=== PATIENT | female | born 1955 | race Caucasian/White ===

== ENCOUNTER 2020-01-20 09:00 | Outpatient (REF) | payer OTHER, SELFPAY | END 2020-01-20 09:01 | disposition home or self-care (01) | LOC: HO.HMGCLDS 09:00 | PROVIDERS: PCP Internal Medicine; Visit Provider Internal Medicine | DX: Z20.828 Contact with and (suspected) exposure to other viral communicable diseases (principal) | CPT/HCPCS: 87635 ==

== ENCOUNTER 2020-03-20 13:51 | Outpatient (REF) | payer OTHER, SELFPAY ==
--- NOTE | 2020-03-20 | MM_ITS ---
EXAMINATION: MM DIAGNOSTIC DIGITAL BREAST TOMOSYNTHESIS, LEFT CLINICAL INFORMATION: Short interval follow-up probable benign calcifications upper outer left breast. No known family history breast cancer. TC score 4%. COMPARISON: Mammography: 09/14/2019, 03/02/2019, 08/28/2018, 08/20/2018 (BI-RADS 0), 07/15/2017, 06/20/2016 TECHNIQUE: Digital breast tomosynthesis is performed in both the craniocaudal and mediolateral oblique views along with computer-aided detection (CAD). Synthesized 2D images are generated from the tomosynthesis. Additional magnification CC and magnification ML views are obtained. FINDINGS: There are scattered areas of fibroglandular density (ACR BI-RADS breast composition Category b). Parenchymal pattern is similar to prior exams. There is fine fibronodular parenchymal pattern. No developing density or interval mass or architectural abnormality. The calcifications for follow-up mid upper outer quadrant are stable from prior diagnostic studies and likely chronic, similar to 2017 and 2016. They will be reassessed again at time of annual bilateral mammography to conclude long-term surveillance, due in 6 months. Results are provided to the patient at time of visit by the technologist. MM/MM tomosynthesis diagnostic LT IMPRESSION: 1. Fine fibronodular parenchymal pattern similar to prior studies. 2. Calcifications for follow-up stable from prior diagnostic studies. ASSESSMENT: BI-RADS 3: Probably Benign RECOMMENDATION: Diagnostic mammography at time of annual bilateral mammography, due in 6 months. This patient's information was entered into a reminder system with a target due date for their next mammogram.
== END 2020-03-20 13:52 | disposition home or self-care (01) ==
LOC: HO.MAMMO 13:51
PROVIDERS: PCP Internal Medicine; Visit Provider Internal Medicine
DX: R92.2 Inconclusive mammogram (principal)
CPT/HCPCS: 77061; 77065

== ENCOUNTER 2020-05-03 07:22 | Outpatient (REF) | payer OTHER, SELFPAY ==
[2020-05-03 11:11] LABS: MANUAL DIFF FLAG NO
[2020-05-03 11:25] LABS: Glucose Urine UA NEG (NEG); Leukocyte Esterase Urine NEG (NEG); Nitrite Urine NEG (NEG); Urine Blood NEG (NEG); Urine Ketones NEG (NEG); Urine Protein NEG (NEG-TRACE)
[2020-05-03 11:29] LABS: Appearance Urine CLEAR; Color Urine YELLOW
[2020-05-03 11:32] LABS: Estimated Average Glucose 105 mg/dL; Hemoglobin A1c % 5.3 %
[2020-05-03 11:34] LABS: Basophils Absolute Auto 0.1 X10*3/uL (0.0-0.2); Basophils Percent Auto 0.9 % (0-2); Eosinophils Absolute Auto 0.1 X10*3/uL (0.0-0.4); Eosinophils Percent Auto 1.7 % (0-4); Hematocrit 37.7 % (37-47); Hemoglobin 11.5 g/dl (12.0-16.0); Imm Gran Abs Auto 0.02 X10*3/uL (0.00-0.03); Imm Gran Pct Auto 0.2 % (0.0-0.4); Lymphocytes Absolute Auto 2.2 X10*3/uL (1.2-4.9); Lymphocytes Percent Auto 25.5 % (20-40); Mean Corpuscular HGB Conc 30.5 g/dl (31.0-35.0); Mean Corpuscular Hemoglobin 25.1 pg (27.0-33.0); Mean Corpuscular Volume 82.1 fL (80-98); Mean Platelet Volume 11.3 fL (9.4-12.3); Monocytes Absolute Auto 0.7 X10*3/uL (0.1-1.2); Monocytes Percent Auto 8.7 % (2-11); Neutrophils Absolute Auto 5.3 X10*3/uL (2.0-8.3); Platelet Count 320 X10*3/uL (160-400); Red Blood Count 4.59 X10*6/uL (4.20-5.50); Red Cell Distribution Width 14.9 % (11.0-16.0); White Blood Count 8.5 X10*3/uL (4.8-10.8)
[2020-05-03 11:59] LABS: TSH reflex Free T4 4.13 uIU/mL (0.32-4.0)
[2020-05-03 12:01] LABS: Alanine Aminotransferase 19 U/L (0-31); Albumin Level 4.1 g/dL (3.5-5.0); Alkaline Phosphatase 80 U/L (39-117); Anion Gap 15 (12-20); Aspartate Amino Transferase 20 U/L (5-31); Bilirubin Total 0.4 mg/dL (0.0-1.0); Blood Urea Nitrogen 24 mg/dL (9-16); Carbon Dioxide 28 mmol/L (22-29); Chloride 104 mmol/L (96-108); Cholesterol 168 mg/dL; Estimated Glomerular Filt Rate > 60; Glucose Fasting 101 mg/dL (60-99); HDL Cholesterol 56 mg/dL; LDL Cholesterol Calculated 86 mg/dl; Potassium 4.1 mmol/L (3.3-5.1); Sodium 143 mmol/L (135-145); Total Protein 6.7 g/dL (6.5-8.0); Triglycerides 131 mg/dL
[2020-05-03 12:20] LABS: Calcium Oxalate Crystals Urine 1+ /LPF; Mucus Urine TRACE /LPF; RBC Urine 0 /HPF (0); Squamous Epithelial Cell Urine TRACE /LPF; WBC Urine 0 /HPF (0-4)
[2020-05-03 12:35] LABS: Free T4 (Free Thyroxine) 0.97 ng/dL (0.71-1.85)
== END 2020-05-03 07:23 | disposition home or self-care (01) ==
LOC: HO.HMGCLDS 07:22
PROVIDERS: PCP Internal Medicine; Visit Provider Internal Medicine
DX: I10 Essential (primary) hypertension (principal); R00.2 Palpitations; R73.01 Impaired fasting glucose; J44.9 Chronic obstructive pulmonary disease, unspecified; K21.9 Gastro-esophageal reflux disease without esophagitis; E66.9 Obesity, unspecified
CPT/HCPCS: 36415; 80053; 80061; 81001; 83036; 84439; 84443; 85025

== ENCOUNTER 2020-08-18 08:37 | Outpatient (REF) | payer OTHER, SELFPAY ==
[2020-08-18 11:48] LABS: Imm Gran Abs Auto 0.04 X10*3/uL (0.00-0.03); Imm Gran Pct Auto 0.5 % (0.0-0.4); Red Blood Count 4.49 X10*6/uL (4.20-5.50); Red Cell Distribution Width 15.9 % (11.0-16.0)
[2020-08-18 11:50] LABS: Basophils Absolute Auto 0.1 X10*3/uL (0.0-0.2); Basophils Percent Auto 0.6 % (0-2); Eosinophils Absolute Auto 0.2 X10*3/uL (0.0-0.4); Eosinophils Percent Auto 2.1 % (0-4); Hematocrit 36.3 % (37-47); Hemoglobin 11.5 g/dl (12.0-16.0); Lymphocytes Absolute Auto 1.6 X10*3/uL (1.2-4.9); Lymphocytes Percent Auto 18.8 % (20-40); Mean Corpuscular HGB Conc 31.7 g/dl (31.0-35.0); Mean Corpuscular Hemoglobin 25.6 pg (27.0-33.0); Mean Corpuscular Volume 80.8 fL (80-98); Monocytes Absolute Auto 0.7 X10*3/uL (0.1-1.2); Monocytes Percent Auto 7.8 % (2-11); Neutrophils Absolute Auto 5.9 X10*3/uL (2.0-8.3); Neutrophils Percent Auto 70.2 % (45-73); Platelet Count 278 X10*3/uL (160-400); White Blood Count 8.4 X10*3/uL (4.8-10.8)
[2020-08-18 12:03] LABS: Alanine Aminotransferase 20 U/L (0-31); Alkaline Phosphatase 76 U/L (39-117); Anion Gap 15 (12-20); Aspartate Amino Transferase 21 U/L (5-31); Bilirubin Total 0.4 mg/dL (0.0-1.0); Blood Urea Nitrogen 24 mg/dL (9-16); Carbon Dioxide 25 mmol/L (22-29); Chloride 106 mmol/L (96-108); Cholesterol 185 mg/dL; Estimated Glomerular Filt Rate > 60; Glucose Fasting 107 mg/dL (60-99); HDL Cholesterol 60 mg/dL; LDL Cholesterol Calculated 103 mg/dl; Sodium 142 mmol/L (135-145); Total Protein 6.6 g/dL (6.5-8.0); Triglycerides 110 mg/dL
[2020-08-18 12:16] LABS: MANUAL DIFF FLAG NO; PLT ABN DIST NO; SCAN SMEAR FLAG NO
== END 2020-08-18 08:38 | disposition home or self-care (01) ==
LOC: HO.HMGCLDS 08:37
PROVIDERS: PCP Internal Medicine; Visit Provider Internal Medicine
DX: M16.12 Unilateral primary osteoarthritis, left hip (principal); K59.00 Constipation, unspecified; K21.9 Gastro-esophageal reflux disease without esophagitis; J44.9 Chronic obstructive pulmonary disease, unspecified; R73.01 Impaired fasting glucose; I10 Essential (primary) hypertension
CPT/HCPCS: 36415; 80053; 80061; 85025

== ENCOUNTER 2020-08-18 10:37 | Outpatient (REF) | payer OTHER, SELFPAY ==
--- NOTE | ~2020-08-18 | XR_ITS ---
EXAMINATION: XR HIP, LEFT CLINICAL INFORMATION: Pain left hip COMPARISON: None TECHNIQUE: AP one view. Two views of the left hip. FINDINGS: AP PELVIS: There is normal symmetry of bilateral hip joints and SI joints. No visible fracture, dislocation or subluxation seen. No bony abnormality seen. AP and frog-leg views of left hip reveal moderate lateral acetabular inferior femoral head spurring. No bony erosive changes. No acute fracture or lytic process seen. The soft tissues are normal. XR/XR hip LT w PEL1V IMPRESSION: Mild degenerative changes left hip joint. No visible acute fracture or dislocation seen. The SI joints are symmetrical and normal. The right hip joint is normal.
== END 2020-08-18 10:38 | disposition home or self-care (01) ==
LOC: HO.HOSX 10:37
PROVIDERS: Visit Provider Orthopaedic Surgery
DX: M25.552 Pain in left hip (principal)
CPT/HCPCS: 73502

== ENCOUNTER → 2020-08-22 08:44 | Outpatient (BNVA) | payer OTHER, SELFPAY | PROVIDERS: PCP Internal Medicine; Visit Provider Nurse Practitioner Family ==

== ENCOUNTER 2020-09-18 12:18 | Outpatient (REF) | payer OTHER, SELFPAY ==
--- NOTE | ~2020-09-18 | MM_ITS ---
EXAMINATION: MM DIAGNOSTIC DIGITAL BREAST TOMOSYNTHESIS, BILATERAL CLINICAL INFORMATION: Right breast nodular densities. Left breast calcifications. The lifetime risk of breast cancer based on the Tyrer-Cuzick Model is 4.8%. COMPARISON: Mammography: March 20, 2020 and May 12, 2015 TECHNIQUE: Digital breast tomosynthesis is performed in both the craniocaudal and mediolateral oblique views along with computer-aided detection (CAD). Synthesized 2D images are generated from the tomosynthesis. Spot magnification views left breast in craniocaudal and 90 degree mediolateral views. FINDINGS: There are scattered areas of fibroglandular density (ACR BI-RADS breast composition Category b). There is a stable parenchymal pattern to the right breast without new abnormal dominant mass or suspicious grouping of microcalcifications. Within the upper outer aspect of the left breast the calcifications appear essentially stable. There is a change in appearance between craniocaudal and 90 degree mediolateral views with the appearance of calcium within microcysts. Results are provided to the patient at time of visit by the technologist. MM/MM tomosynthesis diagnostic BI IMPRESSION: There are no significant changes from prior study. ASSESSMENT: BI-RADS 2: Benign RECOMMENDATION: Routine annual mammography screening due in 12 months. This patient's information was entered into a reminder system with a target due date for their next mammogram.
== END 2020-09-18 12:19 | disposition home or self-care (01) ==
LOC: HO.MAMMO 12:18
PROVIDERS: Visit Provider Internal Medicine
DX: R92.1 Mammographic calcification found on diagnostic imaging of breast (principal)
CPT/HCPCS: 77062; 77066

== ENCOUNTER 2020-09-21 13:00 | Outpatient (REF) | payer OTHER, SELFPAY ==
--- NOTE | ~2020-09-21 | FL_ITS ---
PROCEDURE: XR ARTHROGRAM HIP, LEFT CLINICAL INFORMATION: Primary osteoarthritis left hip. COMPARISON: XR left hip 08/18/2020. TECHNIQUE: Following explaining left hip steroid injection procedure, benefits and risk, a written consent was obtained. Patient was placed supine on fluoroscopy table and anterior aspect of the left hip joint was cleaned and draped in usual sterile manner. 1% lidocaine was injected overlying the left hip. A 22-gauge spinal needle was then advanced from the skin to the lateral aspect of femoral head and neck junction and 2 mL of nonionic contrast was injected and a single image obtained. Initially the contrast appeared to be in the subcutaneous soft tissues. Subsequently the needle was manipulated into the joint space. After confirming position of needle into the joint space, 3 mL of 1% lidocaine, 3 mL of 0.25% Sensorcaine and 1 mL of 80 mg of methylprednisolone was injected and needle withdrawn. Complete hemostasis was achieved at puncture site. Sterile Band-Aid applied postprocedure. Patient tolerated procedure extremely well. FINDINGS: There is significant loss of left hip joint space with minimal periarticular spurring. No fracture or loose body seen. Successful fluoroscopy-guided left hip steroid injection performed. FLUOROSCOPY TIME: 2.3 minutes. DOSE AREA PRODUCT: 16.892 uGy-m2 (microgray-meter squared). FL/FL arthrogram hip LT IMPRESSION: Successful fluoroscopy-guided left hip steroid injection performed without immediate complications.
== END 2020-09-21 13:01 | disposition home or self-care (01) ==
LOC: HO.XRAY 13:00
PROVIDERS: PCP Internal Medicine; Visit Provider Orthopaedic Surgery
DX: M16.12 Unilateral primary osteoarthritis, left hip (principal)
CPT/HCPCS: 27093; 73525

== ENCOUNTER 2021-02-02 08:02 | Outpatient (REF) | payer OTHER, SELFPAY ==
--- NOTE | ~2021-02-02 | XR_ITS ---
EXAMINATION: XR CHEST CLINICAL INFORMATION: Cough COMPARISON: Previous chest x-ray August 2018 TECHNIQUE: 2 views of the chest were obtained. FINDINGS: The cardiac and mediastinal contours are stable. The lungs are clear. There is no pleural effusion or pneumothorax. There are degenerative changes of the spine. XR/XR chest 2V IMPRESSION: Unremarkable examination.
[2021-02-02 11:23] LABS: MANUAL DIFF FLAG NO
[2021-02-02 11:34] LABS: Basophils Absolute Auto 0.1 X10*3/uL (0.0-0.2); Eosinophils Absolute Auto 0.1 X10*3/uL (0.0-0.4); Eosinophils Percent Auto 1.1 % (0-4); Hematocrit 40.4 % (37.0-47.0); Hemoglobin 14.1 g/dl (12.0-16.0); Imm Gran Abs Auto 0.04 X10*3/uL (0.00-0.03); Imm Gran Pct Auto 0.5 % (0.0-0.4); Lymphocytes Absolute Auto 1.8 X10*3/uL (1.2-4.9); Lymphocytes Percent Auto 21.5 % (20-40); Mean Corpuscular HGB Conc 34.9 g/dl (31.0-35.0); Mean Corpuscular Hemoglobin 30.9 pg (27.0-33.0); Mean Corpuscular Volume 88.6 fL (80.0-98.0); Mean Platelet Volume 12.5 fL (9.4-12.3); Monocytes Absolute Auto 0.7 X10*3/uL (0.1-1.2); Monocytes Percent Auto 7.9 % (2-11); Neutrophils Absolute Auto 5.7 x10*3/uL (2.0-8.3); Platelet Count 278 X10*3/uL (160-400); Red Blood Count 4.56 X10*6/uL (4.20-5.50); Red Cell Distribution Width 12.8 % (11.0-16.0); White Blood Count 8.4 X10*3/uL (4.8-10.8)
[2021-02-02 11:48] LABS: Appearance Urine CLEAR; Color Urine YELLOW; Glucose Urine UA NEG (NEG); Leukocyte Esterase Urine NEG (NEG); Nitrite Urine NEG (NEG); PH 6.5 (5.0-8.0); Specific Gravity - Urine 1.015 (1.005-1.025); Urine Blood NEG (NEG); Urine Ketones NEG (NEG); Urine Protein TRACE MG/DL (NEG-TRACE)
[2021-02-02 12:05] LABS: Alanine Aminotransferase 18 U/L (0-31); Albumin Level 3.9 g/dL (3.5-5.0); Alkaline Phosphatase 76 U/L (39-117); Anion Gap 15 (12-20); Aspartate Amino Transferase 19 U/L (5-31); Bilirubin Total 0.7 mg/dL (0.0-1.0); Blood Urea Nitrogen 16 mg/dL (9-16); Carbon Dioxide 24 mmol/L (22-29); Chloride 106 mmol/L (96-108); Cholesterol 165 mg/dL; Estimated Glomerular Filt Rate > 60; Glucose Fasting 112 mg/dL (60-99); HDL Cholesterol 54 mg/dL; LDL Cholesterol Calculated 87 mg/dl; Potassium 3.9 mmol/L (3.3-5.1); Sodium 141 mmol/L (135-145); Total Protein 6.6 g/dL (6.5-8.0); Triglycerides 120 mg/dL
[2021-02-02 12:07] LABS: TSH reflex Free T4 2.35 uIU/mL (0.32-4.0); Vitamin D 25-OH Total 60.4 ng/mL (>30)
[2021-02-02 13:04] LABS: Erythrocyte Sedimentation Rate 21 MM/HR (0-20)
== END 2021-02-02 08:03 | disposition home or self-care (01) ==
LOC: HO.HMGCX 08:02
PROVIDERS: PCP Internal Medicine; Visit Provider Internal Medicine
DX: R05.8 Other specified cough (principal); E78.00 Pure hypercholesterolemia, unspecified; I10 Essential (primary) hypertension; E55.9 Vitamin D deficiency, unspecified; M16.12 Unilateral primary osteoarthritis, left hip
CPT/HCPCS: 36415; 71046; 80053; 80061; 81003; 82306; 84443; 85025; 85652

== ENCOUNTER 2021-03-08 16:17 | Emergency (ER) | payer OTHER, SELFPAY ==
--- NOTE | ~2021-03-08 | CT_ITS ---
EXAMINATION: CT HEAD WITHOUT CONTRAST CLINICAL INFORMATION: Hypertensive. COMPARISON: Multiple priors. Most recent MR of the brain dated from 04/26/2019. TECHNIQUE: Contiguous axial imaging was performed from the skull base to vertex without intravenous administration of contrast. This CT examination was performed using dose optimization techniques as appropriate, variously including the following: *Automated exposure control *Adjustment of mA and/or kV according to patient size (this includes techniques or standardized protocols for targeted exams where dose is matched to indication/reason for exam; i.e. extremities or head) *Use of iterative reconstruction technique DLP: 637 mGy-cm FINDINGS: There is no evidence of acute intracranial hemorrhage or edematous territorial infarction. A few foci of hypoattenuation in the periventricular and deep white matter are consistent with mild microangiopathy. Dee-white matter differentiation is preserved. The ventricles are normal in size and configuration. No evidence for obstructive hydrocephalus. No abnormal mass effect or midline shift. No extra-axial fluid collections. No acute soft tissue or osseous abnormalities. The mastoid air cells and paranasal sinuses are clear. CT/CT head/brain wo con IMPRESSION: No evidence of acute intracranial hemorrhage or edematous territorial infarction.
[2021-03-08 16:25] VITALS: BP 205/90; PULSE 74; RESP 20; TEMP 36.3; O2SAT 97; BMI 39.1
--- NOTE | 2021-03-08 16:30 | ECG_ITS ---
Test Reason : HIGH BLOOD PRESSURE Blood Pressure : / mmHG Vent. Rate : 067 BPM Atrial Rate : 067 BPM P-R Int : 160 ms QRS Dur : 094 ms QT Int : 456 ms P-R-T Axes : 071 018 047 degrees QTc Int : 481 ms Normal sinus rhythm Normal ECG When compared with ECG of 29-AUG-2018 10:31, No significant change was found Referred By: Generic ED Physician Electronically Signed By:MINA ROMERO MD
[2021-03-08 17:38] VITALS: BP 200/84; PULSE 68; RESP 20; TEMP 36.6; O2SAT 99
[2021-03-08 17:45] LABS: MANUAL DIFF FLAG NO
[2021-03-08 17:47] LABS: Basophils Absolute Auto 0.1 X10*3/uL (0.0-0.2); Basophils Percent Auto 0.6 % (0-2); Eosinophils Absolute Auto 0.1 X10*3/uL (0.0-0.4); Hemoglobin 13.8 g/dl (12.0-16.0); Imm Gran Abs Auto 0.06 X10*3/uL (0.00-0.03); Imm Gran Pct Auto 0.5 % (0.0-0.4); Lymphocytes Absolute Auto 2.6 X10*3/uL (1.2-4.9); Lymphocytes Percent Auto 23.8 % (20-40); Mean Corpuscular HGB Conc 34.5 g/dl (31.0-35.0); Mean Corpuscular Hemoglobin 30.9 pg (27.0-33.0); Mean Corpuscular Volume 89.5 fL (80.0-98.0); Mean Platelet Volume 9.9 fL (9.4-12.3); Monocytes Absolute Auto 0.9 X10*3/uL (0.1-1.2); Monocytes Percent Auto 8.1 % (2-11); Neutrophils Absolute Auto 7.3 x10*3/uL (2.0-8.3); Platelet Count 249 X10*3/uL (160-400); Red Blood Count 4.47 X10*6/uL (4.20-5.50); Red Cell Distribution Width 12.3 % (11.0-16.0); White Blood Count 11.1 X10*3/uL (4.8-10.8)
[2021-03-08 18:05] LABS: Alanine Aminotransferase 20 U/L (0-31); Alkaline Phosphatase 79 U/L (39-117); Anion Gap 11 (12-20); Aspartate Amino Transferase 20 U/L (5-31); Bilirubin Total 0.4 mg/dL (0.0-1.0); Blood Urea Nitrogen 16 mg/dL (9-16); Calcium 9.5 mg/dL (8.4-10.2); Carbon Dioxide 31 mmol/L (22-29); Chloride 103 mmol/L (96-108); Creatinine Clr Calc Pharmacy 88.3; Estimated Glomerular Filt Rate > 60; Glucose Random 82 mg/dL (60-115); Potassium 4.1 mmol/L (3.3-5.1); Sodium 141 mmol/L (135-145); Total Protein 6.7 g/dL (6.5-8.0)
[2021-03-08 18:14] LABS: Troponin-I High Sensitivity 4.6 ng/L (<3.5-17.0)
--- NOTE | 2021-03-08 18:14 | ED.GENADULT ---
HPI - General Adult General Chief complaint: General Medical Stated complaint: blood pressure elevated in drs office Time Seen by Provider: 03/08/21 19:27 Source: patient Mode of arrival: ambulatory Limitations: no limitations History of Present Illness HPI narrative: 65-year-old female presents to ED for elevated blood pressure and headache. Patient states since this morning she has had a slight headache and checked her blood pressure multiple times and was elevated with systolic 190. Patient denied missing any of her blood pressure medication. Patient denies facial droop, slurred speech, chest pain, shortness of breath, paralysis of extremities, loss of vision, dizziness, nausea, or vomiting. Patient was sent from primary care provider for elevated blood pressure. Patient denies any abdominal pain. Related Data Home Medications Medication Instructions Recorded Confirmed budesonide 180 mcg/actuation 1 inh PO BID 04/17/20 03/08/21 breath activated powder inhaler Previous Rx's Medication Instructions Recorded budesonide 180 mcg/actuation 1 inh PO BID #1 ea 09/22/20 breath activated powder inhaler (Pulmicort Flexhaler) pantoprazole 40 mg tablet,delayed 40 mg PO DAILY PRN 90 Days #90 tab 09/27/20 release metoprolol succinate 25 mg 25 mg PO DAILY #90 tab 11/03/20 tablet,extended release 24 hr duloxetine 60 mg capsule,delayed 60 mg PO DAILY #90 cap 11/15/20 release montelukast 10 mg tablet 10 mg PO BEDTIME #90 tab 11/16/20 hydrochlorothiazide 25 mg tablet 25 mg PO QAM #90 tab 11/17/20 losartan 100 mg tablet 100 mg PO DAILY #90 tab 11/17/20 tramadol 50 mg tablet 50 mg PO TID PRN 30 Days #90 tab 02/20/21 Allergies Allergy/AdvReac Type Severity Reaction Status Date / Time No Known Allergies Allergy Verified 03/08/21 15:51 [No Known Allergies*] Review of Systems Constitutional: Constitutional: Reports as per HPI, Reports no additional constitutional complaints and Reports headache(s) Eyes: Eyes: Reports as per HPI and Reports no additional eye complaints ENT: Reports system reviewed and no additional complaints, except as documented, Reports as per HPI and Reports headache(s) Cardiovascular: Cardiovascular: Reports as per HPI and Reports no additional cardiovascular complaints Respiratory: Respiratory: Reports as per HPI and Reports no additional respiratory complaints Gastrointestinal: Gastrointestinal: Reports as per HPI and Reports no additional gastrointestinal complaints Genitourinary: Genitourinary: Reports no additional female genitourinary complaints and Reports as per HPI Musculoskeletal: Musculoskeletal: Reports no additional musculoskeletal complaints and Reports as per HPI Neurologic: Reports system reviewed and no additional complaints, except as documented, Reports as per HPI and Reports headache(s) Psychiatric: Psychiatric: Reports no additional psychiatric complaints and Reports as per HPI COUNTS INCLUDE 234 BEDS AT THE [facility] Past Medical History Medical History Allergic rhinitis Benign essential hypertension Constipation COPD (chronic obstructive pulmonary disease) Deep left inguinal pain Degenerative joint disease of left hip Depression GERD without esophagitis Impaired fasting glucose Lumbar degenerative disc disease Obesity (BMI 30-39.9) Palpitations Tenosynovitis of thumb Surgical History History of appendectomy History of laparoscopic cholecystectomy History of left knee surgery History of removal of cyst History of surgery History of total abdominal hysterectomy and bilateral salpingo-oophorectomy Family History Family History (Updated 03/08/21 @ 15:43 by Sussy Mayfield) Father CHF (congestive heart failure) Colon cancer Hypertension CVD (cardiovascular disease) Mother CVD (cardiovascular disease) Social History Social History Housing: House Alcohol intake: never Patient Tobacco Use Status: Former Tobacco user Second Hand Smoke Exposure: Yes Use of substances other than those prescribed or required for medical reasons: No Advance Directives: No Advance Directives Information Provided: No Current occupational status: disabled Physical Exam Vital Signs: Vital Signs: Last Vital Signs Temp 98 F 03/08/21 17:38 Pulse 65 03/08/21 19:42 Resp 20 03/08/21 17:38 BP 168/79 H 03/08/21 19:42 Pulse Ox 99 03/08/21 17:38 BMI result Body Mass Index 39.1 Const: General: cooperative, healthy appearing, comfortable, no acute distress, well developed, alert, awake and Physically active Orientation/consciousness: patient oriented x3 HENMT: Head: Yes normal to inspection, Yes No palpable skull fracture present, Yes normocephalic and Yes atraumatic Eyes: General: appearance normal, both eyes and all related structures Neck: Neck: Yes normal visual inspection, Yes full ROM, Yes no lymphadenopathy, Yes no meningeal signs, Yes trachea midline, Yes supple, No anterior neck swelling and No tender Chest: Chest palpation & inspection: normal inspection of the chest and normal palpation of entire chest wall Resp: Effort & Inspection: normal respiratory effort and able to speak in complete sentences Auscultation: clear to auscultation bilaterally Cardio: Jugular venous distension: no JVD Heart sounds: S1 normal heart sound present and S2 normal heart sound present GI: Inspection: Yes normal to inspection and No abdominal wall ecchymosis Palpation (GI): Soft to palpation, not firm, nontender, no guarding and not rigid : General: No CVA tenderness and Yes no CVA tenderness Back/Spine/Pelvis: Back: no CVA tenderness, No CVA tenderness and No back tenderness Skin: General skin exam: no rashes or lesions noted and elasticity normal Neuro: Other: Negative nystagmus. Negative facial droop. Negative slurred speech. All extremities equal strength 5+. [id number] and rapid have movement intact. Negative Romberg. Negative pronator drift General: patient oriented x3, gait normal, no meningeal signs and CN's II-XI intact bilaterally Cranial nerves: Yes CN's II-XII intact bilaterally NIH Stroke Scale Level of Consciousness: Alert Level of Consciousness Questions: Answers both questions correctly Level of Consciousness Commands: Performs both tasks correctly Best Gaze: Normal Visual: No visual loss Facial Palsy: Normal Motor Arm (Right): No drift Motor Arm (Left): No drift Motor Leg (Right): No drift Motor Leg (Left): No drift Limb Ataxia: Absent Sensory: Normal Best Language: No aphasia Dysarthia: Normal Extinction and Inattention: No abnormality Score: 0 Course Course Course Narrative: Negative for any neuro deficits. Will do a head CT due to elevated blood pressure EKG will and 1 troponin since patient having symptoms since this morning. Patient states actually headache has significantly improved and just came to the ED due to a primary care provider recommendation. Reevaluation(s) Reevaluation #1: EKG negative STEMI. Kidney function normal. Troponin normal. Head CT negative for stroke or bleed. Patient informed to follow-up with primary care provider for possible adjustment of her blood pressure medication. Presently no stroke or CT. patient informed and educated on stroke-like and cardiac symptoms and told to return to the ED immediately she has been. Patient's headache resolved without any pain medication Time: 20:17 Medical Decision Making MDM Narrative Medical decision making narrative: Hypertension. Lab Data Result diagrams: 03/08/21 17:32 03/08/21 17:32 Labs: Lab Results 03/08/21 03/08/21 03/08/21 Range/Units 17:32 17:32 17:32 WBC 11.1 H (4.8-10.8) X10*3/uL RBC 4.47 (4.20-5.50) X10*6/uL Hgb 13.8 (12.0-16.0) g/dl Hct 40.0 (37.0-47.0) % MCV 89.5 (80.0-98.0) fL MCH 30.9 (27.0-33.0) pg MCHC 34.5 (31.0-35.0) g/dl RDW 12.3 (11.0-16.0) % Plt Count 249 (160-400) X10*3/uL MPV 9.9 (9.4-12.3) fL Immature Gran % (Auto) 0.5 H (0.0-0.4) % Neut % (Auto) 66.0 (45-73) % Lymph % (Auto) 23.8 (20-40) % [place] % (Auto) 8.1 (2-11) % Eos % (Auto) 1.0 (0-4) % Baso % (Auto) 0.6 (0-2) % Lymph # (Auto) 2.6 (1.2-4.9) X10*3/uL [place] # (Auto) 0.9 (0.1-1.2) X10*3/uL Eos # (Auto) 0.1 (0.0-0.4) X10*3/uL Baso # (Auto) 0.1 (0.0-0.2) X10*3/uL Abs Immat Gran (auto) 0.06 H (0.00-0.03) X10*3/uL Absolute Neuts (auto) 7.3 (2.0-8.3) x10*3/uL Absolute Nucleated RBC 0.000 (0.0-0.012) X10*3/uL Nucleated RBC % (auto) 0.0 (0.0-0.2) /100WBC Sodium 141 (135-145) mmol/L Potassium 4.1 (3.3-5.1) mmol/L Chloride 103 (96-108) mmol/L Carbon Dioxide 31 H (22-29) mmol/L Anion Gap 11 L (12-20) BUN 16 (9-16) mg/dL Creatinine 0.76 (0.5-1.4) mg/dL Estim Creat Clear Calc 88.3 Estimated GFR > 60 Random Glucose 82 (60-115) mg/dL Calcium 9.5 (8.4-10.2) mg/dL Total Bilirubin 0.4 (0.0-1.0) mg/dL AST 20 (5-31) U/L ALT 20 (0-31) U/L Alkaline Phosphatase 79 (39-117) U/L Troponin I High Sens 4.6 (<3.5-17.0) ng/L Total Protein 6.7 (6.5-8.0) g/dL Albumin 4.0 (3.5-5.0) g/dL ECG Data Interpretation: Normal sinus rhythm. Ventricular rate 65. Pr interval 166. QRS 94 pr QTC 472. Negative STEMI Discharge Plan Discharge Clinical Impression: Hypertension Patient Disposition: Home, Self-Care Instructions: Hypertension (ED) Additional Instructions: Your blood pressure improved during ED visit. EKG and blood work came back negative for heart attack. Her head CT scan came back normal negative for bleeding or stroke. Please follow-up with primary care provider for adjustment of her high blood pressure medication. Return to the ED immediately for any weakness, dizziness, slurred speech, facial droop, paralysis of extremities, nausea, vomiting, loss of vision, chest pain, shortness of breath, or any other concerning symptoms. Prescriptions: No Action budesonide [Pulmicort Flexhaler] 180 mcg/actuation aerosol powdr breath activated 1 inh PO BID Qty: 1 RF: 3 pantoprazole 40 mg tablet,delayed release (DR/EC) 40 mg PO DAILY PRN (Reason: GERD) 90 Days Qty: 90 RF: 3 metoprolol succinate 25 mg tablet extended release 24 hr 25 mg PO DAILY Qty: 90 RF: 1 duloxetine 60 mg capsule,delayed release(DR/EC) 60 mg PO DAILY Qty: 90 RF: 1 montelukast 10 mg tablet 10 mg PO BEDTIME Qty: 90 RF: 1 losartan 100 mg tablet 100 mg PO DAILY Qty: 90 RF: 3 hydrochlorothiazide 25 mg tablet 25 mg PO QAM Qty: 90 RF: 3 tramadol 50 mg tablet 50 mg PO TID PRN (Reason: pain) 30 Days Qty: 90 RF: 0 Pulmicort Flexhaler 180 mcg/actuation aerosol powdr breath activated 1 inh PO BID RF: 0 Stand Alone Forms: Work/School Release Interventions: ED Discharge Assessment Last Done: 03/08/21 20:26 Discharge Date/Time: 03/08/21 20:27 Print Language: [place]
[2021-03-08] MEDS: cloNIDine HCL 0.2 MG TABLET PO (18:51)
[2021-03-08 19:42] VITALS: BP 168/79; PULSE 65
--- NOTE | 2021-03-08 19:45 | PC.NURSE ---
pt a&o, no sob or chest pain. pt reports headache has gotten much better. Blood pressure trending down. Provider is aware.
== END 2021-03-08 20:27 | disposition home or self-care (01) ==
PROVIDERS: Emergency Provider Emergency Medicine; PCP Internal Medicine
DX: I10 Essential (primary) hypertension (principal); R51.9 Headache, unspecified
CPT/HCPCS: 36415; 70450; 80053; 84484; 85025; 93005; 99284

== ENCOUNTER 2021-04-17 14:47 | Outpatient (REF) | payer OTHER, SELFPAY ==
[2021-04-22 13:32] LABS: Metanephrine, Free 43 pg/mL (<=57); Normetanephrines, Free 184 pg/mL (<=148); Total Metanephrine, Free 227 pg/mL (<=205)
== END 2021-04-17 14:48 | disposition home or self-care (01) ==
LOC: HO.HMGCLDS 14:47
PROVIDERS: PCP Internal Medicine; Visit Provider Internal Medicine
DX: I10 Essential (primary) hypertension (principal)
CPT/HCPCS: 36415; 83835

== ENCOUNTER 2021-05-03 09:31 | Outpatient (REF) | payer OTHER, SELFPAY ==
--- NOTE | ~2021-05-03 | US_ITS ---
EXAMINATION: US RETROPERITONEAL LIMITED (RENAL ONLY) US RENAL DOPPLER CLINICAL INFORMATION: Essential primary hypertension. COMPARISON: Ultrasound and CT abdomen and pelvis 08/29/2018. TECHNIQUE: Routine grayscale imaging of the kidneys was obtained. In addition, renal color, Doppler and grayscale imaging of the kidneys was performed. FINDINGS: RIGHT KIDNEY: 12.0 x 5.6 x 6.9 cm (SAG x AP x TRV). The kidney is normal in size, contour, and echogenicity. Renal cortical thickness is normal. No calculi or focal parenchymal lesions. No hydronephrosis. LEFT KIDNEY: 12.4 x 6.0 x 4.5 cm (SAG x AP x TRV). The kidney is normal in size, contour, and echogenicity. Renal cortical thickness is normal. No calculi or focal parenchymal lesions. No hydronephrosis. On renal Doppler exam: Right Kidney: Peak systolic velocity of the proximal renal artery measures 158 cm/s, mid segment measures 163 cm/s, and distal segment measures 105 cm/s. RAR measures 1.63. Average segmental resistive index (RI) measures less than 0.80. Left Kidney: Peak systolic velocity of the proximal renal artery measures 83 cm/s, mid segment measures 116 cm/s, and distal segment measures 112 cm/s. RAR measures 1.16. Average segmental resistive index (RI) measures less than 0.80. US/US renal doppler IMPRESSION: Unremarkable renal ultrasound. No renal aortic stenosis seen on Doppler exam.
--- NOTE | ~2021-05-03 | US_ITS ---
EXAMINATION: US RETROPERITONEAL LIMITED (RENAL ONLY) US RENAL DOPPLER CLINICAL INFORMATION: Essential primary hypertension. COMPARISON: Ultrasound and CT abdomen and pelvis 08/29/2018. TECHNIQUE: Routine grayscale imaging of the kidneys was obtained. In addition, renal color, Doppler and grayscale imaging of the kidneys was performed. FINDINGS: RIGHT KIDNEY: 12.0 x 5.6 x 6.9 cm (SAG x AP x TRV). The kidney is normal in size, contour, and echogenicity. Renal cortical thickness is normal. No calculi or focal parenchymal lesions. No hydronephrosis. LEFT KIDNEY: 12.4 x 6.0 x 4.5 cm (SAG x AP x TRV). The kidney is normal in size, contour, and echogenicity. Renal cortical thickness is normal. No calculi or focal parenchymal lesions. No hydronephrosis. On renal Doppler exam: Right Kidney: Peak systolic velocity of the proximal renal artery measures 158 cm/s, mid segment measures 163 cm/s, and distal segment measures 105 cm/s. RAR measures 1.63. Average segmental resistive index (RI) measures less than 0.80. Left Kidney: Peak systolic velocity of the proximal renal artery measures 83 cm/s, mid segment measures 116 cm/s, and distal segment measures 112 cm/s. RAR measures 1.16. Average segmental resistive index (RI) measures less than 0.80. US/US renal BI IMPRESSION: Unremarkable renal ultrasound. No renal aortic stenosis seen on Doppler exam.
== END 2021-05-03 09:32 | disposition home or self-care (01) ==
LOC: HO.HMGCX 09:31
PROVIDERS: PCP Internal Medicine; Visit Provider Internal Medicine
DX: I10 Essential (primary) hypertension (principal)
CPT/HCPCS: 76775; 93975

== ENCOUNTER 2021-07-19 13:42 | Outpatient (REF) | payer OTHER, SELFPAY ==
[2021-07-19 17:14] LABS: Influenza A PCR POSITIVE (Negative); Influenza B PCR NEGATIVE (Negative); Resp Syncy Virus RNA Qual PCR NEGATIVE (Negative); SARS COV2 PCR INHOUSE NEGATIVE (Negative)
== END 2021-07-19 13:43 | disposition home or self-care (01) ==
LOC: HO.LAB 13:42
PROVIDERS: Visit Provider Nurse Practitioner Acute Care
DX: Z20.822 Contact with and (suspected) exposure to COVID-19 (principal); R68.89 Other general symptoms and signs
CPT/HCPCS: 0241U

== ENCOUNTER 2021-07-19 13:43 | Outpatient (REF) | payer OTHER, SELFPAY ==
--- NOTE | ~2021-07-19 | XR_ITS ---
EXAMINATION: XR CHEST CLINICAL INFORMATION: Cough. COMPARISON: None TECHNIQUE: 2 views of the chest were obtained. FINDINGS: No significant abnormality is noted involving the heart, lungs, mediastinum, bony thorax or soft tissues. XR/XR chest 2V IMPRESSION: Unremarkable chest examination.
== END 2021-07-19 13:44 | disposition home or self-care (01) ==
LOC: HO.HMGCX 13:43
PROVIDERS: Visit Provider Nurse Practitioner Acute Care
DX: R05.9 Cough, unspecified (principal)
CPT/HCPCS: 71046

== ENCOUNTER 2021-09-06 07:28 | Outpatient (REF) | payer OTHER, SELFPAY ==
--- NOTE | ~2021-09-06 | MM_ITS ---
EXAMINATION: MM SCREENING DIGITAL BREAST TOMOSYNTHESIS, BILATERAL CLINICAL INFORMATION: Screening. Asymptomatic. The lifetime risk of breast cancer based on the Tyrer-Cuzick Model is 3%. COMPARISON: Mammography: 09/18/2020, 03/20/2020, 09/14/2019, 03/02/2019, 08/28/2018, 08/20/2018 TECHNIQUE: Digital breast tomosynthesis is performed in both the craniocaudal and mediolateral oblique views along with computer-aided detection (CAD). Synthesized 2D images are generated from the tomosynthesis. FINDINGS: There are scattered areas of fibroglandular density (ACR BI-RADS breast composition Category b). Fine fibronodular parenchymal pattern is similar to prior studies. There is no developing density or interval dominant nodule. There is no significant mass or architectural abnormality. Again, there are punctate calcifications similar in number and distribution to prior studies. The axilla and skin contours are unremarkable. MM/MM tomosynthesis screening BI IMPRESSION: No significant changes from prior exams. ASSESSMENT: BI-RADS 2: Benign RECOMMENDATION: Routine annual mammography screening. This patient's information was entered into a reminder system with a target due date for their next mammogram.
== END 2021-09-06 07:29 | disposition home or self-care (01) ==
LOC: HO.MAMMO 07:28
PROVIDERS: PCP Internal Medicine; Visit Provider Internal Medicine
DX: Z12.31 Encounter for screening mammogram for malignant neoplasm of breast (principal)
CPT/HCPCS: 77063; 77067

== ENCOUNTER 2021-12-11 14:26 | Outpatient (REF) | payer OTHER, SELFPAY ==
[2021-12-11 16:54] LABS: Appearance Urine Clear; Color Urine Yellow; Glucose Urine UA Negative (Negative); Leukocyte Esterase Urine Trace (Negative); Nitrite Urine Negative (Negative); PH 6.5 (5.0-9.0); Specific Gravity - Urine 1.015 (1.005-1.025); UMIC TRIGGER UA YES; Urine Blood Negative (Negative); Urine Ketones Negative (Negative); Urine Protein Negative (Neg-Trace)
[2021-12-11 16:56] LABS: Bacteria Urine None Seen (None Seen); Hyaline Casts Urine 0-2 /LPF (0-2); RBC Urine 0-2 /HPF (0-2); Squamous Epithelial Cell Urine 0-2 /HPF (0-2); WBC Urine 0-5 /HPF (0-5)
[2021-12-11 17:02] LABS: Anion Gap 14 (12-20); Blood Urea Nitrogen 16 mg/dL (9-16); Calcium 9.4 mg/dL (8.4-10.2); Carbon Dioxide 29 mmol/L (22-29); Chloride 100 mmol/L (96-108); Estimated Glomerular Filt Rate > 60; Sodium 139 mmol/L (135-145)
[2021-12-11 21:00] LABS: Creatinine Urine 68.08 mg/dL; Microalbumin Urine < 5.0 mg/L; Total Protein Urine Random < 7 mg/dL (<12)
== END 2021-12-11 14:27 | disposition home or self-care (01) ==
LOC: HO.HMGCLDS 14:26
PROVIDERS: PCP Internal Medicine; Visit Provider Internal Medicine Nephrology
DX: I10 Essential (primary) hypertension (principal)
CPT/HCPCS: 36415; 80051; 81001; 82043; 82310; 82565; 84156; 84520

== ENCOUNTER 2022-02-02 07:40 | Outpatient (REF) | payer OTHER, SELFPAY ==
[2022-02-02 07:53] LABS: MANUAL DIFF FLAG NO
[2022-02-02 08:14] LABS: Basophils Absolute Auto 0.1 X10*3/uL (0.0-0.2); Basophils Percent Auto 0.7 % (0-2); Eosinophils Absolute Auto 0.1 X10*3/uL (0.0-0.4); Hematocrit 33.7 % (37.0-47.0); Hemoglobin 11.1 g/dl (12.0-16.0); Imm Gran Abs Auto 0.03 X10*3/uL (0.00-0.03); Imm Gran Pct Auto 0.4 % (0.0-0.4); Lymphocytes Absolute Auto 0.8 X10*3/uL (1.2-4.9); Lymphocytes Percent Auto 12.2 % (20-40); Mean Corpuscular HGB Conc 32.9 g/dl (31.0-35.0); Mean Corpuscular Hemoglobin 28.2 pg (27.0-33.0); Mean Corpuscular Volume 85.8 fL (80.0-98.0); Mean Platelet Volume 10.4 fL (9.4-12.3); Monocytes Absolute Auto 0.8 X10*3/uL (0.1-1.2); Neutrophils Percent Auto 73.7 % (45-73); Platelet Count 277 X10*3/uL (160-400); Red Blood Count 3.93 X10*6/uL (4.20-5.50); Red Cell Distribution Width 13.6 % (11.0-16.0); White Blood Count 6.8 X10*3/uL (4.8-10.8)
[2022-02-02 08:29] LABS: Estimated Average Glucose 105 mg/dL; Hemoglobin A1c % 5.3 %
[2022-02-02 08:59] LABS: Alanine Aminotransferase 21 U/L (0-31); Alkaline Phosphatase 72 U/L (39-117); Anion Gap 13 (12-20); Aspartate Amino Transferase 20 U/L (5-31); Bilirubin Total 0.4 mg/dL (0.0-1.0); Blood Urea Nitrogen 19 mg/dL (9-16); Calcium 9.4 mg/dL (8.4-10.2); Carbon Dioxide 27 mmol/L (22-29); Chloride 106 mmol/L (96-108); Cholesterol 152 mg/dL; Estimated Glomerular Filt Rate > 60; Glucose Fasting 114 mg/dL (60-99); HDL Cholesterol 44 mg/dL; LDL Cholesterol Calculated 79 mg/dl; Potassium 4.8 mmol/L (3.3-5.1); Sodium 141 mmol/L (135-145); TSH reflex Free T4 2.25 uIU/mL (0.32-4.0); Total Protein 6.6 g/dL (6.5-8.0); Triglycerides 148 mg/dL; Vitamin D 25-OH Total 68.7 ng/mL (>30)
[2022-02-02 09:11] LABS: Appearance Urine Clear; Color Urine Yellow; Glucose Urine UA Negative (Negative); Leukocyte Esterase Urine Small (1+) (Negative); Nitrite Urine Negative (Negative); UMIC TRIGGER UACC YES; Urine Blood Negative (Negative); Urine Ketones Trace mg/dL (Negative); Urine Protein Negative (Neg-Trace)
[2022-02-02 10:04] LABS: Bacteria Urine None Seen (None Seen); Hyaline Casts Urine 0-2 /LPF (0-2); RBC Urine 0-2 /HPF (0-2); UACC Culture Trigger YES; WBC Urine 0-5 /HPF (0-5)
== END 2022-02-02 07:41 | disposition home or self-care (01) ==
LOC: HO.LAB 07:40
PROVIDERS: PCP Internal Medicine; Visit Provider Internal Medicine
DX: E78.00 Pure hypercholesterolemia, unspecified (principal); I10 Essential (primary) hypertension; E55.9 Vitamin D deficiency, unspecified; R73.01 Impaired fasting glucose
CPT/HCPCS: 36415; 80053; 80061; 81001; 82306; 83036; 84443; 85025; 87086

== ENCOUNTER 2022-05-18 07:17 | Outpatient (REF) | payer OTHER, SELFPAY ==
[2022-05-18 07:43] LABS: MANUAL DIFF FLAG NO
[2022-05-18 07:59] LABS: Basophils Absolute Auto 0.1 X10*3/uL (0.0-0.2); Basophils Percent Auto 0.7 % (0-2); Eosinophils Absolute Auto 0.1 X10*3/uL (0.0-0.4); Eosinophils Percent Auto 1.6 % (0-4); Hematocrit 35.5 % (37.0-47.0); Hemoglobin 11.6 g/dl (12.0-16.0); Imm Gran Abs Auto 0.02 X10*3/uL (0.00-0.03); Imm Gran Pct Auto 0.2 % (0.0-0.4); Lymphocytes Percent Auto 24.1 % (20-40); Mean Corpuscular HGB Conc 32.7 g/dl (31.0-35.0); Mean Corpuscular Hemoglobin 26.6 pg (27.0-33.0); Mean Corpuscular Volume 81.4 fL (80.0-98.0); Mean Platelet Volume 10.9 fL (9.4-12.3); Monocytes Absolute Auto 0.7 X10*3/uL (0.1-1.2); Monocytes Percent Auto 7.9 % (2-11); Neutrophils Absolute Auto 5.4 x10*3/uL (2.0-8.3); Neutrophils Percent Auto 65.5 % (45-73); Platelet Count 254 X10*3/uL (160-400); Red Blood Count 4.36 X10*6/uL (4.20-5.50); Red Cell Distribution Width 15.2 % (11.0-16.0); White Blood Count 8.2 X10*3/uL (4.8-10.8)
[2022-05-18 08:07] LABS: Appearance Urine Clear; Color Urine Yellow; Glucose Urine UA Negative (Negative); Leukocyte Esterase Urine Negative (Negative); Nitrite Urine Negative (Negative); PH 5.5 (5.0-9.0); Specific Gravity - Urine 1.025 (1.005-1.025); Urine Blood Negative (Negative); Urine Ketones Negative (Negative); Urine Protein Negative (Neg-Trace)
[2022-05-18 08:19] LABS: Estimated Average Glucose 111 mg/dL; Hemoglobin A1c % 5.5 %
[2022-05-18 08:39] LABS: Alanine Aminotransferase 22 U/L (0-31); Albumin Level 3.9 g/dL (3.5-5.0); Alkaline Phosphatase 70 U/L (39-117); Anion Gap 12 (12-20); Aspartate Amino Transferase 20 U/L (5-31); Bilirubin Total 0.4 mg/dL (0.0-1.0); Blood Urea Nitrogen 23 mg/dL (9-16); Calcium 9.2 mg/dL (8.4-10.2); Carbon Dioxide 27 mmol/L (22-29); Chloride 108 mmol/L (96-108); Cholesterol 160 mg/dL; Estimated Glomerular Filt Rate > 60; Glucose Fasting 108 mg/dL (60-99); HDL Cholesterol 46 mg/dL; LDL Cholesterol Calculated 87 mg/dl; Potassium 4.3 mmol/L (3.3-5.1); Sodium 143 mmol/L (135-145); Total Protein 6.4 g/dL (6.5-8.0); Triglycerides 139 mg/dL
[2022-05-18 08:54] LABS: TSH reflex Free T4 2.75 uIU/mL (0.32-4.0); Vitamin D 25-OH Total 58.1 ng/mL (>30)
== END 2022-05-18 07:18 | disposition home or self-care (01) ==
LOC: HO.LAB 07:17
PROVIDERS: PCP Internal Medicine; Visit Provider Internal Medicine
DX: E78.00 Pure hypercholesterolemia, unspecified (principal); E11.9 Type 2 diabetes mellitus without complications; E55.9 Vitamin D deficiency, unspecified; R30.0 Dysuria; I10 Essential (primary) hypertension
CPT/HCPCS: 36415; 80053; 80061; 81003; 82306; 83036; 84443; 85025

== ENCOUNTER 2022-05-27 14:21 | Outpatient (REF) | payer OTHER, SELFPAY ==
--- NOTE | ~2022-05-27 | XR_ITS ---
EXAMINATION: XR HAND, RIGHT CLINICAL INFORMATION: Primary osteoarthritis. COMPARISON: Radiographs dated 03/05/2017. TECHNIQUE: PA, lateral, and oblique views of the right hand. FINDINGS: Bony alignment is normal. There is a neutral ulnar variance. There is mild bony demineralization. There is arthritic change of the second through fifth proximal and distal interphalangeal joints. This is most severe of the second, third and fifth distal interphalangeal joints and of the third proximal interphalangeal joint, which show joint space narrowing, peripheral osteophyte formation and marginal erosions. 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 There is moderate arthritic change of the first carpometacarpal joint. No fracture or dislocation is seen. The proximal and distal carpal rows are intact. No focal soft tissue swelling, gas or foreign body is seen. XR/XR hand LT min 3V IMPRESSION: Multi-focal arthritic changes are seen of the right hand and wrist. Marginal erosions suggest the possibility of rheumatoid arthritis, erosive osteoarthritis or psoriasis. Clinical correlation is recommended. EXAMINATION: XR HAND, LEFT CLINICAL INFORMATION: Primary osteoarthritis. COMPARISON: None TECHNIQUE: PA, lateral, and oblique views of the left hand. FINDINGS: Bony alignment is normal. There is a neutral ulnar variance. There is mild bony demineralization. There is marked arthritic change of the second second through fifth distal interphalangeal joints. There are marginal erosions, and mild gooseneck deformities are seen. There is mild arthritic change of the second through fifth proximal interphalangeal joints. There is mild arthritic change of the first carpometacarpal joint. No fracture or dislocation is seen. The proximal and distal carpal rows are intact. No focal soft tissue swelling, gas or foreign body is seen. IMPRESSION: There are multi-focal arthritic changes of the left hand and wrist. Marginal erosions raise the possibility of rheumatoid arthritis, erosive osteoarthritis or psoriasis. Please correlate clinically.
--- NOTE | ~2022-05-27 | XR_ITS ---
EXAMINATION: XR HAND, RIGHT CLINICAL INFORMATION: Primary osteoarthritis. COMPARISON: Radiographs dated 03/05/2017. TECHNIQUE: PA, lateral, and oblique views of the right hand. FINDINGS: Bony alignment is normal. There is a neutral ulnar variance. There is mild bony demineralization. There is arthritic change of the second through fifth proximal and distal interphalangeal joints. This is most severe of the second, third and fifth distal interphalangeal joints and of the third proximal interphalangeal joint, which show joint space narrowing, peripheral osteophyte formation and marginal erosions. 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 There is moderate arthritic change of the first carpometacarpal joint. No fracture or dislocation is seen. The proximal and distal carpal rows are intact. No focal soft tissue swelling, gas or foreign body is seen. XR/XR hand RT min 3V IMPRESSION: Multi-focal arthritic changes are seen of the right hand and wrist. Marginal erosions suggest the possibility of rheumatoid arthritis, erosive osteoarthritis or psoriasis. Clinical correlation is recommended. EXAMINATION: XR HAND, LEFT CLINICAL INFORMATION: Primary osteoarthritis. COMPARISON: None TECHNIQUE: PA, lateral, and oblique views of the left hand. FINDINGS: Bony alignment is normal. There is a neutral ulnar variance. There is mild bony demineralization. There is marked arthritic change of the second second through fifth distal interphalangeal joints. There are marginal erosions, and mild gooseneck deformities are seen. There is mild arthritic change of the second through fifth proximal interphalangeal joints. There is mild arthritic change of the first carpometacarpal joint. No fracture or dislocation is seen. The proximal and distal carpal rows are intact. No focal soft tissue swelling, gas or foreign body is seen. IMPRESSION: There are multi-focal arthritic changes of the left hand and wrist. Marginal erosions raise the possibility of rheumatoid arthritis, erosive osteoarthritis or psoriasis. Please correlate clinically.
== END 2022-05-27 14:22 | disposition home or self-care (01) ==
LOC: HO.HMGCX 14:21
PROVIDERS: PCP Internal Medicine; Visit Provider Internal Medicine
DX: M19.042 Primary osteoarthritis, left hand (principal); M19.041 Primary osteoarthritis, right hand
CPT/HCPCS: 73130

== ENCOUNTER → 2022-06-26 14:31 | Outpatient (BNVA) | payer OTHER, SELFPAY | PROVIDERS: PCP Internal Medicine; Visit Provider Orthopaedic Surgery | DX: Z13.89 Encounter for screening for other disorder (principal) ==

== ENCOUNTER 2022-09-12 07:18 | Outpatient (REF) | payer OTHER, SELFPAY ==
--- NOTE | ~2022-09-12 | MM_ITS ---
EXAMINATION: MM SCREENING DIGITAL BREAST TOMOSYNTHESIS, BILATERAL CLINICAL INFORMATION: Screening. Asymptomatic. The lifetime risk of breast cancer based on the Tyrer-Cuzick Model is 3%. COMPARISON: Mammography: 09/06/2021, 09/18/2020, 03/20/2020, 08/25/2019, 08/20/2018 TECHNIQUE: Digital breast tomosynthesis is performed in both the craniocaudal and mediolateral oblique views along with computer-aided detection (CAD). Synthesized 2D images are generated from the tomosynthesis. FINDINGS: There are scattered areas of fibroglandular density (ACR BI-RADS breast composition Category b). There is fine fibronodular parenchymal pattern with stable nodularity in the mid upper outer quadrants. There are scattered punctate round calcifications again seen in both breasts. No abnormal calcifications. The axilla and skin contours are unremarkable. Left breast shows no developing density or interval architectural abnormality. Right breast has fibronodular focal asymmetric density retroareolar 11:00, slightly more prominent when compared with prior studies possibly grouped microcysts. Patient will be recalled to further characterize. MM/MM tomosynthesis screening BI IMPRESSION: Right: -Focal fibronodular asymmetric density 11:00 retroareolar slightly more prominent from prior studies, possibly fine grouped microcysts. Left: No significant changes from prior exams. ASSESSMENT: BI-RADS 0: Incomplete - Need Additional Imaging Evaluation RECOMMENDATION: 1. Additional views right breast: spot CC, spot ML. 2. Targeted ultrasound if warranted after review of the additional views. 3. Radiology department staff will contact the patient for additional imaging. This patient's information was entered into a reminder system with a target due date for their next mammogram.
== END 2022-09-12 07:19 | disposition home or self-care (01) ==
LOC: HO.MAMMO 07:18
PROVIDERS: PCP Internal Medicine; Visit Provider Internal Medicine
DX: Z12.31 Encounter for screening mammogram for malignant neoplasm of breast (principal)
CPT/HCPCS: 77063; 77067

== ENCOUNTER 2022-10-11 07:53 | Outpatient (REF) | payer OTHER, SELFPAY ==
[2022-10-11 13:36] LABS: Alanine Aminotransferase 18 U/L (0-31); Albumin Level 3.9 g/dL (3.5-5.0); Alkaline Phosphatase 71 U/L (39-117); Anion Gap 10 (12-20); Aspartate Amino Transferase 18 U/L (5-31); Bilirubin Total 0.4 mg/dL (0.0-1.0); Blood Urea Nitrogen 19 mg/dL (9-16); Calcium 9.4 mg/dL (8.4-10.2); Carbon Dioxide 29 mmol/L (22-29); Chloride 105 mmol/L (96-108); Cholesterol 150 mg/dL; Estimated Glomerular Filt Rate 57; Glucose Fasting 107 mg/dL (60-99); HDL Cholesterol 46 mg/dL; LDL Cholesterol Calculated 70 mg/dl; Potassium 3.8 mmol/L (3.3-5.1); Sodium 140 mmol/L (135-145); Total Protein 6.8 g/dL (6.5-8.0); Triglycerides 174 mg/dL
== END 2022-10-11 07:54 | disposition home or self-care (01) ==
LOC: HO.HMGCLDS 07:53
PROVIDERS: PCP Internal Medicine; Visit Provider Internal Medicine
DX: E78.00 Pure hypercholesterolemia, unspecified (principal)
CPT/HCPCS: 36415; 80053; 80061

== ENCOUNTER 2022-10-17 09:17 | Outpatient (AMB) | payer OTHER, SELFPAY ==
--- NOTE | 2022-10-17 09:20 | MHC.PC.OV ---
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 Accompanied by: Self / Same As Patient Allergies No Known Allergies [No Known Allergies*] Allergy (Verified 10/17/22 09:40) Medication List - Last Reconciled 10/17/22 by Samy Duff MD albuterol sulfate 90 mcg/actuation 2 puffs inhalation Q4-6H PRN budesonide 180 mcg/actuation (Pulmicort Flexhaler) 1 inh PO BID hydralazine 25 mg PO TID 90 days hydrochlorothiazide 25 mg PO QAM losartan 100 mg PO DAILY metoprolol succinate ER 100 mg PO DAILY 90 days montelukast 10 mg PO BEDTIME pantoprazole 40 mg PO DAILY PRN 90 days spironolactone 25 mg PO DAILY tramadol 50 mg PO TID PRN 30 days Tobacco use date assessed: 10/17/22 Fall risk assessment: No Falls in past year Last assessed Fall Risk: 10/17/22 Dental Screening Dental Screen Date: 10/17/22 Did you have a dental visit in the last 12 months?: No Did you have a dental problem in the last 6 months where you did not have access to dental care?: No Was dental information given to patient?: Patient has dentist HPI 4m F/U hyperlipidemia, HTN, OA HPI Details Patient comes in today for her follow up visit States that she feels okay Still has recurrent pain in her finger joints / hands Was seen by orthopedics a few months ago and offered cortisone injection, which she declined at the time Was provided some neoprene thumb splints to use, which she states have helped somewhat and she would like to continue with these for now Also still has on and off choking sensation, mostly when she takes in cold foods or drinks Was sent for a modified barium swallow for further evaluation a few months ago but states that she was never contacted to schedule the test She was also referred to thoracic surgery for lung cancer screening and states that she was also NEVER contacted regarding this after her last visit She denies any headaches or dizziness Denies any chest pains, no SOB No nausea/vomiting, no abdominal pain No change in bowel habits noted Had her follow up labs done last week - to discuss her results Adds that she is scheduled for her repeat colonoscopy with Dr. Abreu in February 2023 and needs a new referral from us for this [facility] Medical History Allergic rhinitis Benign essential hypertension Constipation COPD (chronic obstructive pulmonary disease) Deep left inguinal pain Degenerative joint disease of left hip Depression GERD without esophagitis Impaired fasting glucose Lumbar degenerative disc disease Obesity (BMI 30-39.9) Osteoarthritis of hands, bilateral Palpitations Tenosynovitis of thumb Surgical History History of appendectomy History of laparoscopic cholecystectomy History of left knee surgery History of removal of cyst History of surgery History of total abdominal hysterectomy and bilateral salpingo-oophorectomy Family History Father CHF (congestive heart failure) Colon cancer Hypertension CVD (cardiovascular disease) Mother CVD (cardiovascular disease) Social History Housing: House Alcohol intake: never Patient Tobacco Use Status: Former Tobacco user e-Cigarette/Vaping Use: Never Used Second Hand Smoke Exposure: Yes service: No Current occupational status: disabled Cognitive needs: No Hearing needs: No Vision needs: Yes Questionnaire PHQ-9 Over the last 2 weeks, how often have you been bothered by any of the following problems? 1. Little interest or pleasure in doing things: not at all 2. Feeling down, depressed, or hopeless: not at all 3. Trouble falling or staying asleep, or sleeping too much: not at all 4. Feeling tired or having little energy: not at all 5. Poor appetite or overeating: not at all 6. Feeling bad about yourself - or that you are a failure or have let yourself or your family down: not at all 7. Trouble concentrating on things, such as reading the newspaper or watching television: not at all 8. Moving or speaking so slowly that other people could have noticed. Or the opposite - being so fidgety or restless that you have been moving around a lot more than usual: not at all 9. Thoughts that you would be better off or of hurting yourself in some way: not at all Total score: 0 Depression Screening Interpretation: Negative [id number] - PHQ-9 Billing: Yes Source: Developed by Drs. Vlad Carmichael, Corie Rahman, Regulo Mata and colleagues, with an educational leno from [employer]. Thrive Questionnaire Date Thrive assessed: 10/17/22 I am a: Patient What is your living situation today?: I have a steady place to live Within the past 12 months, did the food you bought not last and you didn't have the money to get more?: Never true Within the past 12 months, did you worry whether your food would run out before you got money to buy more?: Never true Do you have trouble paying for medicines?: No Do you have trouble getting transportation to medical appointments?: No Do you have trouble paying your heating and electricity bill?: No Do you have trouble taking care of your child, family member or friend?: No Do you have trouble with day-to-day activities such as bathing, preparing meals, shopping, managing finances, etc.?: No Are you currently unemployed and looking for a job?: No Are you interested in more education?: No Please select the resources that you would like help with: None Currently or been in a relationship where the following occur: no concerns reported AUDIT C Alcohol Use Questionnaire (AUDIT-C) 1. How often do you have a drink containing alcohol?: Never 3. How often do you have six or more drinks on one occasion?: Never Total Score: 0 Score Reviewed/Action Taken: Yes ALEIDA-7 AMB Questionnaire ALEIDA-7 Date ALEIDA - 7 assessed: 10/17/22 Feeling nervous, anxious, or on edge: 0 = Not at all Not being able to stop or control worryin = Not at all Worrying too much about different things: 0 = Not at all Trouble relaxin = Not at all Being so restless that it is hard to sit still: 0 = Not at all Becoming easily annoyed or irritable: 0 = Not at all Feeling afraid as if something awful might happen: 0 = Not at all Total ALEIDA-7 score (0-4 normal; 5-9 mild; 10-14 moderate; 15-21 severe): 0 Source: Developed by Drs. Vlad Carmichael, Corie Rahman, Regulo Mata and colleagues, with an educational leno from [employer]. Review of Systems Const Reports fatigue, Denies fever(s) and Denies headache(s) ENT Details: * reports experiencing recurrent coughing/choking sensation, especially when she is eating or drinking Denies dysphagia, Denies dizziness, Denies otalgia, Denies headache(s) and Denies sore throat Card Denies chest pain, Denies irregular heart rhythm, Denies palpitations and Denies dyspnea Resp Reports cough (recurrent, non-productive, ueually when eating or drinking), Denies dyspnea and Denies wheezing GI Denies abdominal pain, Denies constipation, Denies dysphagia, Denies heartburn, Denies diarrhea, Denies nausea and Denies vomiting Denies nocturia and Denies dysuria Musc Reports back pain (over the lumbar spine - chronic) and Reports arthralgias (on the fingers of both hands, phani at base of thumbs; left hip occasionally) Neuro Denies dizziness and Denies headache(s) Endo Reports fatigue and Denies palpitations Aller/Immun Denies wheezing Physical exam (Primary Care) Vital Signs: Last Vital Signs Pulse 84 10/17/22 09:21 BP 126/80 10/17/22 09:21 Pulse Ox 96 10/17/22 09:21 Oxygen Delivery Method Room Air 10/17/22 09:21 BMI result Body Mass Index 41.4 Tobacco/Smoking Status: Tobacco use Status Tobacco use date assessed 10/17/22 10/17/22 09:26 Patient Tobacco Use Status Former Tobacco user 10/17/22 09:26 e-Cigarette/Vaping Use Never Used 10/17/22 09:26 PHQ-9: PHQ-9 Score PHQ-9: Total score 0 10/17/22 09:26 Depression Screening Interpretation: Negative Thrive Assessment: Date of Thrive Assessment Date Thrive assessed 10/17/22 10/17/22 09:26 Currently or been in a relationship where the following occur: no concerns reported Const General: no acute distress and alert HENMT Ears: TM's normal bilaterally and EAC's normal Throat: Yes posterior oropharynx normal and Yes tonsils normal (no TP congestion noted) Neck Neck: Yes no lymphadenopathy and Yes supple Resp Auscultation: clear to auscultation bilaterally, no crackles, no rales and no wheezes Cardio Rate: regular rate Rhythm: regular rhythm Heart sounds: no murmurs GI Palpation (GI): Soft to palpation, nontender and No hepatosplenomegaly present Back/Spine/Pelvis Thoracic/Lumbar Spine: lumbar spinal tenderness Extrem General: Yes no clubbing, cyanosis or edema Right upper extremity: Extremity exam: right hand Details: tenderness (of all fingers and of the hand, especially over base of thumb) Location: of the thumb Location: at the thenar eminence and at the MCP joint and normal ROM of fingers (but (+) stiffness of the fingers noted) Left upper extremity: hand Details: tenderness (of all fingers and of the hand, especially over base of thumb) Location: of the thumb Location: at the thenar eminence and at the MCP joint and normal ROM of fingers (but (+) stiffness) Left lower extremity: hip/thigh Details: tenderness Location: of the hip Results Reviewed Results Reviewed: Laboratory Tests 10/11/22 08:01 Sodium 140 Potassium 3.8 Creatinine 0.98 Estimated GFR 57 Fasting Glucose 107 H Calcium 9.4 AST 18 ALT 18 Triglycerides 174 Cholesterol 150 LDL Cholesterol, Calc 70 HDL Cholesterol 46 Assessment and Plan Assessment & Plan (1) Benign essential hypertension: Code(s): I10 - Essential (primary) hypertension Plan: Reinforced low sodium diet - goal is systolic BP of at least 130 to 140 mm or less BP remains well-controlled on her current Rx regimen - continue Losartan 100 mg QD, Metoprolol ER 100 mg QD, Hydralazine 25 mg TID and HCTZ 25 mg Q AM; is also on Spironolactone 25 mg QD Amlodipine was discontinued previously due to increasing edema and SOB and her symptoms resolved with discontinuation of Rx Renal doppler and urine metanephrines done a few months ago both came back within normal range - no evidence of KAITY or pheochromocytoma She has noticed recently that she often feels like she has to take a nap (feels tired) when she takes her middle dose of Hydralazine in the early afternoon on the days (Friday, Wednesdays and Fridays) that she goes to work (part-time) and is wondering if this is related to her Rx She is advised to try checking her BP whenever she feels this way to see if her BP (especially her systolic BP) is low or not and if it is comparatively lower than usual, we may consider having her skip her middle dose of Hydralazine then Results of her labs done last week reviewed and discussed with patient Patient instructed to continue monitoring her blood pressure regularly Will recheck labs in 4 months for follow up (2) Choking sensation: Code(s): R09.89 - Other specified symptoms and signs involving the circulatory and respiratory systems Plan: Have discussed possible etiologies, including aspiration, GERD, allergies, etc. with patient previously She is currently not taking any medications that can cause coughing as a potential side effect and states that she uses her Pulmicort inhaler and takes her Pantoprazole as well as her allergy medications regularly Patient was sent for a modified barium swallow for further evaluation and to r/o aspiration but she was never contacted to schedule this test Will instead now refer her to ENT for further evaluation and management of her recurrent choking symptoms (3) COPD (chronic obstructive pulmonary disease): Comment: PFT done in 2013 showed (+) mild restrictive lung disease Code(s): J44.9 - Chronic obstructive pulmonary disease, unspecified Qualifiers: COPD type: unspecified COPD Qualified Code(s): J44.9 - Chronic obstructive pulmonary disease, unspecified Plan: Appears controlled Continue Pulmicort Flexhaler 180 mcg 1 inhalation BID and Albuterol HFA 1 to 2 puffs up to 4 times a day as needed (4) Screening for lung cancer: Code(s): Z12.2 - Encounter for screening for malignant neoplasm of respiratory organs Plan: Ex-smoker - quit smoking in 1998; smoked for 25 to 30 yrs before quitting Referral for lung cancer screening initially done in September 2021 and then again in May 2022 but patient states that she was never contacted for appt - will redo referral again for the THIRD TIME (5) Lumbar degenerative disc disease: Code(s): M51.36 - Other intervertebral disc degeneration, lumbar region Plan: Reinforced activity and weight-lifting restrictions Has a TENS unit that she uses as needed with (+) temporary relief Continue Tramadol 50 mg TID PRN Follow up with pain management as scheduled (6) Degenerative joint disease of left hip: Code(s): M16.12 - Unilateral primary osteoarthritis, left hip Qualifiers: Osteoarthritis type: unspecified Qualified Code(s): M16.12 - Unilateral primary osteoarthritis, left hip Plan: Follow up with orthopedics as scheduled (7) GERD without esophagitis: Code(s): K21.9 - Gastro-esophageal reflux disease without esophagitis Plan: Dietary restrictions reinforced Continue Pantoprazole 40 mg QD (8) Impaired fasting glucose: Code(s): R73.01 - Impaired fasting glucose Plan: Reinforced low calorie diet/exercise as tolerated HgbA1c was normal at 5.5% when checked a few months ago (9) Osteoarthritis of hands, bilateral: Code(s): M19.041 - Primary osteoarthritis, right hand; M19.042 - Primary osteoarthritis, left hand Qualifiers: Osteoarthritis type: primary Qualified Code(s): M19.041 - Primary osteoarthritis, right hand; M19.042 - Primary osteoarthritis, left hand Plan: Advised to continue with regular hand exercises to help manage her finger stiffness and pain and that unfortunately, there are really no effective Rx or Tx that help help prevent or reverse OA changes of the hands and fingers Repeat x-rays of both hands done a few months ago comfirmed (+) OA changes in both hands She was seen by orthopedics a few months ago and offered cortisone injection if use of thumb splints do not help States that she did not go for cortisone injections as the splints helped somewhat and would like to continue on these for now (10) Depression: Code(s): F32.9 - Major depressive disorder, single episode, unspecified Qualifiers: Depression Type: major depressive disorder Major depression recurrence: recurrent Active/Remission status: currently active Major depression episode severity: unspecified Qualified Code(s): F33.9 - Major depressive disorder, recurrent, unspecified Plan: Controlled - stopped taking Duloxetine on her own a few months ago and has not felt any worse since stopping the Rx (11) Obesity (BMI 30-39.9): Code(s): E66.9 - Obesity, unspecified Plan: Reinforced diet/exercise as tolerated/lose weight (12) Colon cancer screening: Code(s): Z12.11 - Encounter for screening for malignant neoplasm of colon Plan: Per request, referral to Dr. Abreu for screening colonoscopy done - she is scheduled for her procedure in February 2023 Plan Follow up in 4 months Orders: Orders Comprehensive [place]. Panel Fast 4 Months E78.00 - Pure hypercholesterolemia, unspecified Hemoglobin A1c 4 Months R73.01 - Impaired fasting glucose Lipid Panel 4 Months E78.00 - Pure hypercholesterolemia, unspecified TSH reflex Free T4 4 Months E78.00 - Pure hypercholesterolemia, unspecified Vitamin D 25-OH Total 4 Months E55.9 - Vitamin D deficiency, unspecified Complete Blood Count Auto Diff 4 Months I10 - Essential (primary) hypertension UA CC w/rflx Micro + Cult 4 Months R30.0 - Dysuria Referrals Ear/Nose/Throat Referral R09.89 - Other specified symptoms and signs involving the circulatory and respiratory systems Gastroenterology Referral Z12.11 - Encounter for screening for malignant neoplasm of colon Thoracic Surgery Referral Z12.2 - Encounter for screening for malignant neoplasm of respiratory organs Coding Level of Care Code Est Pt Level 4 (82297) Diagnoses Benign essential hypertension I10 Choking sensation R09.89 COPD (chronic obstructive pulmonary disease) J44.9 COPD type: unspecified COPD Screening for lung cancer Z12.2 Lumbar degenerative disc disease M51.36 Degenerative joint disease of left hip M16.12 Osteoarthritis type: unspecified GERD without esophagitis K21.9 Impaired fasting glucose R73.01 Osteoarthritis of hands, bilateral M19.041; M19.042 Osteoarthritis type: primary Depression F33.9 Depression Type: major depressive disorder Major depression recurrence: recurrent Active/Remission status: currently active Major depression episode severity: unspecified Obesity (BMI 30-39.9) E66.9 Colon cancer screening Z12.11
[2022-10-17 09:21] VITALS: BP 126/80; PULSE 84; O2SAT 96; BMI 41.4
== END 2022-10-17 10:06 | disposition home or self-care (01) ==
PROVIDERS: Visit Provider Internal Medicine
DX: I10 Essential (primary) hypertension (principal); J44.9 Chronic obstructive pulmonary disease, unspecified; K21.9 Gastro-esophageal reflux disease without esophagitis; F33.9 Major depressive disorder, recurrent, unspecified; Z12.2 Encounter for screening for malignant neoplasm of respiratory organs; R09.89 Other specified symptoms and signs involving the circulatory and respiratory systems; M51.36 Other intervertebral disc degeneration, lumbar region; M16.12 Unilateral primary osteoarthritis, left hip; R73.01 Impaired fasting glucose; M19.041 Primary osteoarthritis, right hand; M19.042 Primary osteoarthritis, left hand; E66.9 Obesity, unspecified
CPT/HCPCS: 99214

== ENCOUNTER 2022-10-28 14:20 | Outpatient (REF) | payer OTHER, SELFPAY ==
--- NOTE | ~2022-10-28 | XR_ITS ---
EXAMINATION: XR CHEST CLINICAL INFORMATION: Symptoms and signs involving circulatory system. COMPARISON: Chest radiograph dated 07/19/2021. TECHNIQUE: 2 views of the chest were obtained. FINDINGS: The lungs are clear. The cardiomediastinal silhouette is normal in size. There is no pleural effusion or pneumothorax. No acute osseous abnormality. XR/XR chest 2V IMPRESSION: No acute cardiopulmonary findings.
== END 2022-10-28 14:21 | disposition home or self-care (01) ==
LOC: HO.HMGCX 14:20
PROVIDERS: PCP Internal Medicine; Visit Provider Internal Medicine
DX: J44.9 Chronic obstructive pulmonary disease, unspecified (principal); R09.89 Other specified symptoms and signs involving the circulatory and respiratory systems
CPT/HCPCS: 71046

== ENCOUNTER 2022-11-06 14:24 | Outpatient (REF) | payer OTHER, SELFPAY ==
--- NOTE | ~2022-11-06 | US_ITS ---
EXAMINATION: MM DIAGNOSTIC DIGITAL BREAST TOMOSYNTHESIS, RIGHT US BREAST LIMITED, RIGHT MAMMOGRAPHY: CLINICAL INFORMATION: Follow-up focal asymmetry anterior right breast upper outer quadrant seen on screening exam. The lifetime risk of breast cancer based on the Tyrer-Cuzick Model is 3%. COMPARISON: Mammography: 09/12/2022, 09/06/2021, 09/18/2020, and dating back to 2019. TECHNIQUE: Digital right breast tomosynthesis is performed and right spot CC and spot MLO projections along with computer-aided detection (CAD). Synthesized 2D images are generated from the tomosynthesis. FINDINGS: There are scattered areas of fibroglandular density (ACR BI-RADS breast composition Category b). In the 11:00 axis of the anterior right breast, there is a lobular mass measuring 8 mm in length, approximately 2 cm from the nipple. This will be evaluated by ultrasound. Results were provided to the patient at time of visit by the technologist. ULTRASOUND: CLINICAL INFORMATION: Evaluate lobular mass 11:00 axis anterior right breast measuring 8 mm seen on diagnostic mammogram. COMPARISON: No prior ultrasound. Mammography 09/12/2022. TECHNIQUE: Targeted sonographic evaluation of the anterior right breast 11:00 axis was performed using a high frequency linear transducer. Selected archived documentation. FINDINGS: RIGHT BREAST: There is a near anechoic cyst which is slightly lobular in contour, has low level faint internal echoes, good through transmission, and no color Doppler signal. This is most likely a mildly complicated cyst. This measures 5 x 4 x 5 cm, in the 11:00 axis of the right breast, 2 cm from the nipple. Recommend six-month interval follow-up targeted right breast ultrasound to ensure stability. US/US breast RT limited mamm only IMPRESSION: Probably benign complicated cyst right breast 11:00 axis, 2 cm from the nipple. Six-month interval follow-up right breast ultrasound recommended. Further diagnostic mammography is not recommended. OVERALL ASSESSMENT: Mammography: BI-RADS 3 - Probably benign finding(s) - 6 month follow-up suggested Ultrasound: BI-RADS 3 - Probably benign finding(s) - 6 month follow-up suggested RECOMMENDATION: 1 year F/U This patient's information was entered into a reminder system with a target due date for their next mammogram.
== END 2022-11-06 14:25 | disposition home or self-care (01) ==
LOC: HO.MAMMO 14:24
PROVIDERS: PCP Internal Medicine; Visit Provider Internal Medicine
DX: R92.2 Inconclusive mammogram (principal)
CPT/HCPCS: 76642; 77061; 77065

== ENCOUNTER → 2022-11-06 15:00 | Outpatient (BNV) | payer OTHER, SELFPAY | PROVIDERS: PCP Internal Medicine; Visit Provider Radiology Diagnostic Radiology | DX: R92.2 Inconclusive mammogram (principal) | CPT/HCPCS: 76642; 77061; 77065 ==

== ENCOUNTER 2022-12-05 11:02 | Outpatient (REF) | payer OTHER, SELFPAY ==
--- NOTE | ~2022-12-05 | XR_ITS ---
EXAMINATION: lumbar spine and left hip. CLINICAL INDICATIONS: Radiculopathy lumbar region. COMPARISON: Lumbar spine 07/23/2017 TECHNIQUE: Lumbar spine 5 views. Left hip 3 views. FINDINGS: LUMBAR SPINE: There is normal lumbar lordosis. The vertebral heights and alignment are normal. There is loss of L5-S1 disc height. Rest of the disc heights, vertebral heights and alignment is normal. There is mild ventral spondylosis throughout lumbar spine. No visible acute fracture, dislocation seen. There is no subluxation on flexion or extension views. There is mild bilateral L4-L5 and L5-S1 facet arthropathy. AP PELVIS AND LEFT HIP: There is mild loss of joint space and bilateral hip joints. SI joints are symmetrical. No visible fracture, lytic or sclerotic process seen. There is mild periarticular degenerative spurring inferior left hip joint. XR/XR hip LT w PEL1V IMPRESSION: No acute fracture, dislocation or subluxation in lumbar spine. There is mild L5-S1 degenerative disc changes. Unremarkable AP pelvis and left hip. .
--- NOTE | ~2022-12-05 | XR_ITS ---
EXAMINATION: lumbar spine and left hip. CLINICAL INDICATIONS: Radiculopathy lumbar region. COMPARISON: Lumbar spine 07/23/2017 TECHNIQUE: Lumbar spine 5 views. Left hip 3 views. FINDINGS: LUMBAR SPINE: There is normal lumbar lordosis. The vertebral heights and alignment are normal. There is loss of L5-S1 disc height. Rest of the disc heights, vertebral heights and alignment is normal. There is mild ventral spondylosis throughout lumbar spine. No visible acute fracture, dislocation seen. There is no subluxation on flexion or extension views. There is mild bilateral L4-L5 and L5-S1 facet arthropathy. AP PELVIS AND LEFT HIP: There is mild loss of joint space and bilateral hip joints. SI joints are symmetrical. No visible fracture, lytic or sclerotic process seen. There is mild periarticular degenerative spurring inferior left hip joint. XR/XR lumbar spine 6V w bending IMPRESSION: No acute fracture, dislocation or subluxation in lumbar spine. There is mild L5-S1 degenerative disc changes. Unremarkable AP pelvis and left hip. .
== END 2022-12-05 11:03 | disposition home or self-care (01) ==
LOC: HO.XRAY 11:02
PROVIDERS: PCP Internal Medicine; Visit Provider Nurse Practitioner Family
DX: M25.552 Pain in left hip (principal); M47.26 Other spondylosis with radiculopathy, lumbar region; M96.1 Postlaminectomy syndrome, not elsewhere classified; M53.3 Sacrococcygeal disorders, not elsewhere classified
CPT/HCPCS: 72114; 73502

== ENCOUNTER 2022-12-05 11:02 | Outpatient (AMB) | payer OTHER, SELFPAY ==
--- NOTE | 2022-12-05 11:09 | A.OFFVIS_ITS ---
Intake Vital Signs 12/05/22 11:13 Height 5 ft 5 in Weight 245 lb BMI 40.8 BP 176/77 H Blood Pressure Location Rt brachial Position Sitting Pulse 64 Pulse Source Pulse Oximeter Pulse Oximetry (%) 98 Oxygen Delivery Method Room Air Intake Visit Reasons: BACK AND HIP PAIN Intake Note: Pain today 10. Labor Specialist Required: No Accompanied by: Self / Same As Patient Allergies No Known Allergies [No Known Allergies*] Allergy (Verified 12/05/22 11:13) HPI HPI Comments History of Present Illness Details Patient is a pleasant 67 years old female who was previously seen in our office by Tyra JOAQUIN in 2020 and prior n [address] Cruz presents today for follow up for left low back pain with left hip and thigh pain. Patient reports midline low back pain that radiates into her left buttock and left groin and anterior left thigh without numbness or tingling. Pain increases with walking over 5 minutes and prolonged sitting. She denies significant pain while standing especially holding on to something. Reports left groin pain with getting out of bed or shower. Patient also reports shooting, sharp pain into her left groin and thigh with prolonged standing while cooking or washing dishes. She reports physical therapy in the past was not well tolerated due to increased pain. Tylenol, NSAIDs, heat and ice therapy and aqua therapy has been partially. She has been using stationary bike but due to pain has been using this less than before. Patient reports previous back injections provided minimal pain relief. Patient denies any bladder or bowel incontinence or saddle anesthesia. PRIOR 08/22/2020 Tyra JOAQUIN: Meche returns to the office with complaints of low back pain as well as pain in left hip and bilateral hands. She was seen here three years ago by Dr. Cruz for similar symptoms with pain across the low back pain and radiation into entire left leg into the middle three toes. She underwent a L5-S1 injection in 2018 with minimal alleviation in her pain. Her pain is exacberated with sitting, standing and prolonged walking. Her pain is alleviated with leaning forward. It was recommended that she undergo physical therapy which she completed 8 sessions with exacerbation of her pain and could not tolaterate any more sessions. She also notes left groin pain as a result of her left hip osteoarthritis. She is under the care of Dr. Abbasi for this and is awaiting a left intrarticular hip injection to be authorized by insurance. She has had this injection in the past with great improvement in her symptoms. She had also had her hands evaluated by Dr. Abbasi who reportedly stated he will send her to Dr. Rashid, if they worsen. She notes an increase in swelling, stiffness and difficulty making a fist with her right hand. She is currently taking Tramadol and Aleve with little to no improvement in her symptoms. She has tried gabapentin in the past with no effect. She presents today to discuss injections. PRIOR: Meche presents for initial evaluation of chronic low back and left leg pain. She describes similar pain first experienced back in 2011. She eventually underwent a discectomy by Dr Haney and her pain resolved. Earlier this year while doing house work her pain returned abruptly. She describes her pain as stabbing, radiating predominately from the back down the posterior leg into her foot. Occasionally she will have pain into her groin. She denies any weakness, b/b dysfunction, fevers, or chills. Initial xrays were negative. She has not had PT as of yet. Her PCP ordered an MRI but it was denied. She has been performing a daily HEP and using NSAID to help with the pain that is interfering with sleep and all activity. Her pain ranges in intensity from 2-7/10. She is not sure what makes it better however all activity makes it worse. 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 Tenosynovitis of thumb Constipation Obesity (BMI 30-39.9) Depression Allergic rhinitis Deep left inguinal pain Lumbar degenerative disc disease GERD without esophagitis Impaired fasting glucose Palpitations COPD (chronic obstructive pulmonary disease) Benign essential hypertension Surgical History History of surgery History of total abdominal hysterectomy and bilateral salpingo-oophorectomy History of laparoscopic cholecystectomy History of appendectomy History of removal of cyst History of left knee surgery Family History Father CHF (congestive heart failure) Colon cancer Hypertension CVD (cardiovascular disease) Mother CVD (cardiovascular disease) Social History (Reviewed 12/05/22 @ 11:22 by GIGI Rios Housing: House Alcohol intake: never Patient Tobacco Use Status: Former Tobacco user e-Cigarette/Vaping Use: Never Used Second Hand Smoke Exposure: Yes service: No Current occupational status: disabled Cognitive needs: No Hearing needs: No Vision needs: Yes Review of Systems Const All systems reviewed & are unremarkable except as noted in HPI and below ENT Reports Normal hearing present Neuro Reports Normal hearing present, Denies Abnormal speech present and Denies confusion Psych Denies confusion Physical Exam Vital Signs: Last Vital Signs Pulse 64 12/05/22 11:13 BP 176/77 H 12/05/22 11:13 Pulse Ox 98 12/05/22 11:13 Oxygen Delivery Method Room Air 12/05/22 11:13 BMI result Body Mass Index 40.8 Const General: cooperative, healthy appearing, no acute distress, alert, awake and well groomed; No confusion Nutritional Appearance: obese Orientation/consciousness: patient oriented x3 and No confusion Limitations: no limitations HEENT Head: Yes normal to inspection and Yes normocephalic Ears: hearing grossly normal bilaterally Face and sinus: Yes normal facial exam and Yes face symmetric Eyes General: appearance normal, both eyes and all related structures Eyelids: Yes eyelids normal Sclerae: sclerae normal EOM: EOMs intact bilaterally Neck Neck: Yes normal visual inspection, Yes full ROM, Yes no JVD and Yes prominent dorsocervical fat pad Chest Chest palpation & inspection: normal inspection of the chest Resp Effort & Inspection: normal respiratory effort, able to speak in complete sentences, no cough and symmetric chest movement Cardio Jugular venous distension: no JVD Palpation: other (no appreciable rhythmic abnormalities) Peripheral pulses: radial pulses present, posterior tibial pulses present and dorsalis pedis present GI Inspection: Yes normal to inspection and Yes obesity Palpation (GI): Soft to palpation and nontender Back/Spine/Pelvis Other: Patient able to walk on heels and tip toes with mild difficulty on the left due to pain otherwise demonstrating good motor tone. Can flex forward to 70-75 degrees and extend to 5-10 degrees before experiencing lumbar pain. Demonstrates 5/5 strength of quadriceps (slightly decreased on left due to pain) bilaterally as well as flexion/dorsiflexion of bilateral feet against resistance. 2+ pedal pulses bilaterally. Seated SLR testing with dorsiflexion negative bilaterally. 1+ patellar and achilles reflexes bilaterally. Facet loading + bilaterally. Opal + on the left. Shay test reproduces left groin and back pain on left. Stinchfield positive on left and reproduces left thigh and left back pain. Minimal left groin pain with external left hip rotation. Pelvic compression test positive for hip and back pain on left. Significant tenderness in the projection of left SIJ and mild right SIJ. Cervical Spine: cervical ROM normal and No Cervical spine tenderness Thoracic/Lumbar Spine: thoracic and lumbar spine normal to inspection, No Thoracic/lumbar spine scar(s), Lasegue's sign negative, straight leg raise negative bilaterally, pain with thoraco-lumbar ROM, paraspinal muscle tenderness, No thoracic spinal tenderness and lumbar spinal tenderness at L4 and at L5 Pelvis: buttock tenderness on the left and no sciatic notch tenderness Sacroiliac joints: bilaterally (Left worse than right) tender to palpation Skin General skin exam: no rashes or lesions noted Neuro General: patient oriented x3, gait normal, moves all extremities and No confus ion Cranial nerves: Yes Normal hearing present Speech: No Abnormal speech present Gait exam (Neuro): Normal gait present Motor exam (neuro): 5/5 motor strength present throughout Extrem General: Yes capillary refill normal, Yes no clubbing, cyanosis or edema and Yes no calf tenderness Left lower extremity: hip/thigh Details: tenderness Location: of the hip Location: over the great trochanter Psych Appearance: grossly normal and well kempt Mental Status: mental status grossly normal Speech and movement: Normal speech and movement present and Clear speech present Affect: normal affect Thought process: Normal thought process present Thought content: Normal thought content present Insight: Good insight present (Psych) Judgement: Good judgement present (Psych) Results Reviewed Results Reviewed: XR lumbar spine 6V w bending, XR left hip with pelvis 12/05/22 EXAMINATION: lumbar spine and left hip. CLINICAL INDICATIONS: Radiculopathy lumbar region. COMPARISON: Lumbar spine 07/23/2017 FINDINGS: LUMBAR SPINE: There is normal lumbar lordosis. The vertebral heights and alignment are normal. There is loss of L5-S1 disc height. Rest of the disc heights, vertebral heights and alignment is normal. There is mild ventral spondylosis throughout lumbar spine. No visible acute fracture, dislocation seen. There is no subluxation on flexion or extension views. There is mild bilateral L4-L5 and L5-S1 facet arthropathy. AP PELVIS AND LEFT HIP: There is mild loss of joint space and bilateral hip joints. SI joints are symmetrical. No visible fracture, lytic or sclerotic process seen. There is mild periarticular degenerative spurring inferior left hip joint. IMPRESSION: No acute fracture, dislocation or subluxation in lumbar spine. There is mild L5-S1 degenerative disc changes. Unremarkable AP pelvis and left hip. MR LUMBAR SPINE WITHOUT CONTRAST CLINICAL INFORMATION: Lumbar radiculopathy. Self-reported left lower extremity weakness, numbness and pain on occasion. COMPARISON: Lumbar spine radiograph 07/23/2017, report MRI lumbar spine 11/12/2011. TECHNIQUE: MRI of the lumbar spine was obtained using routine sequences without contrast. FINDINGS: VERTEBRAL BODIES AND PARASPINAL STRUCTURES: 5 lumbar-type vertebral bodies are present and are normal in height, alignment and marrow signal intensity aside from minimal multilevel endplate discogenic marrow signal changes and minimal scattered Schmorl's node deformities. CONUS MEDULLARIS AND CAUDA EQUINA: Normal, terminating at the level of L1-L2. SPINAL LEVELS: T12-L1: Normal. Normal intervertebral discs. No central or foraminal stenoses. L1-L2: No significant central or foraminal stenoses. Moderate bilateral ligamentum flavum hypertrophy. Mild bilateral facet hypertrophy. L2-L3: Mild central stenosis secondary to mild bilateral parasagittal disc protrusions and moderate bilateral ligamentum flavum hypertrophy. Mild bilateral facet hypertrophy. L3-L4: Mild central stenosis secondary to mild bilateral parasagittal disc protrusions and moderate bilateral ligamentum flavum hypertrophy. Furthermore, mild bilateral facet hypertrophic changes are noted. L4-L5: Mild central stenosis. Mild left foraminal stenosis. Findings arise secondary to a mild posterior broad-based disc bulge with left parasagittal and left lateral extension resulting in less than 50% left foraminal stenosis. No associated direct nerve root impingement. Moderate bilateral facet hypertrophic changes are noted along with mild bilateral ligamentum flavum hypertrophy. The protrusion comes to within 1 mm proximity of the left L5 nerve roots within the left subarticular recess without direct nerve root impingement. L5-S1: Mild left subarticular recess narrowing. This finding arises secondary to moderate left facet hypertrophic changes which project towards the left subarticular recess and mildly narrows the left subarticular recess abutting upon but not displacing the left S1 nerve roots. A minimal posterior broad-based disc bulge is present at this level without associated nerve root impingement. IMPRESSION: Chronic multilevel spondylosis of the lumbar spine without evidence of marked central or foraminal stenoses or direct nerve root impingement. At the levels L4-L5 and L5-S1 chronic hypertrophic changes come into close proximity with the left L5 and left S1 nerve roots respectively but do not result in direct nerve root impingement as detailed above. Assessment & Plan Assessment & Plan (1) Left lumbar radiculopathy: Code(s): M54.16 - Radiculopathy, lumbar region (2) Lumbar facet arthropathy: Code(s): M47.816 - Spondylosis without myelopathy or radiculopathy, lumbar region (3) Post laminectomy syndrome: Code(s): M96.1 - Postlaminectomy syndrome, not elsewhere classified (4) Sacroiliac joint pain: Code(s): M53.3 - Sacrococcygeal disorders, not elsewhere classified (5) Left hip pain: Code(s): M25.552 - Pain in left hip Plan Schedule for Diagnostic Left Sacroiliac Joint Injection with local and fluoroscopy. If positive response, will consider therapeutic injection, PNS or RFA procedures or will proceed with diagnostic lumbar medial branch blocks to confirm axial low back pain. Today's left hip xray with pelvic views was unremarkable. Expectations, risks and benefits were reviewed. Patient is aware she will be contacted to schedule this procedure. All questions were answered and the patient is in agreement of plan. Follow-up after injections and sooner as needed. Orders: Orders XR lumbar spine 6V w bending 12/05/22 M47.816 - Spondylosis without myelopathy or radiculopathy, lumbar region, M53.3 - Sacrococcygeal disorders, not elsewhere classified, M54.16 - Radiculopathy, lumbar region, M96.1 - Postlaminectomy syndrome, not elsewhere classified XR hip LT w PEL1V 12/05/22 M25.552 - Pain in left hip Coding Level of Care Code Est Pt Level 4 (94830) Diagnoses Left lumbar radiculopathy M54.16 Lumbar facet arthropathy M47.816 Post laminectomy syndrome M96.1 Sacroiliac joint pain M53.3 Left hip pain M25.552
[2022-12-05 11:13] VITALS: BP 176/77; PULSE 64; O2SAT 98; BMI 40.8
== END 2022-12-05 11:42 | disposition home or self-care (01) ==
PROVIDERS: PCP Internal Medicine; Visit Provider Nurse Practitioner Family
DX: M54.16 Radiculopathy, lumbar region (principal); M47.816 Spondylosis without myelopathy or radiculopathy, lumbar region; M96.1 Postlaminectomy syndrome, not elsewhere classified; M53.3 Sacrococcygeal disorders, not elsewhere classified; M25.552 Pain in left hip
CPT/HCPCS: 99214

== ENCOUNTER 2023-01-21 06:20 | Outpatient (REF) | payer OTHER, SELFPAY ==
--- NOTE | ~2023-01-21 | FL_ITS ---
EXAMINATION: XR FLUOROSCOPY WITH IMAGES CLINICAL INFORMATION: Sacrococcygeal disorders, not elsewhere classified. COMPARISON: None available. TECHNIQUE: Fluoroscopy Supervised By: Dr. Cezar Obregon. Fluoroscopy Time: 0.6 minutes. Cumulative Dose: 21.1 mGy. DAP: 0.275 Gycm2. Images: 1. FINDINGS: Image demonstrates needle placement and contrast injection over left sacroiliac joint FL/FL guidance in treatment room IMPRESSION: Fluoroscopy guidance for pain management procedure
== END 2023-01-21 06:21 | disposition home or self-care (01) ==
LOC: CF 06:20
PROVIDERS: Visit Provider Anesthesiology
DX: M53.3 Sacrococcygeal disorders, not elsewhere classified (principal); M54.16 Radiculopathy, lumbar region; M47.816 Spondylosis without myelopathy or radiculopathy, lumbar region; M96.1 Postlaminectomy syndrome, not elsewhere classified
CPT/HCPCS: 27096

== ENCOUNTER 2023-01-21 13:21 | Outpatient (AMB) | payer OTHER, SELFPAY ==
--- NOTE | 2023-01-21 13:27 | MHC.OFFVIS ---
Intake Vital Signs 01/21/23 13:28 01/21/23 14:45 BP 126/72 136/76 Blood Pressure Location Rt brachial Lt brachial Position Sitting Sitting Respiration 14 12 Pulse 72 72 Pulse Source Pulse Oximeter Pulse Oximeter Pulse Oximetry (%) 97 98 Oxygen Delivery Method Room Air Room Air Intake Visit Reasons: L DX SIJ INJ/LOCAL Allergies No Known Allergies [No Known Allergies*] Allergy (Verified 01/21/23 13:28) PFSH Medical History Osteoarthritis of hands, bilateral Degenerative joint disease of left hip Tenosynovitis of thumb Constipation Obesity (BMI 30-39.9) Depression Allergic rhinitis Deep left inguinal pain Lumbar degenerative disc disease GERD without esophagitis Impaired fasting glucose Palpitations COPD (chronic obstructive pulmonary disease) Benign essential hypertension Surgical History History of surgery History of total abdominal hysterectomy and bilateral salpingo-oophorectomy History of laparoscopic cholecystectomy History of appendectomy History of removal of cyst History of left knee surgery Family History Father CHF (congestive heart failure) Colon cancer Hypertension CVD (cardiovascular disease) Mother CVD (cardiovascular disease) Social History Housing: House Alcohol intake: never Patient Tobacco Use Status: Former Tobacco user e-Cigarette/Vaping Use: Never Used Second Hand Smoke Exposure: Yes service: No Current occupational status: disabled Cognitive needs: No Hearing needs: No Vision needs: Yes Physical Exam Vital Signs: Last Vital Signs Pulse 72 01/21/23 13:28 Resp 14 01/21/23 13:28 BP 126/72 01/21/23 13:28 Pulse Ox 97 01/21/23 13:28 Oxygen Delivery Method Room Air 01/21/23 13:28 Assessment & Plan Assessment & Plan (1) Left lumbar radiculopathy: Code(s): M54.16 - Radiculopathy, lumbar region (2) Lumbar facet arthropathy: Code(s): M47.816 - Spondylosis without myelopathy or radiculopathy, lumbar region (3) Post laminectomy syndrome: Code(s): M96.1 - Postlaminectomy syndrome, not elsewhere classified (4) Sacroiliac joint pain: Code(s): M53.3 - Sacrococcygeal disorders, not elsewhere classified Plan: Left diagnostic sacroiliac joint injection Informed consent was explained thoroughly to the patient. All questions about benefits and risks for the procedure were answered. Patient came to the operating room and was positioned prone on the operating table with the pillow under the pelvis. Time out was performed delineating name and of the patient, allergies and the nature of the procedure. The lower back and buttocks of the patient were prepped with ChloraPrep prepped and draped with sterile utility towels. C-arm was brought over the operating field and sq picture of patient's pelvis was demonstrated on the screen. For the left joint tilting C-arm contralateral to the site of the joint the most posterior portion of the joints was superimposed with anterior silhouette of the joint. Skin was injected in the projection of the joint slightly medial to the location of the joint with 25 gauge 1/2 inch needle using local lidocaine 2% .After that 22 gauge 3 and 1/2 inch needle was driven to the left joint in tunnel vision fashion. Several appproaches were made until needle entered the joint capsule. The joint silhouette makes sharp contortions. injection of the contrast was performed demonstrating intra-articular and minimally periarticular spread of the contrast. After that 5 cc. of ropivacaine 0.5% was injected into the joint. Upon completion of the injections the needle was removed Sterile dressing was applied. Upon completion of the injection patient was taken outside of the operating room to the recovery room where recovered uneventfully. (5) Left hip pain: Code(s): M25.552 - Pain in left hip Plan Schedule for Diagnostic Left Sacroiliac Joint Injection with local and fluoroscopy. If positive response, will consider therapeutic injection, PNS or RFA procedures or will proceed with diagnostic lumbar medial branch blocks to confirm axial low back pain. Today's left hip xray with pelvic views was unremarkable. Expectations, risks and benefits were reviewed. Patient is aware she will be contacted to schedule this procedure. All questions were answered and the patient is in agreement of plan. Follow-up after injections and sooner as needed. Orders: Orders FL guidance in treatment room Today M53.3 - Sacrococcygeal disorders, not elsewhere classified Coding Level of Care Code Procedure Only Diagnoses Left lumbar radiculopathy M54.16 Lumbar facet arthropathy M47.816 Post laminectomy syndrome M96.1 Sacroiliac joint pain M53.3 Left hip pain M25.552
[2023-01-21 13:28] VITALS: BP 126/72; PULSE 72; RESP 14; O2SAT 97
[2023-01-21 14:45] VITALS: BP 136/76; PULSE 72; RESP 12; O2SAT 98
== END 2023-01-21 14:36 | disposition home or self-care (01) ==
LOC: HO.PMCPRC 13:21
PROVIDERS: PCP Internal Medicine; Visit Provider Anesthesiology
DX: M54.16 Radiculopathy, lumbar region (principal); M47.816 Spondylosis without myelopathy or radiculopathy, lumbar region; M96.1 Postlaminectomy syndrome, not elsewhere classified; M53.3 Sacrococcygeal disorders, not elsewhere classified; M25.552 Pain in left hip
CPT/HCPCS: 27096

== ENCOUNTER 2023-01-23 14:11 | Outpatient (AMB) | payer OTHER, SELFPAY ==
--- NOTE | 2023-01-23 14:15 | A.OFFVIS_ITS ---
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 Obregon. Patient reports 70-80% pain relief for 5-6 hours post procedure with improved mobility, functioning and sleep. Patient reports she was able to walk longer with just a little bit of left lateral hip and low back pain. She is interested to proceed with therapeutic injection under sedation. Patient has been doing home exercise program during days of minimal pain post injection and is hoping to increse her stationary bike usage after therapeutic SIJ injection which will help her to loose additional weight. Denies any recent cough, cold, infection, fever, bladder or mundo dysfunction, saddle anesthesia or other significant changes in medical history since last office visit. Past Procedures: 01/21/23: Left Diagnostic SIJ-70-80% ramiro n relief for 5-6 hours PRIOR: Patient is a pleasant 67 years old female who was previously seen in our office by Tyra JOAQUIN in 2020 and prior n [address] Cruz presents today for follow up for left low back pain with left hip and thigh pain. Patient reports midline low back pain that radiates into her left buttock and left groin and an terior left thigh without numbness or tingling. Pain increases with walking over 5 minutes and prolonged sitting. She denies significant pain while standing especially holding on to something. Reports left groin pain with getting out of bed or shower. Patient also reports shooting, sharp pain into her left groin and thigh with prolonged standing while cooking or washing dishes. She reports physical therapy in the past was not well tolerated due to increased pain. Tylenol, NSAIDs, heat and ice therapy and aqua therapy has been partially. She has been using stationary bike but due to pain has been using this less than before. Patient reports previous back injections provided minimal pain relief. Patient denies any bladder or bowel incontinence or saddle anesthesia. PRIOR 08/22/2020 Tyra Mensah ADMINISTRATIVE DIRECTOR: Meche returns to the office with complaints of low back pain as well as pain in left hip and bilateral hands. She was seen here three years ago by Dr. Cruz for similar symptoms with pain across the low back pain and radiation into entire left leg into the middle three toes. She underwent a L5-S1 injection in 2018 with minimal alleviation in her pain. Her pain is exacberated with sitting, standing and prolonged walking. Her pain is alleviated with leaning forward. It was recommended that she undergo physical therapy which she completed 8 sessions with exacerbation of her pain and could not tolaterate any more sessions. She also notes left groin pain as a result of her left hip osteoarthritis. She is under the care of Dr. Abbasi for this and is awaiting a left intrarticular hip injection to be authorized by insurance. She has had this injection in the past with great improvement in her symptoms. She had also had her hands evaluated by Dr. Abbasi who reportedly stated he will send her to Dr. Rashid, if they worsen. She notes an increase in swelling, stiffness and difficulty making a fist with her right hand. She is currently taking Tramadol and Aleve with little to no improvement in her symptoms. She has tried gabapentin in the past with no effect. She presents today to discuss injections. PRIOR: Meche presents for initial evaluation of chronic low back and left leg pain. She describes similar pain first experienced back in 2011. She eventually underwent a discectomy by Dr Haney and her pain resolved. Earlier this year while doing house work her pain returned abruptly. She describes her pain as stabbing, radiating predominately from the back down the posterior leg into her foot. Occasionally she will have pain into her groin. She denies any weakness, b/b dysfunction, fevers, or chills. Initial xrays were negative. She has not had PT as of yet. Her PCP ordered an MRI but it was denied. She has been performing a daily HEP and using NSAID to help with the pain that is interfering with sleep and all activity. Her pain ranges in intensity from 2-7/10. She is not sure what makes it better however all activity makes it worse. [facility] Medical History Osteoarthritis of hands, bilateral Degenerative joint disease of left hip Tenosynovitis of thumb Constipation Obesity (BMI 30-39.9) Depression Allergic rhinitis Deep left inguinal pain Lumbar degenerative disc disease GERD without esophagitis Impaired fasting glucose Palpitations COPD (chronic obstructive pulmonary disease) Benign essential hypertension Surgical History History of surgery History of total abdominal hysterectomy and bilateral salpingo-oophorectomy History of laparoscopic cholecystectomy History of appendectomy History of removal of cyst History of left knee surgery Family History Father CHF (congestive heart failure) Colon cancer Hypertension CVD (cardiovascular disease) Mother CVD (cardiovascular disease) Social History Housing: House Alcohol intake: never Patient Tobacco Use Status: Former Tobacco user e-Cigarette/Vaping Use: Never Used Second Hand Smoke Exposure: Yes service: No Current occupational status: disabled Cognitive needs: No Hearing needs: No Vision needs: Yes Review of Systems Const All systems reviewed & are unremarkable except as noted in HPI and below Physical Exam Vital Signs: Last Vital Signs Pulse 68 01/23/23 14:22 BP 145/65 H 01/23/23 14:22 Pulse Ox 98 01/23/23 14:22 Oxygen Delivery Method Room Air 01/23/23 14:22 BMI result Body Mass Index 41.3 General: Appears afebrile. Alert and oriented. Mood and affect appropriate. Follows and participates in conversation appropriately. Respiratory effort is unlabored. No cough. Able to transition from sit to stand unassisted. Ambulates with bilaterally normal heel strike and toe off, with mild imbalance on the left due to pain. Antalgic gait, with limping favoring right side. No assistive devices. Back/Spine/Pelvis Other: Lumbar flexion and extension reproduce mild pain. Seated SLR testing with dorsiflexion negative bilaterally. Facet loading + bilaterally. Opal + on the left. Shay test reproduces left groin and back pain on left. Stinchfield positive on left and reproduces left anterior thigh and left lower back pain. Minimal left groin pain with external left hip rotation. Pelvic compression test positive for hip and back pain on left. Significant tenderness in the projection of left SIJ and mild right SIJ. Cervical Spine: cervical ROM normal and No Cervical spine tenderness Thoracic/Lumbar Spine: thoracic and lumbar spine normal to inspection, No Thoracic/lumbar spine scar(s), Lasegue's sign negative, straight leg raise negative bilaterally, pain with thoraco-lumbar ROM, paraspinal muscle tenderness, No thoracic spinal tenderness and lumbar spinal tenderness at L4 and at L5 Pelvis: buttock tenderness on the left Sacroiliac joints: bilaterally (Left worse than right) tender to palpation Results Reviewed Results Reviewed: XR lumbar spine 6V w bending, XR left hip with pelvis 12/05/22 EXAMINATION: lumbar spine and left hip. CLINICAL INDICATIONS: Radiculopathy lumbar region. COMPARISON: Lumbar spine 07/23/2017 FINDINGS: LUMBAR SPINE: There is normal lumbar lordosis. The vertebral heights and alignment are normal. There is loss of L5-S1 disc height. Rest of the disc heights, vertebral heights and alignment is normal. There is mild ventral spondylosis throughout lumbar spine. No visible acute fracture, dislocation seen. There is no subluxation on flexion or extension views. There is mild bilateral L4-L5 and L5-S1 facet arthropathy. AP PELVIS AND LEFT HIP: There is mild loss of joint space and bilateral hip joints. SI joints are symmetrical. No visible fracture, lytic or sclerotic process seen. There is mild periarticular degenerative spurring inferior left hip joint. IMPRESSION: No acute fracture, dislocation or subluxation in lumbar spine. There is mild L5-S1 degenerative disc changes. Unremarkable AP pelvis and left hip. MR LUMBAR SPINE WITHOUT CONTRAST CLINICAL INFORMATION: Lumbar radiculopathy. Self-reported left lower extremity weakness, numbness and pain on occasion. COMPARISON: Lumbar spine radiograph 07/23/2017, report MRI lumbar spine 11/12/2011. TECHNIQUE: MRI of the lumbar spine was obtained using routine sequences without contrast. FINDINGS: VERTEBRAL BODIES AND PARASPINAL STRUCTURES: 5 lumbar-type vertebral bodies are present and are normal in height, alignment and marrow signal intensity aside from minimal multilevel endplate discogenic marrow signal changes and minimal scattered Schmorl's node deformities. CONUS MEDULLARIS AND CAUDA EQUINA: Normal, terminating at the level of L1-L2. SPINAL LEVELS: T12-L1: Normal. Normal intervertebral discs. No central or foraminal stenoses. L1-L2: No significant central or foraminal stenoses. Moderate bilateral ligamentum flavum hypertrophy. Mild bilateral facet hypertrophy. L2-L3: Mild central stenosis secondary to mild bilateral parasagittal disc protrusions and moderate bilateral ligamentum flavum hypertrophy. Mild bilateral facet hypertrophy. L3-L4: Mild central stenosis secondary to mild bilateral parasagittal disc protrusions and moderate bilateral ligamentum flavum hypertrophy. Furthermore, mild bilateral facet hypertrophic changes are noted. L4-L5: Mild central stenosis. Mild left foraminal stenosis. Findings arise secondary to a mild posterior broad-based disc bulge with left parasagittal and left lateral extension resulting in less than 50% left foraminal stenosis. No associated direct nerve root impingement. Moderate bilateral facet hypertrophic changes are noted along with mild bilateral ligamentum flavum hypertrophy. The protrusion comes to within 1 mm proximity of the left L5 nerve roots within the left subarticular recess without direct nerve root impingement. L5-S1: Mild left subarticular recess narrowing. This finding arises secondary to moderate left facet hypertrophic changes which project towards the left subarticular recess and mildly narrows the left subarticular recess abutting upon but not displacing the left S1 nerve roots. A minimal posterior broad-based disc bulge is present at this level without associated nerve root impingement. IMPRESSION: Chronic multilevel spondylosis of the lumbar spine without evidence of marked central or foraminal stenoses or direct nerve root impingement. At the levels L4-L5 and L5-S1 chronic hypertrophic changes come into close proximity with the left L5 and left S1 nerve roots respectively but do not result in direct nerve root impingement as detailed above. Assessment & Plan Assessment & Plan (1) Lumbar facet arthropathy: Code(s): M47.816 - Spondylosis without myelopathy or radiculopathy, lumbar region (2) Post laminectomy syndrome: Code(s): M96.1 - Postlaminectomy syndrome, not elsewhere classified (3) Sacroiliac joint pain: Code(s): M53.3 - Sacrococcygeal disorders, not elsewhere classified Plan Patient is status post Left Dx SIJ injection with good results and improved functioning, mobility and increased walking capacity. She is interested to undergo therapeutic left SIJ injection as next steps. We also discussed SIJ fusion, neuromodulation and RFA treatments for a longer term pain relief. Schedule for Therapeutic Left Sacroiliac Joint Injection with local and fluoroscopy. Expectations, risks and benefits were reviewed. Patient not on anticoagulant. Patient is aware she will be contacted to schedule this procedure. All questions were answered and the patient is in agreement of plan. Follow-up after injections and sooner as needed. Coding Level of Care Code Est Pt Level 3 (78481) Diagnoses Lumbar facet arthropathy M47.816 Post laminectomy syndrome M96.1 Sacroiliac joint pain M53.3
[2023-01-23 14:22] VITALS: BP 145/65; PULSE 68; O2SAT 98; BMI 41.3
== END 2023-01-23 14:41 | disposition home or self-care (01) ==
PROVIDERS: PCP Internal Medicine; Visit Provider Nurse Practitioner Family
DX: M47.816 Spondylosis without myelopathy or radiculopathy, lumbar region (principal); M96.1 Postlaminectomy syndrome, not elsewhere classified; M53.3 Sacrococcygeal disorders, not elsewhere classified
CPT/HCPCS: 99213

== ENCOUNTER → 2023-01-23 14:11 | Outpatient (BNVA) | payer OTHER, SELFPAY | PROVIDERS: PCP Internal Medicine; Visit Provider Nurse Practitioner Family ==

== ENCOUNTER 2023-01-31 09:45 | Day surgery (SDC) | payer OTHER, SELFPAY ==
--- NOTE | 2023-01-30 13:11 | HO.ANESPROP2 ---
Documented by User: Anay Pena NP 01/30/23 13:15 HPI - Anesthesia Eval Consult details Narrative: 67yo F for Left Therapeutic Sacroiliac Joint Steroid Injection PMFSH Active Problems Active Problems: All Active Problems (Updated 12/05/22 @ 11:41 by JEMAL Rios) Left hip pain (Acute) Sacroiliac joint pain (Acute) Post laminectomy syndrome (Acute) Colon cancer screening (Acute) Arthritis of carpometacarpal (CMC) joint of left thumb (Acute) Osteoarthritis of carpometacarpal joint of right thumb (Acute) Screening for lung cancer (Acute) De Quervain's tenosynovitis (Acute) Choking sensation (Acute) Upper respiratory tract infection (Acute) Osteoarthritis of hands, bilateral (Acute) Skin exam, screening for cancer (Acute) Hypertension, uncontrolled (Acute) Acute bronchitis (Acute) Bronchitis (Acute) COPD exacerbation (Acute) Cough (Acute) Flu-like symptoms (Acute) Uncontrolled hypertension (Acute) Recurrent nonproductive cough (Acute) Left lumbar radiculopathy (Acute) Lumbar facet arthropathy (Acute) Primary osteoarthritis of left hip (Acute) Degenerative joint disease of left hip (Acute) Tenosynovitis of thumb (Acute) Constipation (Acute) Obesity (BMI 30-39.9) (Acute) Depression (Acute) Allergic rhinitis (Acute) Deep left inguinal pain (Acute) Lumbar degenerative disc disease (Acute) GERD without esophagitis (Acute) Impaired fasting glucose (Acute) Palpitations (Acute) COPD (chronic obstructive pulmonary disease) (Acute) Benign essential hypertension (Acute) Past Medical History Medical History Osteoarthritis of hands, bilateral Degenerative joint disease of left hip Tenosynovitis of thumb Constipation Obesity (BMI 30-39.9) Depression Allergic rhinitis Deep left inguinal pain Lumbar degenerative disc disease GERD without esophagitis Impaired fasting glucose Palpitations COPD (chronic obstructive pulmonary disease) Benign essential hypertension Family History Family History Father CHF (congestive heart failure) Colon cancer Hypertension CVD (cardiovascular disease) Mother CVD (cardiovascular disease) Surgical History Surgical History History of surgery History of total abdominal hysterectomy and bilateral salpingo-oophorectomy History of laparoscopic cholecystectomy History of appendectomy History of removal of cyst History of left knee surgery Social History Social History Housing: House Alcohol intake: never Patient Tobacco Use Status: Former Tobacco user Quit Date: 05/30/1998 e-Cigarette/Vaping Use: Never Used Second Hand Smoke Exposure: Yes Use of substances other than those prescribed or required for medical reasons: No Are you DNR?: No Advance Directives: No Advance Directives Information Provided: Yes service: No Current occupational status: disabled Cognitive needs: No Hearing needs: No Vision needs: Yes Meds Allergies Allergy/AdvReac Type Severity Reaction Status Date / Time No Known Allergies Allergy Verified 01/31/23 10:05 [No Known Allergies*] Home Medications Medication Instructions Recorded Confirmed Last Taken Type spironolactone 25 mg tablet 25 mg PO DAILY 02/08/22 01/31/23 01/30/23 History Exam Exam Date and Time: January 30, 2023 1311 Pertinent Lab Results Pertinent Lab Results: Laboratory Tests 05/18/22 10/11/22 07:42 08:01 WBC 8.2 Hgb 11.6 L Hct 35.5 L Plt Count 254 Sodium 140 Potassium 3.8 Chloride 105 Carbon Dioxide 29 BUN 19 H Creatinine 0.98 Assessment and Plan Assessment Anesthesia Assessment: Chart Reviewed Documented by User: Jesica Webster MD 01/31/23 10:56 PMFSH Past Medical History Medical History Osteoarthritis of hands, bilateral Degenerative joint disease of left hip Tenosynovitis of thumb Constipation Obesity (BMI 30-39.9) Depression Allergic rhinitis Deep left inguinal pain Lumbar degenerative disc disease GERD without esophagitis Impaired fasting glucose Palpitations COPD (chronic obstructive pulmonary disease) Benign essential hypertension Family History Family History Father CHF (congestive heart failure) Colon cancer Hypertension CVD (cardiovascular disease) Mother CVD (cardiovascular disease) Family history of problems with anesthesia: No Surgical History Surgical History History of surgery History of total abdominal hysterectomy and bilateral salpingo-oophorectomy History of laparoscopic cholecystectomy History of appendectomy History of removal of cyst History of left knee surgery History of Problems with Anesthesia: No Social History Social History Housing: House Alcohol intake: never Patient Tobacco Use Status: Former Tobacco user Quit Date: 05/30/1998 e-Cigarette/Vaping Use: Never Used Second Hand Smoke Exposure: Yes Use of substances other than those prescribed or required for medical reasons: No Are you DNR?: No Advance Directives: No Advance Directives Information Provided: Yes service: No Current occupational status: disabled Cognitive needs: No Hearing needs: No Vision needs: Yes Meds Allergies Allergy/AdvReac Type Severity Reaction Status Date / Time No Known Allergies Allergy Verified 01/31/23 10:05 [No Known Allergies*] Home Medications Medication Instructions Recorded Confirmed Last Taken Type spironolactone 25 mg tablet 25 mg PO DAILY 02/08/22 01/31/23 01/30/23 History Exam Airway Mallampati Class: III TM Dist: >3cm Neck ROM: Limited Heart: rrr Lungs: cta Assessment and Plan Assessment Anesthesia Assessment: Anesthesia Plan Discussed Final Anesthetic Review Family History of Problems with Anesthesia: No History of Problems with Anesthesia: No NPO: Yes ASA Class: III Final Preanesthetic Review: No Changes in Pt Med Stat, Meds/Allgs Chart Reviewed, Consent Obtained/Reviewed and Anes Risks/Benef Reviewed Patient Risk: Intermediate Procedure Risk: Low Anesthetic Plan Anesthetic Plan: MAC: Disposition: Standard PACU
--- NOTE | ~2023-01-31 | FL_ITS ---
EXAMINATION: XR FLUOROSCOPY WITH IMAGES CLINICAL INFORMATION: Left therapeutic SIJ. COMPARISON: None available. TECHNIQUE: Fluoroscopy Supervised By: Dr. Cezar Obregon. Fluoroscopy Time: 0.3 minutes. Cumulative Dose: 25.6 mGy. DAP: 4.44 Gycm2. Images: 1. FINDINGS: Image demonstrates needle placement and contrast injection over the left sacroiliac joint FL/FL guidance in OR IMPRESSION: Fluoroscopic guidance for left sacroiliac joint injection.
[2023-01-31 09:55] VITALS: BMI 41.3
[2023-01-31 10:23] VITALS: BP 152/59; PULSE 78; RESP 16; TEMP 36.1; O2SAT 96
[2023-01-31] MEDS: Lactated Ringers 1,000 ML 100 ML IVCONT (10:23)
--- NOTE | 2023-01-31 11:05 | MHC.SHP ---
Pre-Procedural Eval Section A Date of Service: 01/31/23 The patient is an INPATIENT: No Changes since office visit: Yes Patient answered all questions The History & Physical has been completed within 30 days and I have reviewed it.: No Section B Chief Complaint: Sacrococcygeal disorders, not elsewhere classified Details of Present Illness: As above Relevant Family History (Specify if Yes): No Relevant Social History: None Present Medications: see Short Stay Collaborative assessment Medical History: No relevant PMH History of Previous Operations: No relevant previous surgery Allergies: Allergies Allergy/AdvReac Type Severity Reaction Status Date / Time No Known Allergies Allergy Verified 01/31/23 10:05 [No Known Allergies*] Review of Systems Sugical H&P ROS: Negative: Cardiovascular, Respiratory, Neurological, Psychiatric, Hem-Onc, Allergic/Immunologic, Gastrointestinal, Genitourinary, Musculoskeletal, Integumentary, Endocrine and Eyes/Ears/Nose/Throat and Yes, Specify: Constitution ( obesity) Exam Surgical H&P Exam: Normal: HEENT, Normal: Heart, Normal: Lungs, Normal: Extremities, Normal: Skin and Normal: Neurological and Significant Findings: Abdomen ( enlarged) Plan Diagnosis/Plan: Unchanged I have reviewed the history and physical and performed a pertinent physical examination on my patient. No changes have occurred unless specified. Time Spent With Patient Time: Total time managing care of this patient today ____ minutes.
[2023-01-31 12:01] VITALS: BP 132/59; PULSE 86; RESP 16; TEMP 36.7; O2SAT 97
--- NOTE | 2023-01-31 12:03 | P.BOP_ITS ---
Brief Operative Note Date of Service: 01/31/23 Pre-op diagnosis: sacroiliitis, sacroiliac joint pain Post-op diagnosis: same Procedure: therapeutic sacroiliac joint injection left Surgeon: Cezar Obregon MD Anesthesia: MAC Was an Clinic Office Manager used for this Procedure?: No Estimated blood loss (mL): 0 Condition: stable Disposition: PACU
--- NOTE | 2023-01-31 12:06 | W.PM.OPN ---
Operative Note Operative Note Date of Service: 01/31/23 Narrative: left sacroiliac joint injection Informed consent was explained thoroughly to the patient.? All questions about benefits and risks for the procedure were answered. Patient came to the operating room and was positioned prone on the operating table with the pillow under her pelvis. [employer] monitors were applied and patient was sedated. ? Time out was performed delineating name and of the patient, site and side of the procedure, nature of the procedure and potential patient?s risks. The lower back of the patient and upper buttocks was prepped with ChloraPrep prepped and draped with sterile utility drapes.? C-arm was brought over the operating field and square picture of patient's pelvis was demonstrated on the screen.? For the left joint tilting C-arm contralateral to the site of the joint the posterior joint silhouette was delineated on the screen. Skin projection of the joint was chosen as a target of the injection and it was injected ?slightly medial to the location of the joint with 25 gauge needle using local lidocaine 2% without epinephrine. After that 22 gauge 3 and 1/2 inch needle was driven to the joint silhouette in tunnel vision fashion.? When needle entered the joint capsule injection of the contrast was performed demonstrating intra-articular spread of the contrast.? After that 4 cc. of ropivacaine 0.5% mixed with Kenalog 40 mg was injected into the joint. Upon completion of the injections the needle was removed and sterile dressing was applied.? Upon completion of the injection patient was awaken taken outside of the operating room to the recovery room where she recovered uneventfully
[2023-01-31] MEDS: oxyCODONE HCl Immed Release 5 MG TABLET PO (12:14)
[2023-01-31 12:16] VITALS: BP 148/72; PULSE 69; RESP 16; TEMP 37.2; O2SAT 96
== END 2023-01-31 12:50 | disposition home or self-care (01) ==
PROVIDERS: PCP Internal Medicine; Visit Provider Anesthesiology
PROC: 3E0U33Z Introduction of Anti-inflammatory into Joints, Percutaneous Approach (ICD-10-PCS; CPT 27096; principal; 2023-01-31 11:40)
DX: M53.3 Sacrococcygeal disorders, not elsewhere classified (principal); M96.1 Postlaminectomy syndrome, not elsewhere classified; M47.816 Spondylosis without myelopathy or radiculopathy, lumbar region; J44.9 Chronic obstructive pulmonary disease, unspecified; I10 Essential (primary) hypertension; R73.01 Impaired fasting glucose; E66.9 Obesity, unspecified; Z68.41 Body mass index [BMI] 40.0-44.9, adult; Z79.899 Other long term (current) drug therapy; Z87.891 Personal history of nicotine dependence
CPT/HCPCS: 27096; J2704; J2795; J3301; Q9967

== ENCOUNTER → 2023-01-31 09:45 | Outpatient (BNV) | payer OTHER, SELFPAY | PROVIDERS: PCP Internal Medicine; Visit Provider Anesthesiology | DX: M53.3 Sacrococcygeal disorders, not elsewhere classified (principal) | CPT/HCPCS: 27096 ==

== ENCOUNTER 2023-02-19 06:05 | Outpatient (REF) | payer OTHER, SELFPAY ==
[2023-02-19 11:16] LABS: MANUAL DIFF FLAG NO
[2023-02-19 11:41] LABS: Basophils Absolute Auto 0.1 X10*3/uL (0.0-0.2); Basophils Percent Auto 0.7 % (0-2); Eosinophils Absolute Auto 0.1 X10*3/uL (0.0-0.4); Eosinophils Percent Auto 0.9 % (0-4); Hematocrit 39.4 % (37.0-47.0); Hemoglobin 12.7 g/dl (12.0-16.0); Imm Gran Abs Auto 0.03 X10*3/uL (0.00-0.03); Imm Gran Pct Auto 0.3 % (0.0-0.4); Lymphocytes Absolute Auto 2.2 X10*3/uL (1.2-4.9); Lymphocytes Percent Auto 24.1 % (20-40); Mean Corpuscular HGB Conc 32.2 g/dl (31.0-35.0); Mean Corpuscular Hemoglobin 28.9 pg (27.0-33.0); Mean Corpuscular Volume 89.5 fL (80.0-98.0); Mean Platelet Volume 13.6 fL (9.4-12.3); Monocytes Absolute Auto 0.7 X10*3/uL (0.1-1.2); Monocytes Percent Auto 7.7 % (2-11); Neutrophils Absolute Auto 6.1 x10*3/uL (2.0-8.3); Neutrophils Percent Auto 66.3 % (45-73); Platelet Count 272 X10*3/uL (160-400); Red Cell Distribution Width 14.5 % (11.0-16.0); White Blood Count 9.1 X10*3/uL (4.8-10.8)
[2023-02-19 11:48] LABS: Appearance Urine Clear; Color Urine Yellow; Glucose Urine UA Negative (Negative); Leukocyte Esterase Urine Moderate (2+) (Negative); Nitrite Urine Negative (Negative); PH 5.5 (5.0-9.0); UMIC TRIGGER UACC YES; Urine Blood Negative (Negative); Urine Ketones Negative (Negative); Urine Protein Negative (Neg-Trace)
[2023-02-19 11:53] LABS: Bacteria Urine None Seen (None Seen); RBC Urine 0-2 /HPF (0-2); UACC Culture Trigger YES; WBC Urine 21-50 /HPF (0-5)
[2023-02-19 11:54] LABS: Estimated Average Glucose 111 mg/dL; Hemoglobin A1c % 5.5 % (<6.0)
[2023-02-19 12:20] LABS: Alanine Aminotransferase 16 U/L (0-31); Albumin Level 3.8 g/dL (3.5-5.0); Alkaline Phosphatase 66 U/L (39-117); Anion Gap 10 (12-20); Aspartate Amino Transferase 16 U/L (5-31); Bilirubin Total 0.4 mg/dL (0.0-1.0); Blood Urea Nitrogen 29 mg/dL (9-16); Calcium 9.3 mg/dL (8.4-10.2); Carbon Dioxide 27 mmol/L (22-29); Chloride 106 mmol/L (96-108); Cholesterol 154 mg/dL (<200); Estimated Glomerular Filt Rate 52; Glucose Fasting 102 mg/dL (60-99); HDL Cholesterol 52 mg/dL (>40); LDL Cholesterol Calculated 79 mg/dL (<100); Potassium 4.1 mmol/L (3.3-5.1); Sodium 139 mmol/L (135-145); Total Protein 6.9 g/dL (6.5-8.0); Triglycerides 119 mg/dL (<150)
[2023-02-19 12:38] LABS: TSH reflex Free T4 4.76 uIU/mL (0.32-4.0); Vitamin D 25-OH Total 56.3 ng/mL (>30)
[2023-02-19 13:29] LABS: Free T4 (Free Thyroxine) 1.03 ng/dL (0.71-1.85)
== END 2023-02-19 06:06 | disposition home or self-care (01) ==
LOC: HO.HMGCLDS 06:05
PROVIDERS: PCP Internal Medicine; Visit Provider Internal Medicine
DX: E78.00 Pure hypercholesterolemia, unspecified (principal); E55.9 Vitamin D deficiency, unspecified; R73.01 Impaired fasting glucose; I10 Essential (primary) hypertension; R30.0 Dysuria
CPT/HCPCS: 36415; 80053; 80061; 81001; 82306; 83036; 84439; 84443; 85025; 87086

== ENCOUNTER 2023-02-20 10:25 | Outpatient (AMB) | payer OTHER, SELFPAY ==
[2023-02-20 10:34] VITALS: BP 148/60; PULSE 68; O2SAT 98; BMI 41.3
--- NOTE | 2023-02-20 10:34 | MHC.PC.OV ---
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 per policy Accompanied by: Self / Same As Patient Allergies No Known Allergies [No Known Allergies*] Allergy (Verified 02/21/23 04:49) Medication List - Last Reconciled 02/20/23 by Samy Duff MD albuterol sulfate 90 mcg/actuation 2 puffs inhalation Q4-6H PRN budesonide 180 mcg/actuation (Pulmicort Flexhaler) 1 inh PO BID hydralazine 25 mg PO TID 90 days hydrochlorothiazide 25 mg PO QAM losartan 100 mg PO DAILY metoprolol succinate ER 100 mg PO DAILY 90 days montelukast 10 mg PO BEDTIME pantoprazole 40 mg PO DAILY PRN 90 days spironolactone 25 mg PO DAILY tramadol 50 mg PO TID PRN 30 days Tobacco use date assessed: 10/17/22 Fall risk assessment: No Falls in past year Last assessed Fall Risk: 02/20/23 Dental Screening Dental Screen Date: 02/20/23 Did you have a dental visit in the last 12 months?: No Did you have a dental problem in the last 6 months where you did not have access to dental care?: No Was dental information given to patient?: Patient has dentist HPI hyperlipidemia, HTN, IFG, OA HPI Details Patient comes in today for her follow-up visit States that she feels okay but reports experiencing increasing right knee pain and some swelling for the past few days She denies any recent injury or trauma to her right knee but admits that she was on her feet a lot lately during the holidays, including spending more time than usual on her feet while cooking She is leaving for a 9 day vacation cruise tomorrow and would like to get her knee checked out now if possible She continues to follow-up with pain management for her chronic low back pain and hip pain and just had left SI injection a couple of weeks ago with (+) significant symptomatic relief She denies any headaches or dizziness Denies any chest pains, no shortness of breath No nausea /vomiting, no abdominal pain No change in bowel habits noted Needs her Tramadol Rx refilled Had her follow-up labs done yesterday - to discuss her results [facility] Medical History (Updated 02/21/23 @ 05:44 by Samy Duff MD) Osteopenia Osteoarthritis of hands, bilateral Degenerative joint disease of left hip Tenosynovitis of thumb Constipation Obesity (BMI 30-39.9) Depression Allergic rhinitis Deep left inguinal pain Lumbar degenerative disc disease GERD without esophagitis Impaired fasting glucose Palpitations COPD (chronic obstructive pulmonary disease) Benign essential hypertension Surgical History History of surgery History of total abdominal hysterectomy and bilateral salpingo-oophorectomy History of laparoscopic cholecystectomy History of appendectomy History of removal of cyst History of left knee surgery Family History Father CHF (congestive heart failure) Colon cancer Hypertension CVD (cardiovascular disease) Mother CVD (cardiovascular disease) Social History Housing: House Alcohol intake: never Comment: medicated Patient Tobacco Use Status: Former Tobacco user Quit Date: 05/30/1998 e-Cigarette/Vaping Use: Never Used Second Hand Smoke Exposure: Yes service: No Current occupational status: disabled Cognitive needs: No Hearing needs: No Vision needs: Yes Questionnaire Thrive Questionnaire Date Thrive assessed: 10/17/22 ALEIDA-7 AMB Questionnaire ALEIDA-7 Date ALEIDA - 7 assessed: 10/17/22 Source: Developed by Drs. Vlad Carmichael, Corie Rahman, Regulo Mata and colleagues, with an educational leno from [employer]. Review of Systems Const Denies fatigue, Denies fever(s) and Denies headache(s) ENT Denies dysphagia, Denies dizziness, Denies otalgia, Denies headache(s), Denies odynophagia and Denies sore throat Card Denies chest pain, Denies irregular heart rhythm, Denies palpitations and Denies dyspnea Resp Denies cough, Denies dyspnea and Denies wheezing GI Denies abdominal pain, Denies constipation, Denies dysphagia, Denies heartburn, Denies diarrhea, Denies nausea, Denies odynophagia and Denies vomiting Denies nocturia, Denies dysuria and Denies urinary urgency Musc Reports back pain (over the lumbar spine - chronic), Reports arthralgias (on fingers of both hands, phnai at base of thumbs; left hip; pain in R knee) and Reports joint swelling (in the right knee recently) Skin/Breast Denies rash Neuro Denies dizziness and Denies headache(s) Endo Denies fatigue and Denies palpitations Aller/Immun Denies wheezing Physical exam (Primary Care) Vital Signs: Last Vital Signs Pulse 68 02/20/23 10:34 BP 148/60 H 02/20/23 10:34 Pulse Ox 98 02/20/23 10:34 Oxygen Delivery Method Room Air 02/20/23 10:34 BMI result Body Mass Index 41.3 Tobacco/Smoking Status: Tobacco use Status Tobacco use date assessed 10/17/22 02/20/23 10:35 Patient Tobacco Use Status Former Tobacco user 02/20/23 10:35 e-Cigarette/Vaping Use Never Used 02/20/23 10:35 Thrive Assessment: Date of Thrive Assessment Date Thrive assessed 10/17/22 02/20/23 10:35 Const General: no acute distress and alert HENMT Ears: TM's normal bilaterally and EAC's normal Throat: Yes posterior oropharynx normal and Yes tonsils normal (no TP congestion noted) Neck Neck: Yes no lymphadenopathy and Yes supple Resp Auscultation: clear to auscultation bilaterally, no crackles, no rales and no wheezes Cardio Rate: regular rate Rhythm: regular rhythm Heart sounds: no murmurs GI Palpation (GI): Soft to palpation and nontender Auscultation: normal bowel sounds Back/Spine/Pelvis Thoracic/Lumbar Spine: lumbar spinal tenderness Skin Rashes: no rashes Extrem General: Yes no clubbing, cyanosis or edema Right upper extremity: Extremity exam: right hand Details: tenderness (of all fingers and of the hand, especially over base of thumb) Location: of the thumb Location: at the thenar eminence and at the MCP joint and normal ROM of fingers (but (+) stiffness of the fingers noted) Left upper extremity: hand Details: tenderness (of all fingers and of the hand, especially over base of thumb) Location: of the thumb Location: at the thenar eminence and at the MCP joint and normal ROM of fingers (but (+) stiffness) Right lower extremity: knee Details: tenderness Location: of the pre-patellar area and of the infrapatellar area and swelling (mild) Left lower extremity: hip/thigh Details: tenderness Location: of the hip Results Reviewed Results Reviewed: Laboratory Tests 02/19/23 06:13 WBC 9.1 Hgb 12.7 Hct 39.4 Plt Count 272 Sodium 139 Potassium 4.1 Creatinine 1.05 Estimated GFR 52 Fasting Glucose 102 H Hemoglobin A1c % 5.5 Calcium 9.3 AST 16 ALT 16 Triglycerides 119 Cholesterol 154 LDL Cholesterol, Calc 79 HDL Cholesterol 52 25-OH Vitamin D Total 56.3 TSH 4.76 H Free T4 1.03 Ur Specific [place] 1.020 Urine Protein Negative Urine Glucose (UA) Negative Urine Blood Negative Assessment and Plan Assessment & Plan (1) Benign essential hypertension: Code(s): I10 - Essential (primary) hypertension Plan: Results of her labs done yesterday reviewed and discussed with patient Reinforced low sodium diet - goal is systolic BP of at least 130 to 140 mm or less BP remains well-controlled on her current Rx regimen - continue Losartan 100 mg QD, Metoprolol ER 100 mg QD, Hydralazine 25 mg TID and HCTZ 25 mg Q AM; is also on Spironolactone 25 mg QD Amlodipine was discontinued previously due to increasing edema and SOB and her symptoms resolved with discontinuation of Rx Renal doppler and urine metanephrines done a few months ago both came back within normal range - no evidence of KAITY or pheochromocytoma Patient is instructed to continue monitoring her blood pressure regularly Will recheck her labs and fasting lipids in 4 months for follow up (2) COPD (chronic obstructive pulmonary disease): Comment: PFT done in 2013 showed (+) mild restrictive lung disease Code(s): J44.9 - Chronic obstructive pulmonary disease, unspecified Qualifiers: COPD type: unspecified COPD Qualified Code(s): J44.9 - Chronic obstructive pulmonary disease, unspecified Plan: Controlled Continue Pulmicort Flexhaler 180 mcg 1 inhalation BID and Albuterol HFA 1 to 2 puffs up to 4 times a day as needed (3) Lumbar degenerative disc disease: Code(s): M51.36 - Other intervertebral disc degeneration, lumbar region Plan: Reinforced activity and weight-lifting restrictions Has a TENS unit that she uses as needed with (+) temporary relief Continue Tramadol 50 mg TID PRN - Rx refilled Patient also recently a left SI injection by pain management couple of weeks ago, with (+) significant symptomatic relief Follow up with pain management as scheduled (4) Degenerative joint disease of left hip: Code(s): M16.12 - Unilateral primary osteoarthritis, left hip Qualifiers: Osteoarthritis type: unspecified Qualified Code(s): M16.12 - Unilateral primary osteoarthritis, left hip Plan: Follow up with orthopedics as scheduled (5) Osteoarthritis of hands, bilateral: Code(s): M19.041 - Primary osteoarthritis, right hand; M19.042 - Primary osteoarthritis, left hand Qualifiers: Osteoarthritis type: primary Qualified Code(s): M19.041 - Primary osteoarthritis, right hand; M19.042 - Primary osteoarthritis, left hand Plan: Advised to continue with regular hand exercises to help manage her finger stiffness and pain and that unfortunately, there are really no effective Rx or Tx that help help prevent or reverse OA changes of the hands and fingers Repeat x-rays of both hands done a few months ago comfirmed (+) OA changes in both hands She was seen by orthopedics a few months ago and offered cortisone injection if use of thumb splints do not help States that she did not go for cortisone injections as the splints helped somewhat and would like to continue on these for now (6) Osteopenia: Code(s): M85.80 - Other specified disorders of bone density and structure, unspecified site Qualifiers: Osteopenia location: multiple sites Qualified Code(s): M85.89 - Other specified disorders of bone density and structure, multiple sites Plan: Her BMD was last done back in 2017, which revealed (+) osteopenia with a T score of -1.5 in the hips Patient is again encouraged to continue taking Vitamin D and Calcium supplements daily and to try to exercise regularly Will send her for repeat BMD for follow up (7) GERD without esophagitis: Code(s): K21.9 - Gastro-esophageal reflux disease without esophagitis Plan: Dietary restrictions reinforced Continue Pantoprazole 40 mg QD (8) Impaired fasting glucose: Code(s): R73.01 - Impaired fasting glucose Plan: Reinforced low calorie diet/exercise as tolerated HgbA1c remains normal at 5.5% on her labs done yesterday (9) Depression: Code(s): F32.9 - Major depressive disorder, single episode, unspecified Qualifiers: Active/Remission status: currently active Depression Type: major depressive disorder Major depression episode severity: unspecified Major depression recurrence: recurrent Qualified Code(s): F33.9 - Major depressive disorder, recurrent, unspecified Plan: Controlled - stopped taking Duloxetine on her own a few months ago and has not felt any worse since stopping the Rx (10) Morbid obesity with BMI of 40.0-44.9, adult: Code(s): E66.01 - Morbid (severe) obesity due to excess calories; Z68.41 - Body mass index [BMI] 40.0-44.9, adult Plan: Reinforced diet/exercise as tolerated/lose weight Plan Follow up in 4 months Orders: Orders XR DEXA axial skeleton 02/20/23 Z78.0 - Asymptomatic menopausal state Complete Blood Count Auto Diff 4 Months I10 - Essential (primary) hypertension Comprehensive [place]. Panel Fast 4 Months E78.00 - Pure hypercholesterolemia, unspecified Lipid Panel 4 Months E78.00 - Pure hypercholesterolemia, unspecified TSH reflex Free T4 4 Months E78.00 - Pure hypercholesterolemia, unspecified UA CC w/rflx Micro + Cult 4 Months R30.0 - Dysuria Vitamin D 25-OH Total 4 Months E55.9 - Vitamin D deficiency, unspecified XR knee RT 4V 02/20/23 M25.561 - Pain in right knee Medications: Refilled tramadol 50 mg PO TID 30 days PRN 90 tabs 0RF pain Coding Level of Care Code Est Pt Level 4 (90664) Diagnoses Benign essential hypertension I10 Chronic obstructive pulmonary disease, unspecified COPD type J44.9 COPD type: unspecified COPD Lumbar degenerative disc disease M51.36 Osteoarthritis of left hip, unspecified osteoarthritis type M16.12 Osteoarthritis type: unspecified Primary osteoarthritis of both hands M19.041; M19.042 Osteoarthritis type: primary Osteopenia of multiple sites M85.89 Osteopenia location: multiple sites GERD without esophagitis K21.9 Impaired fasting glucose R73.01 Episode of recurrent major depressive disorder, unspecified depression episode severity F33.9 Active/Remission status: currently active Depression Type: major depressive disorder Major depression episode severity: unspecified Major depression recurrence: recurrent Morbid obesity with BMI of 40.0-44.9, adult E66.01; Z68.41
== END 2023-02-20 11:41 | disposition home or self-care (01) ==
PROVIDERS: PCP Internal Medicine; Visit Provider Internal Medicine
DX: J44.9 Chronic obstructive pulmonary disease, unspecified (principal); F33.9 Major depressive disorder, recurrent, unspecified; E66.01 Morbid (severe) obesity due to excess calories; Z68.41 Body mass index [BMI] 40.0-44.9, adult; I10 Essential (primary) hypertension; M51.36 Other intervertebral disc degeneration, lumbar region; M16.12 Unilateral primary osteoarthritis, left hip; M19.041 Primary osteoarthritis, right hand; M19.042 Primary osteoarthritis, left hand; M85.89 Other specified disorders of bone density and structure, multiple sites; K21.9 Gastro-esophageal reflux disease without esophagitis; R73.01 Impaired fasting glucose
CPT/HCPCS: 99214

== ENCOUNTER 2023-02-20 13:05 | Outpatient (REF) | payer OTHER, SELFPAY ==
--- NOTE | ~2023-02-20 | XR_ITS ---
EXAMINATION: XR KNEE, RIGHT CLINICAL INFORMATION: Pain. COMPARISON: None available. TECHNIQUE: Four views of the right knee. FINDINGS: No acute fracture or subluxation. Mild to moderate tricompartmental joint space narrowing. Upper patella spurring. No chondrocalcinosis. No osseous erosions. No joint effusion. XR/XR knee RT 4V IMPRESSION: 1. No acute fracture or subluxation. 2. Mild to moderate tricompartmental osteoarthritis.
== END 2023-02-20 13:06 | disposition home or self-care (01) ==
LOC: HO.XRAY 13:05
PROVIDERS: PCP Internal Medicine; Visit Provider Internal Medicine
DX: M25.561 Pain in right knee (principal); M47.816 Spondylosis without myelopathy or radiculopathy, lumbar region
CPT/HCPCS: 73564

== ENCOUNTER 2023-02-20 13:55 | Outpatient (AMB) | payer OTHER, SELFPAY ==
--- NOTE | 2023-02-20 13:57 | MHC.OFFVIS ---
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 Obregon. Patient reports ongoing 90% pain relief since procedure with improved mobility, functioning, changing positions and sleep. Patient reports she due to prolonged standing and walking during recent holiday gatherings and cooking, she developed right anterior knee pain and swelling. She went to see her PCP and completed xray, results are pending. She reports mild right calf tenderness without any swelling, erythema, tenderness or distal extremity edema. Alex's sign negative. Denies recent trauma, injury, falls, chest pain, shortness of breaths, or claudication. Patient states she is leaving on her vacation tomorrow morning and has 3 hours flight. Denies any recent cough, cold, infection, fever, , weakness, numbness, tingling, bladder or bowel dysfunction, saddle anesthesia or other significant changes in medical history since last office visit. Past Procedures: 01/31/23: Left Therapeutic SIJ injection-90% ongoing pain relief 01/21/23: Left Diagnostic SIJ [id number] pain relief for 5-6 hours PRIOR: Patient is a pleasant 67 years old female who was previously seen in our office by Tyra JOAQUIN in 2020 and prior n [address] Cruz presents today for follow up for left low back pain with left hip and thigh pain. Patient reports midline low back pain that radiates into her left buttock and left groin and anterior left thigh without numbness or tingling. Pain increases with walking over 5 minutes and prolonged sitting. She denies significant pain while standing especially holding on to something. Reports left groin pain with getting out of bed or shower. Patient also reports shooting, sharp pain into her left groin and thigh with prolonged standing while cooking or washing dishes. She reports physical therapy in the past was not well tolerated due to increased pain. Tylenol, NSAIDs, heat and ice therapy and aqua therapy has been partially. She has been using stationary bike but due to pain has been using this less than before. Patient reports previous back injections provided minimal pain relief. Patient denies any bladder or bowel incontinence or saddle anesthesia. PRIOR 08/22/2020 Tyra Mensah [employer] TECHNICIAN: Meche returns to the office with complaints of low back pain as well as pain in left hip and bilateral hands. She was seen here three years ago by Dr. Cruz for similar symptoms with pain across the low back pain and radiation into entire left leg into the middle three toes. She underwent a L5-S1 injection in 2018 with minimal alleviation in her pain. Her pain is exacberated with sitting, standing and prolonged walking. Her pain is alleviated with leaning forward. It was recommended that she undergo physical therapy which she completed 8 sessions with exacerbation of her pain and could not tolaterate any more sessions. She also notes left groin pain as a result of her left hip osteoarthritis. She is under the care of Dr. Abbasi for this and is awaiting a left intrarticular hip injection to be authorized by insurance. She has had this injection in the past with great improvement in her symptoms. She had also had her hands evaluated by Dr. Abbasi who reportedly stated he will send her to Dr. Rashid, if they worsen. She notes an increase in swelling, stiffness and difficulty making a fist with her right hand. She is currently taking Tramadol and Aleve with little to no improvement in her symptoms. She has tried gabapentin in the past with no effect. She presents today to discuss injections. PRIOR: Meche presents for initial evaluation of chronic low back and left leg pain. She describes similar pain first experienced back in 2011. She eventually underwent a discectomy by Dr Haney and her pain resolved. Earlier this year while doing house work her pain returned abruptly. She describes her pain as stabbing, radiating predominately from the back down the posterior leg into her foot. Occasionally she will have pain into her groin. She denies any weakness, b/b dysfunction, fevers, or chills. Initial xrays were negative. She has not had PT as of yet. Her PCP ordered an MRI but it was denied. She has been performing a daily HEP and using NSAID to help with the pain that is interfering with sleep and all activity. Her pain ranges in intensity from 2-7/10. She is not sure what makes it better however all activity makes it worse. [facility] Medical History Osteoarthritis of hands, bilateral Degenerative joint disease of left hip Tenosynovitis of thumb Constipation Obesity (BMI 30-39.9) Depression Allergic rhinitis Deep left inguinal pain Lumbar degenerative disc disease GERD without esophagitis Impaired fasting glucose Palpitations COPD (chronic obstructive pulmonary disease) Benign essential hypertension Surgical History History of surgery History of total abdominal hysterectomy and bilateral salpingo-oophorectomy History of laparoscopic cholecystectomy History of appendectomy History of removal of cyst History of left knee surgery Family History Father CHF (congestive heart failure) Colon cancer Hypertension CVD (cardiovascular disease) Mother CVD (cardiovascular disease) Social History Housing: House Alcohol intake: never Comment: medicated Patient Tobacco Use Status: Former Tobacco user Quit Date: 05/30/1998 e-Cigarette/Vaping Use: Never Used Second Hand Smoke Exposure: Yes service: No Current occupational status: disabled Cognitive needs: No Hearing needs: No Vision needs: Yes Review of Systems Const All systems reviewed & are unremarkable except as noted in HPI and below Physical Exam Vital Signs: Last Vital Signs Pulse 77 02/20/23 14:01 BP 133/61 02/20/23 14:01 Pulse Ox 98 02/20/23 14:01 Oxygen Delivery Method Room Air 02/20/23 14:01 BMI result Body Mass Index 41.3 General: Appears afebrile. Alert and oriented. Mood and affect appropriate. Follows and participates in conversation appropriately. Respiratory effort is unlabored. No cough. No nasal discharge. Able to transition from sit to stand unassisted. Ambulates with bilaterally normal heel strike and toe off. Back/Spine/Pelvis Cervical Spine: cervical ROM normal and No Cervical spine tenderness Thoracic/Lumbar Spine: Lasegue's sign negative, straight leg raise negative bilaterally, pain with thoraco-lumbar ROM, No thoracic spinal tenderness and No lumbar spinal tenderness Pelvis: no buttock tenderness Sacroiliac joints: bilaterally nontender Extrem General: Yes capillary refill normal, Yes no clubbing, cyanosis or edema and Yes calf tenderness (mild, on the right. Negative Alex's sign. No swelling, warmth or redness.) Right lower extremity: knee (limited ROM due to pain) Details: normal to inspection, tenderness Location: of the patella, of the medial joint line, of the lateral joint line and of the distal upper leg, swelling Location: of the proximal tibia and crepitus; no abrasions, no ecchymosis, no deformity and no unusual warmth Results Reviewed Results Reviewed: XR lumbar spine 6V w bending, XR left hip with pelvis 12/05/22 EXAMINATION: lumbar spine and left hip. CLINICAL INDICATIONS: Radiculopathy lumbar region. COMPARISON: Lumbar spine 07/23/2017 FINDINGS: LUMBAR SPINE: There is normal lumbar lordosis. The vertebral heights and alignment are normal. There is loss of L5-S1 disc height. Rest of the disc heights, vertebral heights and alignment is normal. There is mild ventral spondylosis throughout lumbar spine. No visible acute fracture, dislocation seen. There is no subluxation on flexion or extension views. There is mild bilateral L4-L5 and L5-S1 facet arthropathy. AP PELVIS AND LEFT HIP: There is mild loss of joint space and bilateral hip joints. SI joints are symmetrical. No visible fracture, lytic or sclerotic process seen. There is mild periarticular degenerative spurring inferior left hip joint. IMPRESSION: No acute fracture, dislocation or subluxation in lumbar spine. There is mild L5-S1 degenerative disc changes. Unremarkable AP pelvis and left hip. MR LUMBAR SPINE WITHOUT CONTRAST CLINICAL INFORMATION: Lumbar radiculopathy. Self-reported left lower extremity weakness, numbness and pain on occasion. COMPARISON: Lumbar spine radiograph 07/23/2017, report MRI lumbar spine 11/12/2011. TECHNIQUE: MRI of the lumbar spine was obtained using routine sequences without contrast. FINDINGS: VERTEBRAL BODIES AND PARASPINAL STRUCTURES: 5 lumbar-type vertebral bodies are present and are normal in height, alignment and marrow signal intensity aside from minimal multilevel endplate discogenic marrow signal changes and minimal scattered Schmorl's node deformities. CONUS MEDULLARIS AND CAUDA EQUINA: Normal, terminating at the level of L1-L2. SPINAL LEVELS: T12-L1: Normal. Normal intervertebral discs. No central or foraminal stenoses. L1-L2: No significant central or foraminal stenoses. Moderate bilateral ligamentum flavum hypertrophy. Mild bilateral facet hypertrophy. L2-L3: Mild central stenosis secondary to mild bilateral parasagittal disc protrusions and moderate bilateral ligamentum flavum hypertrophy. Mild bilateral facet hypertrophy. L3-L4: Mild central stenosis secondary to mild bilateral parasagittal disc protrusions and moderate bilateral ligamentum flavum hypertrophy. Furthermore, mild bilateral facet hypertrophic changes are noted. L4-L5: Mild central stenosis. Mild left foraminal stenosis. Findings arise secondary to a mild posterior broad-based disc bulge with left parasagittal and left lateral extension resulting in less than 50% left foraminal stenosis. No associated direct nerve root impingement. Moderate bilateral facet hypertrophic changes are noted along with mild bilateral ligamentum flavum hypertrophy. The protrusion comes to within 1 mm proximity of the left L5 nerve roots within the left subarticular recess without direct nerve root impingement. L5-S1: Mild left subarticular recess narrowing. This finding arises secondary to moderate left facet hypertrophic changes which project towards the left subarticular recess and mildly narrows the left subarticular recess abutting upon but not displacing the left S1 nerve roots. A minimal posterior broad-based disc bulge is present at this level without associated nerve root impingement. IMPRESSION: Chronic multilevel spondylosis of the lumbar spine without evidence of marked central or foraminal stenoses or direct nerve root impingement. At the levels L4-L5 and L5-S1 chronic hypertrophic changes come into close proximity with the left L5 and left S1 nerve roots respectively but do not result in direct nerve root impingement as detailed above. Assessment & Plan Assessment & Plan (1) Lumbar facet arthropathy: Code(s): M47.816 - Spondylosis without myelopathy or radiculopathy, lumbar region (2) Post laminectomy syndrome: Code(s): M96.1 - Postlaminectomy syndrome, not elsewhere classified (3) Sacroiliac joint pain: Code(s): M53.3 - Sacrococcygeal disorders, not elsewhere classified (4) Right knee pain: Code(s): M25.561 - Pain in right knee (5) Morbid obesity with BMI of 40.0-44.9, adult: Code(s): E66.01 - Morbid (severe) obesity due to excess calories; Z68.41 - Body mass index [BMI] 40.0-44.9, adult Plan Patient is status post Left therapeutic SIJ injection with good results and improved functioning, mobility and increased walking capacity. She will continue to monitor her pain levels and notify our office when her pain returns to baseline. We also reviewed SIJ fusion, neuromodulation and RFA treatments for a longer term pain relief. Pending knee xray results for right knee pain. Encouraged ice, rest, elevation and NSAIDs. Discussed DVT prevention for flight for 3 hours tomorrow. Walk 5-10 minutes each 1-2 hours of flight. Avoid window seats. Maintain adequate hydration. Avoid alcohol. Lower extremity Isometric Exercises while seated. Avoid crossing legs while seated. Wear Compression Stockings during flight. Patient reports taking Aspirin 81 mg daily. All questions were answered and the patient is in agreement of plan. Follow-up as needed. Coding Level of Care Code Est Pt Level 4 (85448) Diagnoses Lumbar facet arthropathy M47.816 Post laminectomy syndrome M96.1 Sacroiliac joint pain M53.3 Right knee pain M25.561 Morbid obesity with BMI of 40.0-44.9, adult E66.01; Z68.41
[2023-02-20 14:01] VITALS: BP 133/61; PULSE 77; O2SAT 98; BMI 41.3
== END 2023-02-20 14:12 | disposition home or self-care (01) ==
PROVIDERS: PCP Internal Medicine; Visit Provider Nurse Practitioner Family
DX: M47.816 Spondylosis without myelopathy or radiculopathy, lumbar region (principal); M96.1 Postlaminectomy syndrome, not elsewhere classified; M53.3 Sacrococcygeal disorders, not elsewhere classified; M25.561 Pain in right knee; E66.01 Morbid (severe) obesity due to excess calories; Z68.41 Body mass index [BMI] 40.0-44.9, adult
CPT/HCPCS: 99214

== ENCOUNTER 2023-04-04 07:58 | Outpatient (REF) | payer OTHER, SELFPAY ==
--- NOTE | ~2023-04-04 | MM_ITS ---
EXAMINATION: BONE DENSITOMETRY CLINICAL INDICATION: Asymptomatic menopausal state. COMPARISON: Baseline BD dated 06/21/2016. TECHNIQUE: Using a [employer] DXA System (software version: 13.1) manufactured by [employer], dual-energy x-ray absorptiometry was performed of the lumbar spine and left hip. The images are of good technical quality. Summary results are attached. FINDINGS: LEFT FEMUR, NECK: Current: BMD 1.109 g/cm2, Z-score 1.4, T-score 0.5, normal. Baseline: BMD 0.835 g/cm2. LEFT FEMUR, TOTAL: Current: BMD 1.061 g/cm2, Z-score 1.0, T-score 0.4, normal, 20.0% increase from baseline (<5% change is not significant). Baseline: BMD 0.884 g/cm2. AP SPINE L1-L4: Current: BMD 1.186 g/cm2, Z-score 0.5, T-score 0.1, normal, 14.3% increase from baseline (<5% change is not significant). Baseline: BMD 1.038 g/cm2. IDENTIFIED RISK FACTORS: Early menopause, secondary osteoporosis, hysterectomy, bilateral oophorectomy, parental hip fracture. HISTORY OF FRACTURE: None listed. MEDICATIONS: Calcium supplements or multivitamin, vitamin D. MM/XR DEXA axial skeleton IMPRESSION: 1. DIAGNOSIS: Normal bone density based on the lowest T-score value of 0.1 in the lumbar spine applying World Health Organization criteria. 2. 10-YEAR FRACTURE RISK PREDICTION, FRAX: According to the guidelines, FRAX calculation should only be performed on patients in the osteopenia bone density category. Therefore, FRAX was not performed on this patient. 3. Treatment Recommendations: NOF guidelines recommend consideration for treatment in postmenopausal women and men age 50 and older presenting with the following: -A hip or vertebral (clinical or morphometric) fracture. -T-score less than or equal to -2.5 at the femoral neck or spine after appropriate evaluation to exclude secondary causes. -Low bone mass at the hip or spine and a 10-year fracture probability by FRAX of greater than or equal to 3% for hip fracture or greater than or equal to 20% for major osteoporotic fracture based on the [place] adapted WHO algorithm. 4. Other Recommendations: All treatment decisions require clinical judgment and consideration of individual patient factors, including patient preferences, comorbidities, previous drug use, risk factors not captured in the FRAX model (e.g. frailty, falls, vitamin D deficiency, increased bone turnover, interval significant decline in bone density) and possible under or overestimation of fracture risk by FRAX. FUTURE SCAN RECOMMENDATION: People with diagnosed cases of osteoporosis or at high risk for fracture should have regular bone mineral density tests. For patients eligible for Medicare, routine testing is allowed once every 2 years. The testing frequency can be increased to one year for patients who have rapidly progressing disease, those who are receiving or discontinuing medical therapy to restore bone mass, or have additional risk factors.
== END 2023-04-04 07:59 | disposition home or self-care (01) ==
LOC: HO.MAMMO 07:58
PROVIDERS: PCP Internal Medicine; Visit Provider Internal Medicine
DX: Z13.820 Encounter for screening for osteoporosis (principal); Z78.0 Asymptomatic menopausal state
CPT/HCPCS: 77080

== ENCOUNTER 2023-04-30 15:05 | Outpatient (REF) | payer OTHER, SELFPAY ==
--- NOTE | ~2023-04-30 | US_ITS ---
EXAMINATION: US DIAGNOSTIC ULTRASOUND BREAST, RIGHT CLINICAL INFORMATION: 6 month follow-up for probable complicated cyst right breast 11:00 axis, 2 cm from the nipple.. COMPARISON: 11/06/2022 TECHNIQUE: Ultrasound of the right breast is performed with real-time hart scale imaging and color Doppler. FINDINGS: The previously seen complicated cyst in the 11:00 axis, 2 cm from the nipple, has decreased in size and now appears slightly crenated, reflective of a collapsing cyst. It currently measures 3 x 3 x 5 mm, previously 4 x 5 x 5 mm. It still demonstrates posterior acoustic enhancement with mild edge shadowing. No internal color Doppler signal. No surrounding parenchymal changes. This remains probably benign. US/US breast RT limited mamm only IMPRESSION: Probably benign complicated crenated cyst right breast 11:00 axis, 2 cm from the nipple, decreased in size as detailed above. This remains probably benign, and six-month interval follow-up targeted right breast ultrasound recommended to ensure stability when the patient is due for bilateral screening. ASSESSMENT: BI-RADS 3 - Probably benign finding(s) - 6 month follow-up suggested RECOMMENDATION: 6 Month F/U
== END 2023-04-30 15:06 | disposition home or self-care (01) ==
LOC: HO.MAMMO 15:05
PROVIDERS: PCP Internal Medicine; Visit Provider Internal Medicine
DX: R92.2 Inconclusive mammogram (principal)
CPT/HCPCS: 76642

== ENCOUNTER → 2023-04-30 15:30 | Outpatient (BNV) | payer OTHER, SELFPAY | PROVIDERS: PCP Internal Medicine; Visit Provider Radiology Diagnostic Radiology | DX: N63.11 Unspecified lump in the right breast, upper outer quadrant (principal) | CPT/HCPCS: 76642 ==

== ENCOUNTER 2023-06-13 09:08 | Day surgery (SDC) | payer OTHER, SELFPAY ==
--- NOTE | 2023-06-11 14:40 | HO.ANESPROP2 ---
Documented by User: Anay Pena NP 06/11/23 14:40 HPI - Anesthesia Eval Consult details Narrative: 67yo F for Colonoscopy PMFSH Active Problems Active Problems: All Active Problems (Updated 03/26/23 @ 09:25 by Mike New PA-C) COVID (Acute) Macular hole (Acute) Osteopenia (Acute) Morbid obesity with BMI of 40.0-44.9, adult (Acute) Right knee pain (Acute) Left hip pain (Acute) Sacroiliac joint pain (Acute) Post laminectomy syndrome (Acute) Colon cancer screening (Acute) Arthritis of carpometacarpal (CMC) joint of left thumb (Acute) Osteoarthritis of carpometacarpal joint of right thumb (Acute) Screening for lung cancer (Acute) De Quervain's tenosynovitis (Acute) Choking sensation (Acute) Upper respiratory tract infection (Acute) Osteoarthritis of hands, bilateral (Acute) Skin exam, screening for cancer (Acute) Hypertension, uncontrolled (Acute) Acute bronchitis (Acute) Bronchitis (Acute) COPD exacerbation (Acute) Cough (Acute) Flu-like symptoms (Acute) Uncontrolled hypertension (Acute) Recurrent nonproductive cough (Acute) Left lumbar radiculopathy (Acute) Lumbar facet arthropathy (Acute) Primary osteoarthritis of left hip (Acute) Degenerative joint disease of left hip (Acute) Tenosynovitis of thumb (Acute) Constipation (Acute) Obesity (BMI 30-39.9) (Acute) Depression (Acute) Allergic rhinitis (Acute) Deep left inguinal pain (Acute) Lumbar degenerative disc disease (Acute) GERD without esophagitis (Acute) Impaired fasting glucose (Acute) Palpitations (Acute) COPD (chronic obstructive pulmonary disease) (Acute) Benign essential hypertension (Acute) Past Medical History Medical History (Updated 03/26/23 @ 09:25 by Mike New PA-C) Osteopenia Osteoarthritis of hands, bilateral Degenerative joint disease of left hip Tenosynovitis of thumb Constipation Obesity (BMI 30-39.9) Depression Allergic rhinitis Deep left inguinal pain Lumbar degenerative disc disease GERD without esophagitis Impaired fasting glucose Palpitations COPD (chronic obstructive pulmonary disease) Benign essential hypertension Family History Family History Father CHF (congestive heart failure) Colon cancer Hypertension CVD (cardiovascular disease) Mother CVD (cardiovascular disease) Family history of problems with anesthesia: No Surgical History Surgical History History of surgery History of total abdominal hysterectomy and bilateral salpingo-oophorectomy History of laparoscopic cholecystectomy History of appendectomy History of removal of cyst History of left knee surgery History of Problems with Anesthesia: No Social History Social History Housing: House Alcohol intake: never Comment: medicated Patient Tobacco Use Status: Former Tobacco user Quit Date: 05/30/1998 e-Cigarette/Vaping Use: Never Used Second Hand Smoke Exposure: Yes Advance Directives: No Advance Directives Information Provided: Yes service: No Current occupational status: disabled Cognitive needs: No Hearing needs: No Vision needs: Yes Meds Allergies Allergy/AdvReac Type Severity Reaction Status Date / Time No Known Allergies Allergy Verified 02/21/23 04:49 [No Known Allergies*] Home Medications Medication Instructions Recorded Confirmed Last Taken Type spironolactone 25 mg tablet 25 mg PO DAILY 02/08/22 02/20/23 01/30/23 History Assessment and Plan Assessment Anesthesia Assessment: Chart Reviewed Final Anesthetic Review Family History of Problems with Anesthesia: No History of Problems with Anesthesia: No Documented by User: Min Zaragoza MD 06/13/23 09:45 [facility] Past Medical History Medical History (Updated 03/26/23 @ 09:25 by Mike New PA-C) Osteopenia Osteoarthritis of hands, bilateral Degenerative joint disease of left hip Tenosynovitis of thumb Constipation Obesity (BMI 30-39.9) Depression Allergic rhinitis Deep left inguinal pain Lumbar degenerative disc disease GERD without esophagitis Impaired fasting glucose Palpitations COPD (chronic obstructive pulmonary disease) Benign essential hypertension Family History Family History Father CHF (congestive heart failure) Colon cancer Hypertension CVD (cardiovascular disease) Mother CVD (cardiovascular disease) Surgical History Surgical History History of surgery History of total abdominal hysterectomy and bilateral salpingo-oophorectomy History of laparoscopic cholecystectomy History of appendectomy History of removal of cyst History of left knee surgery Social History Social History Housing: House Alcohol intake: never Comment: medicated Patient Tobacco Use Status: Former Tobacco user Quit Date: 05/30/1998 e-Cigarette/Vaping Use: Never Used Second Hand Smoke Exposure: Yes Advance Directives: No Advance Directives Information Provided: Yes service: No Current occupational status: disabled Cognitive needs: No Hearing needs: No Vision needs: Yes Meds Allergies Allergy/AdvReac Type Severity Reaction Status Date / Time No Known Allergies Allergy Verified 02/21/23 04:49 [No Known Allergies*] Home Medications Medication Instructions Recorded Confirmed Last Taken Type spironolactone 25 mg tablet 25 mg PO DAILY 02/08/22 02/20/23 01/30/23 History Exam Airway Mallampati Class: III TM Dist: >3cm Neck ROM: Full Assessment and Plan Assessment Anesthesia Assessment: Anesthesia Plan Discussed Final Anesthetic Review NPO: Yes ASA Class: III Final Preanesthetic Review: No Changes in Pt Med Stat, Meds/Allgs Chart Reviewed, Consent Obtained/Reviewed and Anes Risks/Benef Reviewed Patient Risk: Intermediate Procedure Risk: Low Anesthetic Plan Anesthetic Plan: TIVA Disposition: Standard PACU
[2023-06-13 09:39] VITALS: BMI 36.3
[2023-06-13 09:48] VITALS: BP 131/78; PULSE 92; RESP 18; TEMP 36.7; O2SAT 96
[2023-06-13] MEDS: Lactated Ringers 1,000 ML 100 ML IVCONT (10:06)
[2023-06-13 10:57] VITALS: BP 100/48; PULSE 89; RESP 22; TEMP 36.1; O2SAT 99
--- NOTE | 2023-06-13 11:05 | P.BOP_ITS ---
Brief Operative Note Date of Service: 06/13/23 Pre-op diagnosis: Screening Post-op diagnosis: other (Polyp) Procedure: Colonoscopy to the cecum with bx/removal of polyp Surgeon: Vlad Abreu MD Anesthesia: MAC Was an Business Office Technician used for this Procedure?: No Estimated blood loss (mL): 2.0 Pathology: other (A. Cecal polyp) Condition: stable Disposition: PACU
[2023-06-13 11:12] VITALS: BP 124/63; PULSE 75; RESP 20; O2SAT 96
--- NOTE | 2023-06-13 11:24 | OP_ITS ---
DATE OF SERVICE: 06/13/2023 SURGEON: Vlad Abreu MD INDICATIONS: The patient presents for evaluation of personal history of tubular adenoma of the colon, family history of colon cancer, and colorectal cancer screening. Full consent obtained from her for this, including risks of bleeding and perforation. PREOPERATIVE DIAGNOSIS: POSTOPERATIVE DIAGNOSIS: PROCEDURE PERFORMED: Colonoscopy to cecum with biopsy and removal of polyp. ESTIMATED BLOOD LOSS: COMPLICATIONS: ANESTHESIA: Monitored anesthesia care. ASSISTANTS: SPECIMENS: PREOPERATIVE DIAGNOSES: Colorectal cancer screening, family history colon cancer, and personal history of tubular adenoma of the colon. POSTOPERATIVE DIAGNOSES: Colorectal cancer screening, family history colon cancer, and personal history of tubular adenoma of the colon, small colon polyp, diverticulosis, and internal hemorrhoids. DESCRIPTION OF PROCEDURE: The patient was placed in the left lateral decubitus position. The digital rectal exam revealed no abnormalities. The Olympus video pediatric colonoscope was entered into the rectum and advanced easily to the cecum. Once in the cecum, I did identify cecal pouch with appendiceal orifice and a normal-appearing ileocecal valve. There was transillumination of light deep in the right lower quadrant. The entire cecum was well visualized. In the cecum was an approximately 3 or 4 mm polyp, which was biopsied and completely removed with cold biopsy forceps. The remainder of the cecum appeared normal. The scope was slowly withdrawn assessing all mucosal surfaces carefully. Preparation was excellent. I did not visualize any other polyps, colitis, nor angiodysplasia. There was a mild amount of sigmoid diverticulosis. In the rectum, scope was retroflexed visualizing internal hemorrhoids, but no other pathology. The rectal mucosa appeared normal. The scope was straightened out and withdrawn from the patient. She tolerated the procedure well and was returned to recovery area in stable condition. IMPRESSION: 1. Colon polyp. 2. Diverticulosis. 3. Internal hemorrhoids. PLAN: The results of the biopsy will be checked. I would recommend a repeat colonoscopy in 5 years. She will otherwise see me on a p.r.n. basis. MD DALLAS Mo/TORI / [phone]
[2023-06-13 11:27] VITALS: BP 123/61; PULSE 72; RESP 20; TEMP 36.2; O2SAT 97
[2023-06-13 11:42] VITALS: BP 121/50; PULSE 73; RESP 20; TEMP 36.2; O2SAT 97
== END 2023-06-13 12:20 | disposition home or self-care (01) ==
PROVIDERS: PCP Internal Medicine; Visit Provider Internal Medicine
PROC: 0DJD8ZZ Inspection of Lower Intestinal Tract, Via Natural or Artificial Opening Endoscopic (ICD-10-PCS; CPT 45378; principal; 2023-06-13 10:50)
DX: Z12.11 Encounter for screening for malignant neoplasm of colon (principal); Z86.010 Personal history of colon polyps; Z80.0 Family history of malignant neoplasm of digestive organs; D12.0 Benign neoplasm of cecum; K57.30 Diverticulosis of large intestine without perforation or abscess without bleeding; K64.8 Other hemorrhoids; K64.4 Residual hemorrhoidal skin tags; K59.00 Constipation, unspecified; I10 Essential (primary) hypertension; J45.909 Unspecified asthma, uncomplicated; Z79.51 Long term (current) use of inhaled steroids; Z79.1 Long term (current) use of non-steroidal anti-inflammatories (NSAID); Z79.82 Long term (current) use of aspirin; Z79.899 Other long term (current) drug therapy; Z87.891 Personal history of nicotine dependence
CPT/HCPCS: 45380; 88305; J2704

== ENCOUNTER 2023-06-19 07:07 | Outpatient (REF) | payer OTHER, SELFPAY ==
[2023-06-19 10:12] LABS: MANUAL DIFF FLAG NO
[2023-06-19 10:19] LABS: Appearance Urine Cloudy; Color Urine Yellow; Glucose Urine UA Negative (Negative); Leukocyte Esterase Urine Negative (Negative); Nitrite Urine Negative (Negative); PH 5.5 (5.0-9.0); Specific Gravity - Urine 1.015 (1.005-1.025); Urine Blood Negative (Negative); Urine Ketones Negative (Negative); Urine Protein Negative (Neg-Trace)
[2023-06-19 10:33] LABS: Basophils Absolute Auto 0.1 X10*3/uL (0.0-0.2); Basophils Percent Auto 0.6 % (0-2); Eosinophils Absolute Auto 0.2 X10*3/uL (0.0-0.4); Eosinophils Percent Auto 1.9 % (0-4); Hematocrit 38.3 % (37.0-47.0); Hemoglobin 12.3 g/dl (12.0-16.0); Imm Gran Abs Auto 0.04 X10*3/uL (0.00-0.03); Imm Gran Pct Auto 0.5 % (0.0-0.4); Lymphocytes Absolute Auto 1.8 X10*3/uL (1.2-4.9); Lymphocytes Percent Auto 21.9 % (20-40); Mean Corpuscular HGB Conc 32.1 g/dl (31.0-35.0); Mean Corpuscular Hemoglobin 28.6 pg (27.0-33.0); Mean Corpuscular Volume 89.1 fL (80.0-98.0); Monocytes Absolute Auto 0.7 X10*3/uL (0.1-1.2); Monocytes Percent Auto 7.8 % (2-11); Neutrophils Absolute Auto 5.7 x10*3/uL (2.0-8.3); Neutrophils Percent Auto 67.3 % (45-73); Platelet Count 269 X10*3/uL (160-400); Red Cell Distribution Width 13.7 % (11.0-16.0); White Blood Count 8.4 X10*3/uL (4.8-10.8)
[2023-06-19 11:19] LABS: Alanine Aminotransferase 16 U/L (0-31); Albumin Level 3.9 g/dL (3.5-5.0); Alkaline Phosphatase 71 U/L (39-117); Anion Gap 12 (12-20); Aspartate Amino Transferase 17 U/L (5-31); Bilirubin Total 0.4 mg/dL (0.0-1.0); Blood Urea Nitrogen 21 mg/dL (9-16); Calcium 9.8 mg/dL (8.4-10.2); Carbon Dioxide 28 mmol/L (22-29); Chloride 106 mmol/L (96-108); Cholesterol 157 mg/dL (<200); Estimated Glomerular Filt Rate 52; Glucose Fasting 113 mg/dL (60-99); HDL Cholesterol 45 mg/dL (>40); LDL Cholesterol Calculated 72 mg/dL (<100); Potassium 4.4 mmol/L (3.3-5.1); Sodium 142 mmol/L (135-145); Total Protein 7.1 g/dL (6.5-8.0); Triglycerides 202 mg/dL (<150)
[2023-06-19 11:25] LABS: TSH reflex Free T4 3.98 uIU/mL (0.32-4.0); Vitamin D 25-OH Total 45.4 ng/mL (>30)
== END 2023-06-19 07:08 | disposition home or self-care (01) ==
LOC: HO.HMGCLDS 07:07
PROVIDERS: PCP Internal Medicine; Visit Provider Internal Medicine
DX: I10 Essential (primary) hypertension (principal); E78.00 Pure hypercholesterolemia, unspecified; R30.0 Dysuria; E55.9 Vitamin D deficiency, unspecified
CPT/HCPCS: 36415; 80053; 80061; 81003; 82306; 84443; 85025

== ENCOUNTER 2023-06-25 08:32 | Outpatient (AMB) | payer OTHER, SELFPAY ==
--- NOTE | 2023-06-25 08:39 | MHC.PC.OV ---
Vital Signs 06/25/23 08:42 Height 5 ft 5 in Weight 250 lb 8 oz BMI 41.7 BP 124/66 Blood Pressure Location Lt brachial Position Sitting Pulse 66 Pulse Source Pulse Oximeter Pulse Oximetry (%) 98 Oxygen Delivery Method Room Air Intake Visit Reasons: HTN, hyperlipidemia Intake Note: Patient is here to follow up on HTN, COPD, IFG, Hyperlipidemia. Geriatric Nurse Required: No Office Correspondent: Not Required per policy Accompanied by: Self / Same As Patient Allergies No Known Allergies [No Known Allergies*] Allergy (Verified 06/25/23 09:20) Medication List - Last Reconciled 06/25/23 by Samy Duff MD albuterol sulfate 90 mcg/actuation 2 puffs inhalation Q4-6H PRN budesonide 180 mcg/actuation (Pulmicort Flexhaler) 1 inh PO BID hydralazine 25 mg PO TID 90 days hydrochlorothiazide 25 mg PO QAM losartan 100 mg PO DAILY metoprolol succinate ER 100 mg PO DAILY 90 days montelukast 10 mg PO BEDTIME pantoprazole 40 mg PO DAILY PRN 90 days spironolactone 25 mg PO DAILY tramadol 50 mg PO TID PRN 30 days Tobacco use date assessed: 06/25/23 Fall risk assessment: No Falls in past year Last assessed Fall Risk: 06/25/23 Dental Screening Dental Screen Date: 06/25/23 Did you have a dental visit in the last 12 months?: No Did you have a dental problem in the last 6 months where you did not have access to dental care?: No Was dental information given to patient?: Patient has dentist (Dentures) HPI HTN, hyperlipidemia HPI Details Patient comes in today for her follow up visit States that she feels okay She had her repeat colonoscopy done a couple of weeks ago - (+) tubular adenoma and she is recommended to get a repeat colonoscopy in 5 years She denies any headaches or dizziness Denies any chest pains, no shortness of breath No nausea /vomiting, no abdominal pain No change in bowel habits noted She continues to follow-up with pain management for her chronic low back pain and hip pain Needs her Tramadol Rx refilled Had her follow-up labs done last week - to discuss her results [facility] Medical History Osteopenia Osteoarthritis of hands, bilateral Degenerative joint disease of left hip Tenosynovitis of thumb Constipation Obesity (BMI 30-39.9) Depression Allergic rhinitis Deep left inguinal pain Lumbar degenerative disc disease GERD without esophagitis Impaired fasting glucose Palpitations COPD (chronic obstructive pulmonary disease) Benign essential hypertension Surgical History History of colonoscopy History of eye surgery History of surgery History of total abdominal hysterectomy and bilateral salpingo-oophorectomy History of laparoscopic cholecystectomy History of appendectomy History of removal of cyst History of left knee surgery Family History Father CHF (congestive heart failure) Colon cancer Hypertension CVD (cardiovascular disease) Mother CVD (cardiovascular disease) Social History Housing: House Alcohol intake: never Patient Tobacco Use Status: Former Tobacco user Quit Date: 1998 e-Cigarette/Vaping Use: Never Used Second Hand Smoke Exposure: Yes service: No Current occupational status: disabled Cognitive needs: No Hearing needs: No Vision needs: Yes (glasses) Questionnaire PHQ-9 Over the last 2 weeks, how often have you been bothered by any of the following problems? 1. Little interest or pleasure in doing things: not at all 2. Feeling down, depressed, or hopeless: not at all 3. Trouble falling or staying asleep, or sleeping too much: not at all 4. Feeling tired or having little energy: not at all 5. Poor appetite or overeating: not at all 6. Feeling bad about yourself - or that you are a failure or have let yourself or your family down: not at all 7. Trouble concentrating on things, such as reading the newspaper or watching television: not at all 8. Moving or speaking so slowly that other people could have noticed. Or the opposite - being so fidgety or restless that you have been moving around a lot more than usual: not at all 9. Thoughts that you would be better off or of hurting yourself in some way: not at all Total score: 0 Depression Screening Interpretation: Negative Depression Screening Done: Yes [id number] - PHQ-9 Billing: Yes Source: Developed by Drs. Vlad L. Corie Carmichael Kurt Kroenke and colleagues, with an educational leno from [employer]. Thrive Questionnaire Date Thrive assessed: 06/25/23 I am a: Patient What is your living situation today?: I have a steady place to live Within the past 12 months, did the food you bought not last and you didn't have the money to get more?: Never true Within the past 12 months, did you worry whether your food would run out before you got money to buy more?: Never true Do you have trouble paying for medicines?: No Do you have trouble getting transportation to medical appointments?: No Do you have trouble paying your heating and electricity bill?: No Do you have trouble taking care of your child, family member or friend?: No Do you have trouble with day-to-day activities such as bathing, preparing meals, shopping, managing finances, etc.?: No Are you currently unemployed and looking for a job?: No Are you interested in more education?: No Currently or been in a relationship where the following occur: no concerns reported THRIVE Score: 0 AUDIT C Alcohol Use Questionnaire (AUDIT-C) 1. How often do you have a drink containing alcohol?: Never 3. How often do you have six or more drinks on one occasion?: Never Total Score: 0 Score Reviewed/Action Taken: Yes ALEIDA-7 AMB Questionnaire ALEIDA-7 Date ALEIDA - 7 assessed: 06/25/23 Feeling nervous, anxious, or on edge: 0 = Not at all Not being able to stop or control worryin = Not at all Worrying too much about different things: 0 = Not at all Trouble relaxin = Not at all Being so restless that it is hard to sit still: 0 = Not at all Becoming easily annoyed or irritable: 0 = Not at all Feeling afraid as if something awful might happen: 0 = Not at all Total ALEIDA-7 score (0-4 normal; 5-9 mild; 10-14 moderate; 15-21 severe): 0 Source: Developed by Corie Saldaña Kurt Kroenke and colleagues, with an educational leno from [employer]. Review of Systems Const Denies chills, Denies fatigue, Denies fever(s) and Denies headache(s) ENT Denies dysphagia, Denies dizziness, Denies otalgia, Denies headache(s), Denies neck pain, Denies odynophagia and Denies sore throat Card Denies chest pain, Denies irregular heart rhythm, Denies palpitations and Denies dyspnea Resp Denies cough, Denies dyspnea and Denies wheezing GI Denies abdominal pain, Denies constipation, Denies dysphagia, Denies heartburn, Denies diarrhea, Denies nausea, Denies odynophagia and Denies vomiting Denies nocturia, Denies dysuria and Denies urinary urgency Musc Reports back pain (over the lumbar spine - chronic), Reports arthralgias (of fingers of both hands; left hip; R knee), Denies joint swelling and Denies neck pain Skin/Breast Denies rash Neuro Denies dizziness and Denies headache(s) Endo Denies fatigue and Denies palpitations Aller/Immun Denies wheezing Physical exam (Primary Care) Vital Signs: Last Vital Signs Pulse 66 06/25/23 08:42 BP 124/66 06/25/23 08:42 Pulse Ox 98 06/25/23 08:42 Oxygen Delivery Method Room Air 06/25/23 08:42 BMI result Body Mass Index 41.7 Tobacco/Smoking Status: Tobacco use Status Tobacco use date assessed 06/25/23 06/25/23 08:52 Patient Tobacco Use Status Former Tobacco user 06/25/23 08:52 e-Cigarette/Vaping Use Never Used 06/25/23 08:52 PHQ-9: PHQ-9 Score PHQ-9: Total score 0 06/25/23 08:52 Depression Screening Interpretation: Negative Thrive Assessment: Date of Thrive Assessment Date Thrive assessed 06/25/23 06/25/23 08:52 Currently or been in a relationship where the following occur: no concerns reported Const General: no acute distress and alert HENMT Ears: TM's normal bilaterally and EAC's normal Throat: Yes posterior oropharynx normal and Yes tonsils normal (no TP congestion noted) Neck Neck: Yes no lymphadenopathy and Yes supple Resp Auscultation: clear to auscultation bilaterally, no crackles, no rales and no wheezes Cardio Rate: regular rate Rhythm: regular rhythm Heart sounds: no murmurs GI Palpation (GI): Soft to palpation and nontender Auscultation: normal bowel sounds General: Yes no CVA tenderness Back/Spine/Pelvis Back: no CVA tenderness Thoracic/Lumbar Spine: lumbar spinal tenderness Skin Rashes: no rashes Extrem General: Yes no clubbing, cyanosis or edema Right upper extremity: Extremity exam: right hand Details: tenderness (of all fingers and of the hand, especially over base of thumb) Location: of the thumb Location: at the thenar eminence and at the MCP joint and normal ROM of fingers (but (+) stiffness of the fingers noted) Left upper extremity: hand Details: tenderness (of all fingers and of the hand, especially over base of thumb) Location: of the thumb Location: at the thenar eminence and at the MCP joint and normal ROM of fingers (but (+) stiffness) Right lower extremity: knee Details: tenderness Location: of the pre-patellar area and of the infrapatellar area; no swelling Left lower extremity: hip/thigh Details: tenderness Location: of the hip Results AMB Hemoglobin A1c AMB Hemoglobin A1c 5.5 % Last Edit by MARK Moya on 06/25/23 08:54 Results Reviewed Results Reviewed: Laboratory Last Values Hgb A1c (Clinic) 5.5 % (4.0-6.0) 06/25/23 08:52 Laboratory Tests 06/19/23 06/19/23 06/19/23 07:10 07:10 07:10 WBC 8.4 Hgb 12.3 Hct 38.3 Plt Count 269 Sodium 142 Potassium 4.4 Creatinine 1.06 Estimated GFR 52 Fasting Glucose 113 H Hgb A1c (Clinic) Calcium 9.8 AST 17 ALT 16 Triglycerides 202 H Cholesterol 157 LDL Cholesterol, Calc 72 HDL Cholesterol 45 25-OH Vitamin D Total 45.4 TSH 3.98 Ur Specific [place] Urine Protein Urine Glucose (UA) Urine Blood Urine Nitrite Ur Leukocyte Esterase 06/19/23 06/25/23 07:15 08:52 WBC Hgb Hct Plt Count Sodium Potassium Creatinine Estimated GFR Fasting Glucose Hgb A1c (Clinic) 5.5 Calcium AST ALT Triglycerides Cholesterol LDL Cholesterol, Calc HDL Cholesterol 25-OH Vitamin D Total TSH Ur Specific [place] 1.015 Urine Protein Negative Urine Glucose (UA) Negative Urine Blood Negative Urine Nitrite Negative Ur Leukocyte Esterase Negative Assessment and Plan Assessment & Plan (1) Benign essential hypertension: Code(s): I10 - Essential (primary) hypertension Plan: Reinforced low sodium diet - goal is systolic BP of at least 130 to 140 mm or less Her BP remains well-controlled on her current Rx regimen Continue Losartan 100 mg QD, Metoprolol ER 100 mg QD, Hydralazine 25 mg TID and HCTZ 25 mg Q AM; is also on Spironolactone 25 mg QD Amlodipine was discontinued previously due to increasing edema and SOB and her symptoms resolved with discontinuation of Rx Renal doppler and urine metanephrines done a few months ago both came back within normal range - no evidence of KAITY or pheochromocytoma Patient is reminded to continue monitoring her blood pressure regularly (2) Hypertriglyceridemia: Code(s): E78.1 - Pure hyperglyceridemia Plan: Results of her labs done last week reviewed and discussed with patient - cautioned that her serum triglyceride level has increased from previous and is now again over 200 mg/dl Reinforced low cholesterol diet Will recheck her labs and fasting lipids in 4 months for follow up (3) COPD (chronic obstructive pulmonary disease): Comment: PFT done in 2013 showed (+) mild restrictive lung disease Code(s): J44.9 - Chronic obstructive pulmonary disease, unspecified Qualifiers: COPD type: unspecified COPD Qualified Code(s): J44.9 - Chronic obstructive pulmonary disease, unspecified Plan: Controlled Continue Pulmicort Flexhaler 180 mcg 1 inhalation BID and Albuterol HFA 1 to 2 puffs up to 4 times a day as needed (4) Lumbar degenerative disc disease: Code(s): M51.36 - Other intervertebral disc degeneration, lumbar region Plan: Reinforced activity and weight-lifting restrictions Has a TENS unit that she uses as needed with (+) temporary relief Continue Tramadol 50 mg TID PRN - Rx refilled Follow up with pain management as scheduled (5) Degenerative joint disease of left hip: Code(s): M16.12 - Unilateral primary osteoarthritis, left hip Qualifiers: Osteoarthritis type: unspecified Qualified Code(s): M16.12 - Unilateral primary osteoarthritis, left hip Plan: Follow up with orthopedics as scheduled (6) Osteoarthritis of hands, bilateral: Code(s): M19.041 - Primary osteoarthritis, right hand; M19.042 - Primary osteoarthritis, left hand Qualifiers: Osteoarthritis type: primary Qualified Code(s): M19.041 - Primary osteoarthritis, right hand; M19.042 - Primary osteoarthritis, left hand Plan: Patient is advised to continue with regular hand exercises to help manage her finger stiffness and pain; is reminded that there are really no effective Rx or Tx that help help prevent or reverse OA changes of the hands and fingers Repeat x-rays of both hands done a few months ago confirmed (+) OA changes in both hands She was seen by orthopedics a few months ago and offered cortisone injection if use of thumb splints do not help States that she did not go for cortisone injections as the splints helped somewhat and would like to continue using these for now (7) Osteopenia: Code(s): M85.80 - Other specified disorders of bone density and structure, unspecified site Qualifiers: Osteopenia location: multiple sites Qualified Code(s): M85.89 - Other specified disorders of bone density and structure, multiple sites Plan: Discussed with patient that surprisingly, her repeat BMD done a couple of months ago on 04/04/2023 showed a significant improvement in her BMD compared to her previous scan in 2017 (which revealed osteopenia with a T score of -1.5 in the hips) and that her BMD is now NORMAL She is encouraged to continue taking Vitamin D and Calcium supplements daily and to try to exercise regularly (8) GERD without esophagitis: Code(s): K21.9 - Gastro-esophageal reflux disease without esophagitis Plan: Dietary restrictions reinforced Continue Pantoprazole 40 mg QD (9) Impaired fasting glucose: Code(s): R73.01 - Impaired fasting glucose Plan: Reinforced low calorie diet/exercise as tolerated Her in-office HgbA1c done today remains normal at 5.5%, similar to her readings done a few months ago (10) Depression: Code(s): F32.9 - Major depressive disorder, single episode, unspecified Qualifiers: Depression Type: major depressive disorder Major depression recurrence: recurrent Active/Remission status: currently active Major depression episode severity: unspecified Qualified Code(s): F33.9 - Major depressive disorder, recurrent, unspecified Plan: Controlled - patient stopped taking Duloxetine on her own a few months ago and has not felt any worse since stopping the Rx (11) Morbid obesity with BMI of 40.0-44.9, adult: Code(s): E66.01 - Morbid (severe) obesity due to excess calories; Z68.41 - Body mass index [BMI] 40.0-44.9, adult Plan: Reinforced diet/exercise as tolerated/lose weight Plan Follow up in 4 months Orders: Orders AMB Hemoglobin A1c Today R73.01 - Impaired fasting glucose Comprehensive [place]. Panel Fast 4 Months E78.00 - Pure hypercholesterolemia, unspecified Vitamin D 25-OH Total 4 Months E55.9 - Vitamin D deficiency, unspecified Lipid Panel 4 Months E78.00 - Pure hypercholesterolemia, unspecified TSH reflex Free T4 4 Months E78.00 - Pure hypercholesterolemia, unspecified UA CC w/rflx Micro + Cult 4 Months R30.0 - Dysuria Complete Blood Count Auto Diff 4 Months D64.9 - Anemia, unspecified Medications: Refilled tramadol 50 mg PO TID 30 days PRN 90 tabs 0RF pain Coding Level of Care Code Est Pt Level 4 (34182) Diagnoses Benign essential hypertension I10 Hypertriglyceridemia E78.1 Chronic obstructive pulmonary disease, unspecified COPD type J44.9 COPD type: unspecified COPD Lumbar degenerative disc disease M51.36 Osteoarthritis of left hip, unspecified osteoarthritis type M16.12 Osteoarthritis type: unspecified Primary osteoarthritis of both hands M19.041; M19.042 Osteoarthritis type: primary Osteopenia of multiple sites M85.89 Osteopenia location: multiple sites GERD without esophagitis K21.9 Impaired fasting glucose R73.01 Episode of recurrent major depressive disorder, unspecified depression episode severity F33.9 Depression Type: major depressive disorder Major depression recurrence: recurrent Active/Remission status: currently active Major depression episode severity: unspecified Morbid obesity with BMI of 40.0-44.9, adult E66.01; Z68.41
[2023-06-25 08:42] VITALS: BP 124/66; PULSE 66; O2SAT 98; BMI 41.7
== END 2023-06-25 09:41 | disposition home or self-care (01) ==
PROVIDERS: PCP Internal Medicine; Visit Provider Internal Medicine
DX: R73.01 Impaired fasting glucose (principal)
CPT/HCPCS: 83036; 99214

== ENCOUNTER 2023-10-01 10:36 | Outpatient (REF) | payer OTHER, SELFPAY ==
--- NOTE | ~2023-10-01 | US_ITS ---
EXAMINATION: MM DIAGNOSTIC DIGITAL BREAST TOMOSYNTHESIS, BILATERAL US BREAST LIMITED, RIGHT MAMMOGRAPHY: CLINICAL INFORMATION: 6 month follow-up (for one-year stability) complicated cyst right breast 11:00 axis, 2 cm from the nipple. Patient also due for bilateral screening. COMPARISON: Mammography: 11/06/2022, 09/12/2022, 09/06/2021, 09/18/2020, and dating back to 2019. ULTRASOUND: Right: 04/30/2023, 11/06/2022. TECHNIQUE: Digital breast tomosynthesis is performed in both the craniocaudal and mediolateral oblique views along with computer-aided detection (CAD). Synthesized 2D images are generated from the tomosynthesis. FINDINGS: There are scattered areas of fibroglandular density (ACR BI-RADS breast composition Category b). There is fine fibronodular parenchymal pattern with stable nodularity in the mid upper outer quadrants, both breasts. Overall parenchymal pattern is unchanged from numerous prior exams bilaterally. There are scattered punctate round calcifications again seen in both breasts. No suspicious grouped pleomorphic or irregular calcifications. No regions of architectural distortion. No new dominant masses. No axillary or skin abnormalities. Stable focal asymmetric density right breast retroareolar 11:00 axis, unchanged, representing complicated cyst. This is being followed by ultrasound. See below. ULTRASOUND: CLINICAL INFORMATION: Evaluate probable complicated cyst right breast 11:00 axis, 2 cm from the nipple. COMPARISON: As above. TECHNIQUE: Targeted sonographic evaluation was performed using a high frequency linear transducer. Attention was focused on the 11:00 axis right breast. Selected archived documentation. FINDINGS: RIGHT BREAST: Stable mildly complicated cyst in the right breast at 11:00, 2 cm from the nipple, measuring 4 x 2 x 3 cm, unchanged allowing for differences in measurement technique. There is persistent edge shadowing with mild posterior acoustic enhancement. No internal color Doppler signal. No surrounding parenchymal changes. There has been no interval change in the overall appearance since 04/30/2023. This remains probably benign and reactive investigation in one year with targeted right breast ultrasound recommended. US/US breast RT limited mamm only IMPRESSION: -No findings suspicious for malignancy in either breast. -Similar nodular parenchymal pattern bilaterally without significant change. -No interval change in the complicated cyst at 11:00 right breast, 2 cm from nipple. Recommend 1 year interval follow-up with targeted right breast ultrasound when the patient is due for routine bilateral screening. OVERALL ASSESSMENT: Mammography: BI-RADS 3 - Probably benign finding(s) - 12 month follow-up suggested Ultrasound: BI-RADS 3 - Probably benign finding(s) - 12 month follow-up suggested RECOMMENDATION: 12 month diagnostic follow up This patient's information was entered into a reminder system with a target due date for their next mammogram.
== END 2023-10-01 10:37 | disposition home or self-care (01) ==
LOC: HO.MAMMO 10:36
PROVIDERS: PCP Internal Medicine; Visit Provider Internal Medicine
DX: R92.2 Inconclusive mammogram (principal)
CPT/HCPCS: 76642; 77062; 77066

== ENCOUNTER → 2023-10-01 11:30 | Outpatient (BNV) | payer OTHER, SELFPAY | PROVIDERS: PCP Internal Medicine; Visit Provider Radiology Diagnostic Radiology | DX: N60.01 Solitary cyst of right breast (principal) | CPT/HCPCS: 76642; 77062; 77066 ==

== ENCOUNTER 2023-11-18 06:18 | Outpatient (REF) | payer OTHER, SELFPAY ==
[2023-11-18 10:31] LABS: MANUAL DIFF FLAG NO
[2023-11-18 10:39] LABS: Basophils Absolute Auto 0.1 X10*3/uL (0.0-0.2); Basophils Percent Auto 1.1 % (0-2); Eosinophils Absolute Auto 0.2 X10*3/uL (0.0-0.4); Hematocrit 37.3 % (37.0-47.0); Hemoglobin 12.4 g/dl (12.0-16.0); Imm Gran Abs Auto 0.06 X10*3/uL (0.00-0.03); Imm Gran Pct Auto 0.7 % (0.0-0.4); Lymphocytes Absolute Auto 1.7 X10*3/uL (1.2-4.9); Lymphocytes Percent Auto 20.3 % (20-40); Mean Corpuscular HGB Conc 33.2 g/dl (31.0-35.0); Mean Corpuscular Hemoglobin 30.3 pg (27.0-33.0); Mean Corpuscular Volume 91.2 fL (80.0-98.0); Mean Platelet Volume 13.8 fL (9.4-12.3); Monocytes Absolute Auto 0.7 X10*3/uL (0.1-1.2); Monocytes Percent Auto 8.4 % (2-11); Neutrophils Absolute Auto 5.7 x10*3/uL (2.0-8.3); Neutrophils Percent Auto 67.5 % (45-73); Platelet Count 244 X10*3/uL (160-400); Red Blood Count 4.09 X10*6/uL (4.20-5.50); Red Cell Distribution Width 13.5 % (11.0-16.0); White Blood Count 8.4 X10*3/uL (4.8-10.8)
[2023-11-18 10:54] LABS: Appearance Urine Clear; Color Urine Yellow; Glucose Urine UA Negative (Negative); Leukocyte Esterase Urine Trace (Negative); Nitrite Urine Negative (Negative); Specific Gravity - Urine 1.015 (1.005-1.025); UMIC TRIGGER UACC YES; Urine Blood Negative (Negative); Urine Ketones Negative (Negative); Urine Protein Negative (Neg-Trace)
[2023-11-18 10:58] LABS: Alanine Aminotransferase 20 U/L (0-31); Albumin Level 3.8 g/dL (3.5-5.0); Alkaline Phosphatase 68 U/L (39-117); Anion Gap 14 (12-20); Aspartate Amino Transferase 20 U/L (5-31); Bilirubin Total 0.4 mg/dL (0.0-1.0); Blood Urea Nitrogen 16 mg/dL (9-16); Calcium 9.8 mg/dL (8.4-10.2); Carbon Dioxide 26 mmol/L (22-29); Chloride 105 mmol/L (96-108); Cholesterol 154 mg/dL (<200); Estimated Glomerular Filt Rate 52; Glucose Fasting 114 mg/dL (60-99); HDL Cholesterol 43 mg/dL (>40); LDL Cholesterol Calculated 57 mg/dL (<100); Potassium 4.1 mmol/L (3.3-5.1); Sodium 141 mmol/L (135-145); Total Protein 6.8 g/dL (6.5-8.0); Triglycerides 270 mg/dL (<150)
[2023-11-18 10:59] LABS: Bacteria Urine None Seen (None Seen); Hyaline Casts Urine 0-2 /LPF (0-2); RBC Urine 0-2 /HPF (0-2); Squamous Epithelial Cell Urine 0-2 /HPF (0-2); WBC Urine 0-5 /HPF (0-5)
[2023-11-18 11:17] LABS: TSH reflex Free T4 3.62 uIU/mL (0.32-4.0); Vitamin D 25-OH Total 63.8 ng/mL (>30)
== END 2023-11-18 06:19 | disposition home or self-care (01) ==
LOC: HO.HMGCLDS 06:18
PROVIDERS: PCP Internal Medicine; Visit Provider Internal Medicine
DX: D64.9 Anemia, unspecified (principal); E78.00 Pure hypercholesterolemia, unspecified; E55.9 Vitamin D deficiency, unspecified
CPT/HCPCS: 36415; 80053; 80061; 81001; 82306; 84443; 85025

== ENCOUNTER 2023-11-20 09:05 | Outpatient (AMB) | payer OTHER, SELFPAY ==
--- NOTE | 2023-11-20 09:07 | A.OFFPC_ITS ---
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 Accompanied by: Self / Same As Patient Allergies No Known Allergies [No Known Allergies*] Allergy (Verified 11/20/23 09:37) Medication List - Last Reconciled 11/20/23 by Samy Duff MD albuterol sulfate 90 mcg/actuation 2 puffs inhalation Q4-6H PRN budesonide 180 mcg/actuation (Pulmicort Flexhaler) 1 inh PO BID hydralazine 25 mg PO TID 90 days hydrochlorothiazide 25 mg PO QAM losartan 100 mg PO DAILY metoprolol succinate ER 100 mg PO DAILY 90 days montelukast 10 mg PO BEDTIME pantoprazole 40 mg PO DAILY PRN 90 days spironolactone 25 mg PO DAILY tramadol 50 mg PO TID PRN 30 days Tobacco use date assessed: 11/20/23 Fall risk assessment: No Falls in past year Last assessed Fall Risk: 11/20/23 Dental Screening Dental Screen Date: 11/20/23 Did you have a dental visit in the last 12 months?: No Did you have a dental problem in the last 6 months where you did not have access to dental care?: No Was dental information given to patient?: No HPI HTN, hyperlipidemia, GERD, OA, lumbar spondylosis HPI Details Patient comes in today for her follow up visit States that she feels okay except for increased low back pain lately States that she last had back injections in January 2023 with pain management and its effect had long since worn off She is scheduled to see pain management for follow up next week and is hoping to get another injection to calm down her low back pain She denies any headaches or dizziness Denies any chest pains, no shortness of breath No nausea /vomiting, no abdominal pain No change in bowel habits noted Had her follow-up labs done a couple of days ago - to discuss her results [facility] Medical History Osteopenia Osteoarthritis of hands, bilateral Degenerative joint disease of left hip Tenosynovitis of thumb Constipation Obesity (BMI 30-39.9) Depression Allergic rhinitis Deep left inguinal pain Lumbar degenerative disc disease GERD without esophagitis Impaired fasting glucose Palpitations COPD (chronic obstructive pulmonary disease) Benign essential hypertension Surgical History History of colonoscopy History of eye surgery History of surgery History of total abdominal hysterectomy and bilateral salpingo-oophorectomy History of laparoscopic cholecystectomy History of appendectomy History of removal of cyst History of left knee surgery Family History Father CHF (congestive heart failure) Colon cancer Hypertension CVD (cardiovascular disease) Mother CVD (cardiovascular disease) Social History Housing: House Alcohol intake: never Patient Tobacco Use Status: Former Tobacco user e-Cigarette/Vaping Use: Never Used Second Hand Smoke Exposure: Yes service: No Current occupational status: disabled Cognitive needs: No Hearing needs: No Vision needs: Yes (glasses) Questionnaire PHQ-9 Over the last 2 weeks, how often have you been bothered by any of the following problems? 1. Little interest or pleasure in doing things: not at all 2. Feeling down, depressed, or hopeless: not at all 3. Trouble falling or staying asleep, or sleeping too much: not at all 4. Feeling tired or having little energy: not at all 5. Poor appetite or overeating: not at all 6. Feeling bad about yourself - or that you are a failure or have let yourself or your family down: not at all 7. Trouble concentrating on things, such as reading the newspaper or watching television: not at all 8. Moving or speaking so slowly that other people could have noticed. Or the opposite - being so fidgety or restless that you have been moving around a lot more than usual: not at all 9. Thoughts that you would be better off or of hurting yourself in some way: not at all Total score: 0 Depression Screening Interpretation: Negative Depression Screening Done: Yes 61930 - PHQ-9 Billing: Yes Source: Developed by Drs. Vlad L. Jany, Regulo Adan and colleagues, with an educational leno from [employer]. Thrive Questionnaire Date Thrive assessed: 11/20/23 I am a: Patient What is your living situation today?: I have a steady place to live Within the past 12 months, did the food you bought not last and you didn't have the money to get more?: Never true Within the past 12 months, did you worry whether your food would run out before you got money to buy more?: Never true Do you have trouble paying for medicines?: No Do you have trouble getting transportation to medical appointments?: No Do you have trouble paying your heating and electricity bill?: No Do you have trouble taking care of your child, family member or friend?: No Do you have trouble with day-to-day activities such as bathing, preparing meals, shopping, managing finances, etc.?: No Are you currently unemployed and looking for a job?: No Are you interested in more education?: No Please select the resources that you would like help with: None Currently or been in a relationship where the following occur: No concerns reported THRIVE Score: 0 AUDIT C Alcohol Use Questionnaire (AUDIT-C) 1. How often do you have a drink containing alcohol?: Never 3. How often do you have six or more drinks on one occasion?: Never Total Score: 0 Score Reviewed/Action Taken: Yes ALEIDA-7 AMB Questionnaire ALEIDA-7 Date ALEIDA - 7 assessed: 11/20/23 Feeling nervous, anxious, or on edge: 0 = Not at all Not being able to stop or control worryin = Not at all Worrying too much about different things: 0 = Not at all Trouble relaxin = Not at all Being so restless that it is hard to sit still: 0 = Not at all Becoming easily annoyed or irritable: 0 = Not at all Feeling afraid as if something awful might happen: 0 = Not at all Total ALEIDA-7 score (0-4 normal; 5-9 mild; 10-14 moderate; 15-21 severe): 0 Source: Developed by Drs. Vlad Carmichael, Regulo Adan and colleagues, with an educational leno from [employer]. Review of Systems Const Denies chills, Denies fatigue, Denies fever(s) and Denies headache(s) ENT Denies dysphagia, Denies dizziness, Denies otalgia, Denies headache(s), Denies neck pain, Denies odynophagia and Denies sore throat Card Denies chest pain, Denies irregular heart rhythm, Denies palpitations and Denies dyspnea Resp Denies cough, Denies dyspnea and Denies wheezing GI Denies abdominal pain, Denies constipation, Denies dysphagia, Denies heartburn, Denies diarrhea, Denies nausea, Denies odynophagia and Denies vomiting Denies nocturia, Denies dysuria and Denies urinary urgency Musc Reports back pain (over the lumbar spine - chronic; increased lately), Reports arthralgias (of fingers of both hands; left hip; R knee), Denies joint swelling and Denies neck pain Skin/Breast Denies rash Neuro Denies dizziness and Denies headache(s) Endo Denies fatigue and Denies palpitations Aller/Immun Denies wheezing Physical exam (Primary Care) Vital Signs: Last Vital Signs Pulse 73 11/20/23 09:08 BP 146/78 H 11/20/23 09:08 Pulse Ox 97 11/20/23 09:08 Oxygen Delivery Method Room Air 11/20/23 09:08 BMI result Body Mass Index 41.6 Tobacco/Smoking Status: Tobacco use Status Tobacco use date assessed 11/20/23 11/20/23 09:13 Patient Tobacco Use Status Former Tobacco user 11/20/23 09:13 e-Cigarette/Vaping Use Never Used 11/20/23 09:13 PHQ-9: PHQ-9 Score PHQ-9: Total score 0 11/20/23 09:13 Depression Screening Interpretation: Negative Thrive Assessment: Date of Thrive Assessment Date Thrive assessed 11/20/23 11/20/23 09:13 Currently or been in a relationship where the following occur: No concerns reported Const General: no acute distress and alert HENMT Ears: TM's normal bilaterally and EAC's normal Throat: Yes posterior oropharynx normal and Yes tonsils normal (no TP congestion noted) Neck Neck: Yes no lymphadenopathy and Yes supple Resp Auscultation: clear to auscultation bilaterally, no crackles, no rales and no wheezes Cardio Rate: regular rate Rhythm: regular rhythm Heart sounds: no murmurs GI Palpation (GI): Soft to palpation and nontender Auscultation: normal bowel sounds General: Yes no CVA tenderness Back/Spine/Pelvis Back: no CVA tenderness Thoracic/Lumbar Spine: lumbar spinal tenderness Skin Rashes: no rashes Extrem General: Yes no clubbing, cyanosis or edema Right upper extremity: Extremity exam: right hand Details: tenderness (on all fingers, especially over the base of the thumb) Location: of the thumb Location: at the thenar eminence and at the MCP joint and normal ROM of fingers (but (+) stiffness of the fingers noted) Left upper extremity: hand Details: tenderness (on all fingers, especially over the base of the thumb) Location: of the thumb Location: at the thenar eminence and at the MCP joint and normal ROM of fingers (but (+) stiffness) Right lower extremity: knee Details: tenderness Location: of the pre-patellar area and of the infrapatellar area; no swelling Left lower extremity: hip/thigh Details: tenderness Location: of the hip Results Reviewed Results Reviewed: Laboratory Tests 11/18/23 06:39 WBC 8.4 Hgb 12.4 Hct 37.3 Plt Count 244 Sodium 141 Potassium 4.1 Creatinine 1.05 Estimated GFR 52 Fasting Glucose 114 H Calcium 9.8 AST 20 ALT 20 Triglycerides 270 H Cholesterol 154 LDL Cholesterol, Calc 57 HDL Cholesterol 43 25-OH Vitamin D Total 63.8 TSH 3.62 Ur Specific [place] 1.015 Urine Protein Negative Urine Glucose (UA) Negative Urine Blood Negative Urine Nitrite Negative Ur Leukocyte Esterase Trace H Assessment and Plan Assessment & Plan (1) Benign essential hypertension: Code(s): I10 - Essential (primary) hypertension Plan: Reinforced low sodium diet - goal is systolic BP of at least 130 to 140 mm or less Her BP remains well-controlled on her current Rx regimen - was initially high at 146/78 but repeat BP a few minutes later was normal at 128/74 Continue Losartan 100 mg QD, Metoprolol ER 100 mg QD, Hydralazine 25 mg TID, HCTZ 25 mg Q AM and Spironolactone 25 mg QD Amlodipine was discontinued previously due to increasing edema and SOB Renal doppler and urine metanephrines done earlier this year both came back within normal range, with no evidence of KAITY or pheochromocytoma Patient is reminded to continue monitoring her blood pressure regularly (2) Hypertriglyceridemia: Code(s): E78.1 - Pure hyperglyceridemia Plan: Results of her labs done a couple of days ago reviewed and discussed with patient - cautioned that her serum triglyceride level has increased again from previous Patient states that she just returned from her vacation recently and this is likely the reason for her elevated TG level Reinforced low cholesterol diet Will recheck her labs and fasting lipids in 4 months for follow up (3) Impaired fasting glucose: Code(s): R73.01 - Impaired fasting glucose Plan: Reinforced low calorie diet/exercise as tolerated Her in-office HgbA1c done at her previous appt remained normal at 5.5%, similar to her readings done a few months prior (4) COPD (chronic obstructive pulmonary disease): Comment: PFT done in 2013 showed (+) mild restrictive lung disease Code(s): J44.9 - Chronic obstructive pulmonary disease, unspecified Qualifiers: COPD type: unspecified COPD Qualified Code(s): J44.9 - Chronic obstructive pulmonary disease, unspecified Plan: Controlled/stable Continue Pulmicort Flexhaler 180 mcg 1 inhalation BID and Albuterol HFA 1 to 2 puffs up to 4 times a day as needed (5) Lumbar degenerative disc disease: Code(s): M51.36 - Other intervertebral disc degeneration, lumbar region Plan: Reinforced activity and weight-lifting restrictions Has a TENS unit that she uses as needed with (+) temporary relief Continue Tramadol 50 mg TID PRN Follow up with pain management as scheduled - she reports experiencing increased low back pain lately and is hoping to get another back injection at her upcoming appt next week (6) Degenerative joint disease of left hip: Code(s): M16.12 - Unilateral primary osteoarthritis, left hip Qualifiers: Osteoarthritis type: unspecified Qualified Code(s): M16.12 - Unilateral primary osteoarthritis, left hip Plan: Follow up with orthopedics as scheduled (7) Osteoarthritis of hands, bilateral: Code(s): M19.041 - Primary osteoarthritis, right hand; M19.042 - Primary osteoarthritis, left hand Qualifiers: Osteoarthritis type: primary Qualified Code(s): M19.041 - Primary osteoarthritis, right hand; M19.042 - Primary osteoarthritis, left hand Plan: Patient is advised to continue with regular hand exercises to help manage her finger stiffness and pain; is again reminded that there are really no effective Rx or Tx that help help prevent or reverse OA changes of the hands and fingers Repeat x-rays of both hands done a few months ago confirmed (+) OA changes in both hands She was seen by orthopedics a few months ago and offered cortisone injection if use of thumb splints do not help States that she did not go for cortisone injections as the splints helped somewhat and would like to continue using these for now (8) Osteopenia: Code(s): M85.80 - Other specified disorders of bone density and structure, unspecified site Qualifiers: Osteopenia location: multiple sites Qualified Code(s): M85.89 - Other specified disorders of bone density and structure, multiple sites Plan: Her repeat BMD done on 04/04/2023 showed a significant improvement in her BMD compared to her previous scan in 2017 (which revealed osteopenia with a T score of -1.5 in the hips) - her BMD is now NORMAL She is again encouraged to continue taking Vitamin D and Calcium supplements daily and to try to exercise regularly (9) GERD without esophagitis: Code(s): K21.9 - Gastro-esophageal reflux disease without esophagitis Plan: Dietary restrictions reinforced Continue Pantoprazole 40 mg QD (10) Depression: Code(s): F32.9 - Major depressive disorder, single episode, unspecified Qualifiers: Depression Type: major depressive disorder Major depression recurrence: recurrent Active/Remission status: currently active Major depression episode severity: unspecified Qualified Code(s): F33.9 - Major depressive disorder, recurrent, unspecified Plan: Controlled - patient stopped taking Duloxetine on her own a few months ago and has not felt any worse since stopping the Rx (11) Morbid obesity with BMI of 40.0-44.9, adult: Code(s): E66.01 - Morbid (severe) obesity due to excess calories; Z68.41 - Body mass index [BMI] 40.0-44.9, adult Plan: Reinforced diet/exercise as tolerated/lose weight Plan Follow up in 4 months Orders: Orders Complete Blood Count Auto Diff 4 Months D64.9 - Anemia, unspecified Comprehensive [place]. Panel Fast 4 Months E78.00 - Pure hypercholesterolemia, unspecified UA CC w/rflx Micro + Cult 4 Months R30.0 - Dysuria Lipid Panel 4 Months E78.00 - Pure hypercholesterolemia, unspecified Hemoglobin A1c 4 Months R73.01 - Impaired fasting glucose TSH reflex Free T4 4 Months E78.00 - Pure hypercholesterolemia, unspecified Coding Level of Care Code Est Pt Level 4 (43197) Complex EM visit Add On G2211 Diagnoses Benign essential hypertension I10 Hypertriglyceridemia E78.1 Impaired fasting glucose R73.01 Chronic obstructive pulmonary disease, unspecified COPD type J44.9 COPD type: unspecified COPD Lumbar degenerative disc disease M51.36 Osteoarthritis of left hip, unspecified osteoarthritis type M16.12 Osteoarthritis type: unspecified Primary osteoarthritis of both hands M19.041; M19.042 Osteoarthritis type: primary Osteopenia of multiple sites M85.89 Osteopenia location: multiple sites GERD without esophagitis K21.9 Episode of recurrent major depressive disorder, unspecified depression episode severity F33.9 Depression Type: major depressive disorder Major depression recurrence: recurrent Active/Remission status: currently active Major depression episode severity: unspecified Morbid obesity with BMI of 40.0-44.9, adult E66.01; Z68.41
[2023-11-20 09:08] VITALS: BP 146/78; PULSE 73; O2SAT 97; BMI 41.6
[2023-11-20 09:40] VITALS: BP 128/74
== END 2023-11-20 10:02 | disposition home or self-care (01) ==
PROVIDERS: PCP Internal Medicine; Visit Provider Internal Medicine
DX: I10 Essential (primary) hypertension (principal); E78.1 Pure hyperglyceridemia; R73.01 Impaired fasting glucose; J44.9 Chronic obstructive pulmonary disease, unspecified; M51.36 Other intervertebral disc degeneration, lumbar region; M16.12 Unilateral primary osteoarthritis, left hip; M19.041 Primary osteoarthritis, right hand; M19.042 Primary osteoarthritis, left hand; M85.89 Other specified disorders of bone density and structure, multiple sites; K21.9 Gastro-esophageal reflux disease without esophagitis; F33.9 Major depressive disorder, recurrent, unspecified; E66.01 Morbid (severe) obesity due to excess calories; Z68.41 Body mass index [BMI] 40.0-44.9, adult
CPT/HCPCS: 99214

== ENCOUNTER 2023-11-27 08:11 | Outpatient (AMB) | payer OTHER, SELFPAY ==
--- NOTE | 2023-11-27 08:19 | MHC.OFFVIS ---
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 She was last seen in our office last year in January status post therapeutic left SI joint injection which provided her pain for over 6 months. Patient reports left SI joint pain has returned to baseline and has been negatively affecting her ADLs, functioning, mobility, sleep, and social interactions. Patient presents with her for reports patient who could not enjoy their recent vacation due to increased pain with walking, sitting, or changing positions. Patient is interested to repeat left therapeutic SI joint injection under sedation as well as interested to discuss more permanent pain management solutions for this pain generators. She denies any recent trauma, injury, or falls. Denies any recent cough, cold, infection, fever, , weakness, numbness, tingling, bladder or bowel dysfunction, saddle anesthesia or other significant changes in medical history since last office visit. Past Procedures: 01/31/23: Left Therapeutic SIJ injection-90% pain relief >6 months 01/21/23: Left Diagnostic SIJ [id number]% pain relief for 5-6 hours PRIOR: Patient is a pleasant 67 years old female who was previously seen in our office by Tyra JOAQUIN in 2020 and prior n [address] Cruz presents today for follow up for left low back pain with left hip and thigh pain. Patient reports midline low back pain that radiates into her left buttock and left groin and anterior left thigh without numbness or tingling. Pain increases with walking over 5 minutes and prolonged sitting. She denies significant pain while standing especially holding on to something. Reports left groin pain with getting out of bed or shower. Patient also reports shooting, sharp pain into her left groin and thigh with prolonged standing while cooking or washing dishes. She reports physical therapy in the past was not well tolerated due to increased pain. Tylenol, NSAIDs, heat and ice therapy and aqua therapy has been partially. She has been using stationary bike but due to pain has been using this less than before. Patient reports previous back injections provided minimal pain relief. Patient denies any bladder or bowel incontinence or saddle anesthesia. PRIOR 08/22/2020 Tyra Mensah MEDICAL POLICY SPECIALIST: Meche returns to the office with complaints of low back pain as well as pain in left hip and bilateral hands. She was seen here three years ago by Dr. Cruz for similar symptoms with pain across the low back pain and radiation into entire left leg into the middle three toes. She underwent a L5-S1 injection in 2018 with minimal alleviation in her pain. Her pain is exacberated with sitting, standing and prolonged walking. Her pain is alleviated with leaning forward. It was recommended that she undergo physical therapy which she completed 8 sessions with exacerbation of her pain and could not tolaterate any more sessions. She also notes left groin pain as a result of her left hip osteoarthritis. She is under the care of Dr. Abbasi for this and is awaiting a left intrarticular hip injection to be authorized by insurance. She has had this injection in the past with great improvement in her symptoms. She had also had her hands evaluated by Dr. Abbasi who reportedly stated he will send her to Dr. Rashid, if they worsen. She notes an increase in swelling, stiffness and difficulty making a fist with her right hand. She is currently taking Tramadol and Aleve with little to no improvement in her symptoms. She has tried gabapentin in the past with no effect. She presents today to discuss injections. PRIOR: Meche presents for initial evaluation of chronic low back and left leg pain. She describes similar pain first experienced back in 2011. She eventually underwent a discectomy by Dr Haney and her pain resolved. Earlier this year while doing house work her pain returned abruptly. She describes her pain as stabbing, radiating predominately from the back down the posterior leg into her foot. Occasionally she will have pain into her groin. She denies any weakness, b/b dysfunction, fevers, or chills. Initial xrays were negative. She has not had PT as of yet. Her PCP ordered an MRI but it was denied. She has been performing a daily HEP and using NSAID to help with the pain that is interfering with sleep and all activity. Her pain ranges in intensity from 2-7/10. She is not sure what makes it better however all activity makes it worse. [facility] Medical History Osteopenia Osteoarthritis of hands, bilateral Degenerative joint disease of left hip Tenosynovitis of thumb Constipation Obesity (BMI 30-39.9) Depression Allergic rhinitis Deep left inguinal pain Lumbar degenerative disc disease GERD without esophagitis Impaired fasting glucose Palpitations COPD (chronic obstructive pulmonary disease) Benign essential hypertension Surgical History History of colonoscopy History of eye surgery History of surgery History of total abdominal hysterectomy and bilateral salpingo-oophorectomy History of laparoscopic cholecystectomy History of appendectomy History of removal of cyst History of left knee surgery Family History Father CHF (congestive heart failure) Colon cancer Hypertension CVD (cardiovascular disease) Mother CVD (cardiovascular disease) Social History Housing: House Alcohol intake: never Patient Tobacco Use Status: Former Tobacco user e-Cigarette/Vaping Use: Never Used Second Hand Smoke Exposure: Yes service: No Current occupational status: disabled Cognitive needs: No Hearing needs: No Vision needs: Yes (glasses) Review of Systems Const All systems reviewed & are unremarkable except as noted in HPI and below ENT Reports Normal hearing present Card Denies chest pain, Denies chest pain at rest, Denies chest pain with activity, Denies irregular heart rhythm, Denies claudication, Denies leg edema, Denies lightheadedness, Denies radiating jaw, neck or arm pain, Denies palpitations and Denies dyspnea on exertion Resp Denies dyspnea on exertion Neuro Reports Normal hearing present and Denies Abnormal speech present Endo Denies palpitations Physical Exam Vital Signs: Last Vital Signs Pulse 67 11/27/23 08:25 BP 190/74 H 11/27/23 08:25 Pulse Ox 99 11/27/23 08:25 Oxygen Delivery Method Room Air 11/27/23 08:25 BMI result Body Mass Index 41.6 General: Appears afebrile. Alert and oriented. Mood and affect appropriate. Follows and participates in conversation appropriately. Respiratory effort is unlabored. No cough. Able to transition from sit to stand unassisted. Ambulates with bilaterally normal heel strike and toe off. Eyes Eyelids: Yes eyelids normal Sclerae: sclerae normal EOM: EOMs intact bilaterally Cardio Peripheral pulses: radial pulses present, posterior tibial pulses present and dorsalis pedis present General: Yes no CVA tenderness Back/Spine/Pelvis Other: Patient able to walk on heels and tip toes with mild difficulty on the left due to pain. Limited lumbar ROM due to pain. Demonstrates 5/5 right and 4/5 left strength of quadriceps as well as flexion/dorsiflexion of bilateral feet against resistance. 2+ pedal pulses bilaterally. Seated SLR testing with dorsiflexion negative bilaterally. 1+ patellar and achilles reflexes bilaterally. Facet loading + bilaterally. Opal + on the left. Shay and Gaenslen tests reproduce left groin and back pain on left. Stinchfield positive on left and reproduces left lateral hip and left back pain. Minimal left groin pain with external left hip rotation. Pelvic compression test positive for hip and back pain on left. Moderate tenderness in the projection of left SIJ. Back: no CVA tenderness Cervical Spine: cervical ROM normal and No Cervical spine tenderness Thoracic/Lumbar Spine: thoracic and lumbar spine normal to inspection, Lasegue's sign negative, straight leg raise negative bilaterally, pain with thoraco-lumbar ROM, No paraspinal muscle tenderness, thoraco-lumbar ROM limited, No thoracic spinal tenderness and No lumbar spinal tenderness Pelvis: buttock tenderness on the left Sacroiliac joints: on the right nontender and on the left tender to palpation Skin General skin exam: no rashes or lesions noted Neuro General: gait normal and moves all extremities Cranial nerves: Yes Normal hearing present Speech: No Abnormal speech present Gait exam (Neuro): Normal gait present Motor exam (neuro): 5/5 motor strength present throughout Extrem General: Yes capillary refill normal, Yes no clubbing, cyanosis or edema and Yes no calf tenderness Left lower extremity: hip/thigh Details: tenderness Location: of the hip Location: over the great trochanter Assessment & Plan Assessment & Plan (1) Continuous use of opioids: Code(s): F11.90 - Opioid use, unspecified, uncomplicated Category: Medical (2) Lumbar facet arthropathy: Code(s): M47.816 - Spondylosis without myelopathy or radiculopathy, lumbar region Category: Medical (3) Post laminectomy syndrome: Code(s): M96.1 - Postlaminectomy syndrome, not elsewhere classified Category: Medical (4) Sacroiliac joint pain: Code(s): M53.3 - Sacrococcygeal disorders, not elsewhere classified Category: Medical (5) Chronic pain syndrome: Code(s): G89.4 - Chronic pain syndrome Category: Medical Plan Schedule for Therapeutic Left Sacroiliac Joint Injection with sedation and fluoroscopy for chronic left SIJ pain. Expectations, risks and benefits were reviewed. Patient is aware she will be contacted to schedule this procedure. We also discussed Sprint PNS, SI joint fusion, and RFA procedures for a longer term pain management with patient and her . Patient is currently taking tramadol 50 mg TID prn for pain per PCP provider and has been regularly taking Aleve. We reviewed patient's chronically decreased GFR rate at 52 for past year with normal creatinine. She is aware of correction risks with NSAIDs. Patient reports she has seen Nephrology provider before and will try to decrease daily salt intake. Encouraged adequate hydration and weight optimization. Patient would like to follow up with her PCP to consider opioid rotation to low dose oxycodone as current regime provides her inadequate analgesia. Patient encouraged to monitor her BP at home, reduce salt intake and NSAID use. She is asymptomatic with elevated BP today and attributes this to increased left SIJ pain. Patient is aware to follow up with PCP or seek medical evaluation in ER if persistent elevated BP. All questions were answered and the patient is in agreement of plan. Follow-up after injections and sooner as needed. Medications: New naloxone 4 mg/actuation (Narcan) spray 1 dose into ONE nostril; alternate nostrils w each dose until help arrives 4 mg intranasal Q2M PRN 2 ea 0RF opioid overdose F11.90 - Opioid use, unspecified, uncomplicated Coding Level of Care Code Est Pt Level 4 (29655) Complex EM visit Add On G2211 Diagnoses Continuous use of opioids F1.90 Lumbar facet arthropathy M47.816 Post laminectomy syndrome M96.1 Sacroiliac joint pain M53.3 Chronic pain syndrome G89.4
[2023-11-27 08:25] VITALS: BP 190/74; PULSE 67; O2SAT 99; BMI 41.6
== END 2023-11-27 08:58 | disposition home or self-care (01) ==
PROVIDERS: PCP Internal Medicine; Visit Provider Nurse Practitioner Family
DX: G89.4 Chronic pain syndrome (principal); M47.816 Spondylosis without myelopathy or radiculopathy, lumbar region; M96.1 Postlaminectomy syndrome, not elsewhere classified; Z79.891 Long term (current) use of opiate analgesic; M53.3 Sacrococcygeal disorders, not elsewhere classified
CPT/HCPCS: 99214

== ENCOUNTER → 2023-11-27 08:11 | Outpatient (BNVA) | payer OTHER, SELFPAY | PROVIDERS: PCP Internal Medicine; Visit Provider Nurse Practitioner Family ==

== ENCOUNTER 2024-01-27 19:32 | Outpatient (REF) | payer OTHER, SELFPAY | END 2024-01-27 19:33 | disposition home or self-care (01) | LOC: HO.MRI 19:32 | PROVIDERS: PCP Internal Medicine; Visit Provider Nurse Practitioner Family | DX: M53.3 Sacrococcygeal disorders, not elsewhere classified (principal); M96.1 Postlaminectomy syndrome, not elsewhere classified | CPT/HCPCS: 72195 ==

== ENCOUNTER 2024-03-15 08:46 | Outpatient (AMB) | payer OTHER, SELFPAY ==
--- OUTSIDE RECORDS SUMMARY | 2024-03-15 08:48 | XMS_ITS ---
Author Organization [facility] Address [address] [place] [address] Care Team Providers Care Director Of Testing Name Role Phone Omega ROLAND, Samy Primary Care Provider Vlad Andersen [phone] ALLERGIES No Known Allergies REASON FOR VISIT Patient presents today for a SCREEING COLON MEDICATIONS Medication SIG (Take, Route, Frequency, Duration) Notes [...] 1 tablet Orally Once a day Active VITAL SIGNS BMI 42.28 kg/m2 03/12/2023 Blood pressure systolic 000 mm Hg 03/12/20 23 Blood pressure diastolic 00 mm Hg 023 Height 65 in 03/12/2023 Temperature 97.3 degrees Fahrenheit 03/12/20 23 Weight 254 lb 2 oz lbs 03/12/2023 Encounters Encounter Location Date Provider Diagnosis [facility] [address] [place] [address] 03/12/2023 Vlad Abreu Gastroesophageal ref lux disease without esophagitis K21.9 ; Constipation, unspecified constipation type K59.00 ; History of adenomatous polyp of colon Z86.010 and Encounter for screening for malignant neoplasm of colon Z12.11 ASSESSMENTS Encounter Date Diagnosis Assessment Notes Treatment Notes Treatment Clinical Notes 03/12/2023 Gastroesophageal reflux disease without esophagitis (ICD-10 - K21.9) 03/12/2023 Constipation, unspecified constipation type (ICD-10 - K59.00) 03/12/2023 History of adenomatous polyp of colon (ICD-10 - Z86.010) Stop aspirin and fish oil for 1 week before the colonoscopy Do not take the Spironolactone and Hydrochlorothiazide the day before or on the day of the colonoscopy 03/12/2023 Encounter for screening for malignant neoplasm of colon (ICD-10 - Z12.11) TAKE 2 EXTRA DULCOLAX TWO DAYS BEFORE THE COLONOSCOPY PLAN OF TREATMENT Treatment Notes Assessment Notes History of adenomatous [...] Follow Up: prn, Reason: Progress Notes * Examination Category Sub-Category Detail Notes General Examination GENERAL APPEARANCE: pleasant , well [...]
--- OUTSIDE RECORDS SUMMARY | 2024-03-15 08:48 | XMS_ITS ---
Author Organization [facility] Address [address] [place] [address] Care Team Providers Care Air Commodore Name Role Phone Omega ROLAND, Samy Primary Care Provider UnaVlad Grimaldo Unavailable [phone] REASON FOR VISIT screening,hx polyps PROBLEMS Problem Type ICD Code Onset Dates Problem Status W/U Status Risk SNOMED Code Notes Problem Diverticulosis of large intestine without perforation or abscess without bleeding (K57.30) Active confirmed Diverticul ar disease of colon (941149474) Encounters Encounter Location Date Provider Diagnosis [facility] [address] [place], [place] [id number] 06/13/2023 Vlad Abreu Encounter for scre ening colonoscopy Z12.11 ; Colon polyps K63.5 ; Diverticulosis of large intestine without perforation or abscess without bleeding K57.30 and Other hemorrhoids K64.8 ASSESSMENTS Encounter Date Diagnosis Assessment Notes Treatment Notes Treatment Clinical Notes 06/13/2023 Encounter for screening colonoscopy (ICD-10 - Z12.11) 06/13/2023 Colon polyps (ICD-10 - K63.5) 06/13/2023 Diverticulosis of large intestine without perforation or abscess without bleeding (ICD-10 - K57.30) 06/13/2023 Other hemorrhoids (ICD-10 - K64.8) PLAN OF TREATMENT No Information
--- OUTSIDE RECORDS SUMMARY | 2024-03-15 08:48 | XMS_ITS ---
Author Organization [facility] Address [address] [place] [address] Care Team Providers Care Clinical Practitioner Name Role Phone Omega ROLAND, [place] Primary Care Provider UnaVlad Grimaldo Unavailable [phone] REASON FOR VISIT SCREEING COLON Encounters Encounter Location Date Provider Diagnosis [facility] [address] [place] [address] 03/19/2023 Vlad Abreu PLAN OF TREATMENT No Information
--- OUTSIDE RECORDS SUMMARY | 2024-03-15 08:49 | XMS_ITS | Patient Health Record ---
Author Organization [facility] Address [address] [place] [address] Care Team Providers Care Basket Grader Name Role Phone Omega ROLAND, Samy Primary Care Provider Vlad Andersen [phone] ALLERGIES No Known Allergies RESULTS Component Value Reference Range Notes Pathology (Not yet reviewed by provider) Interpretation: Performing Lab:[facility], [address] [place] [id number] Notes/Report: REASON FOR REFERRAL No Information MEDICATIONS Medication SIG (Take, Route, Frequency, Duration) Notes Start Date End Date Status Singulair 10mg Activ e hydroCHLOROthiazide 25 MG Oral for 90 Active Folic Acid 800mg Act gina hydrALAZINE HCl 25 MG Oral for 90 Active Vitamin C 500mg Acti ve Spironolactone 25 MG Oral for 90 Active Losartan Potassium-HCTZ 50-1 2.5 MG 1 tablet Orally Once a day Active Pantoprazole Sodium 40 MG Oral for 90 Active Vitamin D 1000 UNIT 1 tablet Orally Once a day Active Pulmicort Flexhaler 180 MCG/ACT Inhalation for 90 Active Qvar 40 MCG/ACT 1 puff Inhalation Twice a day Active Montelukast Sodium 10 MG Oral for 90 Active traMADol HCl 50 MG 1 tablet as needed Orally every 6 hrs Active Aleve 220 MG 1 tablet with food o r milk as needed Orally every 12 hrs Active Aspir-81 Active Protonix 40 MG 1 tablet Orally Once a day Active Fish Oil 1000mcg Act gina Losartan Potassium 100 MG Oral for 90 Active Multi Vitamin/Minerals Active Metoprolol Succinate ER 100 MG Oral for 90 Active IMMUNIZATIONS Vaccine Route Administration Date Status Comme nts Influenza Unknown 02/21/2023 Administered SOCIAL HISTORY Sex Assigned At : Social History Observation Description Sex Assigned At Unknown PROBLEMS Problem Type ICD Code Onset Dates Problem Status W/U Status Risk SNOMED Code Notes Problem Encounter for screening for malignant neoplasm of colon (Z12.11) Active confirmed 511041397 Problem History of adenomatous polyp of colon (Z86.010) Active confirmed 637987610 Problem Diverticulosis of large intestine without perforation or abscess without bleeding (K57.30) Active confirmed Diverticul ar disease of colon (232022813) Problem Gastroesophageal reflux disease without esophagitis (K21.9) Active confirmed 352094491 Problem Constipation, unspecified constipation type (K59.00) Active confirmed 59714509 Encounters Encounter Location Date Provider Diagnosis [facility] Out[facility] [address] [place], [place] [id number] 06/13/2023 Vlad Abreu Encounter for screen ing colonoscopy Z12.11 ; Colon polyps K63.5 ; Diverticulosis of large intestine without perforation or abscess without bleeding K57.30 and Other hemorrhoids K64.8 [facility] [address] [place] [address] 03/19/2023 Vlad Abreu ASSESSMENTS Encounter Date Diagnosis Assessment Notes Treatment Notes Treatment Clinical Notes 06/13/2023 Encounter for screening colonoscopy (ICD-10 - Z12.11) 06/13/2023 Colon polyps (ICD-10 - K63.5) 06/13/2023 Diverticulosis of large intestine without perforation or abscess without bleeding (ICD-10 - K57.30) 06/13/2023 Other hemorrhoids (ICD-10 - K64.8) PLAN OF TREATMENT Pending Test Test Name Order Date Pathology 06/13/2023 Future Test Test Name Order Date UPPER GI ENDOSCOPY 05/14/2012 COLONOSCOPY 05/14/2012 COLONOSCOPY 11/19/2017 COLONOSCOPY 03/12/2023 Insurance Providers Payer Name Payer Address Payer Phone Subscriber Number Group Number Insured Name Patient Relationship to Insured Coverage Start Date Coverage End Date [place] [employer] [address] [place] AR[place]YO [phone] [id number] ROSELIA DELUNA Self - patient is the insured MEDICAL (GENERAL) HISTORY Medical History History ICD Code Colonoscopy 12/19/2006-flat tubular adenoma removed from the Asc. colon, melanosis coli Neg. F/U colonoscopy in 11/2008 Mild diverticulosis Internal and external hemorrhoids GERD with chronic cough--EGD in 06/2012--small HH, no esophagitis nor Kelley's HTN Asthma Denies VA,DM,CVA,renal disease Colonoscopy in 06/2012--small tubular keagan nomas removed Negative colonoscopy in 11/2017 Surgical History Surgery Date(Month/Year) KATRIN except for a piece of an ovary Knee surgery Back surgery Surgery for cyst on her face [facility]
[2024-03-15 08:57] VITALS: BP 130/72; PULSE 67; O2SAT 95; BMI 42.2
--- NOTE | 2024-03-15 08:57 | MHC.PC.OV ---
Vital Signs 03/15/24 08:57 Height 5 ft 4 in Weight 246 lb BMI 42.2 BP 130/72 Blood Pressure Location Lt brachial Position Sitting Pulse 67 Pulse Source Pulse Oximeter Pulse Oximetry (%) 95 Oxygen Delivery Method Room Air Intake Visit Reasons: 4 Mo HTN, hyperlipidemia, IFG, lumbar DDD, OA Sanipractic Physician Required: No Accompanied by: Self / Same As Patient Allergies No Known Allergies [No Known Allergies*] Allergy (Verified 03/15/24 09:18) Medication List - Last Reconciled 03/15/24 by Samy Duff MD albuterol sulfate 90 mcg/actuation 2 puffs inhalation Q4-6H PRN budesonide 180 mcg/actuation (Pulmicort Flexhaler) 1 inh PO BID hydralazine 25 mg PO TID 90 days hydrochlorothiazide 25 mg PO QAM losartan 100 mg PO DAILY metoprolol succinate ER 100 mg PO DAILY 90 days montelukast 10 mg PO BEDTIME naloxone 4 mg/actuation (Narcan) 4 mg intranasal Q2M PRN oxycodone 5 mg PO TID PRN 7 days pantoprazole 40 mg PO DAILY PRN 90 days spironolactone 25 mg PO DAILY tramadol 50 mg PO TID PRN 30 days Tobacco use date assessed: 03/15/24 Fall risk assessment: No Falls in past year Last assessed Fall Risk: 03/15/24 Dental Screening Dental Screen Date: 03/15/24 Did you have a dental visit in the last 12 months?: No Did you have a dental problem in the last 6 months where you did not have access to dental care?: No Was dental information given to patient?: No HPI 4 Mo HTN, hyperlipidemia, IFG, lumbar DDD, OA HPI Details Patient comes in today for her follow up visit States that she's had increased cough and congestion for the past 10 days now Notes that her chest feels very congested and tight often and she sometimes feel SOB, especially with activity States that she has been taking OTC Coricidin PRN lately with some relief of her symptoms Relates (+) fatigue but denies any fever or sore throat Denies any chest pains No nausea/vomiting, no abdominal pain No change in bowel habits noted She is now seeing pain management for her low back pain but they are still waiting on the report of her lumbar spine MRI done over a month ago - report is still not available at this time She was not able to get her follow up labs done prior to her appointment today because she has been sick lately [facility] Medical History Osteopenia Osteoarthritis of hands, bilateral Degenerative joint disease of left hip Tenosynovitis of thumb Constipation Obesity (BMI 30-39.9) Depression Allergic rhinitis Deep left inguinal pain Lumbar degenerative disc disease GERD without esophagitis Impaired fasting glucose Palpitations COPD (chronic obstructive pulmonary disease) Benign essential hypertension Surgical History History of colonoscopy History of eye surgery History of surgery History of total abdominal hysterectomy and bilateral salpingo-oophorectomy History of laparoscopic cholecystectomy History of appendectomy History of removal of cyst History of left knee surgery Family History Father CHF (congestive heart failure) Colon cancer Hypertension CVD (cardiovascular disease) Mother CVD (cardiovascular disease) Social History Housing: House Alcohol intake: never Patient Tobacco Use Status: Former Tobacco user e-Cigarette/Vaping Use: Never Used Second Hand Smoke Exposure: Yes service: No Current occupational status: disabled Cognitive needs: No Hearing needs: No Vision needs: Yes (glasses) Questionnaire PHQ-9 Over the last 2 weeks, how often have you been bothered by any of the following problems? 1. Little interest or pleasure in doing things: not at all 2. Feeling down, depressed, or hopeless: not at all 3. Trouble falling or staying asleep, or sleeping too much: not at all 4. Feeling tired or having little energy: not at all 5. Poor appetite or overeating: not at all 6. Feeling bad about yourself - or that you are a failure or have let yourself or your family down: not at all 7. Trouble concentrating on things, such as reading the newspaper or watching television: not at all 8. Moving or speaking so slowly that other people could have noticed. Or the opposite - being so fidgety or restless that you have been moving around a lot more than usual: not at all 9. Thoughts that you would be better off or of hurting yourself in some way: not at all Total score: 0 Depression Screening Interpretation: Negative Depression Screening Done: Yes 50033 - PHQ-9 Billing: Yes Source: Developed by Drs. Vlad Carmichael, Corie Rahman, Regulo Mata and colleagues, with an educational leno from [email or web address]. Thrive Questionnaire Date Thrive assessed: 03/15/24 I am a: Patient What is your living situation today?: I have a steady place to live Within the past 12 months, did the food you bought not last and you didn't have the money to get more?: Never true Within the past 12 months, did you worry whether your food would run out before you got money to buy more?: Never true Do you have trouble paying for medicines?: No Do you have trouble getting transportation to medical appointments?: No Do you have trouble paying your heating and electricity bill?: No Do you have trouble taking care of your child, family member or friend?: No Do you have trouble with day-to-day activities such as bathing, preparing meals, shopping, managing finances, etc.?: No Are you currently unemployed and looking for a job?: No Are you interested in more education?: No Please select the resources that you would like help with: None Currently or been in a relationship where the following occur: No concerns reported THRIVE Score: 0 AUDIT C Alcohol Use Questionnaire (AUDIT-C) 1. How often do you have a drink containing alcohol?: Monthly or less 2. How many drinks containing alcohol do you have on a typical day when you are drinking?: 1 or 2 3. How often do you have six or more drinks on one occasion?: Never Total Score: 1 Score Reviewed/Action Taken: Yes ALEIDA-7 AMB Questionnaire ALEIDA-7 Date ALEIDA - 7 assessed: 03/15/24 Feeling nervous, anxious, or on edge: 0 = Not at all Not being able to stop or control worryin = Not at all Worrying too much about different things: 0 = Not at all Trouble relaxin = Not at all Being so restless that it is hard to sit still: 0 = Not at all Becoming easily annoyed or irritable: 0 = Not at all Feeling afraid as if something awful might happen: 0 = Not at all Total ALEIDA-7 score (0-4 normal; 5-9 mild; 10-14 moderate; 15-21 severe): 0 Source: Developed by Drs. Vlad Carmichael, Corie Rahman, Regulo Mata and colleagues, with an educational leno from [email or web address]. Review of Systems Const Denies chills, Reports fatigue, Denies fever(s) and Denies headache(s) ENT Denies dysphagia, Denies dizziness, Denies otalgia, Denies headache(s), Reports nasal congestion, Denies neck pain, Denies odynophagia, Reports sinus pressure and Denies sore throat Card Denies chest pain, Denies irregular heart rhythm, Denies palpitations and Reports dyspnea on exertion (mild) Resp Reports chest congestion (chest feels tight often), Reports cough (increased, worse at night; coughs up thick whitish phlegm at times), Reports dyspnea on exertion (mild) and Denies wheezing GI Denies abdominal pain, Denies constipation, Denies dysphagia, Denies heartburn, Denies diarrhea, Denies nausea, Denies odynophagia and Denies vomiting Denies nocturia, Denies dysuria and Denies urinary urgency Musc Reports back pain (over the lumbar spine - chronic), Reports arthralgias (of fingers of both hands; left hip; R knee), Denies joint swelling and Denies neck pain Skin/Breast Denies rash Neuro Denies dizziness and Denies headache(s) Endo Reports fatigue and Denies palpitations Aller/Immun Denies wheezing Physical exam (Primary Care) Vital Signs: Last Vital Signs Pulse 67 03/15/24 08:57 BP 130/72 03/15/24 08:57 Pulse Ox 95 03/15/24 08:57 Oxygen Delivery Method Room Air 03/15/24 08:57 BMI result Body Mass Index 42.2 Tobacco/Smoking Status: Tobacco use Status Tobacco use date assessed 03/15/24 03/15/24 09:04 Patient Tobacco Use Status Former Tobacco user 03/15/24 09:04 e-Cigarette/Vaping Use Never Used 03/15/24 09:04 PHQ-9: PHQ-9 Score PHQ-9: Total score 0 03/15/24 09:04 Depression Screening Interpretation: Negative Thrive Assessment: Date of Thrive Assessment Date Thrive assessed 03/15/24 03/15/24 09:04 Currently or been in a relationship where the following occur: No concerns reported Const General: no acute distress and alert HENMT Ears: TM's normal bilaterally and EAC's normal Throat: Yes tonsils normal (no TP congestion noted) and Yes posterior oropharynx abnormal (increased erythema of the posterior pharynx) Neck Neck: Yes supple and No lymphadenopathy Thyroid: Thyroid normal Resp Auscultation: no crackles, no rales, rhonchi (scattered) throughout, no wheezes, diminished lung sounds bilateral and bronchial breath sounds bilateral Cardio Rate: regular rate Rhythm: regular rhythm Heart sounds: no murmurs GI Palpation (GI): Soft to palpation and nontender Auscultation: normal bowel sounds General: Yes no CVA tenderness Back/Spine/Pelvis Back: no CVA tenderness Thoracic/Lumbar Spine: lumbar spinal tenderness Skin Rashes: no rashes Extrem General: Yes no clubbing, cyanosis or edema Right upper extremity: Extremity exam: right hand Details: tenderness (on all fingers, especially over the base of the thumb) Location: of the thumb Location: at the thenar eminence and at the MCP joint and normal ROM of fingers (but (+) stiffness of the fingers noted) Left upper extremity: hand Details: tenderness (on all fingers, especially over the base of the thumb) Location: of the thumb Location: at the thenar eminence and at the MCP joint and normal ROM of fingers (but (+) stiffness) Right lower extremity: knee Details: tenderness Location: of the pre-patellar area and of the infrapatellar area; no swelling Left lower extremity: hip/thigh Details: tenderness Location: of the hip Coding Level of Care Code Est Pt Level 4 (95439) Diagnoses COPD exacerbation J44.1 Hypertriglyceridemia E78.1 Benign essential hypertension I10 Impaired fasting glucose R73.01 Degeneration of intervertebral disc of lumbar region with discogenic back pain and lower extremity pain M51.362 Disc-related pain type: discogenic back pain and lower extremity pain Osteoarthritis of left hip, unspecified osteoarthritis type M16.12 Osteoarthritis type: unspecified Primary osteoarthritis of both hands M19.041; M19.042 Osteoarthritis type: primary Osteopenia of multiple sites M85.89 Osteopenia location: multiple sites GERD without esophagitis K21.9 Episode of recurrent major depressive disorder, unspecified depression episode severity F33.9 Depression Type: major depressive disorder Major depression recurrence: recurrent Active/Remission status: currently active Major depression episode severity: unspecified Morbid obesity with BMI of 40.0-44.9, adult E66.01; Z68.41 Additional Codes PHQ-9 - 01546 - PHQ-9 Billing: Yes ([id number]) Assessment & Plan Assessment & Plan (1) COPD exacerbation: Code(s): J44.1 - Chronic obstructive pulmonary disease with (acute) exacerbation Category: Medical Plan: Will start patient empirically on Augmentin 875 mg BID x 10 days Can continue OTC Coricidin PRN for symptomatic relief Continue Pulmicort Flexhaler 180 mcg 1 inhalation BID and Albuterol HFA 1 to 2 puffs up to 4 times a day as needed (2) Hypertriglyceridemia: Code(s): E78.1 - Pure hyperglyceridemia Category: Medical Plan: Patient was not able to get her follow up labs done prior to her appointment today due to her being sick for the past week or so Reinforced low cholesterol diet Will recheck her labs and fasting lipids in 4 months for follow up - will just have patient use her current orders (updated) for her next lab draw (3) Benign essential hypertension: Code(s): I10 - Essential (primary) hypertension Category: Medical Plan: Reinforced low sodium diet - goal is systolic BP of at least 130 to 140 mm or less Her BP has remained well-controlled on her current Rx regimen Continue Losartan 100 mg QD, Metoprolol ER 100 mg QD, Hydralazine 25 mg TID, HCTZ 25 mg Q AM and Spironolactone 25 mg QD Amlodipine was discontinued previously due to increasing edema and SOB Renal doppler and urine metanephrines done earlier this year both came back within normal range, with no evidence of KAITY or pheochromocytoma Patient is reminded to continue monitoring her blood pressure regularly (4) Impaired fasting glucose: Code(s): R73.01 - Impaired fasting glucose Category: Medical Plan: Reinforced low calorie diet/exercise as tolerated Her in-office HgbA1c have been normal when checked previously at 5.5% (5) Lumbar degenerative disc disease: Code(s): M51.36 - Other intervertebral disc degeneration, lumbar region Category: Medical Qualifiers: Disc-related pain type: discogenic back pain and lower extremity pain Qualified Code(s): M51.362 - Other intervertebral disc degeneration, lumbar region with discogenic back pain and lower extremity pain Plan: Reinforced activity and weight-lifting restrictions She has a TENS unit that she uses as needed with (+) temporary relief Continue Tramadol 50 mg TID PRN; she has Oxycodone 5 mg to take TID PRN for when Tramadol is not helping effectively - she is aware not to take them both simultaneously Follow up with pain management as scheduled She had a lumbar spine MRI done last month to help further evaluate her lower back issues but the report is still pending at this time (6) Degenerative joint disease of left hip: Code(s): M16.12 - Unilateral primary osteoarthritis, left hip Category: Medical Qualifiers: Osteoarthritis type: unspecified Qualified Code(s): M16.12 - Unilateral primary osteoarthritis, left hip Plan: Follow up with orthopedics as scheduled (7) Osteoarthritis of hands, bilateral: Code(s): M19.041 - Primary osteoarthritis, right hand; M19.042 - Primary osteoarthritis, left hand Category: Medical Qualifiers: Osteoarthritis type: primary Qualified Code(s): M19.041 - Primary osteoarthritis, right hand; M19.042 - Primary osteoarthritis, left hand Plan: Patient is advised again on regular hand exercises to help manage her finger stiffness and pain Repeat x-rays of both hands done a few months ago confirmed (+) OA changes in both hands She was seen by orthopedics a few months ago and offered cortisone injection if use of thumb splints do not help States that she did not go for cortisone injections as the splints helped somewhat and would like to continue using these first and reserve injections for when they are no longer helping (8) Osteopenia: Code(s): M85.80 - Other specified disorders of bone density and structure, unspecified site Category: Medical Qualifiers: Osteopenia location: multiple sites Qualified Code(s): M85.89 - Other specified disorders of bone density and structure, multiple sites Plan: Her repeat BMD done on 04/04/2023 showed a significant improvement in her BMD compared to her previous scan in 2017 (which revealed osteopenia with a T score of -1.5 in the hips) - her BMD is now NORMAL She is encouraged again to continue taking Vitamin D and Calcium supplements daily and to try to exercise regularly (9) GERD without esophagitis: Code(s): K21.9 - Gastro-esophageal reflux disease without esophagitis Category: Medical Plan: Dietary restrictions reinforced Continue Pantoprazole 40 mg QD (10) Depression: Code(s): F32.9 - Major depressive disorder, single episode, unspecified Category: Medical Qualifiers: Depression Type: major depressive disorder Major depression recurrence: recurrent Active/Remission status: currently active Major depression episode severity: unspecified Qualified Code(s): F33.9 - Major depressive disorder, recurrent, unspecified Plan: Controlled - patient stopped taking Duloxetine on her own a few months ago and has not felt any worse since stopping the Rx (11) Morbid obesity with BMI of 40.0-44.9, adult: Code(s): E66.01 - Morbid (severe) obesity due to excess calories; Z68.41 - Body mass index [BMI] 40.0-44.9, adult Category: Medical Plan: Reinforced diet; exercise and weight loss are unrealistic at present due to her joint and lower back issues Plan Follow up in 4 months Medications: New amoxicillin-pot clavulanate 875-125 mg 1 tab PO BID 10 days 20 tabs 0RF
== END 2024-03-15 09:27 | disposition home or self-care (01) ==
PROVIDERS: PCP Internal Medicine; Visit Provider Internal Medicine
DX: J44.1 Chronic obstructive pulmonary disease with (acute) exacerbation (principal); F33.9 Major depressive disorder, recurrent, unspecified; E66.01 Morbid (severe) obesity due to excess calories; Z68.41 Body mass index [BMI] 40.0-44.9, adult; E78.1 Pure hyperglyceridemia; I10 Essential (primary) hypertension; R73.01 Impaired fasting glucose; M51.362 Other intervertebral disc degeneration, lumbar region with discogenic back pain and lower extremity pain; M16.12 Unilateral primary osteoarthritis, left hip; M19.041 Primary osteoarthritis, right hand; M19.042 Primary osteoarthritis, left hand; M85.89 Other specified disorders of bone density and structure, multiple sites; K21.9 Gastro-esophageal reflux disease without esophagitis

== ENCOUNTER → 2024-03-15 08:46 | Outpatient (BNVA) | payer MEDICARE, OTHER, SELFPAY | PROVIDERS: PCP Internal Medicine; Visit Provider Internal Medicine | DX: I10 Essential (primary) hypertension (principal); E78.5 Hyperlipidemia, unspecified; R73.01 Impaired fasting glucose; M19.90 Unspecified osteoarthritis, unspecified site; J44.1 Chronic obstructive pulmonary disease with (acute) exacerbation; E78.1 Pure hyperglyceridemia; M51.362 Other intervertebral disc degeneration, lumbar region with discogenic back pain and lower extremity pain; M16.12 Unilateral primary osteoarthritis, left hip; M19.041 Primary osteoarthritis, right hand; M19.042 Primary osteoarthritis, left hand; M85.89 Other specified disorders of bone density and structure, multiple sites; K21.9 Gastro-esophageal reflux disease without esophagitis; F33.9 Major depressive disorder, recurrent, unspecified; E66.01 Morbid (severe) obesity due to excess calories; Z68.41 Body mass index [BMI] 40.0-44.9, adult | CPT/HCPCS: 96127; 99212 ==

== ENCOUNTER 2024-04-19 12:46 | Outpatient (AMB) | payer MEDICARE, SELFPAY ==
--- NOTE | 2024-04-19 12:56 | MHC.OFFVIS ---
Vital Signs 04/19/24 12:59 Height 5 ft 4 in Weight 245 lb 2 oz BMI 42.1 BP 136/65 Blood Pressure Location Lt brachial Position Sitting Pulse 67 Pulse Source Pulse Oximeter Intake Visit Reasons: MRI Results Intake Note: Pain today 10/31 Motorcycle Deliverer Required: No Accompanied by: Spouse Allergies No Known Allergies [No Known Allergies*] Allergy (Verified 04/19/24 13:00) HPI Comments Details: Patient presents today for follow up to review recent pelvis MRI results. Patient reports new onset of bilateral radiculopathy, worse on the left about 6 weeks ago. Denies any inciting event, trauma, injury or falls. Patient reports she cannot shop without cart for past 2 months due to need to lean forward to alleviate some of her back pain. Back pain radiates all the way down to the left lower leg in L5-S1 distribution whereas on the right it is mainly in the right thigh up to the knee. She had discectomy by Dr. Haney in 2011 or 2012. We will proceed with updating her lumbar spine MRI, last one was completed in 2018, to rule out direct nerve root impingement. Denies any bladder or bowel dysfunction or saddle anesthesia. PRIOR: Patient presents today for follow-up for chronic left-sided low back pain and SI joint pain. She was last seen in our office last year in January status post therapeutic left SI joint injection which provided her pain for over 6 months. Patient reports left SI joint pain has returned to baseline and has been negatively affecting her ADLs, functioning, mobility, sleep, and social interactions. Patient presents with her for reports patient who could not enjoy their recent vacation due to increased pain with walking, sitting, or changing positions. Patient is interested to repeat left therapeutic SI joint injection under sedation as well as interested to discuss more permanent pain management solutions for this pain generators. She denies any recent trauma, injury, or falls. Denies any recent cough, cold, infection, fever, weakness, numbness, tingling, bladder or bowel dysfunction, saddle anesthesia or other significant changes in medical history since last office visit. Past Procedures: 01/31/23: Left Therapeutic SIJ injection-90% pain relief >6 months 01/21/23: Left Diagnostic SIJ [id number]% pain relief for 5-6 hours *ADDENDUM Patient called back today and prefers to proceed with Left Sacroiliac Joint Fusion with PainTEQ LinQ SI Joint Stabilization System under sedation and fluoroscopy for a longer term pain management of chronic left SI joint pain. She completed diagnostic and therapeutic injections with good results. She is a former smoker. Patient reports moderate to severe daily and chronic pain with functional limitations and reduced mobility due to pain. Pain is localized to left sided lower back pain with radiation into her left buttock and sacral area and into left lateral hip without groin pain. She has failed previous conservative measures, including home exercise program for lower back and SIJ areas, activity modifications and medication trials. PRIOR: Patient is a pleasant 67 years old female who was previously seen in our office by Tyra JOAQUIN in 2020 and prior n [address] Cruz presents today for follow up for left low back pain with left hip and thigh pain. Patient reports midline low back pain that radiates into her left buttock and left groin and anterior left thigh without numbness or tingling. Pain increases with walking over 5 minutes and prolonged sitting. She denies significant pain while standing especially holding on to something. Reports left groin pain with getting out of bed or shower. Patient also reports shooting, sharp pain into her left groin and thigh with prolonged standing while cooking or washing dishes. She reports physical therapy in the past was not well tolerated due to increased pain. Tylenol, NSAIDs, heat and ice therapy and aqua therapy has been partially. She has been using stationary bike but due to pain has been using this less than before. Patient reports previous back injections provided minimal pain relief. Patient denies any bladder or bowel incontinence or saddle anesthesia. PRIOR 08/22/2020 Tyra JOAQUIN: Meche returns to the office with complaints of low back pain as well as pain in left hip and bilateral hands. She was seen here three years ago by Dr. Cruz for similar symptoms with pain across the low back pain and radiation into entire left leg into the middle three toes. She underwent a L5-S1 injection in 2018 with minimal alleviation in her pain. Her pain is exacberated with sitting, standing and prolonged walking. Her pain is alleviated with leaning forward. It was recommended that she undergo physical therapy which she completed 8 sessions with exacerbation of her pain and could not tolaterate any more sessions. She also notes left groin pain as a result of her left hip osteoarthritis. She is under the care of Dr. Abbasi for this and is awaiting a left intrarticular hip injection to be authorized by insurance. She has had this injection in the past with great improvement in her symptoms. She had also had her hands evaluated by Dr. Abbasi who reportedly stated he will send her to Dr. Rashid, if they worsen. She notes an increase in swelling, stiffness and difficulty making a fist with her right hand. She is currently taking Tramadol and Aleve with little to no improvement in her symptoms. She has tried gabapentin in the past with no effect. She presents today to discuss injections. PRIOR: Meche presents for initial evaluation of chronic low back and left leg pain. She describes similar pain first experienced back in 2011. She eventually underwent a discectomy by Dr Haney and her pain resolved. Earlier this year while doing house work her pain returned abruptly. She describes her pain as stabbing, radiating predominately from the back down the posterior leg into her foot. Occasionally she will have pain into her groin. She denies any weakness, b/b dysfunction, fevers, or chills. Initial xrays were negative. She has not had PT as of yet. Her PCP ordered an MRI but it was denied. She has been performing a daily HEP and using NSAID to help with the pain that is interfering with sleep and all activity. Her pain ranges in intensity from 2-7/10. She is not sure what makes it better however all activity makes it worse. [facility]LY [facility] Medical History Osteopenia Osteoarthritis of hands, bilateral Degenerative joint disease of left hip Tenosynovitis of thumb Constipation Obesity (BMI 30-39.9) Depression Allergic rhinitis Deep left inguinal pain Lumbar degenerative disc disease GERD without esophagitis Impaired fasting glucose Palpitations COPD (chronic obstructive pulmonary disease) Benign essential hypertension Surgical History History of colonoscopy History of eye surgery History of surgery History of total abdominal hysterectomy and bilateral salpingo-oophorectomy History of laparoscopic cholecystectomy History of appendectomy History of removal of cyst History of left knee surgery Family History Father CHF (congestive heart failure) Colon cancer Hypertension CVD (cardiovascular disease) Mother CVD (cardiovascular disease) Social History Housing: House Alcohol intake: never Patient Tobacco Use Status: Former Tobacco user e-Cigarette/Vaping Use: Never Used Second Hand Smoke Exposure: Yes service: No Current occupational status: disabled Cognitive needs: No Hearing needs: No Vision needs: Yes (glasses) Review of Systems Const All systems reviewed & are unremarkable except as noted in HPI and below Physical Exam General: Appears afebrile. Alert and oriented. Mood and affect appropriate. Follows and participates in conversation appropriately. Respiratory effort is unlabored. No cough. Able to transition from sit to stand unassisted. Ambulates with bilaterally normal heel strike and toe off, increased pain on the left. General: Yes no CVA tenderness Back/Spine/Pelvis Other: Patient able to walk on heels and tip toes with mild difficulty on the left due to pain. Limited lumbar ROM due to pain. Demonstrates 5/5 right and 4/5 left strength of quadriceps as well as flexion/dorsiflexion of bilateral feet against resistance. 2+ pedal pulses bilaterally. Seated SLR testing with dorsiflexion is positive on the left, diffuse on the right. 1+ patellar and achilles reflexes bilaterally. Facet loading + bilaterally. Opal + on the left. Shay and Gaenslen tests reproduce left groin and back pain on left. Stinchfield positive on left and reproduces left lateral hip and left back pain. Minimal left groin pain with external left hip rotation. Pelvic compression test positive for hip and back pain on left. Moderate tenderness in the projection of left SIJ. Back: no CVA tenderness Cervical Spine: cervical ROM normal, cervical muscular tenderness and No Cervical spine tenderness Thoracic/Lumbar Spine: thoracic and lumbar spine normal to inspection, Lasegue's sign positive bilateral, diffuse and localized, pain with thoraco-lumbar ROM, No paraspinal muscle tenderness, thoraco-lumbar ROM limited, No thoracic spinal tenderness and lumbar spinal tenderness (L4-S1) Pelvis: buttock tenderness on the left Sacroiliac joints: on the right nontender and on the left tender to palpation Extrem General: Yes capillary refill normal, Yes no clubbing, cyanosis or edema and Yes no calf tenderness Left lower extremity: hip/thigh Details: tenderness Location: of the hip Location: over the great trochanter Results Reviewed Results Reviewed: XR lumbar spine 6V w bending, XR left hip with pelvis 12/05/22 EXAMINATION: lumbar spine and left hip. CLINICAL INDICATIONS: Radiculopathy lumbar region. COMPARISON: Lumbar spine 07/23/2017 FINDINGS: LUMBAR SPINE: There is normal lumbar lordosis. The vertebral heights and alignment are normal. There is loss of L5-S1 disc height. Rest of the disc heights, vertebral heights and alignment is normal. There is mild ventral spondylosis throughout lumbar spine. No visible acute fracture, dislocation seen. There is no subluxation on flexion or extension views. There is mild bilateral L4-L5 and L5-S1 facet arthropathy. AP PELVIS AND LEFT HIP: There is mild loss of joint space and bilateral hip joints. SI joints are symmetrical. No visible fracture, lytic or sclerotic process seen. There is mild periarticular degenerative spurring inferior left hip joint. IMPRESSION: No acute fracture, dislocation or subluxation in lumbar spine. There is mild L5-S1 degenerative disc changes. Unremarkable AP pelvis and left hip. MR LUMBAR SPINE WITHOUT CONTRAST 02/28/2018 CLINICAL INFORMATION: Lumbar radiculopathy. Self-reported left lower extremity weakness, numbness and pain on occasion. COMPARISON: Lumbar spine radiograph 07/23/2017, report MRI lumbar spine 11/12/2011. TECHNIQUE: MRI of the lumbar spine was obtained using routine sequences without contrast. FINDINGS: VERTEBRAL BODIES AND PARASPINAL STRUCTURES: 5 lumbar-type vertebral bodies are present and are normal in height, alignment and marrow signal intensity aside from minimal multilevel endplate discogenic marrow signal changes and minimal scattered Schmorl's node deformities. CONUS MEDULLARIS AND CAUDA EQUINA: Normal, terminating at the level of L1-L2. SPINAL LEVELS: T12-L1: Normal. Normal intervertebral discs. No central or foraminal stenoses. L1-L2: No significant central or foraminal stenoses. Moderate bilateral ligamentum flavum hypertrophy. Mild bilateral facet hypertrophy. L2-L3: Mild central stenosis secondary to mild bilateral parasagittal disc protrusions and moderate bilateral ligamentum flavum hypertrophy. Mild bilateral facet hypertrophy. L3-L4: Mild central stenosis secondary to mild bilateral parasagittal disc protrusions and moderate bilateral ligamentum flavum hypertrophy. Furthermore, mild bilateral facet hypertrophic changes are noted. L4-L5: Mild central stenosis. Mild left foraminal stenosis. Findings arise secondary to a mild posterior broad-based disc bulge with left parasagittal and left lateral extension resulting in less than 50% left foraminal stenosis. No associated direct nerve root impingement. Moderate bilateral facet hypertrophic changes are noted along with mild bilateral ligamentum flavum hypertrophy. The protrusion comes to within 1 mm proximity of the left L5 nerve roots within the left subarticular recess without direct nerve root impingement. L5-S1: Mild left subarticular recess narrowing. This finding arises secondary to moderate left facet hypertrophic changes which project towards the left subarticular recess and mildly narrows the left subarticular recess abutting upon but not displacing the left S1 nerve roots. A minimal posterior broad-based disc bulge is present at this level without associated nerve root impingement. IMPRESSION: Chronic multilevel spondylosis of the lumbar spine without evidence of marked central or foraminal stenoses or direct nerve root impingement. At the levels L4-L5 and L5-S1 chronic hypertrophic changes come into close proximity with the left L5 and left S1 nerve roots respectively but do not result in direct nerve root impingement as detailed above. Assessment & Plan Assessment & Plan (1) Sacroiliac joint pain: Code(s): M53.3 - Sacrococcygeal disorders, not elsewhere classified Category: Medical (2) Lumbar degenerative disc disease: Code(s): M51.36 - Other intervertebral disc degeneration, lumbar region Category: Medical Qualifiers: Disc-related pain type: discogenic back pain and lower extremity pain Qualified Code(s): M51.362 - Other intervertebral disc degeneration, lumbar region with discogenic back pain and lower extremity pain (3) Post laminectomy syndrome: Code(s): M96.1 - Postlaminectomy syndrome, not elsewhere classified Category: Medical (4) Lumbar radiculopathy: Code(s): M54.16 - Radiculopathy, lumbar region Category: Medical (5) Continuous use of opioids: Code(s): F11.90 - Opioid use, unspecified, uncomplicated Category: Medical (6) Lumbar facet arthropathy: Code(s): M47.816 - Spondylosis without myelopathy or radiculopathy, lumbar region Category: Medical (7) Chronic pain syndrome: Code(s): G89.4 - Chronic pain syndrome Category: Medical Plan MRI of the lumbar spine to assess for neural integrity and compression and follow up on previous MRI findings. Patient has tried gabapentin, opioids, heat therapy, PT, aqua therapy with continued symptoms. SHe avoids NSAIDs due to low GFR. Patient will return to the clinic to discuss results of the MRI findings when it is done and consider interventional therapy as indicated. Script provided for SI joint belt for lumbosacral support and alleviate SI joint pain on the left. Patient will trial gabapentin 300 mg starting once a day for few days and titrating up to TID if well tolerated. Side effects and precautions were discussed with patient and family. All questions were answered and the patient is in agreement of plan. Follow-up for MRI results and sooner as needed. Orders: Orders MR lumbar spine wo con Today M51.362 - Other intervertebral disc degeneration, lumbar region with discogenic back pain and lower extremity pain, M54.16 - Radiculopathy, lumbar region, M96.1 - Postlaminectomy syndrome, not elsewhere classified Medications: New back brace As directed 1 ea 0RF M53.3 - Sacrococcygeal disorders, not elsewhere classified gabapentin 300 mg PO TID 30 days 90 caps 0RF pain M51.362 - Other intervertebral disc degeneration, lumbar region with discogenic back pain and lower extremity pain, M54.16 - Radiculopathy, lumbar region, M96.1 - Postlaminectomy syndrome, not elsewhere classified Coding Level of Care Code Est Pt Level 4 (04377) Complex EM visit Add On G2211 Diagnoses Sacroiliac joint pain M53.3 Degeneration of intervertebral disc of lumbar region with discogenic back pain and lower extremity pain M51.362 Disc-related pain type: discogenic back pain and lower extremity pain Post laminectomy syndrome M96.1 Lumbar radiculopathy M54.16 Continuous use of opioids F11.90 Lumbar facet arthropathy M47.816 Chronic pain syndrome G89.4
[2024-04-19 12:59] VITALS: BP 136/65; PULSE 67; BMI 42.1
--- OUTSIDE RECORDS SUMMARY | 2024-04-19 17:26 | XMS_ITS | Encounter Summary ---
Author Organization [facility] Address [address] [place] [address] Phone Care Team Providers Care Antitank Assault Gunner Name Role Phone Sony Bonilla Primary Care Provider Unavailable Encounter Details Date Type Department Care Team (Late st Contact Info) Description 12/19/2021 Documentation Only [facility] [address] [place] [address] Reyna Adrian Social History Tobacco Use Types Packs/Day Years Used Date Smoking Tobacco: Never Smokeless Tobacco: Never Alcohol Use Standard Drinks/Week Comments Never 0 (1 standard drink = 0.6 oz pur e alcohol) Comments Unknown Sex and Gender Information Value Date Recorded Sex Assigned at Not on file Legal Sex Female 4:59 PM EST Gender Identity Not on file Sexual Orientation Not on file documented as of this encounter Plan of Treatment Not on file documented as of this encounter Visit Diagnoses Not on filedocumented in this encounter Care Teams Antitank Assault Gunner Relationship Specialty Start Date End Date Sony Bonilla FNP-C PCP - General Nurse Practitioner 08/17/21 documented as of this encounter
--- OUTSIDE RECORDS SUMMARY | 2024-04-19 17:26 | XMS_ITS | Encounter Summary ---
Author Organization [facility] Address [address] [place] [address] Phone Care Team Providers Care Superintendent Pipelines Name Role Phone Sony Bonilla Primary Care Provider Unavailable Encounter Details Date Type Department Care Team (Late st Contact Info) Description 12/18/2021 Documentation Only [facility] [address] [place] [address] Reyna Adrian Social History Tobacco [...] on filedocumented in this encounter Care Teams Superintendent Pipelines Relationship Specialty Start Date End Date Sony Bonilla FNP-C PCP - General Nurse Practitioner 08/17/21 documented as of this encounter
--- OUTSIDE RECORDS SUMMARY | 2024-04-19 17:26 | XMS_ITS | Clinical Summary ---
Author Organization [facility] Address [address] [place] [address] Care Team Providers Care Multimedia Educational Specialist Name Role Phone Sony Bonilla RESTAURANT FRONT MANAGER-C Primary Care Provider Unavailable Allergies No known active allergies Medications traMADol (ULTRAM) 50 MG tablet TAKE ONE TABLET BY MOUTH THREE TIMES A DAY NEEDED FOR PAIN 2 Active pantoprazole (PROTONIX) 40 MG EC tablet 2 Active montelukast (SINGULAIR) 10 MG tablet 2 Active metoprolol succinate XL (TOPROL XL) 50 MG 24 hr tablet 100 mg 2 Active losartan (COZAAR) 100 MG tablet 2 Active hydroCHLOROthiazi de 12.5 MG tablet Take 12.5 mg by mouth 1 (one) time each day Active Pulmicort Flexhaler 180 MCG/ACT inhaler 2 Active hydrALAZINE 25 MG tablet Take 2 tablets (50 mg total) by mouth in the morning and 2 tablets (50 mg total) at noon and 2 tablets (50 mg total) in the evening. 180 tablet 3 2 Active spironolactone (ALDACTONE) 25 MG tabletIndications :Essential (primary) hypertension Take 1 tablet (25 mg total) by mouth 1 (one) time each day 90 tablet 3 4 Active Active Problems Problem Noted Date Diagnosed Date Essential (primary) hypertension 11/05/2021 Chronic obstructive pulmonary disease 11/05/2021 Gastroesophageal reflux disease 11/05/2021 Acute depression 11/05/2021 Encounters Date Type Department Care Team Description 03/03/2024 Refill [facility] [address] [place] [address] Gabino De Dios MD Essential (primary) hypertension from Last 3 Months Family History Medical History Relation Comments Cancer Father Heart disease Father Hypertension Father Heart disease Mother Relation Status Comments Father Mother Social History Tobacco Use Types Packs/Day Years Used Date Smoking Tobacco: Never Smokeless Tobacco: Never Tobacco Cessation:Counseling Given: Not Answered Alcohol Use Standard Drinks/Week Comments Never 0 (1 standard drink = 0.6 oz pur e alcohol) Comments Unknown Sex and Gender Information Value Date Recorded Sex Assigned at Not on file Legal Sex Female 4:59 PM EST Gender Identity Not on file Sexual Orientation Not on file Last Filed Vital Signs Vital Sign Reading Time Taken Comments Blood Pressure 138/70 12/19/2021 1:42 PM EDT Pulse 77 12/19/2021 1:42 PM EDT Temperature - - Respiratory Rate - - Oxygen Saturation 98% 12/19/2021 1:42 PM EDT Inhaled Oxygen Concentration - - Weight 114 kg (250 lb 9.6 oz) 12/19/2021 1:42 PM EDT Height - - Body Mass Index - - Plan of Treatment Health Maintenance Due Date Last Done Comments Breast Cancer Screening 1955 Pneumococcal Vaccine: 65+ Ye ars (1 of 2 - PCV) 1960 Colorectal Cancer Screening: Annual FOBT 12/06/2003 Colorectal Cancer Screening: Colonoscopy 12/06/2003 Colorectal Cancer Screening: Sigmoidoscopy 12/06/2003 Influenza Vaccine (#1) 2023 Hepatitis B Vaccine Aged Out No longe r eligible based on patient's age to complete this topic Insurance [facility] [place] [address] [place] [address] Care Teams Multimedia Educational Specialist Relationship Specialty Start Date End Date Sony Bonilla FNP-C PCP - General Nurse Practitioner 08/17/21
--- OUTSIDE RECORDS SUMMARY | 2024-04-19 17:26 | XMS_ITS ---
Author Organization [facility] Address [address] [place] [address] Care Team Providers Care Cross Tie Cutter Name Role Phone Omega ROLAND, Samy Primary Care Provider UnaVlad Grimaldo Unavailable [phone] REASON FOR VISIT screening,hx polyps PROBLEMS Problem Type ICD Code Onset Dates Problem Status W/U Status Risk SNOMED Code Notes Problem Diverticulosis of large intestine without perforation or abscess without bleeding (K57.30) Active confirmed Diverticul ar disease of colon ([id number]) Encounters Encounter Location Date Provider Diagnosis [facility] [address] [place], [place] [id number] 06/13/2023 Vlad Abreu Encounter for scre ening [...]
--- OUTSIDE RECORDS SUMMARY | 2024-04-19 17:26 | XMS_ITS ---
Author Organization [facility] Address [address] [place] [address] Care Team Providers Care Fish Hatchery Man Name Role Phone Omega ROLAND, Samy Primary Care Provider Vlad Andersen [phone] ALLERGIES No Known Allergies REASON FOR VISIT [...] 03/12/2023 Encounters Encounter Location Date Provider Diagnosis [facility] [address] [place] [address] 03/12/2023 Vlad Abreu Gastroesophageal ref lux disease [...]
--- OUTSIDE RECORDS SUMMARY | 2024-04-19 17:26 | XMS_ITS ---
Author Organization [facility] Address [address] [place] [address] Care Team Providers Care Digital Forensics Investigator Name Role Phone Oemga ROLAND, [place] Primary Care Provider UnaVlad Grimaldo Unavailable [phone] REASON FOR VISIT SCREEING COLON Encounters Encounter Location Date Provider Diagnosis [facility] [address] [place] [address] 03/19/2023 Vlad Abreu PLAN OF TREATMENT No Information
--- OUTSIDE RECORDS SUMMARY | 2024-04-19 17:26 | XMS_ITS | Data Portability ---
Author Organization [facility], [address] Address [address] [place] [address] Care Team Providers Care Grain Operator Name Role Phone CIRILO GABRIEL Primary Care Provider Assessment No assessment recorded. Plan of Treatment Reminders Order Date Submit Date Provider Last Modified By Organization Details Last Modified Time Details Appointments None record ed. Lab None record ed. Referral None record ed. Procedures None record ed. Surgeries None record ed. Imaging None record ed. Medication Orders None record ed. Patient TargetsNo targets recorded. Patient Instructions Encounter Date Encounter Id Patient Instructions Last Modified By Organization Details Last Modified Time 06/29/2022 [id number] cuts: care instructions Not available 06/29/2022 14:06:50 Discharge Instructions - Wound Care - Wash the wound gently with soap and warm water once daily. Otherwise keep wound clean, dry and covered with a dressing. - Do not immerse in water, and do not use alcohol or peroxide to clean. Do not use iodine or mercurochrome. - Elevate to decrease pain and improve healing. - Minimize use of affected body part. - Return here or see your doctor for any sign of infection, including redness, swelling, pus or increased pain. - Return for wound check in 2 or 3 days. - Return to have stitches removed in {{5days 7 days 10 days* 2 weeks}}. General recommendations: Scalp- 7 days Face- 5 day over joints - 14 days Hands/feet- 12 days Other areas - 10 days - If you received a tetanus shot the site may become sore and you may develop a low-grade fever. Take Tylenol if you have fever or pain. Return for a more severe reaction. - See your doctor or return here if not improving in {{1 2 3* 4 5 6 7 8 9 10 11 12 13 1 4}} days. Not available 06/29/2022 13:51:29 07/10/2022 [id number] Keep healing wound clean. Monitor for signs of infection. Seek Emergency Medical evaluation for any signs of infection such as redness, red streaking, purulent drainage, fever, swelling. [email or web address] Not available 07/10/2022 12:22:34 Reason for Referral None Reported. Problems Name Problem SNOMED Code Status Onset Date Resolution Date Notes Provider Name and Address Organization Details Recorded Time Hypertensive disorder 73630460 Active 2022 EVER DEPINTO null, PA - [facility] 12:51:43 Asthma 649705851 Active 2022 EVER DEPINTO null, PA - [facility] 12:51:55 Gastroesophage al reflux disease 966677511 Active 2022 EVER DEPINTO null, PA - [facility] 12:52:03 Problem Notes None recorded. Procedures Surgical History Date Name Laterality Status Provider Name and Address Organization Details Recorded Time 07/11/19 23 Suture Removal completed Blossom Galeano MD [address] [place], [address], [place] - [facility] 07/10/2022 12:23:57 06/30/19 23 Wound Dressing completed Yon Murphy NP [address] [place], [address], [place] - [facility] 06/29/2022 14:08:27 06/30/19 23 Laceration, Simple Repair, (scalp/neck/trunk/ genitalia/extremit ies) 2.6-7.5cm completed Yon Murphy NP [address] [place], [address], [place] - [facility] 06/29/2022 14:07:57 06/29/18 83 total hysterectomy with removal of both tubes and ovaries completed EVER DEPINTO PA - [facility] 06/29/2022 12:53:00 discectomy for intervertebral herniated disc, nucleus pulposus completed EVER Saunders [facility] 06/29/2022 12:53:29 Imaging Results None recorded. Procedure Notes None recorded. Medical Equipment None Reported. Allergies No known drug allergies Medications Name Sig Start Date Stop Date Status Note LastModified by Organization Details LastModified Time azithromyci n 250 mg tablet TAKE 2 TABLETS ON FIRST DAY , THEN 1 TABLET DAILY FOR 4 DAYS 06/29 completed Not Available Not Available Not Available metoprolol succinate ER 50 mg tablet,exte nded release 24 hr active Not Available Not Available Not Available prednisone 20 mg tablet TAKE ONE TABLET BY MOUTH THREE TIMES A DAY FOR 3 DAYS THEN TAKE ONE TABLET BY MOUTH TWICE A DAY FOR 3 DAYS THEN TAKE ONE TABLET BY MOUTH MARLENY 06/29 completed Not Available Not Available Not Available metoprolol succinate ER 100 mg tablet,exte nded release 24 hr TAKE ONE TABLET BY MOUTH EVERY DAY active Not Available Not Available No t Available hydralazine 25 mg tablet TAKE ONE TABLET BY MOUTH THREE TIMES A DAY active Not Available Not Available No t Available tramadol 50 mg tablet TAKE ONE TABLET BY MOUTH THREE TIMES A DAY NEEDED FOR PAIN active Not Available Not Available No t Available spironolact one 25 mg tablet TAKE ONE TABLET BY MOUTH EVERY DAY active Not Available Not Available No t Available amoxicillin 875 mg tablet TAKE ONE TABLET BY MOUTH TWICE A DAY 06/29 completed Not Available Not Available Not Available amlodipine 10 mg tablet 06/29 completed Not Available Not Available Not Available benzonatate 100 mg capsule TAKE ONE CAPSULE BY MOUTH TWICE A DAY NEEDED FOR COUGH 06/29 completed Not Available Not Available Not Available pantoprazol e 40 mg tablet,bhargav yed release active Not Available Not Available Not Available valsartan 320 mg tablet TAKE ONE TABLET BY MOUTH EVERY DAY 06/29 completed Not Available Not Available Not Available montelukast 10 mg tablet active Not Available Not Available Not Available hydrochloro thiazide 25 mg tablet active Not Available Not Available No t Available albuterol sulfate HFA 90 mcg/actuati on aerosol inhaler INHALE 2 PUFFS INTO THE LUNGS EVERY 4 TO 6 HOURS NEEDED FOR SHORTNESS OF BREATH OR WHEEZING active Not Available Not Available No t Available losartan 100 mg tablet active Not Available Not Available Not Available Pulmicort Flexhaler 180 mcg/actuati on breath activated active Not Available Not Available No t Available Vitals Date Recorded Body height Provider Name an d Address Organization Details Last Updated DateTime 06/29/2022 165.1 cm EVER DEPINTO PA - [facility] 0 06/29/2022 12:50:03 Date Recorded Body mass index (BMI) Body weight Provider Name and Address Organization Details Last Updated DateTime 06/29/2022 39.9 kg/m2 833458.17 g EVER DEPINTO PA - [facility] 06/29/2022 12:50:07 Date Recorded Pain severity - 0-10 verbal numeric rating [Score] - Reported Provider Name and Address Organization Details Last Updated DateTime 06/29/2022 4 EVER DEPINTO PA - [facility] 0 06/29/2022 12:50:13 Date Recorded Respiratory rate Provider Name a nd Address Organization Details Last Updated DateTime 06/29/2022 18 /min EVER DEPINTO PA - [facility] 0 06/29/2022 12:50:14 Date Recorded Oxygen saturation Oxygen saturation in Arterial blood by Pulse oximetry Provider Name and Address Organization Details Last Updated DateTime 06/29/2022 97 % 97 % EVER DEPINTO PA - [facility] 06/29/2022 12:53:40 Date Recorded Heart rate Provider Name an d Address Organization Details Last Updated DateTime 06/29/2022 69 /min EVER DEPINTO PA - [facility] 0 06/29/2022 12:53:43 Date Recorded Body temperature Provider Name a nd Address Organization Details Last Updated DateTime 06/29/2022 97 [degF] EVER DEPINTO PA - [facility] 0 06/29/2022 12:53:47 Date Recorded Body height Provider Name an d Address Organization Details Last Updated DateTime 07/10/2022 165.1 cm EVER DEPINTO PA - [facility] 0 07/10/2022 11:01:06 Date Recorded Body mass index (BMI) Body weight Provider Name and Address Organization Details Last Updated DateTime 07/10/2022 39.9 kg/m2 015506.17 g EVER DEPINTO PA - [facility] 07/10/2022 11:01:13 Date Recorded Pain severity - 0-10 verbal numeric rating [Score] - Reported Provider Name and Address Organization Details Last Updated DateTime 07/10/2022 0 EVER DEPINTO PA - [facility] 0 07/10/2022 11:01:19 Date Recorded Body temperature Provider Name a nd Address Organization Details Last Updated DateTime 07/10/2022 97.5 [degF] EVER VOGTINTO PA - [facility] 07/10/2022 11:02:17 Date Recorded Respiratory rate Provider Name a nd Address Organization Details Last Updated DateTime 07/10/2022 18 /min EVERFan VOGTINTO PA - [facility] 0 07/10/2022 11:02:19 Date Recorded Oxygen saturation Oxygen saturation in Arterial blood by Pulse oximetry Provider Name and Address Organization Details Last Updated DateTime 07/10/2022 96 % 96 % EVER DEPINTO PA - [facility] 07/10/2022 11:02:38 Date Recorded Heart rate Provider Name an d Address Organization Details Last Updated DateTime 07/10/2022 67 /min EVER DEPINTO PA - [facility] 0 07/10/2022 11:02:40 Date Recorded Systolic blood pressure Diastolic blood pressure Provider Name and Address Organization Details Last Updated DateTime 06/29/2022 123 mm[Hg] 77 mm[Hg] EVER DEPINTO PA - [facility] 06/29/2022 12:53:37 Date Recorded Systolic blood pressure Diastolic blood pressure Provider Name and Address Organization Details Last Updated DateTime 07/10/2022 142 mm[Hg] 78 mm[Hg] EVER DEPINTO PA - [facility] 07/10/2022 11:03:19 Social History Question Answer Notes LastModified by Organizat ion Details LastModified Time Tobacco Smoking Status Never Smoker EVERFan SOTOMAYORO null, PA - [facility] 06/29/2022 12:52:40 What Is Your Level Of Alcohol Consumption? None Information not available 06/29/2022 Do You Use Any Illicit Or Recreational Drugs? No Information not available 06/29/2022 Have You Recently Traveled Abroad? No Information not available 06/29/2022 Do You Or Have You Ever Used Any Other Forms Of Tobacco Or Nicotine? No Information not available 06/29/2022 Sex: Unknown Functional Status None recorded. Mental Status None recorded. Family History Relationship Description Onset Age of this Age Resolved Age Notes LastModified by Organization Details LastModified Time Sister Malignant tumor of lung Not available 2022 12:52:22 Father Heart disease Not available 2022 12:52:33 Mother Heart disease Not available 2022 12:52:33 Medical History No medical history recorded. Gynecological HistoryNo gynecological history recorded. Obstetrics History GPAL:G 0 P 0 0 0 0 Immunizations Vaccine Type Date Status Note Provider Nam e and Address Organization Details Recorded Time Tdap 3 completed ISA LUPICA null, PA - [facility] 06/29/2022 15:54:43 Influenza, split virus, quadrivalent, preservative 9 completed EVER DEPINTO null, PA - [facility] 06/29/2022 12:50:22 Influenza, split virus, quadrivalent, preservative 6 completed EVER DEPINTO null, PA - [facility] 06/29/2022 12:50:22 Influenza, MDCK, quadrivalent, PF 7 completed EVER DEPINTO null, PA - [facility] 06/29/2022 12:50:22 Influenza, high-dose, quadrivalent, PF 1 completed EVER DEPINTO null, PA - [facility] 06/29/2022 12:50:22 Influenza, adjuvanted, quadrivalent, PF 0 completed EVER DEPINTO null, PA - [facility] 06/29/2022 12:50:22 Influenza, adjuvanted, quadrivalent, PF 2 completed EVER DEPINTO null, PA - [facility] 06/29/2022 12:50:22 COVID-19, mRNA, LNP-S, PF, 100 mcg/0.5mL dose or 50 mcg/0.25mL dose 1 completed EVER DEPINTO null, PA - [facility] 06/29/2022 12:50:22 COVID-19, mRNA, LNP-S, PF, 100 mcg/0.5mL dose or 50 mcg/0.25mL dose 1 completed EVER DEPINTO null, PA - [facility] 06/29/2022 12:50:22 COVID-19, mRNA, LNP-S, PF, 100 mcg/0.5mL dose or 50 mcg/0.25mL dose 2 completed EVER DEPINTO null, PA - [facility] 06/29/2022 12:50:22 COVID-19, mRNA, LNP-S, PF, 100 mcg/0.5mL dose or 50 mcg/0.25mL dose 1 completed EVER DEPINTO null, PA - [facility] 06/29/2022 12:50:22 COVID-19, mRNA, LNP-S, bivalent, PF, 50 mcg/0.5 mL or 25mcg/0.25 mL dose 2 completed EVER DEPINTO null, PA - [facility] 06/29/2022 12:50:22 Tdap 6 completed EVER DEPINTO null, PA - [facility] 06/29/2022 12:50:22 Influenza, split virus, quadrivalent, PF 8 completed EVER DEPINTO null, PA - [facility] 06/29/2022 12:50:22 Past Encounters Encounter ID Performer Location Encounter Start Date Encounter Closed Date Diagnosis/Indication Diagnosis SNOMED-CT Code Diagnosis ICD10 Code Diagnosis [place] [id number] [place] [address] [address] 06/29/2022 12:41:58 06/29/2022 14:14:04 Laceration of left hand 5363172015 5396363 S61.412A Administra tion of tetanus vaccine 372682115 Z23 [id number] Blossom Galeano MD [address] [place] [address] 07/10/2022 08:28:11 07/10/2022 12:25:34 Laceration of left hand 5673669147 2880357 S61.412D Health Concerns Section Related Observation LastModified by Organization Detai ls LastModified Time None Recorded Concern Status LastModified by Organization Details LastModified Time None Recorded Advance Directives Directive None Recorded Payers Encounter Date Sequence Insurance Name Policy Number Policy Lozada Covered Member ID Lozada Member ID Guarantor Name 06/29/2022 1 [facility] [id number] Meche Soto [id number] Meche Soto 07/10/2022 1 [facility] [id number] Meche Soto [id number] Meche Soto Notes Date Note Type Note Provider Name and Address Organization Details Recorded Time 06/29/2022 text/html Wound/LacerationR eported bypatient.Locatio n:hands; left hand laceration palmar aspect in between left thumb and hand at the base of left thumb. Quality:no undermining; no cellulitis; no drainage; no eschar;moderate bleeding; laceration Severity:mild Duration:2 hours; days Onset/Timing:date of initial injury: 06/29/2022 Context:trauma Associated Symptoms:no fever; no bruising; no numbness; no tingling; normal sensation Yon Murphy NP [address] [place], [address], [place] - [facility] 06/29/2022 14:09:36 07/10/2022 text/html Wound/LacerationR eported bypatient.Locatio n:hands Quality:not bleeding; no cellulitis; no drainage Severity:mild Duration:11 days Onset/Timing:date of initial injury: 06/29/22 Context:trauma Associated Symptoms:no fever; no bruising; no numbness; no tingling; normal sensationNotes:66 year old female presenting for suture removal of a laceration to her left hand sustained on 06/29/22 and sutured here. The patient report no pain, redness, swelling, bleeding or drainage from the wound. No numbness or weakness of the fingers or hand. Blossom Galeano MD [address] [place], [address], [place] - [facility] 07/10/2022 12:47:27 OBGyn Episode No OBEpisode recorded.
--- OUTSIDE RECORDS SUMMARY | 2024-04-19 17:26 | XMS_ITS | Encounter Summary ---
Author Organization [facility] Address [address] [facility] [address] [place] [address] Phone Care Team Providers Care Enginehouse Brakeman Name Role Phone Sony Bonilla Primary Care Provider Unavailable Reason for Visit * Reason Comments Med Refill Encounter Details Date Type Department Care Team (Late st Contact Info) Description 03/03/2024 Refill [facility] [address] [facility] [address] [place] [address] Gabino De Dios MD [address] [facility] [address] [place] [address] Essential (primary) hypertension Social History Tobacco Use Types Packs/Day Years [...] documented as of this encounter Visit Diagnoses Diagnosis Essential (primary) hypertension documented in this encounter Care Teams Enginehouse Brakeman Relationship Specialty Start Date End Date Sony Bonilla FNP-C PCP - General Nurse Practitioner 08/17/21 documented as of this encounter
--- OUTSIDE RECORDS SUMMARY | 2024-04-19 17:27 | XMS_ITS | Patient Health Record ---
Author Organization [facility] Address [address] [place] [address] Care Team Providers Care Waterproof Material Folder Name Role Phone Omega ROLAND, Samy Primary Care Provider Vlad Andersen [phone] ALLERGIES No Known Allergies RESULTS Component Value Reference Range Notes Pathology (Not yet reviewed by provider) Interpretation: Performing Lab:[facility], [address] [place] [id number] Notes/Report: REASON FOR REFERRAL No Information MEDICATIONS [...] malignant neoplasm of colon (Z12.11) Active confirmed 090687523 Problem History of adenomatous polyp of colon (Z86.010) Active confirmed 440137388 Problem Diverticulosis of large intestine without perforation or abscess without bleeding (K57.30) Active confirmed Diverticul ar disease of colon (807247403) Problem Gastroesophageal reflux disease without esophagitis (K21.9) Active confirmed 880935091 Problem Constipation, unspecified constipation type (K59.00) Active confirmed 60945669 Encounters Encounter Location Date Provider Diagnosis [facility] Outpatient [address] [place] [id number] 06/13/2023 Vlad Abreu Encounter for scre ening [...] Insured Coverage Start Date Coverage End Date [employer] [address] [place] [phone] [phone] [id number] ROSELIA DELUNA Self - patient is the [...]
== END 2024-04-19 13:39 | disposition home or self-care (01) ==
PROVIDERS: PCP Internal Medicine; Visit Provider Nurse Practitioner Family
DX: G89.4 Chronic pain syndrome (principal); M53.3 Sacrococcygeal disorders, not elsewhere classified; M51.362 Other intervertebral disc degeneration, lumbar region with discogenic back pain and lower extremity pain; Z79.891 Long term (current) use of opiate analgesic; M96.1 Postlaminectomy syndrome, not elsewhere classified; M54.16 Radiculopathy, lumbar region; M47.816 Spondylosis without myelopathy or radiculopathy, lumbar region
CPT/HCPCS: 99214; G2211

== ENCOUNTER → 2024-04-19 12:46 | Outpatient (BNVA) | payer MEDICARE, SELFPAY | PROVIDERS: PCP Internal Medicine; Visit Provider Nurse Practitioner Family | DX: M53.3 Sacrococcygeal disorders, not elsewhere classified (principal); M51.362 Other intervertebral disc degeneration, lumbar region with discogenic back pain and lower extremity pain; M96.1 Postlaminectomy syndrome, not elsewhere classified; M47.26 Other spondylosis with radiculopathy, lumbar region; F11.90 Opioid use, unspecified, uncomplicated; G89.4 Chronic pain syndrome | CPT/HCPCS: 99212 ==

== ENCOUNTER 2024-05-21 10:13 | Outpatient (AMB) | payer MEDICARE, SELFPAY ==
--- NOTE | 2024-05-21 10:17 | MHC.OFFVIS ---
Vital Signs 05/21/24 10:21 Height 5 ft 4 in Weight 245 lb BMI 42.0 BP 192/79 H Blood Pressure Location Rt brachial Position Sitting Pulse 65 Pulse Source Pulse Oximeter Pulse Oximetry (%) 98 Oxygen Delivery Method Room Air Intake Visit Reasons: MRI results Intake Note: Pain today 8.5 Generator Repairer Required: No Accompanied by: Spouse Allergies No Known Allergies [No Known Allergies*] Allergy (Verified 05/21/24 10:22) HPI Comments Details: Patient presents today for follow-up to discuss recent lumbar spine MRI results. Denies any recent cough, cold, infection, fever or other significant changes in medical history since last office visit. PRIOR: Patient presents today for follow up to review recent pelvis MRI results. Patient reports new onset of bilateral radiculopathy, worse on the left about 6 weeks ago. Denies any inciting event, trauma, injury or falls. Patient reports she cannot shop without cart for past 2 months due to need to lean forward to alleviate some of her back pain. Back pain radiates all the way down to the left lower leg in L5-S1 distribution whereas on the right it is mainly in the right thigh up to the knee. She had discectomy by Dr. Haney in 2011 or 2012. We will proceed with updating her lumbar spine MRI, last one was completed in 2018, to rule out direct nerve root impingement. Denies any bladder or bowel dysfunction or saddle anesthesia. PRIOR: Patient presents today for follow-up for chronic left-sided low back pain and SI joint pain. She was last seen in our office last year in January status post therapeutic left SI joint injection which provided her pain for over 6 months. Patient reports left SI joint pain has returned to baseline and has been negatively affecting her ADLs, functioning, mobility, sleep, and social interactions. Patient presents with her for reports patient who could not enjoy their recent vacation due to increased pain with walking, sitting, or changing positions. Patient is interested to repeat left therapeutic SI joint injection under sedation as well as interested to discuss more permanent pain management solutions for this pain generators. She denies any recent trauma, injury, or falls. Denies any recent cough, cold, infection, fever, weakness, numbness, tingling, bladder or bowel dysfunction, saddle anesthesia or other significant changes in medical history since last office visit. Past Procedures: 01/31/23: Left Therapeutic SIJ injection-90% pain relief >6 months 01/21/23: Left Diagnostic SIJ [id number]% pain relief for 5-6 hours *ADDENDUM Patient called back today and prefers to proceed with Left Sacroiliac Joint Fusion with PainTEQ LinQ SI Joint Stabilization System under sedation and fluoroscopy for a longer term pain management of chronic left SI joint pain. She completed diagnostic and therapeutic injections with good results. She is a former smoker. Patient reports moderate to severe daily and chronic pain with functional limitations and reduced mobility due to pain. Pain is localized to left sided lower back pain with radiation into her left buttock and sacral area and into left lateral hip without groin pain. She has failed previous conservative measures, including home exercise program for lower back and SIJ areas, activity modifications and medication trials. PRIOR: Patient is a pleasant 67 years old female who was previously seen in our office by Tyra JOAQUIN in 2020 and prior n [address] Cruz presents today for follow up for left low back pain with left hip and thigh pain. Patient reports midline low back pain that radiates into her left buttock and left groin and anterior left thigh without numbness or tingling. Pain increases with walking over 5 minutes and prolonged sitting. She denies significant pain while standing especially holding on to something. Reports left groin pain with getting out of bed or shower. Patient also reports shooting, sharp pain into her left groin and thigh with prolonged standing while cooking or washing dishes. She reports physical therapy in the past was not well tolerated due to increased pain. Tylenol, NSAIDs, heat and ice therapy and aqua therapy has been partially. She has been using stationary bike but due to pain has been using this less than before. Patient reports previous back injections provided minimal pain relief. Patient denies any bladder or bowel incontinence or saddle anesthesia. PRIOR 08/22/2020 Tyra JOAQUIN: Meche returns to the office with complaints of low back pain as well as pain in left hip and bilateral hands. She was seen here three years ago by Dr. Cruz for similar symptoms with pain across the low back pain and radiation into entire left leg into the middle three toes. She underwent a L5-S1 injection in 2018 with minimal alleviation in her pain. Her pain is exacberated with sitting, standing and prolonged walking. Her pain is alleviated with leaning forward. It was recommended that she undergo physical therapy which she completed 8 sessions with exacerbation of her pain and could not tolaterate any more sessions. She also notes left groin pain as a result of her left hip osteoarthritis. She is under the care of Dr. Abbasi for this and is awaiting a left intrarticular hip injection to be authorized by insurance. She has had this injection in the past with great improvement in her symptoms. She had also had her hands evaluated by Dr. Abbasi who reportedly stated he will send her to Dr. Rashid, if they worsen. She notes an increase in swelling, stiffness and difficulty making a fist with her right hand. She is currently taking Tramadol and Aleve with little to no improvement in her symptoms. She has tried gabapentin in the past with no effect. She presents today to discuss injections. PRIOR: Meche presents for initial evaluation of chronic low back and left leg pain. She describes similar pain first experienced back in 2011. She eventually underwent a discectomy by Dr Haney and her pain resolved. Earlier this year while doing house work her pain returned abruptly. She describes her pain as stabbing, radiating predominately from the back down the posterior leg into her foot. Occasionally she will have pain into her groin. She denies any weakness, b/b dysfunction, fevers, or chills. Initial xrays were negative. She has not had PT as of yet. Her PCP ordered an MRI but it was denied. She has been performing a daily HEP and using NSAID to help with the pain that is interfering with sleep and all activity. Her pain ranges in intensity from 2-7/10. She is not sure what makes it better however all activity makes it worse. [facility] Medical History Osteopenia Osteoarthritis of hands, bilateral Degenerative joint disease of left hip Tenosynovitis of thumb Constipation Obesity (BMI 30-39.9) Depression Allergic rhinitis Deep left inguinal pain Lumbar degenerative disc disease GERD without esophagitis Impaired fasting glucose Palpitations COPD (chronic obstructive pulmonary disease) Benign essential hypertension Surgical History History of colonoscopy History of eye surgery History of surgery History of total abdominal hysterectomy and bilateral salpingo-oophorectomy History of laparoscopic cholecystectomy History of appendectomy History of removal of cyst History of left knee surgery Family History Father CHF (congestive heart failure) Colon cancer Hypertension CVD (cardiovascular disease) Mother CVD (cardiovascular disease) Social History Housing: House Alcohol intake: never Patient Tobacco Use Status: Former Tobacco user e-Cigarette/Vaping Use: Never Used Second Hand Smoke Exposure: Yes service: No Current occupational status: disabled Cognitive needs: No Hearing needs: No Vision needs: Yes (glasses) Review of Systems Const All systems reviewed & are unremarkable except as noted in HPI and below Physical Exam Vital Signs: Last Vital Signs Pulse 65 05/21/24 10:21 BP 192/79 H 05/21/24 10:21 Pulse Ox 98 05/21/24 10:21 Oxygen Delivery Method Room Air 05/21/24 10:21 BMI result Body Mass Index 42.0 General: Appears afebrile. Alert and oriented. Mood and affect appropriate. Follows and participates in conversation appropriately. Respiratory effort is unlabored. No cough. Able to transition from sit to stand unassisted. Ambulates with bilaterally normal heel strike and toe off, increased pain on the left. General: Yes no CVA tenderness Back/Spine/Pelvis Other: Patient able to walk on heels and tip toes with mild difficulty on the left due to pain. Limited lumbar ROM due to pain. Demonstrates 5/5 right and 4/5 left strength of quadriceps as well as flexion/dorsiflexion of bilateral feet against resistance. 2+ pedal pulses bilaterally. Seated SLR testing with dorsiflexion is positive bilaterally, left>right. 1+ patellar and diminished achilles reflexes bilaterally. Facet loading + bilaterally. Opal + on the left. Shay and Gaenslen tests reproduce left groin and back pain on left. Stinchfield positive on left and reproduces left lateral hip and left back pain. Minimal left groin pain with external left hip rotation. Pelvic compression test positive for hip and back pain on left. Mild tenderness in the projection of left SIJ. Back: no CVA tenderness Cervical Spine: cervical ROM normal, cervical muscular tenderness and No Cervical spine tenderness Thoracic/Lumbar Spine: thoracic and lumbar spine normal to inspection, Lasegue's sign positive bilateral, pain with thoraco-lumbar ROM, No paraspinal muscle tenderness, thoraco-lumbar ROM limited, No thoracic spinal tenderness and lumbar spinal tenderness (L4-S1) Pelvis: buttock tenderness on the left Sacroiliac joints: on the right nontender and on the left tender to palpation Extrem General: Yes capillary refill normal, Yes no clubbing, cyanosis or edema and Yes no calf tenderness Left lower extremity: hip/thigh Details: tenderness Location: of the hip Location: over the great trochanter Results Reviewed Results Reviewed: XR lumbar spine 6V w bending, XR left hip with pelvis 12/05/22 EXAMINATION: lumbar spine and left hip. CLINICAL INDICATIONS: Radiculopathy lumbar region. COMPARISON: Lumbar spine 07/23/2017 FINDINGS: LUMBAR SPINE: There is normal lumbar lordosis. The vertebral heights and alignment are normal. There is loss of L5-S1 disc height. Rest of the disc heights, vertebral heights and alignment is normal. There is mild ventral spondylosis throughout lumbar spine. No visible acute fracture, dislocation seen. There is no subluxation on flexion or extension views. There is mild bilateral L4-L5 and L5-S1 facet arthropathy. AP PELVIS AND LEFT HIP: There is mild loss of joint space and bilateral hip joints. SI joints are symmetrical. No visible fracture, lytic or sclerotic process seen. There is mild periarticular degenerative spurring inferior left hip joint. IMPRESSION: No acute fracture, dislocation or subluxation in lumbar spine. There is mild L5-S1 degenerative disc changes. Unremarkable AP pelvis and left hip. MR pelvis wo con 01/27/24 IMPRESSION: 1. No evidence of pelvic or bilateral hip fracture or dislocation. 2. Interval development of Sigmoid diverticulosis without diverticulitis. 3. Unchanged Status post hysterectomy. 4. Prominent bilateral L4-L5 and L5-S1 apophyseal joint osteoarthritis. MR LUMBAR SPINE WITHOUT CONTRAST 04/26/24 at [facility] INDICATION: Postlaminectomy syndrome, lumbar disc degenerations TECHNIQUE: Standard lumbar spine protocol without contrast COMPARISON: None. FINDINGS: Vertebral bodies demonstrate normal height and signal intensity. There is mild levoscoliosis of the lumbar curvature. Conus demonstrates normal contour and signal and terminates at L1 level. T12-L2: No significant abnormalities are seen. L2-L3 level shows asymmetric disc bulge and mild disc desiccation. The canal and foramina are patent. At L3-L4 level, there is shallow central disc bulge, ligamental and facet hypertrophy. Slight anterolisthesis of L3 on L4 is seen. The canal and recesses are patent. Mild foraminal narrowing is present without neural impingement seen. L4-L5 level shows central and foraminal shallow disc bulge, superimposed by slight degenerative anterolisthesis of L4 on L5 and facet arthrosis. The canal and recesses are preserved. Mild foraminal narrowing is present. At L5-S1 level, there are postsurgical changes related to left-sided hemilaminectomy. There is shallow central and foraminal disc bulge superimposed by facet arthrosis, resulting in mild to moderate foraminal narrowing, contacting the exiting L5 nerve roots. The canal and recesses are preserved. No MRI evidence for spondylolysis is seen. Visualized upper SI joints are preserved. IMPRESSION: 1. Postsurgical changes at L5-S1 level related to prior left-sided hemilaminectomy. No recurrent disc herniations are present. 2. Mild changes of multilevel lumbar spondylosis and foraminal narrowing extending from L3 to S1 levels as detailed above. 3. Mild levoscoliosis of the lumbar curvature. Assessment & Plan Assessment & Plan (1) Lumbar degenerative disc disease: Code(s): M51.36 - Other intervertebral disc degeneration, lumbar region Category: Medical Qualifiers: Disc-related pain type: discogenic back pain and lower extremity pain Qualified Code(s): M51.362 - Other intervertebral disc degeneration, lumbar region with discogenic back pain and lower extremity pain (2) Lumbar facet arthropathy: Code(s): M47.816 - Spondylosis without myelopathy or radiculopathy, lumbar region Category: Medical (3) Post laminectomy syndrome: Code(s): M96.1 - Postlaminectomy syndrome, not elsewhere classified Category: Medical (4) Lumbar radiculopathy: Code(s): M54.16 - Radiculopathy, lumbar region Category: Medical (5) Morbid obesity with BMI of 40.0-44.9, adult: Code(s): E66.01 - Morbid (severe) obesity due to excess calories; Z68.41 - Body mass index [BMI] 40.0-44.9, adult Category: Medical (6) Chronic pain syndrome: Code(s): G89.4 - Chronic pain syndrome Category: Medical Plan Discussed lumbar spine MRI results with patient today. Patient continues to endorse significant low back pain with bilateral radiculopathy worse on the left side which affects her daily activities, functioning, sleep, mobility and social interactions. Schedule Bilateral L5-S1 TFESI with sedation (per patient's request) and fluoroscopy. Expectations, risks and benefits were reviewed. Patient is aware she will be contacted to schedule this procedure. All questions were answered and the patient is in agreement of plan. Follow-up after injections and sooner as needed. Coding Level of Care Code Est Pt Level 4 (04905) Complex EM visit Add On G2211 Diagnoses Degeneration of intervertebral disc of lumbar region with discogenic back pain and lower extremity pain M51.362 Disc-related pain type: discogenic back pain and lower extremity pain Lumbar facet arthropathy M47.816 Post laminectomy syndrome M96.1 Lumbar radiculopathy M54.16 Morbid obesity with BMI of 40.0-44.9, adult E66.01; Z68.41 Chronic pain syndrome G89.4
[2024-05-21 10:21] VITALS: BP 192/79; PULSE 65; O2SAT 98; BMI 42.0
--- OUTSIDE RECORDS SUMMARY | 2024-05-21 11:25 | XMS_ITS | Encounter Summary ---
Author Organization [facility] Address [address] [place] [address] Phone Care Team Providers Care Auto Service Mechanic Name Role Phone Sony Bonilla Primary Care Provider Unavailable Encounter Details Date Type Department Care Team (Late st Contact Info) Description 12/18/2021 Documentation Only [facility] [address] [place] [address] Reyna Adrian Social History Tobacco [...] on filedocumented in this encounter Care Teams Auto Service Mechanic Relationship Specialty Start Date End Date Sony Bonilla FNP-C PCP - General Nurse Practitioner 08/17/21 documented as of this encounter
--- OUTSIDE RECORDS SUMMARY | 2024-05-21 11:25 | XMS_ITS | Encounter Summary ---
Author Organization [facility] Address [address] [facility] [address] [place] [address] Phone Care Team Providers Care Court Specialist Name Role Phone Sony Bonilla Primary Care Provider Unavailable Reason for Visit * Reason Comments Med Refill Encounter Details Date Type Department Care Team (Late st Contact Info) Description 03/03/2024 Refill [facility] [address] [facility] [address] [place] [address] Gabino De Dios MD [address] [facility] [address] [place] [address] Essential (primary) hypertension Social History [...] hypertension documented in this encounter Care Teams Court Specialist Relationship Specialty Start Date End Date Sony Bonilla FNP-C PCP - General Nurse Practitioner 08/17/21 documented as of this encounter
--- OUTSIDE RECORDS SUMMARY | 2024-05-21 11:25 | XMS_ITS ---
Author Organization [facility] Address [address] [place] [address] Care Team Providers Care Brokerage Office Manager Name Role Phone Omega ROLAND, [place] Primary Care Provider UnaVlad Grimaldo Unavailable [phone] REASON FOR VISIT SCREEING COLON Encounters Encounter Location Date Provider Diagnosis [facility] [address] [place] [address] 03/19/2023 Vlad Abreu PLAN OF TREATMENT No Information
--- OUTSIDE RECORDS SUMMARY | 2024-05-21 11:25 | XMS_ITS | Clinical Summary ---
Author Organization [facility] Address [address] [place] [address] Care Team Providers Care Handle Sewer Name Role Phone Sony Bonilla DIRECTOR GLOBAL STRATEGIC PUBLISHER SALES-C Primary Care Provider Unavailable Allergies No known [...] [place] [address] [place] [address] Gabino De Dios MD Essential (primary) hypertension [...] patient's age to complete this topic Insurance [facility] [place] [address] [place] [address] Care Teams Handle Sewer Relationship Specialty Start Date End Date Sony Bonilla FNP-C PCP - General Nurse Practitioner 08/17/21
--- OUTSIDE RECORDS SUMMARY | 2024-05-21 11:25 | XMS_ITS ---
Author Organization [facility] Address [address] [place] [address] Care Team Providers Care Share Holder Name Role Phone Omega ROLAND, Samy Primary Care Provider UnaVlad Grimaldo Unavailable [phone] REASON FOR VISIT screening,hx polyps PROBLEMS Problem Type ICD Code Onset Dates Problem Status W/U Status Risk SNOMED Code Notes Problem Diverticulosis of large intestine without perforation or abscess without bleeding (K57.30) Active confirmed Diverticul ar disease of colon (561917533) Encounters Encounter Location Date Provider Diagnosis [facility] [place] [facility] [address] [place], [place] [phone] 06/13/2023 Vlad Abreu Encounter for scre ening [...]
--- OUTSIDE RECORDS SUMMARY | 2024-05-21 11:25 | XMS_ITS | Patient Health Record ---
Author Organization [facility] Address [address] [place] [address] Care Team Providers Care Imcu Nurse Name Role Phone Omega ROLAND, Samy Primary Care Provider Vlad Andersen [phone] ALLERGIES No Known Allergies RESULTS Component Value Reference Range Notes Pathology (Not yet reviewed by provider) Interpretation: Performing Lab:[facility], [address] [place] [id number] Notes/Report: REASON FOR REFERRAL No Information MEDICATIONS [...] malignant neoplasm of colon (Z12.11) Active confirmed 528993421 Problem History of adenomatous polyp of colon (Z86.010) Active confirmed 669624382 Problem Diverticulosis of large intestine without perforation or abscess without bleeding (K57.30) Active confirmed Diverticul ar disease of colon (319624468) Problem Gastroesophageal reflux disease without esophagitis (K21.9) Active confirmed 952609929 Problem Constipation, unspecified constipation type (K59.00) Active confirmed 99910632 Encounters Encounter Location Date Provider Diagnosis [facility] [place] [facility] [address] [place] [phone] 06/13/2023 Vlad Abreu Encounter for scre ening [...] Insured Coverage Start Date Coverage End Date [employer] [address] [place] [id number] ROSELIA DELUNA Self - patient is the insured MEDICAL (GENERAL) HISTORY Medical History History ICD Code Colonoscopy 12/19/2006-flat tubular adenoma removed from the Asc. colon, melanosis coli Neg. F/U colonoscopy in 11/2008 Mild diverticulosis Internal and external hemorrhoids GERD with chronic cough--EGD in 06/2012--small HH, no esophagitis nor Kelley's HTN Asthma Denies [place],DM,CVA,renal disease Colonoscopy in 06/2012--small tubular keagan nomas removed Negative colonoscopy in 11/2017 Surgical History Surgery Date(Month/Year) KATRIN except for a piece of an ovary Knee surgery Back surgery Surgery for cyst on her face [facility]
--- OUTSIDE RECORDS SUMMARY | 2024-05-21 11:25 | XMS_ITS | Data Portability ---
Author Organization [facility], [address] Address [address] [place] [address] Care Team Providers Care Corporate Ethics Officer Name Role Phone CIRILO GABRIEL Primary Care [...] By Organization Details Last Modified Time 06/29/2022 [id number] cuts: care instructions Not available 06/29/2022 14:06:50 [...] 4}} days. Not available 06/29/2022 13:51:29 07/10/2022 [id number] Keep healing wound clean. Monitor for signs of infection. Seek Emergency Medical evaluation for any signs of infection such as redness, red streaking, purulent drainage, fever, swelling. [email or web address] Not available 07/10/2022 12:22:34 Reason for Referral None Reported. Problems Name Problem SNOMED Code Status Onset Date Resolution Date Notes Provider Name and Address Organization Details Recorded Time Hypertensive disorder 75008881 Active 2022 EVER DEPINTO null, [place] - [facility] 12:51:43 Asthma 242798106 Active 2022 EVER DEPINTO null, PA - [facility] 12:51:55 Gastroesophage al reflux disease 918514052 Active 2022 EVER DEPINTO null, PA - [facility] 12:52:03 Problem Notes None recorded. Procedures Surgical History Date Name Laterality Status Provider Name and Address Organization Details Recorded Time 07/11/19 23 Suture Removal completed Blossom Galeano MD [address] [place], [address], [place] - [facility] 07/10/2022 12:23:57 06/30/19 23 Wound Dressing completed Yon Murphy NP [address] [place], [address], [place] - [facility] 06/29/2022 14:08:27 06/30/19 23 Laceration, Simple Repair, (scalp/neck/trunk/ genitalia/extremit ies) 2.6-7.5cm completed Yon Murphy NP [address] [place], [address], [place] - [facility] 06/29/2022 14:07:57 06/29/18 [...] t Available Vitals Date Recorded Body height Body mass index (BMI) Body weight Pain severity - 0-10 verbal numeric rating [Score] - Reported Respiratory rate Oxygen saturation Oxygen saturation in Arterial blood by Pulse oximetry Heart rate Body temperature Systolic blood pressure Diastolic blood pressure Provider Name and Address Organization Details Last Updated DateTime 3 165.1 cm 39.9 kg/m2 674065. 17 g 4 18 /min 97 % 97 % 69 /min 97 [degF] 123 mm[Hg] 77 mm[Hg] EVER BETY [employer] [facility] 3 12:53:37 Date Recorded Body height Body mass index (BMI) Body weight Pain severity - 0-10 verbal numeric rating [Score] - Reported Body temperature Respiratory rate Oxygen saturation Oxygen saturation in Arterial blood by Pulse oximetry Heart rate Systolic blood pressure Diastolic blood pressure Provider Name and Address Organization Details Last Updated DateTime 3 165.1 cm 39.9 kg/m2 741421. 17 g 0 97.5 [degF] 18 /min 96 % 96 % 67 /min 142 mm[Hg] 78 mm[Hg] EVER BETY [place] - [facility] 3 11:03:19 Social History Question Answer Notes LastModified by Organizat ion Details LastModified Time Tobacco Smoking Status Never Smoker EVER wright [employer] [facility] 06/29/2022 12:52:40 What Is Your Level [...] Organization Details Recorded Time Tdap 3 completed SIA GIANG null, PA - [facility] 06/29/2022 15:54:43 [...] SNOMED-CT Code Diagnosis ICD10 Code Diagnosis Note [id number] Yon Murphy NP [address] [facility] [address] [place] [address] 06/29/2022 12:41:58 06/29/2022 14:14:04 Laceration of left hand 1828592699 0156027 S61.412A Administra tion of tetanus vaccine 768755782 Z23 [id number] Blossom Galeano MD [address] [place] [address] 07/10/2022 08:28:11 07/10/2022 12:25:34 Laceration of left hand 7758004345 9895434 S61.412D Health Concerns Section Related Observation LastModified by Organization Detai ls LastModified Time None Recorded Concern Status LastModified by Organization Details LastModified Time None Recorded Advance Directives Directive None Recorded Payers Encounter Date Sequence Insurance Name Policy Number Policy Lozada Covered Member ID Lozada Member ID Guarantor Name 06/29/2022 1 [facility] [id number] Meche Soto [id number] Meche Soto 07/10/2022 1 [facility] [id number] Meche Soto [id number] Meche Soto Notes Date Note Type Note Provider Name and Address Organization Details Recorded Time 06/29/2022 text/html UC Wound/LacerationR eported bypatient.Locatio n:hands; left hand laceration palmar aspect in between left thumb and hand at the base of left thumb. Quality:no undermining; no cellulitis; no drainage; no eschar;moderate bleeding; laceration Severity:mild Duration:2 hours; days Onset/Timing:date of initial injury: 06/29/2022 Context:trauma Associated Symptoms:no fever; no bruising; no numbness; no tingling; normal sensation Yon Murphy NP [address] [place], [address], [employer] 06/29/2022 14:09:36 07/10/2022 text/html UC Wound/LacerationR eported bypatient.Locatio n:hands Quality:not bleeding; no [...] Blossom Galeano MD [address] [place], [address], [employer] [facility] 07/10/2022 12:47:27 OBGyn Episode No OBEpisode recorded.
--- OUTSIDE RECORDS SUMMARY | 2024-05-21 11:25 | XMS_ITS | Encounter Summary ---
Author Organization [facility] Address [address] [place] [address] Phone Care Team Providers Care Glove Cutter Name Role Phone Sony Bonilla Primary Care Provider Unavailable Encounter Details Date Type Department Care Team (Late st Contact Info) Description 12/19/2021 Documentation Only [facility] [address] [place] [address] Reyna Adrian Social History Tobacco [...] on filedocumented in this encounter Care Teams Glove Cutter Relationship Specialty Start Date End Date Sony Bonilla FNP-C PCP - General Nurse Practitioner 08/17/21 documented as of this encounter
--- OUTSIDE RECORDS SUMMARY | 2024-05-21 11:25 | XMS_ITS ---
Author Organization [facility] Address [address] [place] [address] Care Team Providers Care Pin Puller Name Role Phone Omega ROLAND, Samy Primary Care Provider Vlad Andersen [phone] ALLERGIES No Known Allergies REASON FOR VISIT [...] Orally Once a day Active VITAL SIGNS Temperature 97.3 degrees Fahrenheit 03/12/20 23 Blood pressure systolic 000 mm Hg 03/12/20 23 Blood pressure diastolic 00 mm Hg 023 Height 65 in 03/12/2023 Weight 254 lb 2 oz lbs 03/12/2023 BMI 42.28 kg/m2 03/12/2023 Encounters Encounter Location Date Provider Diagnosis [facility] [address] [place] [address] 03/12/2023 Vlad Abreu Gastroesophageal ref lux disease [...]
== END 2024-05-21 10:49 | disposition home or self-care (01) ==
PROVIDERS: PCP Internal Medicine; Visit Provider Nurse Practitioner Family
DX: M51.362 Other intervertebral disc degeneration, lumbar region with discogenic back pain and lower extremity pain (principal); M47.816 Spondylosis without myelopathy or radiculopathy, lumbar region; M96.1 Postlaminectomy syndrome, not elsewhere classified; M54.16 Radiculopathy, lumbar region; E66.01 Morbid (severe) obesity due to excess calories; Z68.41 Body mass index [BMI] 40.0-44.9, adult; G89.4 Chronic pain syndrome
CPT/HCPCS: 99214; G2211

== ENCOUNTER → 2024-05-21 10:13 | Outpatient (BNVA) | payer MEDICARE, SELFPAY | PROVIDERS: PCP Internal Medicine; Visit Provider Nurse Practitioner Family | DX: M51.362 Other intervertebral disc degeneration, lumbar region with discogenic back pain and lower extremity pain (principal); M47.26 Other spondylosis with radiculopathy, lumbar region; M96.1 Postlaminectomy syndrome, not elsewhere classified; G89.4 Chronic pain syndrome; E66.01 Morbid (severe) obesity due to excess calories; Z68.41 Body mass index [BMI] 40.0-44.9, adult | CPT/HCPCS: 99212 ==

== ENCOUNTER 2024-07-09 07:58 | Outpatient (REF) | payer MEDICARE, SELFPAY ==
--- OUTSIDE RECORDS SUMMARY | 2024-07-09 08:02 | XMS_ITS | Encounter Summary ---
Author Organization [facility] Address [address] [facility] [address] [place] [address] Phone Care Team Providers Care Ict Quality Assurance Engineer Name Role Phone Sony Bonilla Primary Care Provider Unavailable Reason for Visit * Reason Comments Med Refill Encounter Details Date Type Department Care Team (Late st Contact Info) Description 03/03/2024 Refill [facility] [address] [facility] [address] [place] [address] Gabino De Dios MD [address] [facility] [address] [place] [address] Essential (primary) hypertension Social History [...] hypertension documented in this encounter Care Teams Ict Quality Assurance Engineer Relationship Specialty Start Date End Date Sony Bonilla FNP-C PCP - General Nurse Practitioner 08/17/21 documented as of this encounter
--- OUTSIDE RECORDS SUMMARY | 2024-07-09 08:02 | XMS_ITS | Encounter Summary ---
Author Organization [facility] Address [address] [place] [address] Phone Care Team Providers Care Locum Tenens Psychiatrist Name Role Phone Sony Bonilla Primary Care Provider Unavailable Encounter Details Date Type Department Care Team (Late st Contact Info) Description 12/19/2021 Documentation Only [facility] [address] [place] [address] Reyna Adrian Social History Tobacco [...] on filedocumented in this encounter Care Teams Locum Tenens Psychiatrist Relationship Specialty Start Date End Date Sony Bonilla FNP-C PCP - General Nurse Practitioner 08/17/21 documented as of this encounter
--- OUTSIDE RECORDS SUMMARY | 2024-07-09 08:02 | XMS_ITS ---
Author Organization [facility] Address [address] [place] [address] Care Team Providers Care Performance Reporter Name Role Phone Omega ROLAND, Samy Primary Care Provider Vlad Andersen [phone] Allergies No Known Allergies REASON FOR VISIT [...] 03/12/2023 Encounters Encounter Location Date Provider Diagnosis [facility] [address] [place] [address] 03/12/2023 Vlad Abreu Gastroesophageal ref lux disease [...] ROSELIA DELUNA LDOB: [birth year] (67 yo F)Acc No.[id number]:03/12/2023 Progress Notes Patient:?ROSELIA DELUNA Provider:?Vlad Abreu MD :1955???Age:67 Y???Sex:Female D ate:03/12/2023 Address:[address] [place] [address], [facility] [place] Pcp:Samy Duff MD Subjective: * Chief Complaints: * ???Patient presents today fo r a SCREEING COLON * HPI: ???incontinence:? I saw Evangelina in consultation today in regard to further evaluation of her chronic constipation, gastroesophageal reflux, personal history of tubular adenomas of the colon, family history of colon cancer, and need for colorectal cancer screening. ?I last saw Evangelina in 2018, at which [...] abdominal pain, jaundice, nor unintentional weight loss. ?She does describe her chronic constipation with a [...] She denies any hematochezia nor melena. * ROS:?General/Constitutional:?Change in appetite?denies.?Chills?denies.?Fatigue?denies.?Ophthalmologic:?Patient denies? Negative..?ENT:?Patient denies?Negative..?Respiratory:?Patient denies?No coughing/hemoptysis..?Cardiovascular:?Patient denies? No chest pain/orthopnea..?Gastrointestinal:?Comments?See HPI for details.?Genitourinary:?Patient denies? No dysuria/hematuria..?Musculoskeletal:?Patient denies? No specific arthralgias/myalgias..?Skin:?Patient denies?No rash/pruritus..?Neurologic:?Patient denies? No headaches/seizures..?Psychiatric:?Patient denies?Negative..? * Medical History:? * Surgical History:?KATRIN except for a piece of an ovary Knee surgery Back surgery Surgery for cyst on her face CCY * Hospitalization/Major Diagno stic Procedure:?No Hospitalization History. * Family History:?Father: dece ased, colon cancer dx in his 70's, diagnosed with Colon cancer.?Mother: .? Father had colon cancer in his 70's. No family history of liver cancer. * Social History:?Tobacco Use:?Tobacco Use/Smoking?Are you a: former smoker , How long has it been since you last smoked?: > 10 years.?Drugs/Alcohol:?Alcohol Screen?Points: 1, Interpretation: Negative.?Miscellaneous:?Marital status: single. 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 ???Nonsmoker since 1998; no sig. alcohol. * Medications:?TakingAspir-81 Fish Oil 1000mcg Multi Vitamin/Minerals Singulair 10mg [...] reviewed and reconciled with the patient * Allergies:?N.K.D.A.yes[Aller gies Verified] Objective: * Vitals:?Wt: 254 lb 2 oz, Ht: 65 in, BMI:42.28 Index, BP: 000/00 mm Hg, Temp: 97.3. * Examination: ???General Examination: ?GENERAL APPEARANCE:?pleasant, well nourished, well developed, in no acute distress.?EYES:?sclera non-icteric.?ORAL CAVITY:?mucosa moist.?NECK/THYROID:?no cervical lymphadenopathy, neck supple.?SKIN:?nonjaundiced, no spider angiomata..?HEART:?S1, S2 normal.?LUNGS:?clear to auscultation bilaterally.?ABDOMEN:?normal bowel sounds, no guarding or rigidity, no hepatosplenomegaly, no masses palpable, soft, nontender, nondistended..?EXTREMITIES:?no edema.?NEUROLOGIC:?alert and oriented.? Assessment: * Assessment: 1.?Gastroesophageal reflux d isease without esophagitis - K21.9 (Primary)?2.?Constipation, unspecified constipation type - K59.00?3.?History of adenomatous polyp of colon - Z86.010?4.?Encounter for screening for malignant neoplasm of colon - Z12.11? Overall, Evangelina appears well. H er reflux [...] TWO DAYS BEFORE THE COLONOSCOPY.?? * Procedure Codes:?3017F COLOR ECTAL CA SCREEN DOC USR9193O TOBACCO NON-[id number] BP SCR NOT PRFRM REC REASON NOS * Preventive Medicine:? ??Counseling:?Care goal follow-up plan:?Above Normal BMI Follow-up?Giving encouragement to exercise,?BMI management provided?Yes.? ??Urinary Incontinence:?Urinary Incontinence?Assessment:?Absent,?Plan of care documented:?No, reason not specified.? * Follow Up:?prn * * Sign off status: Completed true * Provider:?Vlad Abreu MD Date:? 023 Generated for Casey you/Estiven/Olmanitting on:?07/09/2024 08:02 AM EDT History and Physical Notes * [...]
--- OUTSIDE RECORDS SUMMARY | 2024-07-09 08:02 | XMS_ITS ---
Author Organization [facility] Address [address] [place] [address] Care Team Providers Care Inside Meter Tester Name Role Phone Omega ROLAND, Gualala Primary Care Provider Vlad Andersen Unavailable [phone] REASON FOR VISIT screening,hx polyps Problems Problem Type SNOMED Code ICD Code Onset Dates Problem Status W/U Status Risk Notes Problem Diverticular disease of colon (249333212) Diverticulosis of large intestine without perforation or abscess without bleeding (K57.30) Active confirmed Encounters Encounter Location Date Provider Diagnosis [facility] Outpatient [address] [place], [place] [id number] 06/13/2023 Vlad Abreu Encounter for scre ening [...] ROSELIA DELUNA LDOB: [birth year] (68 yo F)Acc No.[id number]:06/13/2023 COLON WITH MAC Patient:?ROSELIA DELUNA Provider:?Vlad Abreu MD :1955???Age:67 Y???Sex:Female D ate:06/13/2023 Address:[facility] [address] [place] Pcp:Samy Duff MD Subjective: * Chief Complaints: * ???1. Screening,hx polyps. * Medical History:? Objective: * Vitals:? Assessment: * Assessment: 1.?Encounter for screening c olonoscopy - Z12.11 (Primary)???2.?Colon polyps - K63.5???3.?Diverticulosis of large intestine without perforation or abscess without bleeding - K57.30???4.?Other hemorrhoids - K64.8??? Plan: * Treatment: * Procedure Codes:?77141 COLON OSCOPY AND BIOPSY, Modifiers: 33 * * The named appointment provid er may or may not be the originator of this progress note, and it is not deemed complete until electronically signed by the appointment provider. Sign off status: Pending * Provider:?Vlad Abreu MD Date:? 024 Generated for Casey you/Estiven/eTransmitting on:?07/09/2024 08:02 AM EDT
--- OUTSIDE RECORDS SUMMARY | 2024-07-09 08:02 | XMS_ITS ---
Author Organization [facility] Address [address] [place] [address] Care Team Providers Care Long Haul Truck Driver Name Role Phone Omega ROLAND, Samy Primary Care Provider Vlad Andersen [phone] REASON FOR VISIT SCREEING COLON Encounters Encounter Location Date Provider Diagnosis [facility] [address] [place] [address] 03/19/2023 Vlad Abreu Plan Of Treatment No Information Progress Notes * ROSELIA DELUNA LDOB: [birth year] (68 yo F)Acc No.[id number]:03/19/2023 Progress Notes Patient:?ROSELIA DELUNA Provider:?Vlad Abreu MD :1955???Age:67 Y???Sex:Female D ate:03/19/2023 Address:[facility] [address] [place] Pcp:Samy Duff MD Subjective: * Chief Complaints: * ???1. SCREEING COLON. * Medical History:? Objective: * Vitals:? Assessment: Plan: * Treatment: * * The named appointment provid er may or may not be the originator of this progress note, and it is not deemed complete until electronically signed by the appointment provider. Sign off status: Pending * Provider:?Vlad Abreu MD Date:? 023 Generated for Printi ng/Faxing/eTransmitting on:?07/09/2024 08:02 AM EDT
--- OUTSIDE RECORDS SUMMARY | 2024-07-09 08:02 | XMS_ITS | Clinical Summary ---
Author Organization [facility] Address [address] [place] [address] Care Team Providers Care Scouring Train Operator Name Role Phone Sony Bonilla FLAT CLOTHIER-C Primary Care Provider Unavailable Allergies No known [...] Gastroesophageal reflux disease 11/05/2021 Acute depression 11/05/2021 Family History Medical History Relation Comments Cancer [...] Comments Breast Cancer Screening 1955 Pneumococcal Vaccine: 50+ Ye ars (1 of 2 - PCV) 1973 Colorectal Cancer Screening: Annual FOBT 12/06/2003 Colorectal Cancer Screening: Colonoscopy 12/06/2003 Colorectal Cancer Screening: Sigmoidoscopy 12/06/2003 Influenza Vaccine (Season Ended) 2024 Hepatitis B Vaccine Aged Out No longe r eligible based on patient's age to complete this topic Insurance [facility] Care Teams Scouring Train Operator Relationship Specialty Start Date End Date Sony Bonilal FNP-C PCP - General Nurse Practitioner 08/17/21
--- OUTSIDE RECORDS SUMMARY | 2024-07-09 08:02 | XMS_ITS | Data Portability ---
Author Organization [facility], [address] Address [address] [place] [address] Care Team Providers Care Manager Banking Name Role Phone CIRILO GABRIEL Primary Care [...] By Organization Details Last Modified Time 06/29/2022 [id number] cuts: care instructions Not available 06/29/2022 14:06:50 [...] 4}} days. Not available 06/29/2022 13:51:29 07/10/2022 [id number] Keep healing wound clean. Monitor for signs of infection. Seek Emergency Medical evaluation for any signs of infection such as redness, red streaking, purulent drainage, fever, swelling. [email or web address] Not available 07/10/2022 12:22:34 Reason for Referral None Reported. Problems Name Problem SNOMED Code Status Onset Date Resolution Date Notes Provider Name and Address Organization Details Recorded Time Hypertensive disorder 51735775 Active 2022 EVER DEPINTO null, PA - [facility] 12:51:43 Asthma 166230164 Active 2022 EVER DEPINTO null, PA - [facility] 12:51:55 Gastroesophage al reflux disease 740687515 Active 2022 VEER DEPINTO null, PA - [facility] 12:52:03 Problem Notes None recorded. Procedures Surgical History Date Name Laterality Status Provider Name and Address Organization Details Recorded Time 07/11/19 23 Suture Removal completed Blossom Galeano MD [address] [place], [address], [place] - [facility] 07/10/2022 12:23:57 06/30/19 23 Wound Dressing completed Yon Murphy NP [address] [place], [address], [place] - [facility] 06/29/2022 14:08:27 06/30/19 23 Laceration, Simple Repair, (scalp/neck/trunk/ genitalia/extremit ies) 2.6-7.5cm completed Yon Murphy NP [address] [place], [address], [place] - [facility] 06/29/2022 14:07:57 06/29/18 [...] Updated DateTime 3 165.1 cm 39.9 kg/m2 390294. 17 g 4 18 /min 97 % 97 % 69 /min 97 [degF] 123 mm[Hg] 77 mm[Hg] EVER BETY [facility] 12:53:37 Date Recorded Body height Body mass index (BMI) Body weight Pain severity - 0-10 verbal numeric rating [Score] - Reported Body temperature Respiratory rate Oxygen saturation Oxygen saturation in Arterial blood by Pulse oximetry Heart rate Systolic blood pressure Diastolic blood pressure Provider Name and Address Organization Details Last Updated DateTime 3 165.1 cm 39.9 kg/m2 306167. 17 g 0 97.5 [degF] 18 /min 96 % 96 % 67 /min 142 mm[Hg] 78 mm[Hg] EVER BETY PA - [facility] 3 11:03:19 Social History Question Answer Notes LastModified by Organizat ion Details LastModified Time Tobacco Smoking Status Never Smoker [facility]ER wright [facility] 06/29/2022 12:52:40 What Is Your Level [...] Details Recorded Time Tdap 3 completed ISA GIANG null, PA - [facility] 06/29/2022 [...] SNOMED-CT Code Diagnosis ICD10 Code Diagnosis Note 55041565 Yon Murphy [facility] [address] [facility] [address] [place] [address] 06/29/2022 12:41:58 06/29/2022 14:14:04 Laceration of left hand 8950001667 6985139 S61.412A Administra tion of tetanus vaccine 112211031 Z23 24063182 Blossom Galeano MD [address] [place] [address] 07/10/2022 08:28:11 07/10/2022 12:25:34 Laceration of left hand 9313461039 1862744 S61.412D Health Concerns Section Related Observation LastModified by Organization Detai ls LastModified Time None Recorded Concern Status LastModified by Organization Details LastModified Time None Recorded Advance Directives Directive None Recorded Payers Encounter Date Sequence Insurance Name Policy Number Policy Lozada Covered Member ID Lozada Member ID Guarantor Name 06/29/2022 1 [facility] [id number] Meche Soto [id number] Meche Soto 07/10/2022 1 [facility] [id number] Meche Soto [id number] Meche Soto Notes Date Note Type Note [...] Yon Murphy NP [address] [place], [address], [employer] [facility] 06/29/2022 14:09:36 07/10/2022 text/html Wound/LacerationR eported bypatient.Locatio [...] Blossom Galeano MD [address] [place], [address], [employer] [facility] 07/10/2022 12:47:27 OBGyn Episode No OBEpisode recorded.
--- OUTSIDE RECORDS SUMMARY | 2024-07-09 08:02 | XMS_ITS | Encounter Summary ---
Author Organization [facility] Address [address] [place] [address] Phone Care Team Providers Care Indirect Sales Exec Name Role Phone Sony Bonilla Primary Care Provider Unavailable Encounter Details Date Type Department Care Team (Late st Contact Info) Description 12/18/2021 Documentation Only [facility] [address] [place] [address] Reyna Adrian Social History Tobacco [...] on filedocumented in this encounter Care Teams Indirect Sales Exec Relationship Specialty Start Date End Date Sony Bonilla FNP-C PCP - General Nurse Practitioner 08/17/21 documented as of this encounter
--- OUTSIDE RECORDS SUMMARY | 2024-07-09 08:02 | XMS_ITS | Patient Health Record ---
Author Organization [facility] Address [address] [place] [address] Care Team Providers Care Sow Farm Technician Name Role Phone Omega ROLAND, Samy Primary Care Provider Vlad Andersen [phone] Allergies No Known Allergies Reason For Referral No Information Medications Medication SIG (Take, Route, Frequency, Duration) [...] ER 100 MG Oral for 90 Active Immunizations Vaccine Route Administration Date Status Comme nts Influenza Unknown 02/21/2023 Administered Problems Problem Type SNOMED Code ICD Code Onset Dates Problem Status W/U Status Risk Notes Problem 601863909 Encounter for screening for malignant neoplasm of colon (Z12.11) Active confirmed Problem 601771777 History of adenomatous polyp of colon (Z86.010) Active confirmed Problem Diverticular disease of colon (635063494) Diverticulosis of large intestine without perforation or abscess without bleeding (K57.30) Active confirmed Problem 446226131 Gastroesophageal reflux disease without esophagitis (K21.9) Active confirmed Problem 79082231 Constipation, unspecified constipation type (K59.00) Active confirmed Plan Of Treatment Pending Test Test Name Order Date Pathology 06/13/2023 Future Test Test Name Order Date UPPER GI ENDOSCOPY 05/14/2012 COLONOSCOPY 05/14/2012 COLONOSCOPY 11/19/2017 COLONOSCOPY 03/12/2023 Insurance Providers Payer Name Payer Address Payer Phone Subscriber Number Group Number Insured Name Patient Relationship to Insured Coverage Start Date Coverage End Date [employer] [address] LARISSA ARROYO [phone] [id number] ROSELIA DELUNA Self - patient is the insured Medical (General) History Medical History History ICD Code Colonoscopy 12/19/2006-flat tubular adenoma removed from the Asc. colon, melanosis coli Neg. F/U colonoscopy in 11/2008 Mild diverticulosis Internal and external hemorrhoids GERD with chronic cough--EGD in 06/2012--small HH, no esophagitis nor Kelley's HTN Asthma Denies AR,DM,CVA,renal disease Colonoscopy in 06/2012--small tubular keagan nomas removed Negative colonoscopy in 11/2017 Surgical History Surgery Date(Month/Year) KATRIN except for a piece of an ovary Knee surgery Back surgery Surgery for cyst on her face [facility]
[2024-07-09 09:56] LABS: Appearance Urine Clear; Color Urine Yellow; Glucose Urine UA Negative (Negative); Leukocyte Esterase Urine Negative (Negative); Nitrite Urine Negative (Negative); PH 5.5 (5.0-9.0); Urine Blood Negative (Negative); Urine Ketones Negative (Negative); Urine Protein Negative (Neg-Trace)
[2024-07-09 10:01] LABS: MANUAL DIFF FLAG NO
[2024-07-09 10:03] LABS: Basophils Absolute Auto 0.1 X10*3/uL (0.0-0.2); Basophils Percent Auto 0.8 % (0-2); Eosinophils Absolute Auto 0.1 X10*3/uL (0.0-0.4); Eosinophils Percent Auto 1.2 % (0-4); Hematocrit 38.7 % (37.0-47.0); Hemoglobin 12.8 g/dl (12.0-16.0); Imm Gran Abs Auto 0.05 X10*3/uL (0.00-0.03); Imm Gran Pct Auto 0.6 % (0.0-0.4); Lymphocytes Absolute Auto 1.9 X10*3/uL (1.2-4.9); Mean Corpuscular HGB Conc 33.1 g/dl (31.0-35.0); Mean Corpuscular Hemoglobin 29.5 pg (27.0-33.0); Mean Corpuscular Volume 89.2 fL (80.0-98.0); Mean Platelet Volume 11.6 fL (9.4-12.3); Monocytes Absolute Auto 0.8 X10*3/uL (0.1-1.2); Monocytes Percent Auto 8.4 % (2-11); Neutrophils Absolute Auto 6.1 x10*3/uL (2.0-8.3); Platelet Count 258 X10*3/uL (160-400); Red Blood Count 4.34 X10*6/uL (4.20-5.50); Red Cell Distribution Width 13.4 % (11.0-16.0)
[2024-07-09 10:14] LABS: Estimated Average Glucose 111 mg/dL; Hemoglobin A1c % 5.5 % (<6.0); Total Hemoglobin (HGBA1C) 3491.0285 umol/L
[2024-07-09 10:52] LABS: Alanine Aminotransferase 20 U/L (0-31); Anion Gap 13 (12-20); Aspartate Amino Transferase 26 U/L (5-31); Bilirubin Total 0.3 mg/dL (0.0-1.0); Blood Urea Nitrogen 27 mg/dL (9-16); Calcium 9.9 mg/dL (8.4-10.2); Carbon Dioxide 26 mmol/L (22-29); Chloride 104 mmol/L (96-108); Cholesterol 165 mg/dL (<200); Estimated Glomerular Filt Rate 58; Glucose Fasting 115 mg/dL (60-99); HDL Cholesterol 46 mg/dL (>40); LDL Cholesterol Calculated 83 mg/dL (<100); Potassium 4.4 mmol/L (3.3-5.1); Sodium 139 mmol/L (135-145); Total Protein 7.2 g/dL (6.5-8.0); Triglycerides 183 mg/dL (<150)
[2024-07-09 19:45] LABS: Alkaline Phosphatase 70 U/L (39-117)
== END 2024-07-09 07:59 | disposition home or self-care (01) ==
LOC: HO.HMGCLDS 07:58
PROVIDERS: PCP Internal Medicine; Visit Provider Internal Medicine
DX: D64.9 Anemia, unspecified (principal); R30.0 Dysuria; R73.01 Impaired fasting glucose; E78.00 Pure hypercholesterolemia, unspecified
CPT/HCPCS: 36415; 80053; 80061; 81003; 83036; 84443; 85025

== ENCOUNTER 2024-07-15 09:12 | Outpatient (AMB) | payer MEDICARE, SELFPAY ==
--- NOTE | 2024-07-15 09:15 | A.OFFPC_ITS ---
Vital Signs 07/15/24 09:17 Height 5 ft 4 in Weight 249 lb BMI 42.7 BP 130/74 Blood Pressure Location Lt brachial Position Sitting Pulse 70 Pulse Source Pulse Oximeter Pulse Oximetry (%) 96 Oxygen Delivery Method Room Air Intake Visit Reasons: HTN, COPD, lumbar DDD Bush Hog Operator Required: No Accompanied by: Self / Same As Patient Allergies No Known Allergies [No Known Allergies*] Allergy (Verified 07/15/24 09:53) Medication List - Last Reconciled 07/15/24 by Samy Duff MD albuterol sulfate 90 mcg/actuation 2 puffs inhalation Q4-6H PRN back brace As directed budesonide 180 mcg/actuation (Pulmicort Flexhaler) 1 inh PO BID hydralazine 25 mg PO TID 90 days hydrochlorothiazide 25 mg PO QAM losartan 100 mg PO DAILY metoprolol succinate ER 100 mg PO DAILY 90 days montelukast 10 mg PO BEDTIME naloxone 4 mg/actuation (Narcan) 4 mg intranasal Q2M PRN pantoprazole 40 mg PO DAILY PRN 90 days spironolactone 25 mg PO DAILY tramadol 50 mg PO TID PRN 30 days Tobacco use date assessed: 07/15/24 Fall risk assessment: No Falls in past year Last assessed Fall Risk: 07/15/24 Dental Screening Dental Screen Date: 07/15/24 Did you have a dental visit in the last 12 months?: No Did you have a dental problem in the last 6 months where you did not have access to dental care?: No Was dental information given to patient?: No HPI HTN, COPD, lumbar DDD HPI Details Patient comes in today for her follow up visit States that she is still experiencing increased pain over her lower back She was seen by pain management a couple of months ago and was advised that they were going to schedule her for Bilateral L5-S1 TFESI with sedation and fluor oscopy CARL but patient states that it has been about two months now and she has not heard back from pain management at all States that she has been tried on Gabapentin by pain management last year wi thout any improvement or relief of her symptoms States that she feels okay otherwise She denies any headaches or dizziness Denies any chest pains, no increased SOB No nausea/vomiting, no abdominal pain No change in bowel habits noted She had her follow up labs done last week - to discuss her results [facility] Medical History Osteopenia Osteoarthritis of hands, bilateral Degenerative joint disease of left hip Tenosynovitis of thumb Constipation Obesity (BMI 30-39.9) Depression Allergic rhinitis Deep left inguinal pain Lumbar degenerative disc disease GERD without esophagitis Impaired fasting glucose Palpitations COPD (chronic obstructive pulmonary disease) Benign essential hypertension Surgical History History of colonoscopy History of eye surgery History of surgery History of total abdominal hysterectomy and bilateral salpingo-oophorectomy History of laparoscopic cholecystectomy History of appendectomy History of removal of cyst History of left knee surgery Family History Father CHF (congestive heart failure) Colon cancer Hypertension CVD (cardiovascular disease) Mother CVD (cardiovascular disease) Social History Housing: House Alcohol intake: never Patient Tobacco Use Status: Former Tobacco user e-Cigarette/Vaping Use: Never Used Second Hand Smoke Exposure: Yes service: No Current occupational status: disabled Cognitive needs: No Hearing needs: No Vision needs: Yes (glasses) Questionnaire PHQ-9 Over the last 2 weeks, how often have you been bothered by any of the following problems? 1. Little interest or pleasure in doing things: not at all 2. Feeling down, depressed, or hopeless: not at all 3. Trouble falling or staying asleep, or sleeping too much: not at all 4. Feeling tired or having little energy: not at all 5. Poor appetite or overeating: not at all 6. Feeling bad about yourself - or that you are a failure or have let yourself or your family down: not at all 7. Trouble concentrating on things, such as reading the newspaper or watching television: not at all 8. Moving or speaking so slowly that other people could have noticed. Or the opposite - being so fidgety or restless that you have been moving around a lot more than usual: not at all 9. Thoughts that you would be better off or of hurting yourself in some wa y: not at all Total score: 0 Depression Screening Interpretation: Negative Depression Screening Done: Yes 81852 - PHQ-9 Billing: Yes Source: Developed by Drs. Vlad Carmichael, Corie Rahman, Regulo Mata and colleagues, with an educational leno from [employer]. Thrive Questionnaire Date Thrive assessed: 07/15/24 I am a: Patient What is your living situation today?: I have a steady place to live Within the past 12 months, did the food you bought not last and you didn't have the money to get more?: Never true Within the past 12 months, did you worry whether your food would run out before you got money to buy more?: Never true Do you have trouble paying for medicines?: No Do you have trouble getting transportation to medical appointments?: No Do you have trouble paying your heating and electricity bill?: No Do you have trouble taking care of your child, family member or friend?: No Do you have trouble with day-to-day activities such as bathing, preparing meals, shopping, managing finances, etc.?: No Are you currently unemployed and looking for a job?: No Are you interested in more education?: No Please select the resources that you would like help with: None Currently or been in a relationship where the following occur: No concerns reported THRIVE Score: 0 AUDIT C Alcohol Use Questionnaire (AUDIT-C) 1. How often do you have a drink containing alcohol?: Monthly or less 2. How many drinks containing alcohol do you have on a typical day when you are drinking?: 1 or 2 3. How often do you have six or more drinks on one occasion?: Never Total Score: 1 Score Reviewed/Action Taken: Yes ALEIDA-7 AMB Questionnaire ALEIDA-7 Date ALEIDA - 7 assessed: 07/15/24 Feeling nervous, anxious, or on edge: 0 = Not at all Not being able to stop or control worryin = Not at all Worrying too much about different things: 0 = Not at all Trouble relaxin = Not at all Being so restless that it is hard to sit still: 0 = Not at all Becoming easily annoyed or irritable: 0 = Not at all Feeling afraid as if something awful might happen: 0 = Not at all Total ALEIDA-7 score (0-4 normal; 5-9 mild; 10-14 moderate; 15-21 severe): 0 Source: Developed by Drs. Vlad Carmichael, Corie Rahman, Regulo Mata and colleagues, with an educational leno from [employer]. Review of Systems Const Denies chills, Reports fatigue, Denies fever(s) and Denies headache(s) ENT Denies dysphagia, Denies dizziness, Denies otalgia, Denies headache(s), Denies neck pain, Denies odynophagia and Denies sore throat Card Denies chest pain, Denies irregular heart rhythm, Denies palpitations and Reports dyspnea on exertion (mild) Resp Denies chest congestion, Denies cough, Reports dyspnea on exertion (mild) and Denies wheezing GI Denies abdominal pain, Denies constipation, Denies dysphagia, Denies heartburn, Denies diarrhea, Denies nausea, Denies odynophagia and Denies vomiting Denies difficulty voiding, Denies nocturia, Denies dysuria and Denies urinary urgency Musc Reports back pain (over the lumbar spine - chronic), Reports arthralgias (on and off, over fingers of both hands, in L hip and R knee), Denies joint swelling and Denies neck pain Skin/Breast Denies rash Neuro Denies dizziness and Denies headache(s) Endo Reports fatigue and Denies palpitations Aller/Immun Denies wheezing Physical exam (Primary Care) Vital Signs: Last Vital Signs Pulse 70 07/15/24 09:17 BP 130/74 07/15/24 09:17 Pulse Ox 96 07/15/24 09:17 Oxygen Delivery Method Room Air 07/15/24 09:17 BMI result Body Mass Index 42.7 Tobacco/Smoking Status: Tobacco use Status Tobacco use date assessed 07/15/24 07/15/24 09:22 Patient Tobacco Use Status Former Tobacco user 07/15/24 09:22 e-Cigarette/Vaping Use Never Used 07/15/24 09:22 PHQ-9: PHQ-9 Score PHQ-9: Total score 0 07/15/24 09:54 Depression Screening Interpretation: Negative Thrive Assessment: Date of Thrive Assessment Date Thrive assessed 07/15/24 07/15/24 09:22 Currently or been in a relationship where the following occur: No concerns reported Const General: no acute distress and alert HENMT Ears: TM's normal bilaterally and EAC's normal Throat: Yes posterior oropharynx normal and Yes tonsils normal (no TP congestion noted) Neck Neck: Yes supple and No lymphadenopathy Thyroid: Thyroid normal Resp Auscultation: clear to auscultation bilaterally, no rales and no wheezes Cardio Rate: regular rate Rhythm: regular rhythm Heart sounds: no murmurs GI Palpation (GI): Soft to palpation and nontender Auscultation: normal bowel sounds General: Yes no CVA tenderness Back/Spine/Pelvis Back: no CVA tenderness Thoracic/Lumbar Spine: lumbar spinal tenderness Skin Rashes: no rashes Extrem General: Yes no clubbing, cyanosis or edema Right upper extremity: Extremity exam: right hand Details: tenderness (on all fingers, especially over the base of the thumb) Location: of the thumb Location: at the thenar eminence and at the MCP joint and normal ROM of fingers (but (+) stiffness of the fingers noted) Left upper extremity: hand Details: tenderness (on all fingers, especially over the base of the thumb) Location: of the thumb Location: at the thenar eminence and at the MCP joint and normal ROM of fingers (but (+) stiffness) Right lower extremity: knee Details: tenderness Location: of the pre-patellar area and of the infrapatellar area; no swelling Left lower extremity: hip/thigh Details: tenderness Location: of the hip Results Reviewed Results Reviewed: Laboratory Tests 07/09/24 08:10 WBC 9.0 Hgb 12.8 Hct 38.7 Plt Count 258 Sodium 139 Potassium 4.4 Creatinine 0.95 Estimated GFR 58 Fasting Glucose 115 H Hemoglobin A1c % 5.5 Calcium 9.9 AST 26 ALT 20 Triglycerides 183 H Cholesterol 165 LDL Cholesterol, Calc 83 HDL Cholesterol 46 TSH 3.10 Ur Specific [place] 1.020 Urine Protein Negative Urine Glucose (UA) Negative Urine Blood Negative Urine Nitrite Negative Ur Leukocyte Esterase Negative Coding Level of Care Code Est Pt Level 4 (05701) Diagnoses Chronic obstructive pulmonary disease, unspecified COPD type J44.9 COPD type: unspecified COPD Hypertriglyceridemia E78.1 Benign essential hypertension I10 Impaired fasting glucose R73.01 Degeneration of intervertebral disc of lumbar region with discogenic back pain and lower extremity pain M51.362 Disc-related pain type: discogenic back pain and lower extremity pain Osteoarthritis of left hip, unspecified osteoarthritis type M16.12 Osteoarthritis type: unspecified Primary osteoarthritis of both hands M19.041; M19.042 Osteoarthritis type: primary Osteopenia of multiple sites M85.89 Osteopenia location: multiple sites GERD without esophagitis K21.9 Episode of recurrent major depressive disorder, unspecified depression episode severity F33.9 Depression Type: major depressive disorder Major depression recurrence: recurrent Active/Remission status: currently active Major depression episode severity: unspecified Morbid obesity with BMI of 40.0-44.9, adult E66.01; Z68.41 Additional Codes PHQ-9 - 24250 - PHQ-9 Billing: Yes ([id number]) Assessment & Plan Assessment & Plan (1) COPD (chronic obstructive pulmonary disease): Comment: PFT done in 2013 showed (+) mild restrictive lung disease Code(s): J44.9 - Chronic obstructive pulmonary disease, unspecified Category: Medical Qualifiers: COPD type: unspecified COPD Qualified Code(s): J44.9 - Chronic obstructive pulmonary disease, unspecified Plan: Controlled Continue Pulmicort Flexhaler 180 mcg 1 inhalation BID and Albuterol HFA 1 to 2 puffs up to 4 times a day as needed (2) Hypertriglyceridemia: Code(s): E78.1 - Pure hyperglyceridemia Category: Medical Plan: Results of her labs done last week reviewed and discussed with patient Reinforced low cholesterol diet Will recheck her labs and fasting lipids in 4 months for follow up (3) Benign essential hypertension: Code(s): I10 - Essential (primary) hypertension Category: Medical Plan: Reinforced low sodium diet - goal is systolic BP of at least 130 to 140 mm or less Her BP has remained well-controlled on her current Rx regimen Continue Losartan 100 mg QD, Metoprolol ER 100 mg QD, Hydralazine 25 mg TID, HCTZ 25 mg Q AM and Spironolactone 25 mg QD Amlodipine was discontinued previously due to increasing edema and SOB Renal doppler and urine metanephrines done last year both came back within normal range, with no evidence of KAITY or pheochromocytoma Patient is reminded to continue monitoring her blood pressure regularly (4) Impaired fasting glucose: Code(s): R73.01 - Impaired fasting glucose Category: Medical Plan: Reinforced low calorie diet/exercise as tolerated Her in-office HgbA1c was still normal at 5.5% on her labs done last week (5) Lumbar degenerative disc disease: Code(s): M51.36 - Other intervertebral disc degeneration, lumbar region Category: Medical Qualifiers: Disc-related pain type: discogenic back pain and lower extremity pain Qualified Code(s): M51.362 - Other intervertebral disc degeneration, lumbar region with discogenic back pain and lower extremity pain Plan: Reinforced activity and weight-lifting restrictions She has a TENS unit that she uses as needed with (+) temporary relief Continue Tramadol 50 mg TID PRN; she has Oxycodone 5 mg to take TID PRN for when Tramadol is not helping effectively - she is aware not to take them both simultaneously Patient has taken Gabapentin (up to 300 mg TID) in the past without any relief Will try starting her on Pregabalin 100 mg TID instead Lumbar spine MRI done a couple of months ago revealed (+) postsurgical changes and multilevel degenerative disc disease She was advised by pain management that they are going to schedule her for Bilateral L5-S1 TFESI with sedation and fluoroscopy CARL but patient states that it has been about two months now and she has not heard back from pain management at all Have instructed her to personally call or reach out to pain management to find out if there is anything holding them up from scheduling her for the aforementioned procedure Follow up with pain management as scheduled (6) Degenerative joint disease of left hip: Code(s): M16.12 - Unilateral primary osteoarthritis, left hip Category: Medical Qualifiers: Osteoarthritis type: unspecified Qualified Code(s): M16.12 - Unilateral primary osteoarthritis, left hip Plan: Follow up with orthopedics as scheduled (7) Osteoarthritis of hands, bilateral: Code(s): M19.041 - Primary osteoarthritis, right hand; M19.042 - Primary osteoarthritis, left hand Category: Medical Qualifiers: Osteoarthritis type: primary Qualified Code(s): M19.041 - Primary osteoarthritis, right hand; M19.042 - Primary osteoarthritis, left hand Plan: Patient is advised again on regular hand exercises to help manage her finger stiffness and pain Repeat x-rays of both hands done last year confirmed (+) OA changes in both hands She was seen by orthopedics and offered cortisone injection if use of thumb splints do not help States that she did not go for cortisone injections as the splints helped somewhat and would like to continue using these first and reserve injections for when these are no longer helping (8) Osteopenia: Code(s): M85.80 - Other specified disorders of bone density and structure, unspecified site Category: Medical Qualifiers: Osteopenia location: multiple sites Qualified Code(s): M85.89 - Other specified disorders of bone density and structure, multiple sites Plan: Her repeat BMD done on 04/04/2023 showed a significant improvement in her BMD compared to her previous scan in 2017 (which revealed osteopenia with a T score of -1.5 in the hips) - her BMD is now NORMAL She is encouraged again to continue taking Vitamin D and Calcium supplements daily and to try to exercise regularly (9) GERD without esophagitis: Code(s): K21.9 - Gastro-esophageal reflux disease without esophagitis Category: Medical Plan: Dietary restrictions reinforced Continue Pantoprazole 40 mg QD (10) Depression: Code(s): F32.9 - Major depressive disorder, single episode, unspecified Category: Medical Qualifiers: Depression Type: major depressive disorder Major depression recurrence: recurrent Active/Remission status: currently active Major depression episode severity: unspecified Qualified Code(s): F33.9 - Major depressive disorder, recurrent, unspecified Plan: Controlled - patient stopped taking Duloxetine on her own last year and has not felt any worse since stopping the Rx (11) Morbid obesity with BMI of 40.0-44.9, adult: Code(s): E66.01 - Morbid (severe) obesity due to excess calories; Z68.41 - Body mass index [BMI] 40.0-44.9, adult Category: Medical Plan: Reinforced diet; exercise and weight loss are unrealistic at present due to her multiple joint and lower back issues Plan Follow up in 4 months Orders: Orders Comprehensive [place]. Panel Fast 4 Months E78.00 - Pure hypercholesterolemia, unspecified Lipid Panel 4 Months E78.00 - Pure hypercholesterolemia, unspecified Hemoglobin A1c 4 Months R73.01 - Impaired fasting glucose UA CC w/rflx Micro + Cult 4 Months R30.0 - Dysuria Complete Blood Count Auto Diff 4 Months D64.9 - Anemia, unspecified TSH reflex Free T4 4 Months E78.00 - Pure hypercholesterolemia, unspecified Vitamin D 25-OH Total 4 Months E55.9 - Vitamin D deficiency, unspecified Medications: New pregabalin FAILED Tx with Gabapentin a few months ago 100 mg PO TID 30 days 90 caps 0RF pregabalin FAILED Tx with Gabapentin a few months ago 100 mg PO TID 30 days 90 caps 0RF
[2024-07-15 09:17] VITALS: BP 130/74; PULSE 70; O2SAT 96; BMI 42.7
--- OUTSIDE RECORDS SUMMARY | 2024-07-15 09:58 | XMS_ITS | Encounter Summary ---
Author Organization [facility] Address [address] [facility] [address] [place] [address] Phone Care Team Providers Care Acid Filler Name Role Phone Sony Bonilla Primary Care Provider Unavailable Reason for Visit * Reason Comments Med Refill Encounter Details Date Type Department Care Team (Late st Contact Info) Description 03/03/2024 Refill [facility] [address] [facility] [address] [place] [address] Gabino De Dios MD [address] [facility] [address] [place] [address] Essential (primary) hypertension Social History [...] hypertension documented in this encounter Care Teams Acid Filler Relationship Specialty Start Date End Date Sony Bonilla FNP-C PCP - General Nurse Practitioner 08/17/21 documented as of this encounter
--- OUTSIDE RECORDS SUMMARY | 2024-07-15 09:58 | XMS_ITS ---
Author Organization [facility] Address [address] [place] [id number] Care Team Providers Care Score Caller Name Role Phone Omega ROLAND, Samy Primary Care Provider Vlad Andersen [phone] REASON FOR VISIT SCREEING COLON Encounters Encounter Location Date Provider Diagnosis [facility] [address] [place] [phone] 03/19/2023 Vlad Abreu Plan Of Treatment No Information Progress Notes * ROSELIA DELUNA LDOB: [birth year] (68 yo F)Acc No.[id number]:03/19/2023 Progress Notes Patient:?ROSELIA DELUNA Provider:?Vlad Abreu MD :[id number]???Age:67 Y???Sex:Female D ate:03/19/2023 Address:[facility] [id number] Pcp:Samy Duff MD Subjective: * Chief Complaints: [...] MD Date:? 023 Generated for Printi ng/Faxing/eTransmitting on:?07/15/2024 09:58 AM EDT
--- OUTSIDE RECORDS SUMMARY | 2024-07-15 09:58 | XMS_ITS | Clinical Summary ---
Author Organization [facility] Address [address] [place] [id number] Care Team Providers Care Tong Setter Name Role Phone Sony Bonilla DECORATING INSTRUCTOR-C Primary Care Provider Unavailable Allergies No known [...] patient's age to complete this topic Insurance [facility] Care Teams Tong Setter Relationship Specialty Start Date End Date Sony Bonilla FNP-C PCP - General Nurse Practitioner 08/17/21
--- OUTSIDE RECORDS SUMMARY | 2024-07-15 09:58 | XMS_ITS | Encounter Summary ---
Author Organization [facility] Address [address] [place] [address] Phone Care Team Providers Care Police Sergeant Name Role Phone Sony Bonilla Primary Care Provider Unavailable Encounter Details Date Type Department Care Team (Late st Contact Info) Description 12/19/2021 Documentation Only [facility] [address] [place] [address] Reyna Adrian Social History Tobacco [...] on filedocumented in this encounter Care Teams Police Sergeant Relationship Specialty Start Date End Date Sony Bonilla FNP-C PCP - General Nurse Practitioner 08/17/21 documented as of this encounter
--- OUTSIDE RECORDS SUMMARY | 2024-07-15 09:58 | XMS_ITS ---
Author Organization [facility] Address [address] [place] [address] Care Team Providers Care Electrical Service Technician Name Role Phone Omega ROLAND, Samy Primary Care Provider Vlad Andersen [phone] Allergies No Known Allergies REASON FOR VISIT [...] 03/12/2023 Encounters Encounter Location Date Provider Diagnosis [facility] [address] [place] [address] 03/12/2023 Vlad Abreu Gastroesophageal ref lux disease [...] ROSELIA DELUNA LDOB: [birth year] (67 yo F)Acc No.[id number]:03/12/2023 Progress Notes Patient:?ROSELIA DELUNA Provider:?Vlad Abreu MD :1955???Age:67 Y???Sex:Female D ate:03/12/2023 Address:[address] [place] [address], [facility] [place] Pcp:Samy Duff MD Subjective: * Chief Complaints: [...] 1, Interpretation: Negative.?Miscellaneous:?Marital status: single. 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 ???Nonsmoker since 1998; no sig. alcohol. * [...] Procedure Codes:?3017F COLOR ECTAL CA SCREEN DOC [id number] TOBACCO [id number] BP SCR NOT PRFRM REC REASON NOS * Preventive Medicine:? ??Counseling:?Care goal follow-up plan:?Above Normal BMI Follow-up?Giving encouragement to exercise,?BMI management provided?Yes.? ??Urinary Incontinence:?Urinary Incontinence?Assessment:?Absent,?Plan of care documented:?No, reason not specified.? * Follow Up:?prn * * Sign off status: Completed true * Provider:?Vlad Abreu MD Date:? 023 Generated for Casey you/Estiven/Olmanitting on:?07/15/2024 09:58 AM EDT History and Physical Notes * [...]
--- OUTSIDE RECORDS SUMMARY | 2024-07-15 09:58 | XMS_ITS ---
Author Organization [facility] Address [address] [place] [address] Care Team Providers Care Entry Engineer Name Role Phone Omega ROLAND, [place] Primary Care Provider Vlad Andersen Unavailable [phone] REASON FOR VISIT screening,hx polyps Problems Problem Type SNOMED Code ICD Code Onset Dates Problem Status W/U Status Risk Notes Problem Diverticular disease of colon (073593687) Diverticulosis of large intestine without perforation or abscess without bleeding (K57.30) Active confirmed Encounters Encounter Location Date Provider Diagnosis [facility] [address] [address] [place], [place] [id number] 06/13/2023 Vlad Abreu Encounter for scre ening [...] ROSELIA DELUNA LDOB: [birth year] (68 yo F)Acc No.[id number]:06/13/2023 COLON WITH MAC Patient:?ROSELIA DELUNA Provider:?Vlad Abreu MD :1955???Age:67 Y???Sex:Female D ate:06/13/2023 Address:[facility] [address] [place], [place] Pcp:Samy Duff MD Subjective: * Chief Complaints: * ???1. Screening,hx polyps. * Medical History:? Objective: * Vitals:? Assessment: * Assessment: 1.?Encounter for screening c olonoscopy - Z12.11 (Primary)???2.?Colon polyps - K63.5???3.?Diverticulosis of large intestine without perforation or abscess without bleeding - K57.30???4.?Other hemorrhoids - K64.8??? Plan: * Treatment: * Procedure Codes:?12648 COLON OSCOPY AND BIOPSY, Modifiers: 33 * * The named appointment provid er may or may not be the originator of this progress note, and it is not deemed complete until electronically signed by the appointment provider. Sign off status: Pending * Provider:?Vlad Abreu MD Date:? 024 Generated for Casey you/Estiven/eTransmitting on:?07/15/2024 09:58 AM EDT
--- OUTSIDE RECORDS SUMMARY | 2024-07-15 09:58 | XMS_ITS | Encounter Summary ---
Author Organization [facility] Address [address] [place] [address] Phone Care Team Providers Care Plumbing Manager Name Role Phone Sony Bonilla Primary Care Provider Unavailable Encounter Details Date Type Department Care Team (Late st Contact Info) Description 12/18/2021 Documentation Only [facility] [address] [place] [address] Reyna Adrian Social History Tobacco [...] on filedocumented in this encounter Care Teams Plumbing Manager Relationship Specialty Start Date End Date Sony Bonilla FNP-C PCP - General Nurse Practitioner 08/17/21 documented as of this encounter
--- OUTSIDE RECORDS SUMMARY | 2024-07-15 09:59 | XMS_ITS | Patient Health Record ---
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 Name Role Phone Omega ROLAND, Samy Primary Care Provider Vlad Andersen Unavailable [phone] Allergies No Known Allergies Reason For Referral [...] Problem Status W/U Status Risk Notes Problem 987612794 Encounter for screening for malignant neoplasm of colon (Z12.11) Active confirmed Problem 178786731 History of adenomatous polyp of colon (Z86.010) Active confirmed Problem Diverticular disease of colon (819459385) Diverticulosis of large intestine without perforation or abscess without bleeding (K57.30) Active confirmed Problem 557483997 Gastroesophageal reflux disease without esophagitis (K21.9) Active confirmed Problem 75296500 Constipation, unspecified constipation type (K59.00) Active confirmed Plan Of Treatment Pending Test Test Name Order Date Pathology 06/13/2023 Future Test Test Name Order Date UPPER GI ENDOSCOPY 05/14/2012 COLONOSCOPY 05/14/2012 COLONOSCOPY 11/19/2017 COLONOSCOPY 03/12/2023 Insurance Providers Payer Name Payer Address Payer Phone Subscriber Number Group Number Insured Name Patient Relationship to Insured Coverage Start Date Coverage End Date [id number] [address] [place] [id number] ROSELIA DELUNA Self - patient is the insured Medical (General) History Medical History History ICD Code Colonoscopy 12/19/2006-flat tubular adenoma removed from the Asc. colon, melanosis coli Neg. F/U colonoscopy in 11/2008 Mild diverticulosis Internal and external hemorrhoids GERD with chronic cough--EGD in 06/2012--small HH, no esophagitis nor Kelley's HTN Asthma Denies GA,DM,CVA,renal disease Colonoscopy in 06/2012--small tubular keagan nomas removed Negative colonoscopy in 11/2017 Surgical History Surgery Date(Month/Year) KATRIN except for a piece of an ovary Knee surgery Back surgery Surgery for cyst on her face [facility]
--- OUTSIDE RECORDS SUMMARY | 2024-07-15 09:59 | XMS_ITS | Data Portability ---
Author Organization [facility], [address] [place] [address] Care Team Providers Care Telecommunications Field Technician Name Role Phone CIRILO GABRIEL Primary Care [...] By Organization Details Last Modified Time 06/29/2022 [id number] cuts: care instructions Not available 06/29/2022 14:06:50 [...] 4}} days. Not available 06/29/2022 13:51:29 07/10/2022 [id number] Keep healing wound clean. Monitor for signs of infection. Seek Emergency Medical evaluation for any signs of infection such as redness, red streaking, purulent drainage, fever, swelling. [email or web address] Not available 07/10/2022 12:22:34 Reason for Referral None Reported. Problems Name Problem SNOMED Code Status Onset Date Resolution Date Notes Provider Name and Address Organization Details Recorded Time Hypertensive disorder 75991667 Active 2022 EVER DEPINTO null, [place] - [facility] 12:51:43 Asthma 376389884 Active 2022 EVER DEPINTO null, [place] - [facility] 12:51:55 Gastroesophage al reflux disease 484694394 Active 2022 EVER DEPINTO null, [place] - [facility] 12:52:03 Problem Notes None recorded. Procedures Surgical History Date Name Laterality Status Provider Name and Address Organization Details Recorded Time 07/11/19 23 Suture Removal completed Blossom Galeano MD [address] [place], [address], [place] - [facility] 07/10/2022 12:23:57 06/30/19 23 Wound Dressing completed Yon Murphy NP [address] [place], [address], [place] - [facility] 06/29/2022 14:08:27 06/30/19 23 Laceration, Simple Repair, (scalp/neck/trunk/ genitalia/extremit ies) 2.6-7.5cm completed Yon Murphy NP [address] [place], [address], [place] - [facility] 06/29/2022 14:07:57 06/29/18 [...] Updated DateTime 3 165.1 cm 39.9 kg/m2 381863. 17 g 4 18 /min 97 % 97 % 69 /min 97 [degF] 123 mm[Hg] 77 mm[Hg] EVER BETY [facility] 3 12:53:37 Date Recorded Body height Body mass index (BMI) Body weight Pain severity - 0-10 verbal numeric rating [Score] - Reported Body temperature Respiratory rate Oxygen saturation Oxygen saturation in Arterial blood by Pulse oximetry Heart rate Systolic blood pressure Diastolic blood pressure Provider Name and Address Organization Details Last Updated DateTime 3 165.1 cm 39.9 kg/m2 350367. 17 g 0 97.5 [degF] 18 /min 96 % 96 % 67 /min 142 mm[Hg] 78 mm[Hg] EVER BETY PA - [facility] 3 11:03:19 Social History Question Answer Notes LastModified by Organizat ion Details LastModified Time Tobacco Smoking Status Never Smoker EVER [facility] 06/29/2022 12:52:40 What Is Your Level [...] SNOMED-CT Code Diagnosis ICD10 Code Diagnosis Note [id number] Yon Murphy [facility] [address] [facility] [facility] [address] [place] [address] 06/29/2022 12:41:58 06/29/2022 14:14:04 Laceration of left hand 0647480379 8466694 S61.412A Administra tion of tetanus vaccine 819529899 Z23 [id number] Blossom Galeano MD [address] [place] [address] 07/10/2022 08:28:11 07/10/2022 12:25:34 Laceration of left hand 8903532021 9344029 S61.412D Health Concerns Section Related Observation LastModified by Organization Detai ls LastModified Time None Recorded Concern Status LastModified by Organization Details LastModified Time None Recorded Advance Directives Directive None Recorded Payers Encounter Date Sequence Insurance Name Policy Number Policy [place] Covered Member ID [place] Member ID Guarantor Name 06/29/2022 1 [facility] [id number] Meche Soto [id number] Meche Soto 07/10/2022 1 [facility] [id number] Meche Soto [id number] Meche Soto Notes Date Note Type Note [...] Yon Murphy NP [address] [place], [address], [facility] 06/29/2022 14:09:36 07/10/2022 text/html Wound/LacerationR eported bypatient.Locatio [...] Blossom Galeano MD [address] [place], [address], [facility] 07/10/2022 12:47:27 OBGyn Episode No OBEpisode recorded.
== END 2024-07-15 10:04 | disposition home or self-care (01) ==
LOC: HO.HMCH 09:12
PROVIDERS: PCP Internal Medicine; Visit Provider Internal Medicine
DX: J44.9 Chronic obstructive pulmonary disease, unspecified (principal); F33.9 Major depressive disorder, recurrent, unspecified; E66.01 Morbid (severe) obesity due to excess calories; Z68.41 Body mass index [BMI] 40.0-44.9, adult; E78.1 Pure hyperglyceridemia; I10 Essential (primary) hypertension; R73.01 Impaired fasting glucose; M51.362 Other intervertebral disc degeneration, lumbar region with discogenic back pain and lower extremity pain; M16.12 Unilateral primary osteoarthritis, left hip; M19.041 Primary osteoarthritis, right hand; M19.042 Primary osteoarthritis, left hand; M85.89 Other specified disorders of bone density and structure, multiple sites

== ENCOUNTER → 2024-07-15 09:12 | Outpatient (BNVA) | payer MEDICARE, SELFPAY | PROVIDERS: PCP Internal Medicine; Visit Provider Internal Medicine | DX: I10 Essential (primary) hypertension (principal); J44.9 Chronic obstructive pulmonary disease, unspecified; M51.360 Other intervertebral disc degeneration, lumbar region with discogenic back pain only; E78.1 Pure hyperglyceridemia; R73.01 Impaired fasting glucose; M51.362 Other intervertebral disc degeneration, lumbar region with discogenic back pain and lower extremity pain; M16.12 Unilateral primary osteoarthritis, left hip; M19.041 Primary osteoarthritis, right hand; M19.042 Primary osteoarthritis, left hand; M85.89 Other specified disorders of bone density and structure, multiple sites; K21.9 Gastro-esophageal reflux disease without esophagitis; F33.9 Major depressive disorder, recurrent, unspecified; E66.01 Morbid (severe) obesity due to excess calories; Z68.41 Body mass index [BMI] 40.0-44.9, adult; Z87.891 Personal history of nicotine dependence | CPT/HCPCS: 96127; 99212 ==

== ENCOUNTER 2024-08-24 15:01 | Outpatient (AMB) | payer MEDICARE, SELFPAY ==
--- NOTE | 2024-08-24 15:14 | MHC.OFFVIS ---
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 Her medical history involves prior left-sided hemilaminectomy with significant radicular and SI symptoms affecting the lower extremity. She has attempted conservative management strategies which provided limited long-term efficacy. Given the persistent nature of her condition and moderate success with prior SI joint injections, she seeks lasting resolution via SI joint fusion intervention. - Pain Onset and Timing: The pain is chronic, persistent, and has been present for months with recent exacerbations. - Quality and Character: Described as throbbing, aching, dull and severe, particularly at night. - Primary Location: Lower back, left lower extremity, especially the posterior thigh and knee area. - Radiation: Radiates from the SI joint down the left leg. - Exacerbating Factors: Changing positions, prolonged sitting, walking or standing, showering requires adjustments to minimize discomfort. - Relieving Factors: Previous SI joint injections, medication trials, and SI joint belt provided temporary relief. - Impacted Activities: Difficulty with leg elevation and activities like washing that require leg positioning. PRIOR: Patient presents today for follow up to review recent pelvis MRI results. Patient reports new onset of bilateral radiculopathy, worse on the left about 6 weeks ago. Denies any inciting event, trauma, injury or falls. Patient reports she cannot shop without cart for past 2 months due to need to lean forward to alleviate some of her back pain. Back pain radiates all the way down to the left lower leg in L5-S1 distribution whereas on the right it is mainly in the right thigh up to the knee. She had discectomy by Dr. Haney in 2011 or 2012. We will proceed with updating her lumbar spine MRI, last one was completed in 2018, to rule out direct nerve root impingement. Denies any bladder or bowel dysfunction or saddle anesthesia. PRIOR: Patient presents today for follow-up for chronic left-sided low back pain and SI joint pain. She was last seen in our office last year in January status post therapeutic left SI joint injection which provided her pain for over 6 months. Patient reports left SI joint pain has returned to baseline and has been negatively affecting her ADLs, functioning, mobility, sleep, and social interactions. Patient presents with her for reports patient who could not enjoy their recent vacation due to increased pain with walking, sitting, or changing positions. Patient is interested to repeat left therapeutic SI joint injection under sedation as well as interested to discuss more permanent pain management solutions for this pain generators. She denies any recent trauma, injury, or falls. Denies any recent cough, cold, infection, fever, weakness, numbness, tingling, bladder or bowel dysfunction, saddle anesthesia or other significant changes in medical history since last office visit. Past Procedures: 01/31/23: Left Therapeutic SIJ injection-90% pain relief >6 months 01/21/23: Left Diagnostic SIJ [id number]% pain relief for 5-6 hours *ADDENDUM Patient called back today and prefers to proceed with Left Sacroiliac Joint Fusion with PainTEQ LinQ SI Joint Stabilization System under sedation and fluoroscopy for a longer term pain management of chronic left SI joint pain. She completed diagnostic and therapeutic injections with good results. She is a former smoker. Patient reports moderate to severe daily and chronic pain with functional limitations and reduced mobility due to pain. Pain is localized to left sided lower back pain with radiation into her left buttock and sacral area and into left lateral hip without groin pain. She has failed previous conservative measures, including home exercise program for lower back and SIJ areas, activity modifications and medication trials. PRIOR: Patient is a pleasant 67 years old female who was previously seen in our office by Tyra JOAQUIN in 2020 and prior in [address] Cruz presents today for follow up for left low back pain with left hip and thigh pain. Patient reports midline low back pain that radiates into her left buttock and left groin and anterior left thigh without numbness or tingling. Pain increases with walking over 5 minutes and prolonged sitting. She denies significant pain while standing especially holding on to something. Reports left groin pain with getting out of bed or shower. Patient also reports shooting, sharp pain into her left groin and thigh with prolonged standing while cooking or washing dishes. She reports physical therapy in the past was not well tolerated due to increased pain. Tylenol, NSAIDs, heat and ice therapy and aqua therapy has been partially. She has been using stationary bike but due to pain has been using this less than before. Patient reports previous back injections provided minimal pain relief. Patient denies any bladder or bowel incontinence or saddle anesthesia. [facility] Medical History Osteopenia Osteoarthritis of hands, bilateral Degenerative joint disease of left hip Tenosynovitis of thumb Constipation Obesity (BMI 30-39.9) Depression Allergic rhinitis Deep left inguinal pain Lumbar degenerative disc disease GERD without esophagitis Impaired fasting glucose Palpitations COPD (chronic obstructive pulmonary disease) Benign essential hypertension Surgical History History of colonoscopy History of eye surgery History of surgery History of total abdominal hysterectomy and bilateral salpingo-oophorectomy History of laparoscopic cholecystectomy History of appendectomy History of removal of cyst History of left knee surgery Family History Father CHF (congestive heart failure) Colon cancer Hypertension CVD (cardiovascular disease) Mother CVD (cardiovascular disease) Social History Housing: House Alcohol intake: never Patient Tobacco Use Status: Former Tobacco user e-Cigarette/Vaping Use: Never Used Second Hand Smoke Exposure: Yes service: No Current occupational status: disabled Cognitive needs: No Hearing needs: No Vision needs: Yes (glasses) Review of Systems Const Details: - Musculoskeletal: Reports moderate-severe lower back pain, left leg pain; denies recent injury or worsening trauma. - Neurological: Reports chronic radicular symptoms in the left buttock, occasionally left groin and into left lower extremity. - General: Denies use of blood thinners, smoking. All systems reviewed & are unremarkable except as noted in HPI and below Physical Exam Vital Signs: Last Vital Signs Pulse 69 08/24/24 15:18 Resp 16 08/24/24 15:18 BP 132/64 08/24/24 15:18 Pulse Ox 95 08/24/24 15:18 Oxygen Delivery Method Room Air 08/24/24 15:18 BMI result Body Mass Index 42.7 General: Appears afebrile. Alert and oriented. Mood and affect appropriate. Follows and participates in conversation appropriately. Respiratory effort is unlabored. No cough. Able to transition from sit to stand unassisted. Ambulates with bilaterally normal heel strike and toe off, increased pain on the left. General: Yes no CVA tenderness Back/Spine/Pelvis Other: Patient able to walk on heels and tip toes with mild to moderate difficulty on the left due to pain. Limited lumbar ROM due to pain. Demonstrates 5/5 right and 4/5 left strength of quadriceps as well as flexion/dorsiflexion of bilateral feet against resistance. 2+ pedal pulses bilaterally. Seated SLR testing with dorsiflexion is negative bilaterally. 1+ patellar and diminished achilles reflexes bilaterally. Facet loading + bilaterally. Opal + on the left. Shay and Gaenslen tests reproduce left groin and back pain on left. Stinchfield positive on left and reproduces left lateral hip and left low back pain. Minimal left groin pain with external left hip rotation. Pelvic compression test positive for hip and back pain on left. Distraction test positive bilaterally, left>right. Mild tenderness in the projection of left SIJ. Back: no CVA tenderness Cervical Spine: cervical ROM normal, cervical muscular tenderness and No Cervical spine tenderness Thoracic/Lumbar Spine: thoracic and lumbar spine normal to inspection, Thoracic/lumbar spine scar(s), Lasegue's sign negative, straight leg raise negative bilaterally, pain with thoraco-lumbar ROM, No paraspinal muscle tenderness, thoraco-lumbar ROM limited, No thoracic spinal tenderness and lumbar spinal tenderness (L4-S1) Pelvis: buttock tenderness on the left Sacroiliac joints: bilaterally (left>right) tender to palpation Extrem General: Yes capillary refill normal, Yes no clubbing, cyanosis or edema and Yes no calf tenderness Results Reviewed Results Reviewed: XR lumbar spine 6V w bending, XR left hip with pelvis 12/05/22 EXAMINATION: lumbar spine and left hip. CLINICAL INDICATIONS: Radiculopathy lumbar region. COMPARISON: Lumbar spine 07/23/2017 FINDINGS: LUMBAR SPINE: There is normal lumbar lordosis. The vertebral heights and alignment are normal. There is loss of L5-S1 disc height. Rest of the disc heights, vertebral heights and alignment is normal. There is mild ventral spondylosis throughout lumbar spine. No visible acute fracture, dislocation seen. There is no subluxation on flexion or extension views. There is mild bilateral L4-L5 and L5-S1 facet arthropathy. AP PELVIS AND LEFT HIP: There is mild loss of joint space and bilateral hip joints. SI joints are symmetrical. No visible fracture, lytic or sclerotic process seen. There is mild periarticular degenerative spurring inferior left hip joint. IMPRESSION: No acute fracture, dislocation or subluxation in lumbar spine. There is mild L5-S1 degenerative disc changes. Unremarkable AP pelvis and left hip. MR pelvis wo con 01/27/24 IMPRESSION: 1. No evidence of pelvic or bilateral hip fracture or dislocation. 2. Interval development of Sigmoid diverticulosis without diverticulitis. 3. Unchanged Status post hysterectomy. 4. Prominent bilateral L4-L5 and L5-S1 apophyseal joint osteoarthritis. MR LUMBAR SPINE WITHOUT CONTRAST 04/26/24 at [facility] INDICATION: Postlaminectomy syndrome, lumbar disc degenerations TECHNIQUE: Standard lumbar spine protocol without contrast COMPARISON: None. FINDINGS: Vertebral bodies demonstrate normal height and signal intensity. There is mild levoscoliosis of the lumbar curvature. Conus demonstrates normal contour and signal and terminates at L1 level. T12-L2: No significant abnormalities are seen. L2-L3 level shows asymmetric disc bulge and mild disc desiccation. The canal and foramina are patent. At L3-L4 level, there is shallow central disc bulge, ligamental and facet hypertrophy. Slight anterolisthesis of L3 on L4 is seen. The canal and recesses are patent. Mild foraminal narrowing is present without neural impingement seen. L4-L5 level shows central and foraminal shallow disc bulge, superimposed by slight degenerative anterolisthesis of L4 on L5 and facet arthrosis. The canal and recesses are preserved. Mild foraminal narrowing is present. At L5-S1 level, there are postsurgical changes related to left-sided hemilaminectomy. There is shallow central and foraminal disc bulge superimposed by facet arthrosis, resulting in mild to moderate foraminal narrowing, contacting the exiting L5 nerve roots. The canal and recesses are preserved. No MRI evidence for spondylolysis is seen. Visualized upper SI joints are preserved. IMPRESSION: 1. Postsurgical changes at L5-S1 level related to prior left-sided hemilaminectomy. No recurrent disc herniations are present. 2. Mild changes of multilevel lumbar spondylosis and foraminal narrowing extending from L3 to S1 levels as detailed above. 3. Mild levoscoliosis of the lumbar curvature. Assessment & Plan Assessment & Plan (1) Lumbar degenerative disc disease: Code(s): M51.36 - Other intervertebral disc degeneration, lumbar region Category: Medical Qualifiers: Disc-related pain type: discogenic back pain and lower extremity pain Qualified Code(s): M51.362 - Other intervertebral disc degeneration, lumbar region with discogenic back pain and lower extremity pain (2) Lumbar facet arthropathy: Code(s): M47.816 - Spondylosis without myelopathy or radiculopathy, lumbar region Category: Medical (3) Post laminectomy syndrome: Code(s): M96.1 - Postlaminectomy syndrome, not elsewhere classified Category: Medical (4) Morbid obesity with BMI of 40.0-44.9, adult: Code(s): E66.01 - Morbid (severe) obesity due to excess calories; Z68.41 - Body mass index [BMI] 40.0-44.9, adult Category: Medical (5) Chronic pain syndrome: Code(s): G89.4 - Chronic pain syndrome Category: Medical (6) Sacroiliac joint pain: Code(s): M53.3 - Sacrococcygeal disorders, not elsewhere classified Category: Medical Plan Patient continues to endorse significant low back pain with sacroiliac joint components, worse on the left side which affects her daily activities, functioning, sleep, mobility and social interactions. We will proceed with Left Sacroiliac Joint Fusion with PainTEQ LinQ SI Joint Stabilization System under sedation and fluoroscopy for a longer term pain management of chronic left SI joint pain. Expectations, risks and benefits were reviewed. Patient is aware she will be contacted to schedule this procedure. Patient completed diagnostic and therapeutic left SI joint injections with good results. She is a former smoker. Jin has failed previous conservative measures, including home exercise program for lower back and SIJ areas, SI joint belt, activity modifications and medication trials. All questions were answered and the patient is in agreement of plan. Follow-up after SI joint fusion and sooner as needed. Patient was informed and verbally consented to the use of an ambient scribe for clinic note documentation during this visit. Coding Level of Care Code Est Pt Level 4 (97132) Complex EM visit Add On G2211 Diagnoses Degeneration of intervertebral disc of lumbar region with discogenic back pain and lower extremity pain M51.362 Disc-related pain type: discogenic back pain and lower extremity pain Lumbar facet arthropathy M47.816 Post laminectomy syndrome M96.1 Morbid obesity with BMI of 40.0-44.9, adult E66.01; Z68.41 Chronic pain syndrome G89.4 Sacroiliac joint pain M53.3
[2024-08-24 15:18] VITALS: BP 132/64; PULSE 69; RESP 16; O2SAT 95; BMI 42.7
--- OUTSIDE RECORDS SUMMARY | 2024-08-24 16:41 | XMS_ITS ---
Author Organization [facility] Address [address] [place] [address] Care Team Providers Care Land Survey Technician Name Role Phone Omega ROLAND, Samy Primary Care Provider Vlad Andersen [phone] Allergies No Known Allergies REASON FOR VISIT [...] 03/12/2023 Encounters Encounter Location Date Provider Diagnosis [facility] [address] [place] [address] 03/12/2023 Vlad Abreu Gastroesophageal ref lux disease [...] ROSELIA DELUNA LDOB: [birth year] (67 yo F)Acc No.[id number]:03/12/2023 Progress Notes Patient:?ROSELIA DELUNA Provider:?Vlad Abreu MD :[id number]???Age:67 Y???Sex:Female D ate:03/12/2023 Address:[address] [place] [address], [facility] [id number] Pcp:Samy Duff MD Subjective: * Chief Complaints: [...] Screen?Points: 1, Interpretation: Negative.?Miscellaneous:?Marital status: single. 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 ???Nonsmoker since 1998; no sig. alcohol. * [...] Procedure Codes:?3017F COLOR ECTAL CA SCREEN DOC [id number] TOBACCO [id number] BP SCR NOT PRFRM REC REASON NOS * Preventive Medicine:? ??Counseling:?Care goal follow-up plan:?Above Normal BMI Follow-up?Giving encouragement to exercise,?BMI management provided?Yes.? ??Urinary Incontinence:?Urinary Incontinence?Assessment:?Absent,?Plan of care documented:?No, reason not specified.? * Follow Up:?prn * * Sign off status: Completed true * Provider:?Vlad Abreu MD Date:? 023 Generated for Casey you/Estiven/Olmanitting on:?08/24/2024 04:41 PM EDT History and Physical Notes * HPI [...]
== END 2024-08-24 15:39 | disposition home or self-care (01) ==
LOC: HO.PMC 15:02
PROVIDERS: PCP Internal Medicine; Visit Provider Nurse Practitioner Family
DX: M51.362 Other intervertebral disc degeneration, lumbar region with discogenic back pain and lower extremity pain (principal); M47.816 Spondylosis without myelopathy or radiculopathy, lumbar region; M96.1 Postlaminectomy syndrome, not elsewhere classified; E66.01 Morbid (severe) obesity due to excess calories; Z68.41 Body mass index [BMI] 40.0-44.9, adult; G89.4 Chronic pain syndrome; M53.3 Sacrococcygeal disorders, not elsewhere classified
CPT/HCPCS: 99214; G2211

== ENCOUNTER → 2024-08-24 15:01 | Outpatient (BNVA) | payer MEDICARE, SELFPAY | PROVIDERS: PCP Internal Medicine; Visit Provider Nurse Practitioner Family | DX: M51.362 Other intervertebral disc degeneration, lumbar region with discogenic back pain and lower extremity pain (principal); M47.816 Spondylosis without myelopathy or radiculopathy, lumbar region; M96.1 Postlaminectomy syndrome, not elsewhere classified; E66.01 Morbid (severe) obesity due to excess calories; G89.4 Chronic pain syndrome; Z68.41 Body mass index [BMI] 40.0-44.9, adult | CPT/HCPCS: 99212 ==

== ENCOUNTER 2024-09-17 05:51 | Day surgery (SDC) | payer MEDICARE, SELFPAY ==
--- OUTSIDE RECORDS SUMMARY | 2023-03-12 10:40 | XMS_ITS ---
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 Name Role Phone Omega ROLAND, Samy Primary Care Provider Vlad Andersen [phone] Allergies No Known Allergies REASON FOR VISIT Patient presents today for a SCREEING COLON Medications Medication SIG (Take, Route, Frequency, Duration) Notes Start Date End Date Status Losartan Potassium-HCTZ 50-1 2.5 MG 1 tablet Orally Once a day Active Vitamin D 1000 UNIT 1 tablet Orally Once a day Active Qvar 40 MCG/ACT 1 puff Inhalation Twice a day Active traMADol HCl 50 MG 1 tablet as needed Orally every 6 hrs Active Aleve 220 MG 1 tablet with food o r milk as needed Orally every 12 hrs Active Singulair 10mg Activ e Folic Acid 800mg Act gina Vitamin C 500mg Acti ve Fish Oil 1000mcg Act gina Multi Vitamin/Minerals Active Pantoprazole Sodium 40 MG Oral for 90 Active Pulmicort Flexhaler 180 MCG/ACT Inhalation for 90 Active Montelukast Sodium 10 MG Oral for 90 Active Aspir-81 Active hydroCHLOROthiazide 25 MG Oral for 90 Active hydrALAZINE HCl 25 MG Oral for 90 Active Spironolactone 25 MG Oral for 90 Active Losartan Potassium 100 MG Oral for 90 Active Metoprolol Succinate ER 100 MG Oral for 90 Active Protonix 40 MG 1 tablet Orally Once a day Active Vital Signs Temperature 97.3 degrees Fahrenheit 03/12/20 23 Blood pressure systolic 000 mm Hg 03/12/20 23 Blood pressure diastolic 00 mm Hg 023 Height 65 in 03/12/2023 Weight 254 lb 2 oz lbs 03/12/2023 BMI 42.28 kg/m2 03/12/2023 Encounters Encounter Location Date Provider Diagnosis [facility] [address] [place] [address] 03/12/2023 Vlad Abreu Gastroesophageal ref lux disease without esophagitis K21.9 ; Constipation, unspecified constipation type K59.00 ; History of adenomatous polyp of colon Z86.010 and Encounter for screening for malignant neoplasm of colon Z12.11 Assessments Encounter Date Diagnosis (ICD Code) Assessment Notes Treatment Notes Treatment Clinical Notes Section Notes 03/12/2023 Gastroesophageal reflux disease without esophagitis (ICD-10 - K21.9) Overall, Evangelina appears well. Her reflux is well controlled on her daily PPI and I advised her to continue that. Given her previous upper endoscopy findings, good clinical appearance, and no new or worrisome upper GI complaints, I don't think a repeat upper endoscopy is currently required. I did recommend a followup colonoscopy for screening given her last colonoscopy being over 5 years ago, her previous history of tubular adenomas, and her family history of colon cancer in her father. We did review the rationale for this in regard to colon cancer prevention. Full consent was obtained from her for this, including risks of bleeding and perforation. She was given the below instructions regarding adjustment of her medications for the procedure. The procedure will be done with monitored anesthesia care. In the meantime, I did recommend she try to use MiraLax on a more regular basis so as to avoid constipation. If the constipation does become more problematic and refractory to daily MiraLax we can look to start her back on either Amitiza or something such as Linzess. Evangelina was comfortable with this plan. Thank you again for allowing me to participate in Evangelina's care. I shall continue to keep you advised of her progress. 03/12/2023 Constipation, unspecified constipation type (ICD-10 - K59.00) Overall, Evangelina appears well. Her reflux is well controlled on her daily PPI and I advised her to continue that. Given her previous upper endoscopy findings, good clinical appearance, and no new or worrisome upper GI complaints, I don't think a repeat upper endoscopy is currently required. I did recommend a followup colonoscopy for screening given her last colonoscopy being over 5 years ago, her previous history of tubular adenomas, and her family history of colon cancer in her father. We did review the rationale for this in regard to colon cancer prevention. Full consent was obtained from her for this, including risks of bleeding and perforation. She was given the below instructions regarding adjustment of her medications for the procedure. The procedure will be done with monitored anesthesia care. In the meantime, I did recommend she try to use MiraLax on a more regular basis so as to avoid constipation. If the constipation does become more problematic and refractory to daily MiraLax we can look to start her back on either Amitiza or something such as Linzess. Evangelina was comfortable with this plan. Thank you again for allowing me to participate in Evangelina's care. I shall continue to keep you advised of her progress. 03/12/2023 History of adenomatous polyp of colon (ICD-10 - Z86.010) Stop aspirin and fish oil for 1 week before the colonoscopy Do not take the Spironolactone and Hydrochlorothiazide the day before or on the day of the colonoscopy Overall, Evangelina appears well. Her reflux is well controlled on her daily PPI and I advised her to continue that. Given her previous upper endoscopy findings, good clinical appearance, and no new or worrisome upper GI complaints, I don't think a repeat upper endoscopy is currently required. I did recommend a followup colonoscopy for screening given her last colonoscopy being over 5 years ago, her previous history of tubular adenomas, and her family history of colon cancer in her father. We did review the rationale for this in regard to colon cancer prevention. Full consent was obtained from her for this, including risks of bleeding and perforation. She was given the below instructions regarding adjustment of her medications for the procedure. The procedure will be done with monitored anesthesia care. In the meantime, I did recommend she try to use MiraLax on a more regular basis so as to avoid constipation. If the constipation does become more problematic and refractory to daily MiraLax we can look to start her back on either Amitiza or something such as Linzess. Evangelina was comfortable with this plan. Thank you again for allowing me to participate in Evangelina's care. I shall continue to keep you advised of her progress. 03/12/2023 Encounter for screening for malignant neoplasm of colon (ICD-10 - Z12.11) TAKE 2 EXTRA DULCOLAX TWO DAYS BEFORE THE COLONOSCOPY Overall, Evangelina appears well. Her reflux is well controlled on her daily PPI and I advised her to continue that. Given her previous upper endoscopy findings, good clinical appearance, and no new or worrisome upper GI complaints, I don't think a repeat upper endoscopy is currently required. I did recommend a followup colonoscopy for screening given her last colonoscopy being over 5 years ago, her previous history of tubular adenomas, and her family history of colon cancer in her father. We did review the rationale for this in regard to colon cancer prevention. Full consent was obtained from her for this, including risks of bleeding and perforation. She was given the below instructions regarding adjustment of her medications for the procedure. The procedure will be done with monitored anesthesia care. In the meantime, I did recommend she try to use MiraLax on a more regular basis so as to avoid constipation. If the constipation does become more problematic and refractory to daily MiraLax we can look to start her back on either Amitiza or something such as Linzess. Evangelina was comfortable with this plan. Thank you again for allowing me to participate in Evangelina's care. I shall continue to keep you advised of her progress. Plan Of Treatment Treatment Notes Assessment Notes History of adenomatous polyp of colon Stop aspirin and fish oil for 1 week before the colonoscopy Do not take the Spironolactone and Hydrochlorothiazide the day before or on the day of the colonoscopy Encounter for screening for malignant neoplasm of colon TAKE 2 EXTRA DULCOLAX TWO DAYS BEFORE TH E COLONOSCOPY Future Test Test Name Order Date COLONOSCOPY 03/12/2023 Next Appt Details Follow Up: prn, Reason: Progress Notes * ROSELIA DELUNA LDOB: [birth year] (67 yo F)Acc No.[id number]:03/12/2023 Progress Notes Patient: ROSELIA FORDE Provider: Tracie Abreu MD :[id number] A ge:67 Y S ex:Female Date:03/12/2023 Address:[address] [place] [address] [place], [place], [id number] Pcp:Samy Duff MD Subjective: * Chief Complaints: * P atient presents today for a SCREEING COLON * HPI: i ncontinence: I saw Evangelina in consultation today in regard to further evaluation of her chronic constipation, gastroesophageal reflux, personal history of tubular adenomas of the colon, family history of colon cancer, and need for colorectal cancer screening. I last saw Evangelina in 2018, at which time she underwent a negative followup screening colonoscopy. She does have a history of tubular adenomas removed on previous colonoscopies and also has a family history of colon cancer in her father. She presently feels well. She enjoys a good appetite. She does remain on her daily Protonix with good relief of previous heartburn symptoms. She denies any dysphagia, early satiety, nausea, or vomiting. She denies abdominal pain, jaundice, nor unintentional weight loss. S he does describe her chronic constipation with a bowel movement about every third day. She had been on Amitiza in the past which did help her constipation but she ultimately had to stop it as her insurance was no longer covering it without a very large co-pay. She does take occasional MiraLax with some relief of her constipation. She denies any hematochezia nor melena. * ROS: G eneral/Constitutional: Change in appetite d enies. C hills d enies. F atigue d enies. O phthalmologic: Patient denies Negative.. E NT: Patient denies N egative.. R espiratory: Patient denies N o coughing/hemoptysis.. C ardiovascular: Patient denies No chest pain/orthopnea.. G astrointestinal: Comments [facility] for details. G enitourinary: Patient denies No dysuria/hematuria.. M usculoskeletal: Patient denies No specific arthralgias/myalgias.. ? S kin: Patient denies N o rash/pruritus.. N eurologic: Patient denies No headaches/seizures.. P sychiatric: Patient denies N egative.. * Medical History: * Surgical History: T AH except for a piece of an ovary Knee surgery Back surgery Surgery for cyst on her face [facility] * Hospitalization/Major Diagno stic Procedure: N o Hospitalization History. * Family History: F ather: , colon cancer dx in his 70's, diagnosed with Colon cancer. M other: . Father had colon cancer in his 70's. No family history of liver cancer. * Social History: T obacco Use: T obacco Use/Smoking A re you a: former smoker , How long has it been since you last smoked?: > 10 years. D rugs/Alcohol: A lcohol Screen P oints: 1, Interpretation: Negative. M iscellaneous: M arital status: single. 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 N onsmoker since 1998; no sig. alcohol. * Medications: T akingAspir-81 Fish Oil 1000mcg Multi Vitamin/Minerals Singulair 10mg Folic Acid 800mg Vitamin C 500mg Losartan Potassium-HCTZ 50-12.5 MG Tablet 1 tablet Orally Once a dayVitamin D 1000 UNIT Tablet 1 tablet Orally Once a dayQvar 40 MCG/ACT Aerosol Solution 1 puff Inhalation Twice a daytraMADol HCl 50 MG Tablet 1 tablet as needed Orally every 6 hrsAleve 220 MG Tablet 1 tablet with food or milk as needed Orally every 12 hrsProtonix 40 MG Tablet Delayed Release 1 tablet Orally Once a dayLosartan Potassium 100 MG Tablet Oral Metoprolol Succinate ER 100 MG Tablet Extended Release 24 Hour Oral hydroCHLOROthiazide 25 MG Tablet Oral hydrALAZINE HCl 25 MG Tablet Oral Spironolactone 25 MG Tablet Oral Pantoprazole Sodium 40 MG Tablet Delayed Release Oral Pulmicort Flexhaler 180 MCG/ACT Aerosol Powder Breath Activated Inhalation Montelukast Sodium 10 MG Tablet Oral Taking Aspir-81 Taking Fish Oil 1000mcg Taking Multi Vitamin/Minerals Taking Singulair 10mg Taking Folic Acid 800mg Taking Vitamin C 500mg Taking Losartan Potassium-HCTZ 50-12.5 MG Tablet 1 tablet Orally Once a dayTaking Vitamin D 1000 UNIT Tablet 1 tablet Orally Once a dayTaking Qvar 40 MCG/ACT Aerosol Solution 1 puff Inhalation Twice a dayTaking traMADol HCl 50 MG Tablet 1 tablet as needed Orally every 6 hrsTaking Aleve 220 MG Tablet 1 tablet with food or milk as needed Orally every 12 hrsTaking Protonix 40 MG Tablet Delayed Release 1 tablet Orally Once a dayTaking Losartan Potassium 100 MG Tablet Oral Taking Metoprolol Succinate ER 100 MG Tablet Extended Release 24 Hour Oral Taking hydroCHLOROthiazide 25 MG Tablet Oral Taking hydrALAZINE HCl 25 MG Tablet Oral Taking Spironolactone 25 MG Tablet Oral Taking Pantoprazole Sodium 40 MG Tablet Delayed Release Oral Taking Pulmicort Flexhaler 180 MCG/ACT Aerosol Powder Breath Activated Inhalation Taking Montelukast Sodium 10 MG Tablet Oral DiscontinuedAmitiza 24 MCG Capsule TAKE ONE CAPSULE BY MOUTH TWICE A DAY Orally Twice a dayMedication List reviewed and reconciled with the patientDiscontinued Amitiza 24 MCG Capsule TAKE ONE CAPSULE BY MOUTH TWICE A DAY Orally Twice a dayMedication List reviewed and reconciled with the patient * Allergies: N .K.D.A.yes[Allergies Verified] Objective: * Vitals: W t: 254 lb 2 oz, Ht: 65 in, BMI:42.28 Index, BP: 000/00 mm Hg, Temp: 97.3. * Examination: G eneral Examination: GENERAL APPEARANCE: p leasant, well nourished, well developed, in no acute distress. EYES: s clera non-icteric. ORAL CAVITY: m ucosa moist. NECK/THYROID: n o cervical lymphadenopathy, neck supple.? SKIN: n onjaundiced, no spider angiomata.. HEART: S 1, S2 normal. LUNGS: c lear to auscultation bilaterally. ABDOMEN: n ormal bowel sounds, no guarding or rigidity, no hepatosplenomegaly, no masses palpable, soft, nontender, nondistended.. EXTREMITIES: n o edema. NEUROLOGIC: a lert and oriented. Assessment: * Assessment: 1. G astroesophageal reflux disease without esophagitis - K21.9 (Primary) 2 . C onstipation, unspecified constipation type - K59.00 3 . H istory of adenomatous polyp of colon - Z86.010 4 . E ncounter for screening for malignant neoplasm of colon - Z12.11 Overall, Evangelina appears well. H er reflux is well controlled on her daily PPI and I advised her to continue that. Given her previous upper endoscopy findings, good clinical appearance, and no new or worrisome upper GI complaints, I don't think a repeat upper endoscopy is currently required. I did recommend a followup colonoscopy for screening given her last colonoscopy being over 5 years ago, her previous history of tubular adenomas, and her family history of colon cancer in her father. We did review the rationale for this in regard to colon cancer prevention. Full consent was obtained from her for this, including risks of bleeding and perforation. She was given the below instructions regarding adjustment of her medications for the procedure. The procedure will be done with monitored anesthesia care. In the meantime, I did recommend she try to use MiraLax on a more regular basis so as to avoid constipation. If the constipation does become more problematic and refractory to daily MiraLax we can look to start her back on either Amitiza or something such as Linzess. Evangelina was comfortable with this plan. Thank you again for allowing me to participate in Evangelina's care. I shall continue to keep you advised of her progress. Plan: * Treatment: Notes: Stop aspirin and fish oil for 1 week before the colonoscopy Do not take the Spironolactone and Hydrochlorothiazide the day before or on the day of the colonoscopy.??2.?Encounter for screening for malignant neoplasm of colon?Procedure: COLONOSCOPY (Ordered for 03/12/2023)* with MACsched for 06/13/23 at 10:20 pmmiralax Notes: TAKE 2 EXTRA DULCOLAX TWO DAYS BEFORE THE COLONOSCOPY.?? * Procedure Codes: 3 017F COLORECTAL CA SCREEN DOC [id number] TOBACCO [id number] BP SCR NOT PRFRM REC REASON NOS * Preventive Medicine: Counseling: C are goal follow-up plan: A lillian Normal BMI Follow-up G iving encouragement to exercise, B IN management provided Y es. Urinary Incontinence: U rinary Incontinence A ssessment: A bsent, P yuli of care documented: N o, reason not specified. * Follow Up: p rn * * Sign off status: Completed true * Provider: Tracie Abreu MD Date: 05/13/2022 Generated for Casey you/Estiven/Olmanitting on: 0 09/08/2024 08:24 AM EDT History and Physical Notes * HPI (History of Present Illness) Category Sub-Category Detail Notes Category Not es incontinence I saw Evangelina in consultation today in regard to further evaluation of her chronic constipation, gastroesophageal reflux, personal history of tubular adenomas of the colon, family history of colon cancer, and need for colorectal cancer screening. I last saw Evangelina in 2018, at which time she underwent a negative followup screening colonoscopy. She does have a history of tubular adenomas removed on previous colonoscopies and also has a family history of colon cancer in her father. She presently feels well. She enjoys a good appetite. She does remain on her daily Protonix with good relief of previous heartburn symptoms. She denies any dysphagia, early satiety, nausea, or vomiting. She denies abdominal pain, jaundice, nor unintentional weight loss. She does describe her chronic constipation with a bowel movement about every third day. She had been on Amitiza in the past which did help her constipation but she ultimately had to stop it as her insurance was no longer covering it without a very large co-pay. She does take occasional MiraLax with some relief of her constipation. She denies any hematochezia nor melena. Examination Category Sub-Category Detail Notes Category Not es General Examination GENERAL APPEARANCE: pleasant , well nourished, well developed, in no acute distress EYES: sclera non-icteric NECK/THYROID: no cervical lymphade nopathy, neck supple HEART: S1, S2 normal LUNGS: clear to auscultatio n bilaterally ABDOMEN: normal bowel sounds, no guarding or rigidity, no hepatosplenomegaly, no masses palpable, soft, nontender, nondistended. NEUROLOGIC: alert and oriented SKIN: nonjaundiced, no spi edmundo angiomata. EXTREMITIES: no edema ORAL CAVITY: mucosa moist
[2024-09-15 13:31] VITALS: BMI 42.7
--- NOTE | 2024-09-16 09:31 | P.CONAN_ITS ---
Documented by User: Anay Pena NP 09/16/24 09:32 HPI - Anesthesia Eval Consult details Narrative: 68yo F for Left Sacroiliac Joint Stabilization and Fusion PMFSH Active Problems Active Problems: All Active Problems Lumbar radiculopathy (Acute) Chronic pain syndrome (Acute) Continuous use of opioids (Acute) Hypertriglyceridemia (Acute) COVID (Acute) Macular hole (Acute) Osteopenia (Acute) Morbid obesity with BMI of 40.0-44.9, adult (Acute) Right knee pain (Acute) Left hip pain (Acute) Sacroiliac joint pain (Acute) Post laminectomy syndrome (Acute) Colon cancer screening (Acute) Arthritis of carpometacarpal (CMC) joint of left thumb (Acute) Osteoarthritis of carpometacarpal joint of right thumb (Acute) Screening for lung cancer (Acute) De Quervain's tenosynovitis (Acute) Choking sensation (Acute) Upper respiratory tract infection (Acute) Osteoarthritis of hands, bilateral (Acute) Skin exam, screening for cancer (Acute) Hypertension, uncontrolled (Acute) Acute bronchitis (Acute) Bronchitis (Acute) COPD exacerbation (Acute) Cough (Acute) Flu-like symptoms (Acute) Uncontrolled hypertension (Acute) Recurrent nonproductive cough (Acute) Left lumbar radiculopathy (Acute) Lumbar facet arthropathy (Acute) Primary osteoarthritis of left hip (Acute) Degenerative joint disease of left hip (Acute) Tenosynovitis of thumb (Acute) Constipation (Acute) Obesity (BMI 30-39.9) (Acute) Depression (Acute) Allergic rhinitis (Acute) Deep left inguinal pain (Acute) Lumbar degenerative disc disease (Acute) GERD without esophagitis (Acute) Impaired fasting glucose (Acute) Palpitations (Acute) COPD (chronic obstructive pulmonary disease) (Acute) Benign essential hypertension (Acute) Past Medical History Medical History Osteopenia Osteoarthritis of hands, bilateral Degenerative joint disease of left hip Tenosynovitis of thumb Constipation Obesity (BMI 30-39.9) Depression Allergic rhinitis Deep left inguinal pain Lumbar degenerative disc disease GERD without esophagitis Impaired fasting glucose Palpitations COPD (chronic obstructive pulmonary disease) Benign essential hypertension Family History Family History Father CHF (congestive heart failure) Colon cancer Hypertension CVD (cardiovascular disease) Mother CVD (cardiovascular disease) Family history of problems with anesthesia: No Surgical History Surgical History History of colonoscopy History of eye surgery History of surgery History of total abdominal hysterectomy and bilateral salpingo-oophorectomy History of laparoscopic cholecystectomy History of appendectomy History of removal of cyst History of left knee surgery History of Problems with Anesthesia: No Social History Social History Housing: House Are you a primary respiratory care instructor to a significant other at home: No Do you presently have visiting nurse or other home services: No Alcohol intake: never Patient Tobacco Use Status: Former Tobacco user e-Cigarette/Vaping Use: Never Used Second Hand Smoke Exposure: Yes Have you been hit, kicked, punched, or otherwise hurt by someone within the past year? If so, by whom?: No Are you DNR?: No Advance Directives: No Advance Directives Information Provided: Yes Patient : No Poor oral hygiene: Yes service: No Current occupational status: disabled Cognitive needs: No Hearing needs: No Vision needs: Yes (glasses) Meds Allergies Allergy/AdvReac Type Severity Reaction Status Date / Time No Known Allergies (No Known Allergy Verified 09/17/24 06:18 Allergies*) Exam Height,Weight and Vital Signs: Height 5 ft 4 in Weight 112.945 kg Pertinent Lab Results Pertinent Lab Results: Laboratory Tests 07/09/24 08:10 WBC 9.0 Hgb 12.8 Hct 38.7 Plt Count 258 Sodium 139 Potassium 4.4 Chloride 104 Carbon Dioxide 26 BUN 27 H Creatinine 0.95 Assessment and Plan Assessment Anesthesia Assessment: Chart Reviewed Final Anesthetic Review Family History of Problems with Anesthesia: No History of Problems with Anesthesia: No Documented by User: Huma Barrios MD 09/17/24 08:11 PMFSH Past Medical History Medical History Osteopenia Osteoarthritis of hands, bilateral Degenerative joint disease of left hip Tenosynovitis of thumb Constipation Obesity (BMI 30-39.9) Depression Allergic rhinitis Deep left inguinal pain Lumbar degenerative disc disease GERD without esophagitis Impaired fasting glucose Palpitations COPD (chronic obstructive pulmonary disease) Benign essential hypertension Family History Family History Father CHF (congestive heart failure) Colon cancer Hypertension CVD (cardiovascular disease) Mother CVD (cardiovascular disease) Surgical History Surgical History History of colonoscopy History of eye surgery History of surgery History of total abdominal hysterectomy and bilateral salpingo-oophorectomy History of laparoscopic cholecystectomy History of appendectomy History of removal of cyst History of left knee surgery Social History Social History Housing: House Are you a primary respiratory care instructor to a significant other at home: No Do you presently have visiting nurse or other home services: No Alcohol intake: never Patient Tobacco Use Status: Former Tobacco user e-Cigarette/Vaping Use: Never Used Second Hand Smoke Exposure: Yes Have you been hit, kicked, punched, or otherwise hurt by someone within the past year? If so, by whom?: No Are you DNR?: No Advance Directives: No Advance Directives Information Provided: Yes Patient : No Poor oral hygiene: Yes service: No Current occupational status: disabled Cognitive needs: No Hearing needs: No Vision needs: Yes (glasses) Meds Allergies Allergy/AdvReac Type Severity Reaction Status Date / Time No Known Allergies (No Known Allergy Verified 09/17/24 06:18 Allergies*) Exam Airway Mallampati Class: II (edentulous) TM Dist: >3cm Neck ROM: Limited Denture: Upper and Lower Loose/Missing/Broken Teeth: Yes, Upper and Lower Heart: RRR Lungs: CTA Assessment and Plan Assessment Anesthesia Assessment: Anesthesia Plan Discussed Final Anesthetic Review NPO: Yes ASA Class: III Final Preanesthetic Review: Meds/Allgs Chart Reviewed, Consent Obtained/Reviewed and Anes Risks/Benef Reviewed Patient Risk: Intermediate Procedure Risk: Low Anesthetic Plan Anesthetic Plan: GA Disposition: Standard PACU
[2024-09-17] VITALS (7 sets, daily range): BP systolic 129–151; BP diastolic 68–93; PULSE 66–106; RESP 14–18; TEMP 36.4–36.6; O2SAT 93–100; BMI 42.8
--- NOTE | ~2024-09-17 | FL_ITS ---
EXAMINATION: XR FLUOROSCOPY WITH IMAGES CLINICAL INFORMATION: Left SI joint fusion COMPARISON: MR pelvis 01/27/2024. TECHNIQUE: Fluoroscopy provided to: Dr. Obregon Fluoroscopy time: 1 minute 7 seconds DAP: 9.02 Gycm2 Images: 3 FINDINGS: 3 fluoroscopic images obtained during left SI joint fusion. Please refer to the full operative report for details. FL/FL guidance in OR IMPRESSION: Fluoroscopic guidance Electronically signed by: Tex Saleem MD 09/17/2024 08:47 AM EDT
[2024-09-17] MEDS: Lactated Ringers 1,000 ML 100 ML IVCONT (06:31)
--- NOTE | 2024-09-17 06:41 | MHC.SHP ---
Pre-Procedural Eval Section A - 24 Hr Update-Section A only Date of Service: 09/17/24 The patient is an INPATIENT: No Changes since office visit: Yes Patient answered all questions The patient has been examined within 24 hours of the surgical procedure. The History & Physical has been completed within 30 days and I have reviewed it.: No Section B - Complete if H&P > 30 days Chief Complaint: Sacrococcygeal disorders,chronic pain syndrome Details of Present Illness: as above Relevant Family History (Specify if Yes): No Relevant Social History: None Present Medications: see Short Stay Collaborative assessment Medical History: No relevant PMH History of Previous Operations: Relevant previous surgery/procedure and date(s) (postlaminectomy syndrome) Allergies: Allergies Allergy/AdvReac Type Severity Reaction Status Date / Time No Known Allergies (No Known Allergy Verified 09/17/24 06:18 Allergies*) Review of Systems Sugical H&P ROS: Negative: Neurological, Hem-Onc, Allergic/Immunologic, Gastrointestinal, Genitourinary, Integumentary and Eyes/Ears/Nose/Throat and Yes, Specify: Constitution (morbid obesity), Cardiovascular (HTN), Respiratory (COPD), Psychiatric (Depression), Musculoskeletal (Facet arthropathy lumbar, sacroiliitis, left SI joint dysfunction.) and Endocrine Exam Surgical H&P Exam: Normal: HEENT, Normal: Heart, Normal: Lungs, Normal: Extremities, Normal: Skin and Normal: Neurological and Significant Findings: Abdomen (Enlarged due to fat) Plan Diagnosis/Plan: Unchanged I have reviewed the history and physical and performed a pertinent physical examination on my patient. No changes have occurred unless specified. Time Spent With Patient Time: Total time managing care of this patient today __15__ minutes.
[2024-09-17] MEDS: ceFAZolin Sodium/Dextrose,Iso 2 GM/50 ML PIGGYBACK IV (07:45)
--- NOTE | 2024-09-17 09:03 | P.OP_ITS ---
Operative Note Operative Note Date of Service: 09/17/24 Narrative: Left sacroiliac joint stabilization with [facility] PRE-OP Dx: Left Sacroiliitis, left sacroiliac joint dysfunction. POST-OP Dx: Left Sacroiliitis /sacroiliac joint dysfunction. OPERATION: Left acroiliac joint fusion. Bone allograft. Fluoroscopy ANESTHESIA: General anesthesia ANESTHESIA PROVIDER: Dr. Huma Barrios. The patient was brought to the operating table in the stretcher. ASA monitors were applied. General anesthesia was induced and patient was intubated. The patient was turned prone on the operating table all pressure points were protected. The lumbosacral region was prepped with ChloraPrep and sterile and draped with sterile self adhesive utility towels. Full body drape was applied after that including Ioban film. Sterilely draped fluoroscopy machine was brought over the operating field and an oblique fluoroscopic view was used to visualize the left sacroiliac joint and the skin surface was marked. The skin in the projection of the sacroiliac joint on the left in oblique view was infiltrated with mixture of lidocaine 2% and ropivacaine 0.5% one-to-one. 3 cm incision was made in the infiltrated skin. Thorough hemostasis was obtained. Under fluoroscopic guidance, a 2mm guide steal pin was advanced into the joint with minimal force.Attention was paid to a proper guide pin position within the joint space. When the pain entered the joint it was gently hammered into the joint cavity and position of the pain was verified on anterior posterior and lateral views. On the lateral view the pain was appeared to get across the sacroiliac joint presumable location. Two tissue dilators were then placed into the joint along the guide pin path to gently open access to the joint. The inner dilator was removed, leaving the outer dilator as a working channel. A joint decorticator was advanced into the joint by tapping with a mallet, then retracted, which abrades the cortical bone surfaces in the joint to receive the structural bone allograft implant. The allograft implant graft window was packed with demineralized bone matrix to support bony fusion, then delivered to the joint with an implant insertion tool and proper positioning noted with fluoroscopic imaging. The implant liquid center assembler and working cannula were removed leaving only the allograft implant in the patient. The wound was irrigated with vancomycin in normal saline solution. Three 0-0 Polysorb sutures were applied to close the wound and after that 2-0 Polysorb sutures were used to approximate this to the level of the skin. 4 krystal were applied to the level of the skin. Bacitracin ointment was applied and after that the wound was covered with sterile dressing containing of 3 folded 4x4s and silk tape. Upon completion of the procedure the patient was turned supine on the stretcher, she was extubated, she was transferred stable to the recovery room where she recovered uneventfully.
--- NOTE | 2024-09-17 09:17 | P.BOP_ITS ---
Brief Operative Note Date of Service: 09/17/24 Pre-op diagnosis: Left sacroiliac joint dysfunction, sacroiliitis. Post-op diagnosis: same Procedure: Sacroiliac joint stabilization with fusion LinkQ, Painteq Implants: Lyophilized cadaver bone and bone matrix promoting the bone growth. Surgeon: Cezar Obregon MD Was an [employer] used for this Procedure?: No Estimated blood loss (mL): 8 Pathology: none sent Condition: stable Disposition: PACU
== END 2024-09-17 10:35 | disposition home or self-care (01) ==
PROVIDERS: PCP Internal Medicine; Visit Provider Anesthesiology
PROC: (CPT 27279; principal; 2024-09-17 07:30)
DX: M46.1 Sacroiliitis, not elsewhere classified (principal); G89.4 Chronic pain syndrome; M53.3 Sacrococcygeal disorders, not elsewhere classified; R26.2 Difficulty in walking, not elsewhere classified; M51.362 Other intervertebral disc degeneration, lumbar region with discogenic back pain and lower extremity pain; M47.816 Spondylosis without myelopathy or radiculopathy, lumbar region; M16.12 Unilateral primary osteoarthritis, left hip; M96.1 Postlaminectomy syndrome, not elsewhere classified; I10 Essential (primary) hypertension; R73.01 Impaired fasting glucose; E66.01 Morbid (severe) obesity due to excess calories; Z68.41 Body mass index [BMI] 40.0-44.9, adult; J44.9 Chronic obstructive pulmonary disease, unspecified; J30.9 Allergic rhinitis, unspecified; K21.9 Gastro-esophageal reflux disease without esophagitis; Z98.890 Other specified postprocedural states; Z87.891 Personal history of nicotine dependence
CPT/HCPCS: 27279; C1713; J0131; J0690; J1100; J2003; J2405; J2704; J2795; J3010; J3370

== ENCOUNTER → 2024-09-17 05:51 | Outpatient (BNV) | payer MEDICARE, SELFPAY | PROVIDERS: PCP Internal Medicine; Visit Provider Anesthesiology | DX: M53.3 Sacrococcygeal disorders, not elsewhere classified (principal); M46.1 Sacroiliitis, not elsewhere classified | CPT/HCPCS: 27279 ==

== ENCOUNTER 2024-09-23 10:27 | Outpatient (AMB) | payer MEDICARE, SELFPAY ==
--- OUTSIDE RECORDS SUMMARY | 2023-06-13 06:20 | XMS_ITS ---
Author Organization [facility] Address [address] [place] [address] Care Team Providers Care Admeasurer Name Role Phone Omega ROLAND, [place] Primary Care Provider Vlad Andersen Unavailable [phone] REASON FOR VISIT screening,hx polyps Problems Problem Type SNOMED Code ICD Code Onset Dates Problem Status W/U Status Risk Notes Problem Diverticulosis o f large intestine without perforation or abscess without bleeding (K57.30) Active confirmed Encounters Encounter Location Date Provider Diagnosis [facility] [place] [address] [place] [phone] 06/13/2023 Vlad Abreu Encounter for scre ening [...] ROSELIA DELUNA LDOB: [birth year] (68 yo F)Acc No.[id number]:06/13/2023 COLON WITH MAC Patient: ROSELIA FORDE Provider: Tracie Abreu MD :1955 A ge:67 Y S ex:Female Date:06/13/2023 Address[address], [id number] Pcp:Samy Duff MD Subjective: * Chief Complaints: [...] MD Date: 0 06/13/2023 Generated for Casey you/Estiven/Olmanitting on: 0 09/23/2024 11:11 AM EDT
--- NOTE | 2024-09-23 10:30 | A.OFFVIS_ITS ---
Vital Signs 09/23/24 10:34 Height 5 ft 4 in Weight 248 lb BMI 42.6 BP 130/63 Blood Pressure Location Lt brachial Position Sitting Pulse 83 Pulse Source Pulse Oximeter Pulse Oximetry (%) 100 Oxygen Delivery Method Room Air Intake Visit Reasons: S/p (L) SI Joint Fusion 09/17/24 Intake Note: Pain today 3/10 Hard Candy Spinner Required: No Accompanied by: Spouse Allergies No Known Allergies (No Known Allergies*) Allergy (Verified 09/23/24 10:35) HPI Comments Details: Patient presents for first post-op follow-up following left SI joint fusion with LinkQ (PainTEQ) done on 09/17/[address] Obregon. She reports her pain level as 3/10, indicating mild discomfort post-surgery. There are no signs of infection such as fever or chills, and the patient denies any unusual symptoms. Patient has been taking oxycodone in the first post-op days and lately requires occasional use at bedtime. Postoperative care instructions were discussed, including the continuation of wearing a supportive SI joint belt and avoiding excessive bending, twisting, and climbing stairs to facilitate healing. The patient was advised against showering to prevent water exposure to the incision site, with sponge baths recommended instead. She is ambulating independently with weight bearing as tolerated. She is wearing SI joint belt. Past Procedures: 09/17/24: Left SI joint fusion with LinkQ (PainTEQ)-70% ongoing pain relief 01/31/23: Left Therapeutic SIJ injection-90% pain relief >6 months 01/21/23: Left Diagnostic SIJ [id number] pain relief for 5-6 hours PRIOR: The patient is a 68-year-old female presenting with SI joint fusion considerations, attributing chronic low back pain to arthritis and and SI joint dysfunction. Her medical history involves prior left-sided hemilaminectomy with significant radicular and SI symptoms affecting the lower extremity. She has attempted conservative management strategies which provided limited long-term efficacy. Given the persistent nature of her condition and moderate success with prior SI joint injections, she seeks lasting resolution via SI joint fusion intervention. - Pain Onset and Timing: The pain is chronic, persistent, and has been present for months with recent exacerbations. - Quality and Character: Described as throbbing, aching, dull and severe, particularly at night. - Primary Location: Lower back, left lower extremity, especially the posterior thigh and knee area. - Radiation: Radiates from the SI joint down the left leg. - Exacerbating Factors: Changing positions, prolonged sitting, walking or standing, showering requires adjustments to minimize discomfort. - Relieving Factors: Previous SI joint injections, medication trials, and SI joint belt provided temporary relief. - Impacted Activities: Difficulty with leg elevation and activities like washing that require leg positioning. PRIOR: Patient presents today for follow up to review recent pelvis MRI results. Patient reports new onset of bilateral radiculopathy, worse on the left about 6 weeks ago. Denies any inciting event, trauma, injury or falls. Patient reports she cannot shop without cart for past 2 months due to need to lean forward to alleviate some of her back pain. Back pain radiates all the way down to the left lower leg in L5-S1 distribution whereas on the right it is mainly in the right thigh up to the knee. She had discectomy by Dr. Haney in 2011 or 2012. We will p apoorva with updating her lumbar spine MRI, last one was completed in 2018, to rule out direct nerve root impingement. Denies any bladder or bowel dysfunction or saddle anesthesia. PRIOR: Patient presents today for follow-up for chronic left-sided low back pain and SI joint pain. She was last seen in our office last year in January status post therapeutic left SI joint injection which provided her pain for over 6 months. Patient reports left SI joint pain has returned to baseline and has been negatively affecting her ADLs, functioning, mobility, sleep, and social interactions. Patient presents with her for reports patient who could not enjoy their recent vacation due to increased pain with walking, sitting, or changing positions. Patient is interested to repeat left therapeutic SI joint injection under sedation as well as interested to discuss more permanent pain management solutions for this pain generators. She denies any recent trauma, injury, or falls. Denies any recent cough, cold, infection, fever, weakness, numbness, tingling, bladder or bowel dysfunction, saddle anesthesia or other significant changes in medical history since last office visit. Past Procedures: 01/31/23: Left Therapeutic SIJ injection-90% pain relief >6 months 01/21/23: Left Diagnostic SIJ [id number]% pain relief for 5-6 hours *ADDENDUM Patient called back today and prefers to proceed with Left Sacroiliac Joint Fusion with PainTEQ LinQ SI Joint Stabilization System under sedation and fluoroscopy for a longer term pain management of chronic left SI joint pain. She completed diagnostic and therapeutic injections with good results. She is a former smoker. Patient reports moderate to severe daily and chronic pain with functional limitations and reduced mobility due to pain. Pain is localized to left sided lower back pain with radiation into her left buttock and sacral area and into left lateral hip without groin pain. She has failed previous conservative measures, including home exercise program for lower back and SIJ areas, activity modifications and medication trials. PRIOR: Patient is a pleasant 67 years old female who was previously seen in our office by Tyra JOAQUIN in 2020 and prior in [address] Cruz presents today for follow up for left low back pain with left hip and thigh pain. Patient reports midline low back pain that radiates into her left buttock and left groin and anterior left thigh without numbness or tingling. Pain increases with walking over 5 minutes and prolonged sitting. She denies significant pain while standing especially holding on to something. Reports left groin pain with getting out of bed or shower. Patient also reports shooting, sharp pain into her left groin and thigh with prolonged standing while cooking or washing dishes. She reports physical therapy in the past was not well tolerated due to increased pain. Tylenol, NSAIDs, heat and ice therapy and aqua therapy has been partially. She has been using stationary bike but due to pain has been using this less than before. Patient reports previous back injections provided minimal pain relief. Patient denies any bladder or bowel incontinence or saddle anesthesia. [facility] Medical History Osteopenia Osteoarthritis of hands, bilateral Degenerative joint disease of left hip Tenosynovitis of thumb Constipation Obesity (BMI 30-39.9) Depression Allergic rhinitis Deep left inguinal pain Lumbar degenerative disc disease GERD without esophagitis Impaired fasting glucose Palpitations COPD (chronic obstructive pulmonary disease) Benign essential hypertension Surgical History History of colonoscopy History of eye surgery History of surgery History of total abdominal hysterectomy and bilateral salpingo-oophorectomy History of laparoscopic cholecystectomy History of appendectomy History of removal of cyst History of left knee surgery Family History Father CHF (congestive heart failure) Colon cancer Hypertension CVD (cardiovascular disease) Mother CVD (cardiovascular disease) Social History Housing: House Are you a primary long term care social worker to a significant other at home: No Do you presently have visiting nurse or other home services: No Alcohol intake: never Comment: COUNTS CORRECT Patient Tobacco Use Status: Former Tobacco user e-Cigarette/Vaping Use: Never Used Second Hand Smoke Exposure: Yes service: No Current occupational status: disabled Cognitive needs: No Hearing needs: No Vision needs: Yes (glasses) Review of Systems Const All systems reviewed & are unremarkable except as noted in HPI and below Physical Exam Vital Signs: Last Vital Signs Pulse 83 09/23/24 10:34 BP 130/63 09/23/24 10:34 Pulse Ox 100 09/23/24 10:34 Oxygen Delivery Method Room Air 09/23/24 10:34 BMI result Body Mass Index 42.6 General: Appears afebrile. Alert and oriented. Mood and affect appropriate. Follows and participates in conversation appropriately. Respiratory effort is unlabored. No cough. Able to transition from sit to stand unassisted. Ambulates with bilaterally normal heel strike and toe off, increased pain on the left. Back/Spine/Pelvis Other: Incision site is clean, dry, and intact. Rony x 4 are intact. No pathological discharge, no swelling, erythema, redness or tenderness. Some bruising noted to medial left buttock. Dressing changed today. Patient is wearing a SIJ belt. Cervical Spine: cervical ROM normal and No Cervical spine tenderness Thoracic/Lumbar Spine: thoracic and lumbar spine normal to inspection, No thoracic spinal tenderness and No lumbar spinal tenderness Sacroiliac joints: on the right nontender and on the left (mild TTP) Results Reviewed Results Reviewed: XR lumbar spine 6V w bending, XR left hip with pelvis 12/05/22 EXAMINATION: lumbar spine and left hip. CLINICAL INDICATIONS: Radiculopathy lumbar region. COMPARISON: Lumbar spine 07/23/2017 FINDINGS: LUMBAR SPINE: There is normal lumbar lordosis. The vertebral heights and alignment are normal. There is loss of L5-S1 disc height. Rest of the disc heights, vertebral heights and alignment is normal. There is mild ventral spondylosis throughout lumbar spine. No visible acute fracture, dislocation seen. There is no subluxation on flexion or extension views. There is mild bilateral L4-L5 and L5-S1 facet arthropathy. AP PELVIS AND LEFT HIP: There is mild loss of joint space and bilateral hip joints. SI joints are symmetrical. No visible fracture, lytic or sclerotic process seen. There is mild periarticular degenerative spurring inferior left hip joint. IMPRESSION: No acute fracture, dislocation or subluxation in lumbar spine. There is mild L5-S1 degenerative disc changes. Unremarkable AP pelvis and left hip. MR pelvis wo con 01/27/24 IMPRESSION: 1. No evidence of pelvic or bilateral hip fracture or dislocation. 2. Interval development of Sigmoid diverticulosis without diverticulitis. 3. Unchanged Status post hysterectomy. 4. Prominent bilateral L4-L5 and L5-S1 apophyseal joint osteoarthritis. MR LUMBAR SPINE WITHOUT CONTRAST 04/26/24 at [facility] INDICATION: Postlaminectomy syndrome, lumbar disc degenerations TECHNIQUE: Standard lumbar spine protocol without contrast COMPARISON: None. FINDINGS: Vertebral bodies demonstrate normal height and signal intensity. There is mild levoscoliosis of the lumbar curvature. Conus demonstrates normal contour and signal and terminates at L1 level. T12-L2: No significant abnormalities are seen. L2-L3 level shows asymmetric disc bulge and mild disc desiccation. The canal and foramina are patent. At L3-L4 level, there is shallow central disc bulge, ligamental and facet hypertrophy. Slight anterolisthesis of L3 on L4 is seen. The canal and recesses are patent. Mild foraminal narrowing is present without neural impingement seen. L4-L5 level shows central and foraminal shallow disc bulge, superimposed by slight degenerative anterolisthesis of L4 on L5 and facet arthrosis. The canal and recesses are preserved. Mild foraminal narrowing is present. At L5-S1 level, there are postsurgical changes related to left-sided hemilaminectomy. There is shallow central and foraminal disc bulge superimposed by facet arthrosis, resulting in mild to moderate foraminal narrowing, contacting the exiting L5 nerve roots. The canal and recesses are preserved. No MRI evidence for spondylolysis is seen. Visualized upper SI joints are preserved. IMPRESSION: 1. Postsurgical changes at L5-S1 level related to prior left-sided hemilaminectomy. No recurrent disc herniations are present. 2. Mild changes of multilevel lumbar spondylosis and foraminal narrowing extending from L3 to S1 levels as detailed above. 3. Mild levoscoliosis of the lumbar curvature. Assessment & Plan Assessment & Plan (1) Lumbar degenerative disc disease: Code(s): M51.36 - Other intervertebral disc degeneration, lumbar region Category: Medical Qualifiers: Disc-related pain type: discogenic back pain and lower extremity pain Qualified Code(s): M51.362 - Other intervertebral disc degeneration, lumbar region with discogenic back pain and lower extremity pain (2) Lumbar facet arthropathy: Code(s): M47.816 - Spondylosis without myelopathy or radiculopathy, lumbar region Category: Medical (3) Post laminectomy syndrome: Code(s): M96.1 - Postlaminectomy syndrome, not elsewhere classified Category: Medical (4) Chronic pain syndrome: Code(s): G89.4 - Chronic pain syndrome Category: Medical (5) Sacroiliac joint pain: Code(s): M53.3 - Sacrococcygeal disorders, not elsewhere classified Category: Medical Plan Patient is a status post successful right SIJ fusion on 09/17/24 with significant chronic SIJ pain relief in the projection of the left SIJ. She reports mild post-op pain and has been taking oxycodone on as needed and rare use basis. Dressing was changed today. No pathological discharge, no swelling, erythema, redness or tenderness. [place] are intact. Continue wearing SIJ belt 14/10, activity modifications including avoiding climbing stairs, bending, twisting or riding bumpy roads. Her pain level is within expected limits and improving. All questions were answered and the patient agreed with the plan. Follow up in 1 week for staple removal and sooner as needed. Patient was informed and verbally consented to the use of an ambient scribe for clinic note documentation during this visit. Coding Level of Care Code Est Pt Level 3 (88816) Complex EM visit Add On G2211 Diagnoses Degeneration of intervertebral disc of lumbar region with discogenic back pain and lower extremity pain M51.362 Disc-related pain type: discogenic back pain and lower extremity pain Lumbar facet arthropathy M47.816 Post laminectomy syndrome M96.1 Chronic pain syndrome G89.4 Sacroiliac joint pain M53.3
[2024-09-23 10:34] VITALS: BP 130/63; PULSE 83; O2SAT 100; BMI 42.6
--- OUTSIDE RECORDS SUMMARY | 2024-09-23 11:11 | XMS_ITS | Encounter Summary ---
Author Organization [facility] Address [address] [place] [address] Phone Care Team Providers Care E D Tech Name Role Phone Sony Bonilla Primary Care Provider Unavailable Encounter Details Date Type Department Care Team (Late st Contact Info) Description 12/18/2021 Documentation Only [facility] [address] [place] [address] Reyna Adrian Social History Tobacco [...] on filedocumented in this encounter Care Teams E D Tech Relationship Specialty Start Date End Date Sony Bonilla FNP-C PCP - General Nurse Practitioner 08/17/21 documented as of this encounter
--- OUTSIDE RECORDS SUMMARY | 2024-09-23 11:11 | XMS_ITS | Data Portability ---
Author Organization [facility], [address] Address [address] [place] [address] Care Team Providers Care Seat Covers Trimmer Name Role Phone CIRILO GABRIEL Primary Care [...] By Organization Details Last Modified Time 06/29/2022 [id number] cuts: care instructions Not available 06/29/2022 14:06:50 [...] - Return to have stitches removed in 10 days. General recommendations: Scalp- 7 days Face- 5 [...] or return here if not improving in 3 days. Not available 06/29/2022 13:51:29 07/10/2022 [id number] Keep healing wound clean. Monitor for signs of infection. Seek Emergency Medical evaluation for any signs of infection such as redness, red streaking, purulent drainage, fever, swelling. [email or web address] Not available 07/10/2022 12:22:34 Reason for Referral None Reported. Problems Name Problem SNOMED Code Status Onset Date Resolution Date Notes Provider Name and Address Organization Details Recorded Time Hypertensive disorder 21755448 Active 2022 EVER DEPINTO null, PA - [facility] 12:51:43 Asthma 120460021 Active 2022 EVER DEPINTO null, PA - [facility] 12:51:55 Gastroesophage al reflux disease 425809773 Active 2022 EVER DEPINTO null, PA - [facility] 12:52:03 Problem Notes None recorded. Procedures Surgical History Date Name Laterality Status Provider Name and Address Organization Details Recorded Time 07/11/19 23 Suture Removal completed Blossom Galeano MD [address] [facility] [place], [address], PA - [facility] 07/10/2022 12:23:57 06/30/19 23 Wound Dressing completed Yon Murphy NP [address] [place], [address], [place] - [facility] 06/29/2022 14:08:27 06/30/19 23 Laceration, Simple Repair, (scalp/neck/trunk/ genitalia/extremit ies) 2.6-7.5cm completed Yon Murphy NP [address] [place], [address], PA - [facility] 06/29/2022 14:07:57 06/29/18 83 total hysterectomy with removal of both tubes and ovaries completed EVER DEPINTO PA - [facility] 06/29/2022 12:53:00 discectomy for intervertebral herniated disc, nucleus pulposus completed EVER DEPINTO PA - [facility] 06/29/2022 12:53:29 Imaging Results None [...] height Body mass index (BMI) Body weight Respiratory rate Oxygen saturation Oxygen saturation in Arterial blood by Pulse oximetry Heart rate Body temperature Systolic And Diastolic Provider Name and Address Organization Details Last Updated DateTime 3 165.1 cm 39.9 kg/m2 710092. 17 g 18 /min 97 % 97 % 69 /min 97 [degF] 123/77 mm[Hg] EVER ALBERT PA - [facility] 3 12:53:37 Date Recorded Body height Body mass index (BMI) Body weight Body temperature Respiratory rate Oxygen saturation Oxygen saturation in Arterial blood by Pulse oximetry Heart rate Systolic And Diastolic Provider Name and Address Organization Details Last Updated DateTime 3 165.1 cm 39.9 kg/m2 470756. 17 g 97.5 [degF] 18 /min 96 % 96 % 67 /min 142/78 mm[Hg] EVER SOTOMAYORLana PA - [facility] 3 11:03:19 Social History Question Answer Notes LastModified by [employer] Details LastModified Time Tobacco Smoking Status Never Smoker EVER VOGTJEOVANNY wright PA - [facility] 06/29/2022 12:52:40 Have You Recently Traveled Abroad? No Information not available 06/29/2022 Sex: Unknown Functional Status Question Answer Note LastModified by [employer] Details LastModified Time Do you use any illicit or recreational drugs? No Information not available 06/29/2022 Do you or have you ever used any other forms of tobacco or nicotine? No Information not available 06/29/2022 What is your level of alcohol consumption? None Information not available 06/29/2022 Mental Status None recorded. Family History Relationship Description Onset Age of this Age Resolved Age Notes LastModified by Organization Details LastModified Time Sister Malignant neoplasm of lung Not available 2022 12:52:22 Father Heart disease Not available 2022 12:52:33 Mother Heart disease Not available 2022 12:52:33 Medical History No medical history recorded. Gynecological HistoryNo gynecological history recorded. Obstetrics History GPAL:G 0 P 0 0 0 0 Immunizations Vaccine Type Date Status Note Provider Nam e and Address Organization Details Recorded Time Tdap 3 completed ISA SWEETICA null, PA - [facility] 06/29/2022 15:54:43 [...] SNOMED-CT Code Diagnosis ICD10 Code Diagnosis Note [id number] Yon Murphy [place] [address] [address] 06/29/2022 12:41:58 06/29/2022 14:14:04 Laceration of left hand [id number] 5058770 S61.412A Administra tion of tetanus vaccine 523023799 Z23 [id number] Blossom Galeano MD [address] [address] 07/10/2022 08:28:11 07/10/2022 12:25:34 Laceration of left hand 5005519762 6354915 S61.412D Health Concerns Section Related Observation LastModified by Organization Detai ls LastModified Time None Recorded Concern Status LastModified by Organization Details LastModified Time None Recorded Advance Directives Directive None Recorded Payers Insurance Date Sequence Insurance Name Policy Number Policy Lozada Covered Member ID Lozada Member ID Guarantor Name 07/10/2022 1 [facility] [id number] Meche Soto [id number] Meche Soto Notes Date Note Type Note [...] Yon Murphy NP [address] [place], [address], [facility] 06/29/2022 14:09:36 07/10/2022 text/html UC Wound/LacerationR eported [...] Blossom Galeano MD [address] [place], [address], [facility] 07/10/2022 12:47:27 OBGyn Episode No OBEpisode recorded.
== END 2024-09-23 10:54 | disposition home or self-care (01) ==
LOC: HO.PMC 10:28
PROVIDERS: PCP Internal Medicine; Visit Provider Nurse Practitioner Family
DX: M51.362 Other intervertebral disc degeneration, lumbar region with discogenic back pain and lower extremity pain (principal); M47.816 Spondylosis without myelopathy or radiculopathy, lumbar region; M96.1 Postlaminectomy syndrome, not elsewhere classified; G89.4 Chronic pain syndrome; M53.3 Sacrococcygeal disorders, not elsewhere classified
CPT/HCPCS: 99024

== ENCOUNTER → 2024-09-23 10:27 | Outpatient (BNVA) | payer MEDICARE, SELFPAY | PROVIDERS: PCP Internal Medicine; Visit Provider Nurse Practitioner Family | DX: M51.362 Other intervertebral disc degeneration, lumbar region with discogenic back pain and lower extremity pain (principal); M96.1 Postlaminectomy syndrome, not elsewhere classified; G89.4 Chronic pain syndrome; M53.3 Sacrococcygeal disorders, not elsewhere classified | CPT/HCPCS: 99212 ==

== ENCOUNTER 2024-09-30 11:20 | Outpatient (AMB) | payer MEDICARE, SELFPAY ==
--- OUTSIDE RECORDS SUMMARY | 2023-06-13 06:20 | XMS_ITS ---
Author Organization [facility] Address [address] [place] [address] Care Team Providers Care Obiee Obia Solution Architect Name Role Phone Omega ROLAND, [place] Primary Care Provider Vlad Andersen Unavailable [phone] REASON FOR VISIT screening,hx polyps Problems Problem Type SNOMED Code ICD Code Onset Dates Problem Status W/U Status Risk Notes Problem Diverticular disease of colon (238032176) Diverticulosis of large intestine without perforation or abscess without bleeding (K57.30) Active confirmed Encounters Encounter Location Date Provider Diagnosis [facility] [place] [address] [place] [id number] 06/13/2023 Vlad Abreu Encounter for scre ening [...] ROSELIA DELUNA LDOB: [birth year] (68 yo F)Acc No.[id number]:06/13/2023 COLON WITH MAC Patient: ROSELIA FORDE Provider: Tracie Abreu MD :1955 A ge:67 Y S ex:Female Date:06/13/2023 Address:[facility] [address], [place], [place] Pcp:Samy Duff MD Subjective: * Chief Complaints: [...] 06/13/2023 Generated for Casey you/Estiven/Elmersmitting on: 0 09/30/2024 12:02 PM EDT
[2024-09-30 11:26] VITALS: BP 130/71; PULSE 78; RESP 18; O2SAT 97
--- NOTE | 2024-09-30 11:26 | MHC.OFFVIS ---
Vital Signs 09/30/24 11:26 Weight 249 lb BP 130/71 Blood Pressure Location Lt brachial Position Sitting Respiration 18 Pulse 78 Pulse Source Pulse Oximeter Pulse Oximetry (%) 97 Oxygen Delivery Method Room Air Intake Visit Reasons: S/p (L) SI Joint Fusion 09/17/24 (Second Visit) Slip Laster Required: No Allergies No Known Allergies (No Known Allergies*) Allergy (Verified 09/30/24 11:26) HPI Comments Details: Meche is here again 2 weeks after left SI joint fusion with LinkQ (PainTEQ) done on 09/17/24. She reported good improvement in her pain already. She continues to were sacroiliac joint belt. The dressing was changed today. The wound is dry, no redness, minimal swelling, no tenderness on palpation. Edges of the wounds competent. Rony were removed today. Postoperative care instructions were discussed, including the continuation of wearing a supportive SI joint belt and avoiding excessive bending, twisting, and climbing stairs to facilitate healing. Hygiene limitations were explained to the patient. Past Procedures: 09/17/24: Left SI joint fusion with LinkQ (PainTEQ)-70% ongoing pain relief 01/31/23: Left Therapeutic SIJ injection-90% pain relief >6 months 01/21/23: Left Diagnostic SIJ [id number]-98-24% pain relief for 5-6 hours PRIOR: The patient is a 68-year-old female presenting with SI joint fusion considerations, attributing chronic low back pain to arthritis and and SI joint dysfunction. Her medical history involves prior left-sided hemilaminectomy with significant radicular and SI symptoms affecting the lower extremity. She has attempted conservative management strategies which provided limited long-term efficacy. Given the persistent nature of her condition and moderate success with prior SI joint injections, she seeks lasting resolution via SI joint fusion intervention. - Pain Onset and Timing: The pain is chronic, persistent, and has been present for months with recent exacerbations. - Quality and Character: Described as throbbing, aching, dull and severe, particularly at night. - Primary Location: Lower back, left lower extremity, especially the posterior thigh and knee area. - Radiation: Radiates from the SI joint down the left leg. - Exacerbating Factors: Changing positions, prolonged sitting, walking or standing, showering requires adjustments to minimize discomfort. - Relieving Factors: Previous SI joint injections, medication trials, and SI joint belt provided temporary relief. - Impacted Activities: Difficulty with leg elevation and activities like washing that require leg positioning. PRIOR: Patient presents today for follow up to review recent pelvis MRI results. Patient reports new onset of bilateral radiculopathy, worse on the left about 6 weeks ago. Denies any inciting event, trauma, injury or falls. Patient reports she cannot shop without cart for past 2 months due to need to lean forward to alleviate some of her back pain. Back pain radiates all the way down to the left lower leg in L5-S1 distribution whereas on the right it is mainly in the right thigh up to the knee. She had discectomy by Dr. Haney in 2011 or 2012. We will proceed with updating her lumbar spine MRI, last one was completed in 2018, to rule out direct nerve root impingement. Denies any bladder or bowel dysfunction or saddle anesthesia. PRIOR: Patient presents today for follow-up for chronic left-sided low back pain and SI joint pain. She was last seen in our office last year in January status post therapeutic left SI joint injection which provided her pain for over 6 months. Patient reports left SI joint pain has returned to baseline and has been negatively affecting her ADLs, functioning, mobility, sleep, and social interactions. Patient presents with her for reports patient who could not enjoy their recent vacation due to increased pain with walking, sitting, or changing positions. Patient is interested to repeat left therapeutic SI joint injection under sedation as well as interested to discuss more permanent pain management solutions for this pain generators. She denies any recent trauma, injury, or falls. Denies any recent cough, cold, infection, fever, weakness, numbness, tingling, bladder or bowel dysfunction, saddle anesthesia or other significant changes in medical history since last office visit. Past Procedures: 01/31/23: Left Therapeutic SIJ injection-90% pain relief >6 months 01/21/23: Left Diagnostic SIJ [id number]-89-34% pain relief for 5-6 hours *ADDENDUM Patient called back today and prefers to proceed with Left Sacroiliac Joint Fusion with PainTEQ LinQ SI Joint Stabilization System under sedation and fluoroscopy for a longer term pain management of chronic left SI joint pain. She completed diagnostic and therapeutic injections with good results. She is a former smoker. Patient reports moderate to severe daily and chronic pain with functional limitations and reduced mobility due to pain. Pain is localized to left sided lower back pain with radiation into her left buttock and sacral area and into left lateral hip without groin pain. She has failed previous conservative measures, including home exercise program for lower back and SIJ areas, activity modifications and medication trials. PRIOR: Patient is a pleasant 67 years old female who was previously seen in our office by Tyra JOAQUIN in 2020 and prior in [address] Cruz presents today for follow up for left low back pain with left hip and thigh pain. Patient reports midline low back pain that radiates into her left buttock and left groin and anterior left thigh without numbness or tingling. Pain increases with walking over 5 minutes and prolonged sitting. She denies significant pain while standing especially holding on to something. Reports left groin pain with getting out of bed or shower. Patient also reports shooting, sharp pain into her left groin and thigh with prolonged standing while cooking or washing dishes. She reports physical therapy in the past was not well tolerated due to increased pain. Tylenol, NSAIDs, heat and ice therapy and aqua therapy has been partially. She has been using stationary bike but due to pain has been using this less than before. Patient reports previous back injections provided minimal pain relief. Patient denies any bladder or bowel incontinence or saddle anesthesia. [facility] Medical History Osteopenia Osteoarthritis of hands, bilateral Degenerative joint disease of left hip Tenosynovitis of thumb Constipation Obesity (BMI 30-39.9) Depression Allergic rhinitis Deep left inguinal pain Lumbar degenerative disc disease GERD without esophagitis Impaired fasting glucose Palpitations COPD (chronic obstructive pulmonary disease) Benign essential hypertension Surgical History History of colonoscopy History of eye surgery History of surgery History of total abdominal hysterectomy and bilateral salpingo-oophorectomy History of laparoscopic cholecystectomy History of appendectomy History of removal of cyst History of left knee surgery Family History Father CHF (congestive heart failure) Colon cancer Hypertension CVD (cardiovascular disease) Mother CVD (cardiovascular disease) Social History Housing: House Are you a primary health care / medical job titles to a significant other at home: No Do you presently have visiting nurse or other home services: No Alcohol intake: never Comment: COUNTS CORRECT Patient Tobacco Use Status: Former Tobacco user e-Cigarette/Vaping Use: Never Used Second Hand Smoke Exposure: Yes service: No Current occupational status: disabled Cognitive needs: No Hearing needs: No Vision needs: Yes (glasses) Review of Systems Const All systems reviewed & are unremarkable except as noted in HPI and below Physical Exam Vital Signs: Last Vital Signs Pulse 78 09/30/24 11:26 Resp 18 09/30/24 11:26 BP 130/71 09/30/24 11:26 Pulse Ox 97 09/30/24 11:26 Oxygen Delivery Method Room Air 09/30/24 11:26 General: Appears afebrile. Alert and oriented. Mood and affect appropriate. Follows and participates in conversation appropriately. Respiratory effort is unlabored. No cough. Able to transition from sit to stand unassisted. Ambulates with bilaterally normal heel strike and toe off, increased pain on the left. Back/Spine/Pelvis Other: Incision site is clean, dry, and intact. Fischer x 4 are intact. No pathological discharge, no swelling, erythema, redness or tenderness. Some bruising noted to medial left buttock. Dressing changed today. Patient is wearing a SIJ belt. Cervical Spine: cervical ROM normal and No Cervical spine tenderness Thoracic/Lumbar Spine: thoracic and lumbar spine normal to inspection, No thoracic spinal tenderness and No lumbar spinal tenderness Sacroiliac joints: on the right nontender and on the left (mild TTP) Assessment & Plan Assessment & Plan (1) Lumbar degenerative disc disease: Code(s): M51.36 - Other intervertebral disc degeneration, lumbar region Category: Medical Qualifiers: Disc-related pain type: discogenic back pain and lower extremity pain Qualified Code(s): M51.362 - Other intervertebral disc degeneration, lumbar region with discogenic back pain and lower extremity pain (2) Lumbar facet arthropathy: Code(s): M47.816 - Spondylosis without myelopathy or radiculopathy, lumbar region Category: Medical (3) Post laminectomy syndrome: Code(s): M96.1 - Postlaminectomy syndrome, not elsewhere classified Category: Medical (4) Chronic pain syndrome: Code(s): G89.4 - Chronic pain syndrome Category: Medical (5) Sacroiliac joint pain: Code(s): M53.3 - Sacrococcygeal disorders, not elsewhere classified Category: Medical Plan S/p successful r left SIJ fusion on 09/17/24 with significant chronic SIJ pain relief in the projection of the left SIJ. She reports mild post-op pain and has been taking oxycodone on as needed and rare use basis. Dressing was changed today. No pathological discharge, no swelling, erythema, redness or tenderness. Rony removed today. Continue wearing SIJ belt 14/10, activity modifications including avoiding climbing stairs, bending, twisting or riding bumpy roads. Her pain level is within expected limits and improving. Next appointment in 8 weeks for the follow-up. Coding Level of Care Code Est Pt Level 3 (06222) Diagnoses Degeneration of intervertebral disc of lumbar region with discogenic back pain and lower extremity pain M51.362 Disc-related pain type: discogenic back pain and lower extremity pain Lumbar facet arthropathy M47.816 Post laminectomy syndrome M96.1 Chronic pain syndrome G89.4 Sacroiliac joint pain M53.3
--- OUTSIDE RECORDS SUMMARY | 2024-09-30 12:02 | XMS_ITS | Encounter Summary ---
Author Organization [facility] Address [address] [place] [address] Phone Care Team Providers Care Energy Analyst Name Role Phone Sony Bonilla Primary Care Provider Unavailable Encounter Details Date Type Department Care Team (Late st Contact Info) Description 12/18/2021 Documentation Only [facility] [address] [place] [address] Reyna Adrian Social History Tobacco [...] on filedocumented in this encounter Care Teams Energy Analyst Relationship Specialty Start Date End Date Sony Bonilla FNP-C PCP - General Nurse Practitioner 08/17/21 documented as of this encounter
--- OUTSIDE RECORDS SUMMARY | 2024-09-30 12:02 | XMS_ITS | Data Portability ---
Author Organization [facility], [address] Address [address] [place] [address] Care Team Providers Care Obstetrician And Gynaecologist Name Role Phone CIRILO GABRIEL Primary Care [...] By Organization Details Last Modified Time 06/29/2022 [id number] cuts: care instructions Not available 06/29/2022 14:06:50 [...] 3 days. Not available 06/29/2022 13:51:29 07/10/2022 [id number] Keep healing wound clean. Monitor for signs of infection. Seek Emergency Medical evaluation for any signs of infection such as redness, red streaking, purulent drainage, fever, swelling. [email or web address] Not available 07/10/2022 12:22:34 Reason for Referral None Reported. Problems Name Problem SNOMED Code Status Onset Date Resolution Date Notes Provider Name and Address Organization Details Recorded Time Hypertensive disorder 00196298 Active 2022 EVER DEPINTO null, PA - [facility] 12:51:43 Asthma 764551167 Active 2022 EVER DEPINTO null, PA - [facility] 12:51:55 Gastroesophage al reflux disease 229697917 Active 2022 EVER DEPINTO null, PA - [facility] 12:52:03 Problem Notes None recorded. Procedures Surgical History Date Name Laterality Status Provider Name and Address Organization Details Recorded Time 07/11/19 23 Suture Removal completed Blossom Galeano MD [address] [facility] [place], [address], [place] - [facility] 07/10/2022 12:23:57 06/30/19 23 Wound Dressing completed Yon Murphy NP [address] [place], [address], [place] - [facility] 06/29/2022 14:08:27 06/30/19 23 Laceration, Simple Repair, (scalp/neck/trunk/ genitalia/extremit ies) 2.6-7.5cm completed Yon Murphy NP [address] [place], [address], [place] - [facility] 06/29/2022 14:07:57 06/29/18 [...] Updated DateTime 3 165.1 cm 39.9 kg/m2 103863. 17 g 18 /min 97 % 97 [...] Updated DateTime 3 165.1 cm 39.9 kg/m2 404298. 17 g 97.5 [degF] 18 /min 96 % 96 % 67 /min 142/78 mm[Hg] EVER SOTOMAYORLana PA - [facility] 3 11:03:19 Social History Question Answer Notes LastModified by [employer] Details LastModified Time Tobacco Smoking Status Never Smoker EVER VOGTJEOVANNY wright PA - [facility] 06/29/2022 12:52:40 Have You Recently Traveled Abroad? No Information not available 06/29/2022 Sex: Unknown Functional Status Question Answer Note LastModified by [employer] Details LastModified Time Do you use any [...] SNOMED-CT Code Diagnosis ICD10 Code Diagnosis Note [id number] Yon Murphy [place] [address] [address] 06/29/2022 12:41:58 06/29/2022 14:14:04 Laceration of left hand 4649993083 0976831 S61.412A Administra tion of tetanus vaccine 636119050 Z23 [id number] Blossom Galeano MD [address] [address] 07/10/2022 08:28:11 07/10/2022 12:25:34 Laceration of left hand 2392995020 4219916 S61.412D Health Concerns Section Related Observation LastModified by Organization Detai ls LastModified Time None Recorded Concern Status LastModified by Organization Details LastModified Time None Recorded Advance Directives Directive None Recorded Payers Insurance Date Sequence Insurance Name Policy Number Policy Lozada Covered Member ID Lozada Member ID Guarantor Name 07/10/2022 1 [facility] [id number] Meche Soto [id number] Meche Soto Notes Date Note Type Note [...] Yon Murphy NP [address] [place], [address], [email or web address] 06/29/2022 14:09:36 07/10/2022 text/html UC Wound/LacerationR eported [...] Blossom Galeano MD [address] [place], [address], [email or web address] 07/10/2022 12:47:27 OBGyn Episode No OBEpisode recorded.
== END 2024-09-30 11:36 | disposition home or self-care (01) ==
LOC: HO.PMC 11:21
PROVIDERS: PCP Internal Medicine; Visit Provider Anesthesiology
DX: M51.362 Other intervertebral disc degeneration, lumbar region with discogenic back pain and lower extremity pain (principal); M47.816 Spondylosis without myelopathy or radiculopathy, lumbar region; M96.1 Postlaminectomy syndrome, not elsewhere classified; G89.4 Chronic pain syndrome; M53.3 Sacrococcygeal disorders, not elsewhere classified
CPT/HCPCS: 99024

== ENCOUNTER → 2024-09-30 11:20 | Outpatient (BNVA) | payer MEDICARE, SELFPAY | PROVIDERS: PCP Internal Medicine; Visit Provider Anesthesiology | DX: M51.362 Other intervertebral disc degeneration, lumbar region with discogenic back pain and lower extremity pain (principal); M47.816 Spondylosis without myelopathy or radiculopathy, lumbar region; M96.1 Postlaminectomy syndrome, not elsewhere classified; M53.3 Sacrococcygeal disorders, not elsewhere classified; G89.4 Chronic pain syndrome | CPT/HCPCS: 99212 ==

== ENCOUNTER 2024-10-04 10:16 | Outpatient (REF) | payer MEDICARE, SELFPAY ==
--- OUTSIDE RECORDS SUMMARY | 2023-06-13 06:20 | XMS_ITS ---
Author Organization [facility] Address [address] [place] [address] Care Team Providers Care Senior Reliability Engineer Name Role Phone Omega ROLAND, [place] Primary Care Provider Vlad Andersen Unavailable [phone] REASON FOR VISIT screening,hx polyps Problems Problem Type SNOMED Code ICD Code Onset Dates Problem Status W/U Status Risk Notes Problem Diverticular disease of colon (154940208) Diverticulosis of large intestine without perforation or abscess without bleeding (K57.30) Active confirmed Encounters Encounter Location Date Provider Diagnosis [facility] [place] [address] [place] [phone] 06/13/2023 Vlad Abreu Encounter for scre ening [...] ROSELIA DELUNA LDOB: [birth year] (68 yo F)Acc No.[id number]:06/13/2023 COLON WITH MAC Patient: ROSELIA FORDE Provider: Tracie Abreu MD :1955 A ge:67 Y S ex:Female Date:06/13/2023 Address:[facility] [address], [place], [place] Pcp:Samy Duff MD Subjective: * Chief Complaints: [...] 06/13/2023 Generated for Casey you/Estiven/Elmersmitting on: 0 10/04/2024 10:59 AM EDT
--- NOTE | ~2024-10-04 | MM_ITS ---
EXAMINATION: MM DIAGNOSTIC DIGITAL BREAST TOMOSYNTHESIS, BILATERAL Limited right breast ultrasound. CLINICAL INFORMATION: Two-year follow-up for focal asymmetry in the upper outer right breast and probable complicated cyst on ultrasound. COMPARISON: Mammography: Comparison is made with relevant prior exams. TECHNIQUE: Digital breast mammography with tomosynthesis is performed in both the craniocaudal and mediolateral oblique views along with computer-aided detection (CAD). FINDINGS: There are scattered areas of fibroglandular density (ACR BI-RADS breast composition Category b). Focal asymmetry in the upper outer right breast anterior depth is not significantly changed on prior mammography dating back for 2 years. No significant masses calcifications or other abnormal findings. Targeted color Doppler ultrasound scanning at 11:00 2 cm from nipple again demonstrates a hypoechoic oval circumscribed solid mass versus complicated cyst measuring 4 x 3 x 2 mm overall decreased in size comparison with prior ultrasounds dating back for 2 years and therefore benign. Results are provided to the patient at time of visit by the technologist. MM/MM tomosynthesis diagnostic BI IMPRESSION: Left: Negative. Right: Focal asymmetry in the upper outer quadrant anterior depth correlating with a probable complicated cyst at 11:00 2 cm from the nipple on ultrasound is not significantly changed from more than 2 years and therefore benign. ASSESSMENT: BI-RADS BI-RADS 2 - Benign Findings RECOMMENDATION: 1 year F/U This patient's information was entered into a reminder system with a target due date for their next mammogram. Electronically signed by: Radha Avalos DO 10/04/2024 11:40 AM EDT
--- OUTSIDE RECORDS SUMMARY | 2024-10-04 10:59 | XMS_ITS | Data Portability ---
Author Organization [facility], [address] Address [address] [place] [address] Care Team Providers Care Bioinformatics Scientist Name Role Phone CIRILO GABRIEL Primary Care [...] By Organization Details Last Modified Time 06/29/2022 [id number] cuts: care instructions Not available 06/29/2022 14:06:50 [...] 3 days. Not available 06/29/2022 13:51:29 07/10/2022 [id number] Keep healing wound clean. Monitor for signs of infection. Seek Emergency Medical evaluation for any signs of infection such as redness, red streaking, purulent drainage, fever, swelling. [email or web address] Not available 07/10/2022 12:22:34 Reason for Referral None Reported. Problems Name Problem SNOMED Code Status Onset Date Resolution Date Notes Provider Name and Address Organization Details Recorded Time Hypertensive disorder 59917932 Active 2022 EVER DEPINTO null, PA - [facility] 12:51:43 Asthma 615576830 Active 2022 EVER DEPINTO null, PA - [facility] 12:51:55 Gastroesophage al reflux disease 819658797 Active 2022 EVER DEPINTO null, PA - [facility] 12:52:03 Problem Notes None recorded. Procedures Surgical History Date Name Laterality Status Provider Name and Address Organization Details Recorded Time 07/11/19 23 Suture Removal completed Blossom Galeano MD [address] [facility] [place], [address], [place] - [facility] 07/10/2022 12:23:57 06/30/19 23 Wound Dressing completed Yon Murphy NP [address] [place], [address], [place] - [facility] 06/29/2022 14:08:27 06/30/19 23 Laceration, Simple Repair, (scalp/neck/trunk/ genitalia/extremit ies) 2.6-7.5cm completed Yon Murphy NP [address] [place], [address], PA - [facility] 06/29/2022 14:07:57 06/29/18 [...] Updated DateTime 3 165.1 cm 39.9 kg/m2 344661. 17 g 18 /min 97 % 97 [...] Updated DateTime 3 165.1 cm 39.9 kg/m2 359722. 17 g 97.5 [degF] 18 /min 96 % 96 % 67 /min 142/78 mm[Hg] EVER SOTOMAYORLana PA - [facility] 3 11:03:19 Social History Question Answer Notes LastModified by [employer] Details LastModified Time Tobacco Smoking Status Never Smoker EVER VOGTJEOVANNY wright PA - [facility] 06/29/2022 12:52:40 Have You Recently Traveled Abroad? No Information not available 06/29/2022 Sex: Unknown Functional Status Question Answer Note LastModified by [employer] Details LastModified Time Do you use any [...] SNOMED-CT Code Diagnosis ICD10 Code Diagnosis Note [id number] Yon Murphy [place] [address] [address] 06/29/2022 12:41:58 06/29/2022 14:14:04 Laceration of left hand 9582332301 3100979 S61.412A Administra tion of tetanus vaccine 642068367 Z23 [id number] Blossom Galeano MD [address] [address] 07/10/2022 08:28:11 07/10/2022 12:25:34 Laceration of left hand 5604604827 4615596 S61.412D Health Concerns Section Related Observation LastModified by Organization Detai ls LastModified Time None Recorded Concern Status LastModified by Organization Details LastModified Time None Recorded Advance Directives Directive None Recorded Payers Insurance Date Sequence Insurance Name Policy Number Policy Lozada Covered Member ID Lozada Member ID Guarantor Name 07/10/2022 1 [facility] [id number] Meche Soto [id number] Meche Soto Notes Date Note Type Note [...] Yon Murphy NP [address] [place], [address], [facility] 06/29/2022 14:09:36 07/10/2022 text/html UC Wound/LacerationR eported [...] Blossom Galeano MD [address] [place], [address], [facility] 07/10/2022 12:47:27 OBGyn Episode No OBEpisode recorded.
--- OUTSIDE RECORDS SUMMARY | 2024-10-04 10:59 | XMS_ITS | Encounter Summary ---
Author Organization [facility] Address [address] [place] [address] Phone Care Team Providers Care Cable Former Name Role Phone Sony Bonilla Primary Care Provider Unavailable Encounter Details Date Type Department Care Team (Late st Contact Info) Description 12/18/2021 Documentation Only [facility] [address] [place] [address] Reyna Adrian Social History Tobacco [...] on filedocumented in this encounter Care Teams Cable Former Relationship Specialty Start Date End Date Sony Bonilla FNP-C PCP - General Nurse Practitioner 08/17/21 documented as of this encounter
== END 2024-10-04 10:17 | disposition home or self-care (01) ==
LOC: HO.MAMMO 10:16
PROVIDERS: PCP Internal Medicine; Visit Provider Internal Medicine
DX: R92.2 Inconclusive mammogram (principal)
CPT/HCPCS: 76642; 77062; 77066

== ENCOUNTER → 2024-10-04 10:30 | Outpatient (BNV) | payer MEDICARE, SELFPAY | PROVIDERS: PCP Internal Medicine; Visit Provider Internal Medicine | DX: N60.01 Solitary cyst of right breast (principal) | CPT/HCPCS: 76642; 77066; G0279 ==

== ENCOUNTER 2024-11-25 08:12 | Outpatient (AMB) | payer MEDICARE, SELFPAY ==
--- OUTSIDE RECORDS SUMMARY | 2023-06-13 06:20 | XMS_ITS ---
Author Organization [facility] Address [address] [place] [address] Care Team Providers Care Activities Director Scouting Name Role Phone Omega ROLAND, [place] Primary Care Provider Vlad Andersen Unavailable [phone] REASON FOR VISIT screening,hx polyps Problems Problem Type SNOMED Code ICD Code Onset Dates Problem Status W/U Status Risk Notes Problem Diverticular disease of colon (660469935) Diverticulosis of large intestine without perforation or abscess without bleeding (K57.30) Active confirmed Encounters Encounter Location Date Provider Diagnosis [facility] [place] [address] [place] [phone] 06/13/2023 Vlad Abreu Encounter for scre ening [...] ROSELIA DELUNA LDOB: [birth year] (68 yo F)Acc No.[id number]:06/13/2023 COLON WITH MAC Patient: ROSELIA FORDE Provider: Tracie Abreu MD :1955 A ge:67 Y S ex:Female Date:06/13/2023 Address:[facility] [address], [place], [place] Pcp:Samy Duff MD Subjective: * Chief Complaints: [...] 06/13/2023 Generated for Casey you/Estiven/Elmersmitting on: 0 11/25/2024 08:30 AM EDT
[2024-11-25 08:20] VITALS: BP 141/70; PULSE 75; RESP 18; O2SAT 98
--- NOTE | 2024-11-25 08:20 | A.OFFVIS_ITS ---
Vital Signs 11/25/24 08:20 Weight 244 lb BP 141/70 H Blood Pressure Location Lt brachial Position Sitting Respiration 18 Pulse 75 Pulse Source Pulse Oximeter Pulse Oximetry (%) 98 Oxygen Delivery Method Room Air Intake Visit Reasons: 8 Week Follow up Mental Health Program Manager Required: No Allergies No Known Allergies (No Known Allergies*) Allergy (Verified 11/25/24 08:21) HPI Comments Details: Meche is here 10 weeks s after left SI joint fusion with LinkQ (PainTEQ) done on 09/17/24. She reported good improvement in her pain already. She continues to wear sacroiliac joint belt. She reports pain now in the projection of the left hip joint. She reports pain in the groin. Lateral and medial rotation of the left hip aggravates pain in the groin but lateral rotation aggravates pain more than medial. She also complains on numbness in the right thigh, she stated that this numbness was present even before the left SI joint fusion procedure. She had an MRI of the lumbar spine performed at [facility], it did not demonstrate any nerve root compression and upper lumbar spine. Therefore the referral to neurosurgeon is not necessary. This is minor issue which aggravates the patient when she is standing or walking. We agreed today that I will schedule this patient for left hip joint injection with sedation. Past Procedures: 09/17/24: Left SI joint fusion with LinkQ (PainTEQ)-70% ongoing pain relief 01/31/23: Left Therapeutic SIJ injection-90% pain relief >6 months 01/21/23: Left Diagnostic SIJ [id number]% pain relief for 5-6 hours PRIOR: The patient is a 68-year-old female presenting with SI joint fusion considerations, attributing chronic low back pain to arthritis and and SI joint dysfunction. Her medical history involves prior left-sided hemilaminectomy with significant radicular and SI symptoms affecting the lower extremity. She has attempted conservative management strategies which provided limited long-term efficacy. Given the persistent nature of her condition and moderate success with prior SI joint injections, she seeks lasting resolution via SI joint fusion intervention. - Pain Onset and Timing: The pain is chronic, persistent, and has been present for months with recent exacerbations. - Quality and Character: Described as throbbing, aching, dull and severe, part icularly at night. - Primary Location: Lower back, left lower extremity, especially the posterior thigh and knee area. - Radiation: Radiates from the SI joint down the left leg. - Exacerbating Factors: Changing positions, prolonged sitting, walking or standing, showering requires adjustments to minimize discomfort. - Relieving Factors: Previous SI joint injections, medication trials, and SI joint belt provided temporary relief. - Impacted Activities: Difficulty with leg elevation and activities like washing that require leg positioning. PRIOR: Patient presents today for follow up to review recent pelvis MRI results. Patient reports new onset of bilateral radiculopathy, worse on the left about 6 weeks ago. Denies any inciting event, trauma, injury or falls. Patient reports she cannot shop without cart for past 2 months due to need to lean forward to alleviate some of her back pain. Back pain radiates all the way down to the left lower leg in L5-S1 distribution whereas on the right it is mainly in the right thigh up to the knee. She had discectomy by Dr. Haney in 2011 or 2012. We will proceed with updating her lumbar spine MRI, last one was completed in 2018, to rule out direct nerve root impingement. Denies any bladder or bowel dysfunction or saddle anesthesia. PRIOR: Patient presents today for follow-up for chronic left-sided low back pain and SI joint pain. She was last seen in our office last year in January status post therapeutic left SI joint injection which provided her pain for over 6 months. Patient reports left SI joint pain has returned to baseline and has been negatively affecting her ADLs, functioning, mobility, sleep, and social interactions. Patient presents with her for reports patient who could not enjoy their recent vacation due to increased pain with walking, sitting, or changing positions. Patient is interested to repeat left therapeutic SI joint injection under sedation as well as interested to discuss more permanent pain management solutions for this pain generators. She denies any recent trauma, injury, or falls. Denies any recent cough, cold, infection, fever, weakness, numbness, tingling, bladder or bowel dysfunction, saddle anesthesia or other significant changes in medical history since last office visit. Past Procedures: 01/31/23: Left Therapeutic SIJ injection-90% pain relief >6 months 01/21/23: Left Diagnostic SIJ [id number]% pain relief for 5-6 hours *ADDENDUM Patient called back today and prefers to proceed with Left Sacroiliac Joint Fusion with PainTEQ LinQ SI Joint Stabilization System under sedation and fluoroscopy for a longer term pain management of chronic left SI joint pain. She completed diagnostic and therapeutic injections with good results. She is a former smoker. Patient reports moderate to severe daily and chronic pain with functional limitations and reduced mobility due to pain. Pain is localized to left sided lower back pain with radiation into her left buttock and sacral area and into left lateral hip without groin pain. She has failed previous conservative measures, including home exercise program for lower back and SIJ areas, activity modifications and medication trials. PRIOR: Patient is a pleasant 67 years old female who was previously seen in our office by Tyra JOAQUIN in 2020 and prior in [address] Cruz presents today for follow up for left low back pain with left hip and thigh pain. Patient reports midline low back pain that radiates into her left buttock and left groin and ant erior left thigh without numbness or tingling. Pain increases with walking over 5 minutes and prolonged sitting. She denies significant pain while standing especially holding on to something. Reports left groin pain with getting out of bed or shower. Patient also reports shooting, sharp pain into her left groin and thigh with prolonged standing while cooking or washing dishes. She reports physical therapy in the past was not well tolerated due to increased pain. Tylenol, NSAIDs, heat and ice therapy and aqua therapy has been partially. She has been using stationary bike but due to pain has been using this less than before. Patient reports previous back injections provided minimal pain relief. Patient denies any bladder or bowel incontinence or saddle anesthesia. [facility] Medical History Osteopenia Osteoarthritis of hands, bilateral Degenerative joint disease of left hip Tenosynovitis of thumb Constipation Obesity (BMI 30-39.9) Depression Allergic rhinitis Deep left inguinal pain Lumbar degenerative disc disease GERD without esophagitis Impaired fasting glucose Palpitations COPD (chronic obstructive pulmonary disease) Benign essential hypertension Surgical History History of colonoscopy History of eye surgery History of surgery History of total abdominal hysterectomy and bilateral salpingo-oophorectomy History of laparoscopic cholecystectomy History of appendectomy History of removal of cyst History of left knee surgery Family History Father CHF (congestive heart failure) Colon cancer Hypertension CVD (cardiovascular disease) Mother CVD (cardiovascular disease) Social History Housing: House Are you a primary career transition specialist to a significant other at home: No Do you presently have visiting nurse or other home services: No Alcohol intake: never Comment: COUNTS CORRECT Patient Tobacco Use Status: Former Tobacco user e-Cigarette/Vaping Use: Never Used Second Hand Smoke Exposure: Yes service: No Current occupational status: disabled Cognitive needs: No Hearing needs: No Vision needs: Yes (glasses) Review of Systems Const All systems reviewed & are unremarkable except as noted in HPI and below Physical Exam Vital Signs: Last Vital Signs Pulse 75 11/25/24 08:20 Resp 18 11/25/24 08:20 BP 141/70 H 11/25/24 08:20 Pulse Ox 98 11/25/24 08:20 Oxygen Delivery Method Room Air 11/25/24 08:20 General: Appears afebrile. Alert and oriented. Mood and affect appropriate. Follows and participates in conversation appropriately. Respiratory effort is unlabored. No cough. Able to transition from sit to stand unassisted. Ambulates with bilaterally normal heel strike and toe off, increased pain on the left. Back/Spine/Pelvis Other: Incision site is clean, dry, and intact. Rony x 4 are intact. No pathological discharge, no swelling, erythema, redness or tenderness. Some bruising noted to medial left buttock. Dressing changed today. Patient is wearing a SIJ belt. Cervical Spine: cervical ROM normal and No Cervical spine tenderness Thoracic/Lumbar Spine: thoracic and lumbar spine normal to inspection, No thoracic spinal tenderness and No lumbar spinal tenderness Sacroiliac joints: on the right nontender and on the left (mild TTP) Extrem Other: Lateral but not medial hip rotation on the left causes severe aggravation of the pain in the groin. Results Reviewed Results Reviewed: EXAMINATION: XR HIP, LEFT CLINICAL INFORMATION: Pain left hip COMPARISON: None TECHNIQUE: AP one view. Two views of the left hip. FINDINGS: AP PELVIS: There is normal symmetry of bilateral hip joints and SI joints. No visible fracture, dislocation or subluxation seen. No bony abnormality seen. AP and frog-leg views of left hip reveal moderate lateral acetabular inferior femoral head spurring. No bony erosive changes. No acute fracture or lytic process seen. The soft tissues are normal. IMPRESSION: Mild degenerative changes left hip joint. No visible acute fracture or dislocation seen. The SI joints are symmetrical and normal. The right hip joint is normal. Assessment & Plan Assessment & Plan (1) Lumbar degenerative disc disease: Code(s): M51.36 - Other intervertebral disc degeneration, lumbar region Category: Medical Qualifiers: Disc-related pain type: discogenic back pain and lower extremity pain Qualified Code(s): M51.362 - Other intervertebral disc degeneration, lumbar region with discogenic back pain and lower extremity pain (2) Lumbar facet arthropathy: Code(s): M47.816 - Spondylosis without myelopathy or radiculopathy, lumbar region Category: Medical (3) Post laminectomy syndrome: Code(s): M96.1 - Postlaminectomy syndrome, not elsewhere classified Category: Medical (4) Chronic pain syndrome: Code(s): G89.4 - Chronic pain syndrome Category: Medical (5) Sacroiliac joint pain: Code(s): M53.3 - Sacrococcygeal disorders, not elsewhere classified Category: Medical (6) Degenerative joint disease of left hip: Code(s): M16.12 - Unilateral primary osteoarthritis, left hip Category: Medical Qualifiers: Osteoarthritis type: unspecified Qualified Code(s): M16.12 - Unilateral primary osteoarthritis, left hip Plan S/p successful r left SIJ fusion on 09/17/24 with significant chronic SIJ pain relief in the projection of the left SIJ. Continues to wear the SI joint belt but now intermittently. Now she reports pain in the left groin, most likely related to left hip joint arthritis. See the x-ray and physical exam as above. I will schedule this patient for therapeutic left hip injection. She wants this procedure to be done under sedation. Patient Instructions: I here by testify that I spent 35 minutes in conversation with this patient as well as planning her care evaluating her diagnostic images and records and organizing this note. Coding Level of Care Code Est Pt Level 4 (56944) Diagnoses Degeneration of intervertebral disc of lumbar region with discogenic back pain and lower extremity pain M51.362 Disc-related pain type: discogenic back pain and lower extremity pain Lumbar facet arthropathy M47.816 Post laminectomy syndrome M96.1 Chronic pain syndrome G89.4 Sacroiliac joint pain M53.3 Osteoarthritis of left hip, unspecified osteoarthritis type M16.12 Osteoarthritis type: unspecified
--- OUTSIDE RECORDS SUMMARY | 2024-11-25 08:30 | XMS_ITS | Encounter Summary ---
Author Organization [facility] Address [address] [facility] [address] [place] [address] Phone Care Team Providers Care Cork Mixer Name Role Phone Sony Bonilla Primary Care Provider Unavailable Reason for Visit * Reason Comments Med Refill Encounter Details Date Type Department Care Team (Late st Contact Info) Description 03/03/2024 Refill [facility] [address] [facility] [address] [place] [address] Gabino De Dios MD [address] [facility] [address] [place] [address] Essential (primary) hypertension Social History [...] hypertension documented in this encounter Care Teams Cork Mixer Relationship Specialty Start Date End Date Sony Bonilla FNP-C PCP - General Nurse Practitioner 08/17/21 documented as of this encounter
--- OUTSIDE RECORDS SUMMARY | 2024-11-25 08:30 | XMS_ITS | Patient Health Record ---
Author Organization [facility] Address [address] [place] [address] Care Team Providers Care Peoplesoft Financials Consultant Name Role Phone Omega ROLAND, Samy Primary Care Provider Vlad Andersen Unavailable [phone] Allergies No Known Allergies Reason For Referral [...] Problem Status W/U Status Risk Notes Problem [id number] Encounter for screening for malignant neoplasm of colon (Z12.11) Active confirmed Problem [id number] History of adenomatous polyp of colon (Z86.010) Active confirmed Problem Diverticular disease of colon (965308832) Diverticulosis of large intestine without perforation or abscess without bleeding (K57.30) Active confirmed Problem [id number] Gastroesophageal reflux disease without esophagitis (K21.9) Active confirmed Problem 69615863 Constipation, unspecified constipation type (K59.00) Active confirmed Plan Of Treatment Pending Test Test Name Order Date Pathology 06/13/2023 Future Test Test Name Order Date UPPER GI ENDOSCOPY 05/14/2012 COLONOSCOPY 05/14/2012 COLONOSCOPY 11/19/2017 COLONOSCOPY 03/12/2023 Insurance Providers Payer Name Payer Address Payer Phone Subscriber Number Group Number Insured Name Patient Relationship to Insured Coverage Start Date Coverage End Date [employer] [address] [place] [id number] ROSELIA DELUNA Self - patient is the insured Medical (General) History Medical History History ICD Code Colonoscopy 12/19/2006-flat tubular adenoma removed from the Asc. colon, melanosis coli Neg. F/U colonoscopy in 11/2008 Mild diverticulosis Internal and external hemorrhoids GERD with chronic cough--EGD in 06/2012--small HH, no esophagitis nor Kelley's HTN Asthma Denies [place],DM,CVA,renal disease Colonoscopy in 06/2012--small tubular keagan nomas removed Negative colonoscopy in 11/2017 Surgical History Surgery Date(Month/Year) KATRIN except for a piece of an ovary Knee surgery Back surgery Surgery for cyst on her face [facility]
--- OUTSIDE RECORDS SUMMARY | 2024-11-25 08:30 | XMS_ITS | Encounter Summary ---
Author Organization [facility] Address [address] [place] [address] Phone Care Team Providers Care Grainer Machine Name Role Phone Sony Bonilla Primary Care Provider Unavailable Encounter Details Date Type Department Care Team (Late st Contact Info) Description 12/18/2021 Documentation Only [facility] [address] [place] [address] Reyna Adrian Social History Tobacco [...] on filedocumented in this encounter Care Teams Grainer Machine Relationship Specialty Start Date End Date Sony Bonilla FNP-C PCP - General Nurse Practitioner 08/17/21 documented as of this encounter
--- OUTSIDE RECORDS SUMMARY | 2024-11-25 08:30 | XMS_ITS | Clinical Summary ---
Author Organization [facility] Facility Address [address] [place] [address] Care Team Providers Care Sterile Tech Name Role Phone Sony Bonilla CLINICAL ASSESSMENT MANAGER-C Primary Care Provider Unavailable Allergies No [...] Cancer Screening: Sigmoidoscopy 12/06/2003 Influenza Vaccine (#1) 2024 Hepatitis B Vaccine Aged Out No longe r eligible based on patient's age to complete this topic Insurance [facility] Care Teams Sterile Tech Relationship Specialty Start Date End Date Sony Bonilla FNP-C PCP - General Nurse Practitioner 08/17/21
--- OUTSIDE RECORDS SUMMARY | 2024-11-25 08:30 | XMS_ITS | Encounter Summary ---
Author Organization [facility] Address [address] [place] [address] Phone Care Team Providers Care Policy Writer Name Role Phone Sony Bonilla Primary Care Provider Unavailable Encounter Details Date Type Department Care Team (Late st Contact Info) Description 12/19/2021 Documentation Only [facility] [address] [place] [address] Reyna Adrian Social History Tobacco [...] on filedocumented in this encounter Care Teams Policy Writer Relationship Specialty Start Date End Date Sony Bonilla FNP-C PCP - General Nurse Practitioner 08/17/21 documented as of this encounter
== END 2024-11-25 08:55 | disposition home or self-care (01) ==
LOC: HO.PMC 08:13
PROVIDERS: PCP Internal Medicine; Visit Provider Anesthesiology
DX: M51.362 Other intervertebral disc degeneration, lumbar region with discogenic back pain and lower extremity pain (principal); M47.816 Spondylosis without myelopathy or radiculopathy, lumbar region; M96.1 Postlaminectomy syndrome, not elsewhere classified; G89.4 Chronic pain syndrome; M53.3 Sacrococcygeal disorders, not elsewhere classified; M16.12 Unilateral primary osteoarthritis, left hip
CPT/HCPCS: 99024

== ENCOUNTER → 2024-11-25 08:12 | Outpatient (BNVA) | payer MEDICARE, SELFPAY | PROVIDERS: PCP Internal Medicine; Visit Provider Anesthesiology | DX: M16.12 Unilateral primary osteoarthritis, left hip (principal); M53.3 Sacrococcygeal disorders, not elsewhere classified; M51.362 Other intervertebral disc degeneration, lumbar region with discogenic back pain and lower extremity pain; M47.816 Spondylosis without myelopathy or radiculopathy, lumbar region; G89.4 Chronic pain syndrome; M96.1 Postlaminectomy syndrome, not elsewhere classified | CPT/HCPCS: 99212 ==

== ENCOUNTER 2024-12-03 07:32 | Outpatient (REF) | payer MEDICARE, SELFPAY ==
--- OUTSIDE RECORDS SUMMARY | 2023-06-13 06:20 | XMS_ITS ---
Author Organization [facility] Address [address] [place] [address] Care Team Providers Care Solid Tire Tuber Machine Operator Name Role Phone Omega ROLAND, [place] Primary Care Provider Vlad Andersen Unavailable [phone] REASON FOR VISIT screening,hx polyps Problems Problem Type SNOMED Code ICD Code Onset Dates Problem Status W/U Status Risk Notes Problem Diverticular disease of colon (375866032) Diverticulosis of large intestine without perforation or abscess without bleeding (K57.30) Active confirmed Encounters Encounter Location Date Provider Diagnosis [facility] [place] [address] [place] [phone] 06/13/2023 Vlad Abreu Encounter for scre ening colonoscopy Z12.11 ; Colon polyps K63.5 ; Diverticulosis of large intestine without perforation or abscess without bleeding K57.30 and Other hemorrhoids K64.8 Assessments Encounter Date Diagnosis (ICD Code) Assessment Notes Treatment Notes Treatment Clinical Notes Section Notes 06/13/2023 Encounter for screening colonoscopy (ICD-10 - Z12.11) 06/13/2023 Colon polyps (ICD-10 - K63.5) 06/13/2023 Diverticulosis of large intestine without perforation or abscess without bleeding (ICD-10 - K57.30) 06/13/2023 Other hemorrhoids (ICD-10 - K64.8) Plan Of Treatment No Information Progress Notes * ROSELIA DELUNA LDOB: [birth year] (68 yo F)Acc No.[id number]:06/13/2023 COLON WITH MAC Patient: ROSELIA FORDE Provider: Tracie Abreu MD :1955 A ge:67 Y S ex:Female Date:06/13/2023 Address:[facility] [address], [place], [place] Pcp:Samy Duff MD Subjective: * Chief Complaints: * 1 . Screening,hx polyps. * Medical History: Objective: * Vitals: Assessment: * Assessment: 1. E ncounter for screening colonoscopy - Z12.11 (Primary) 2 . C olon polyps - K63.5 3 . D iverticulosis of large intestine without perforation or abscess without bleeding - K57.30 4 . O ther hemorrhoids - K64.8 Plan: * Treatment: * Procedure Codes: 4 5380 COLONOSCOPY AND BIOPSY, Modifiers: 33 * * The named appointment provid er may or may not be the originator of this progress note, and it is not deemed complete until electronically signed by the appointment provider. Sign off status: Pending * Provider: Tracie Abreu MD Date: 0 06/13/2023 Generated for Casey you/Estiven/Elmersmitting on: 0 12/03/2024 07:34 AM EDT
--- OUTSIDE RECORDS SUMMARY | 2024-12-03 07:35 | XMS_ITS | Encounter Summary ---
Author Organization [facility] Address [address] [facility] [address] [place] [address] Phone Care Team Providers Care Hydroelectric Plant Electrical Engineer Name Role Phone Sony Bonilla Primary Care Provider Unavailable Reason for Visit * Reason Comments Med Refill Encounter Details Date Type Department Care Team (Late st Contact Info) Description 03/03/2024 Refill [facility] [address] [facility] [address] [place] [address] Gabino De Dios MD [address] [facility] [address] [place] [address] Essential (primary) hypertension Social History [...] hypertension documented in this encounter Care Teams Hydroelectric Plant Electrical Engineer Relationship Specialty Start Date End Date Sony Bonilla FNP-C PCP - General Nurse Practitioner 08/17/21 documented as of this encounter
--- OUTSIDE RECORDS SUMMARY | 2024-12-03 07:35 | XMS_ITS | Clinical Summary ---
Author Organization [facility] Facility Address [address] [place] [address] Care Team Providers Care Chief Engineer Research Name Role Phone Sony Bonilla EMERGENCY SERVICES DISPATCHER-C Primary Care Provider Unavailable Allergies No known [...] patient's age to complete this topic Insurance [facility] Care Teams Chief Engineer Research Relationship Specialty Start Date End Date Sony Bonilla FNP-C PCP - General Nurse Practitioner 08/17/21
--- OUTSIDE RECORDS SUMMARY | 2024-12-03 07:35 | XMS_ITS | Encounter Summary ---
Author Organization [facility] Address [address] [place] [address] Phone Care Team Providers Care Rail Transit Operator Name Role Phone Sony Bonilla Primary Care Provider Unavailable Encounter Details Date Type Department Care Team (Late st Contact Info) Description 12/18/2021 Documentation Only [facility] [address] [place] [address] Reyna Adrian Social History Tobacco [...] on filedocumented in this encounter Care Teams Rail Transit Operator Relationship Specialty Start Date End Date Sony Bonilla FNP-C PCP - General Nurse Practitioner 08/17/21 documented as of this encounter
--- OUTSIDE RECORDS SUMMARY | 2024-12-03 07:35 | XMS_ITS | Patient Health Record ---
Author Organization [facility] Address [address] [place] [address] Care Team Providers Care Information Technology Project Manager Name Role Phone Omega ROLAND, Samy Primary Care Provider Vlad Andersen [phone] Allergies No Known Allergies Reason For Referral [...] Problem Status W/U Status Risk Notes Problem [id number] Encounter for screening for malignant neoplasm of colon (Z12.11) Active confirmed Problem 613231496 History of adenomatous polyp of colon (Z86.010) Active confirmed Problem Diverticular disease of colon (964087006) Diverticulosis of large intestine without perforation or abscess without bleeding (K57.30) Active confirmed Problem 997970073 Gastroesophageal reflux disease without esophagitis (K21.9) Active confirmed Problem 83194596 Constipation, unspecified constipation type (K59.00) Active confirmed Plan Of Treatment Pending Test Test Name Order Date Pathology 06/13/2023 Future Test Test Name Order Date UPPER GI ENDOSCOPY 05/14/2012 COLONOSCOPY 05/14/2012 COLONOSCOPY 11/19/2017 COLONOSCOPY 03/12/2023 Insurance Providers Payer Name Payer Address Payer Phone Subscriber Number Group Number Insured Name Patient Relationship to Insured Coverage Start Date Coverage End Date [employer] [address] [place]AR[place]SA [place]YO [id number] ROSELIA DELUNA Self - patient is the insured Medical (General) History Medical History History ICD Code Colonoscopy 12/19/2006-flat tubular adenoma removed from the Asc. colon, melanosis coli Neg. F/U colonoscopy in 11/2008 Mild diverticulosis Internal and external hemorrhoids GERD with chronic cough--EGD in 06/2012--small HH, no esophagitis nor Kelley's HTN Asthma Denies [place],DM,CVA,renal disease Colonoscopy in 06/2012--small tubular keagan nomas removed Negative colonoscopy in 11/2017 Surgical History Surgery Date(Month/Year) KATRIN except for a piece of an ovary Knee surgery Back surgery Surgery for cyst on her face [facility]Y
--- OUTSIDE RECORDS SUMMARY | 2024-12-03 07:35 | XMS_ITS | Encounter Summary ---
Author Organization [facility] Address [address] [place] [address] Phone Care Team Providers Care Hand Cigar Maker Name Role Phone Sony Bonilla Primary Care Provider Unavailable Encounter Details Date Type Department Care Team (Late st Contact Info) Description 12/19/2021 Documentation Only [facility] [address] [place] [address] Reyna Adrian Social History Tobacco [...] on filedocumented in this encounter Care Teams Hand Cigar Maker Relationship Specialty Start Date End Date Sony Bonilla FNP-C PCP - General Nurse Practitioner 08/17/21 documented as of this encounter
[2024-12-03 10:36] LABS: MANUAL DIFF FLAG NO
[2024-12-03 10:41] LABS: Hematocrit 36.4 % (37.0-47.0); Hemoglobin 12.5 g/dl (12.0-16.0); Imm Gran Abs Auto 0.05 X10*3/uL (0.00-0.03); Imm Gran Pct Auto 0.6 % (0.0-0.4); Lymphocytes Absolute Auto 1.7 X10*3/uL (1.2-4.9); Mean Corpuscular HGB Conc 34.3 g/dl (31.0-35.0); Mean Corpuscular Hemoglobin 29.7 pg (27.0-33.0); Mean Corpuscular Volume 86.5 fL (80.0-98.0); NRBC Abs Auto 0.000 X10*3/uL (0.0-0.012); NRBC Pct Auto 0.0 /100WBC (0.0-0.2); Platelet Count 264 X10*3/uL (160-400); Red Blood Count 4.21 X10*6/uL (4.20-5.50); White Blood Count 8.0 X10*3/uL (4.8-10.8)
[2024-12-03 10:53] LABS: Appearance Urine Clear; Glucose Urine UA Negative (Negative); PH 6.0 (5.0-9.0); Specific Gravity - Urine 1.010 (1.005-1.025)
[2024-12-03 11:14] LABS: Hemoglobin A1C 123.5996 umol/L; Total Hemoglobin (HGBA1C) 3242.8137 umol/L
[2024-12-03 11:17] LABS: Alanine Aminotransferase 19 U/L (0-31); Albumin Level 4.2 g/dL (3.5-5.0); Alkaline Phosphatase 70 U/L (39-117); Anion Gap 14 (12-20); Aspartate Amino Transferase 25 U/L (5-31); Blood Urea Nitrogen 17 mg/dL (9-16); Calcium 9.5 mg/dL (8.4-10.2); Carbon Dioxide 27 mmol/L (22-29); Chloride 104 mmol/L (96-108); Cholesterol 161 mg/dL (<200); Estimated Glomerular Filt Rate 47; HDL Cholesterol 47 mg/dL (>40); Potassium 4.4 mmol/L (3.3-5.1); Sodium 141 mmol/L (135-145); Total Protein 7.0 g/dL (6.5-8.0); Triglycerides 145 mg/dL (<150)
== END 2024-12-03 07:33 | disposition home or self-care (01) ==
LOC: HO.HMGCLDS 07:32
PROVIDERS: PCP Internal Medicine; Visit Provider Internal Medicine
DX: R73.01 Impaired fasting glucose (principal); E78.00 Pure hypercholesterolemia, unspecified; D64.9 Anemia, unspecified; E55.9 Vitamin D deficiency, unspecified; R30.0 Dysuria
CPT/HCPCS: 36415; 80053; 80061; 81003; 82306; 83036; 84443; 85025

== ENCOUNTER 2024-12-06 08:28 | Outpatient (AMB) | payer MEDICARE, SELFPAY ==
--- OUTSIDE RECORDS SUMMARY | 2023-06-13 06:20 | XMS_ITS ---
Author Organization [facility] Address [address] [place] [address] Care Team Providers Care Die Maker Electronic Name Role Phone Omega ROLAND, [place] Primary Care Provider Vlad Andersen Unavailable [phone] REASON FOR VISIT screening,hx polyps Problems Problem Type SNOMED Code ICD Code Onset Dates Problem Status W/U Status Risk Notes Problem Diverticular disease of colon (286116591) Diverticulosis of large intestine without perforation or abscess without bleeding (K57.30) Active confirmed Encounters Encounter Location Date Provider Diagnosis [facility] Out[place] [address] [place] [phone] 06/13/2023 Vlad Abreu Encounter for scre ening [...] Progress Notes * ROSELIA DELUNA LDOB: [birth year] (69 yo F)Acc No.[id number]:06/13/2023 COLON WITH MAC Patient: ROSELIA FORDE Provider: Tracie Abreu MD :1955 A ge:67 Y S ex:Female Date:06/13/2023 Address:[facility] [address], [place], [place] Pcp:Samy Duff MD Subjective: * Chief Complaints: [...] 06/13/2023 Generated for Casey you/Estiven/Elmersmitting on: 0 12/06/2024 09:31 AM EDT
[2024-12-06 08:44] VITALS: BP 126/80; PULSE 65; O2SAT 94; BMI 42.6
--- NOTE | 2024-12-06 08:44 | MHC.PC.OV ---
Vital Signs 12/06/24 08:44 Height 5 ft 4 in Weight 248 lb 6 oz BMI 42.6 BP 126/80 Blood Pressure Location Lt brachial Position Sitting Pulse 65 Pulse Source Pulse Oximeter Pulse Oximetry (%) 94 Oxygen Delivery Method Room Air Intake Visit Reasons: hyperlipidemia, HTN, IFG, lumbar DDD Hogshead Salvage Required: No Accompanied by: Self / Same As Patient Allergies No Known Allergies (No Known Allergies*) Allergy (Verified 12/06/24 09:18) Medication List - Last Reconciled 12/06/24 by Samy Duff MD albuterol sulfate 90 mcg/actuation 2 puffs inhalation Q4-6H PRN back brace As directed budesonide 180 mcg/actuation (Pulmicort Flexhaler) 1 inh PO BID hydralazine 25 mg PO BID hydrochlorothiazide 25 mg PO QAM losartan 100 mg PO DAILY metoprolol succinate ER 100 mg PO DAILY 90 days montelukast 10 mg PO BEDTIME 90 days naloxone 4 mg/actuation (Narcan) 4 mg intranasal Q2M PRN oxycodone 5 mg PO Q6H PRN 5 days pantoprazole 40 mg PO DAILY PRN 90 days pregabalin 100 mg PO TID 30 days spironolactone 25 mg PO DAILY tramadol 50 mg PO TID PRN 30 days Tobacco use date assessed: 12/06/24 Fall risk assessment: No Falls in past year Last assessed Fall Risk: 12/06/24 Dental Screening Dental Screen Date: 12/06/24 Did you have a dental visit in the last 12 months?: No Did you have a dental problem in the last 6 months where you did not have access to dental care?: No Was dental information given to patient?: No HPI hyperlipidemia, HTN, IFG, lumbar DDD HPI Details Patient comes in today for her follow up visit States that she feels okay She underwent left SI joint fusion with LinkQ (PainTEQ) with pain management back on 09/17/24 and reports experiencing (+) significant improvement of her low back pain She is presently still experiencing increased pain in both of her hips lately and she is currently being scheduled for therapeutic left hip joint injection by pain management for symptomatic relief Notes also that her right thigh would suddenly go numb at times when her hip pains get worse with prolonged standing She denies any headaches or dizziness Denies any chest pains, no increased SOB No nausea/vomiting, no abdominal pain No change in bowel habits noted She had her follow up labs done a few days ago - to discuss her results [facility] Medical History (Updated 12/06/24 @ 09:43 by Samy Duff MD) Chronic kidney disease (CKD), stage III (moderate) Osteopenia Osteoarthritis of hands, bilateral Degenerative joint disease of left hip Tenosynovitis of thumb Constipation Obesity (BMI 30-39.9) Depression Allergic rhinitis Deep left inguinal pain Lumbar degenerative disc disease GERD without esophagitis Impaired fasting glucose Palpitations COPD (chronic obstructive pulmonary disease) Benign essential hypertension Surgical History History of colonoscopy History of eye surgery History of surgery History of total abdominal hysterectomy and bilateral salpingo-oophorectomy History of laparoscopic cholecystectomy History of appendectomy History of removal of cyst History of left knee surgery Family History Father CHF (congestive heart failure) Colon cancer Hypertension CVD (cardiovascular disease) Mother CVD (cardiovascular disease) Social History Housing: House Are you a primary transition of care specialist to a significant other at home: No Do you presently have visiting nurse or other home services: No Alcohol intake: never Comment: COUNTS CORRECT Patient Tobacco Use Status: Former Tobacco user e-Cigarette/Vaping Use: Never Used Second Hand Smoke Exposure: Yes service: No Current occupational status: disabled Cognitive needs: No Hearing needs: No Vision needs: Yes (glasses) Questionnaire PHQ-9 Over the last 2 weeks, how often have you been bothered by any of the following problems? 1. Little interest or pleasure in doing things: not at all 2. Feeling down, depressed, or hopeless: not at all 3. Trouble falling or staying asleep, or sleeping too much: not at all 4. Feeling tired or having little energy: not at all 5. Poor appetite or overeating: not at all 6. Feeling bad about yourself - or that you are a failure or have let yourself or your family down: not at all 7. Trouble concentrating on things, such as reading the newspaper or watching television: not at all 8. Moving or speaking so slowly that other people could have noticed. Or the opposite - being so fidgety or restless that you have been moving around a lot more than usual: not at all 9. Thoughts that you would be better off or of hurting yourself in some way: not at all Total score: 0 Depression Screening Interpretation: Negative Depression Screening Done: Yes 26676 - PHQ-9 Billing: Yes Source: Developed by Drs. Vlad Carmichael, Corie Rahman, Regulo Mata and colleagues, with an educational leno from [employer]. Thrive Questionnaire Date Thrive assessed: 12/06/24 I am a: Patient What is your living situation today?: I have a steady place to live Within the past 12 months, did the food you bought not last and you didn't have the money to get more?: Never true Within the past 12 months, did you worry whether your food would run out before you got money to buy more?: Never true Do you have trouble paying for medicines?: No Do you have trouble getting transportation to medical appointments?: No Do you have trouble paying your heating and electricity bill?: No Do you have trouble taking care of your child, family member or friend?: No Do you have trouble with day-to-day activities such as bathing, preparing meals, shopping, managing finances, etc.?: No Are you currently unemployed and looking for a job?: No Are you interested in more education?: No Please select the resources that you would like help with: None Currently or been in a relationship where the following occur: No concerns reported THRIVE Score: 0 AUDIT C Alcohol Use Questionnaire (AUDIT-C) 1. How often do you have a drink containing alcohol?: Never 3. How often do you have six or more drinks on one occasion?: Never Total Score: 0 Score Reviewed/Action Taken: Yes ALEIDA-7 AMB Questionnaire ALEIDA-7 Date ALEIDA - 7 assessed: 12/06/24 Feeling nervous, anxious, or on edge: 0 = Not at all Not being able to stop or control worryin = Not at all Worrying too much about different things: 0 = Not at all Trouble relaxin = Not at all Being so restless that it is hard to sit still: 0 = Not at all Becoming easily annoyed or irritable: 0 = Not at all Feeling afraid as if something awful might happen: 0 = Not at all Total ALEIDA-7 score (0-4 normal; 5-9 mild; 10-14 moderate; 15-21 severe): 0 Source: Developed by Drs. Vlad Carmichael, Corie Rahman, Regulo Mata and colleagues, with an educational leno from [employer]. Review of Systems Const Denies chills, Denies fatigue, Denies fever(s) and Denies headache(s) ENT Denies dysphagia, Denies dizziness, Denies otalgia, Denies headache(s), Denies neck pain, Denies odynophagia and Denies sore throat Card Denies chest pain, Denies irregular heart rhythm, Denies palpitations and Reports dyspnea on exertion (mild) Resp Denies chest congestion, Denies cough, Reports dyspnea on exertion (mild) and Denies wheezing GI Denies abdominal pain, Denies constipation, Denies dysphagia, Denies heartburn, Denies diarrhea, Denies nausea, Denies odynophagia and Denies vomiting Denies difficulty voiding, Denies nocturia, Denies dysuria and Denies urinary urgency Musc Reports back pain (over the lumbar spine - chronic), Reports arthralgias (on and off, over fingers of both hands, in the L hip and R knee), Denies joint swelling and Denies neck pain Skin/Breast Denies rash Neuro Denies dizziness and Denies headache(s) Endo Denies fatigue and Denies palpitations Aller/Immun Denies wheezing Physical exam (Primary Care) Vital Signs: Last Vital Signs Pulse 65 12/06/24 08:44 BP 126/80 12/06/24 08:44 Pulse Ox 94 12/06/24 08:44 Oxygen Delivery Method Room Air 12/06/24 08:44 BMI result Body Mass Index 42.6 Tobacco/Smoking Status: Tobacco use Status Tobacco use date assessed 12/06/24 12/06/24 08:47 Patient Tobacco Use Status Former Tobacco user 12/06/24 08:47 e-Cigarette/Vaping Use Never Used 12/06/24 08:47 PHQ-9: PHQ-9 Score PHQ-9: Total score 0 12/06/24 08:47 Depression Screening Interpretation: Negative Thrive Assessment: Date of Thrive Assessment Date Thrive assessed 12/06/24 12/06/24 08:57 Currently or been in a relationship where the following occur: No concerns reported Const General: no acute distress and alert HENMT Ears: TM's normal bilaterally and EAC's normal Throat: Yes posterior oropharynx normal and Yes tonsils normal (no TP congestion noted) Neck Neck: Yes supple and No lymphadenopathy Thyroid: Thyroid normal Resp Auscultation: clear to auscultation bilaterally, no rales and no wheezes Cardio Rate: regular rate Rhythm: regular rhythm Heart sounds: no murmurs GI Palpation (GI): Soft to palpation and nontender Auscultation: normal bowel sounds General: Yes no CVA tenderness Back/Spine/Pelvis Back: no CVA tenderness Thoracic/Lumbar Spine: lumbar spinal tenderness Skin Rashes: no rashes Extrem General: Yes no clubbing, cyanosis or edema Right lower extremity: hip/thigh Details: tenderness Location: of the hip and knee Details: tenderness Location: of the pre-patellar area and of the infrapatellar area; no swelling Left lower extremity: hip/thigh Details: tenderness Location: of the hip Results Reviewed Results Reviewed: Laboratory Tests 12/03/24 08:00 WBC 8.0 Hgb 12.5 Hct 36.4 L Plt Count 264 Sodium 141 Potassium 4.4 Creatinine 1.15 Estimated GFR 47 Fasting Glucose 109 H Hemoglobin A1c % 5.6 Calcium 9.5 AST 25 ALT 19 Triglycerides 145 Cholesterol 161 LDL Cholesterol, Calc 85 HDL Cholesterol 47 25-OH Vitamin D Total 58.2 TSH 2.80 Ur Specific [place] 1.010 Urine Protein Negative Urine Glucose (UA) Negative Urine Blood Negative Urine Nitrite Negative Ur Leukocyte Esterase Negative Coding Level of Care Code Est Pt Level 4 (87090) Diagnoses Hypertriglyceridemia E78.1 Benign essential hypertension I10 Impaired fasting glucose R73.01 Stage 3a chronic kidney disease N18.31 Chronic kidney disease stage 3 subtype: stage 3a (GFR 45-59) Chronic obstructive pulmonary disease, unspecified COPD type J44.9 COPD type: unspecified COPD Degeneration of intervertebral disc of lumbar region with discogenic back pain and lower extremity pain M51.362 Disc-related pain type: discogenic back pain and lower extremity pain Osteoarthritis of left hip, unspecified osteoarthritis type M16.12 Osteoarthritis type: unspecified Primary osteoarthritis of both hands M19.041; M19.042 Osteoarthritis type: primary Osteopenia of multiple sites M85.89 Osteopenia location: multiple sites GERD without esophagitis K21.9 Episode of recurrent major depressive disorder, unspecified depression episode severity F33.9 Depression Type: major depressive disorder Major depression recurrence: recurrent Active/Remission status: currently active Major depression episode severity: unspecified Morbid obesity with BMI of 40.0-44.9, adult E66.01; Z68.41 Additional Codes PHQ-9 - 53209 - PHQ-9 Billing: Yes ([id number]) Assessment & Plan Assessment & Plan (1) Hypertriglyceridemia: Code(s): E78.1 - Pure hyperglyceridemia Category: Medical Plan: Results of her labs done a few days ago reviewed and discussed with patient - her cholesterol numbers are currently all at or near goal Reinforced low cholesterol diet Will recheck her labs and fasting lipids in 4 months for follow up (2) Benign essential hypertension: Code(s): I10 - Essential (primary) hypertension Category: Medical Plan: Reinforced low sodium diet - goal is systolic BP of at least 130 to 140 mm or less Her BP has remained well-controlled on her current Rx regimen Continue Losartan 100 mg QD, Metoprolol ER 100 mg QD, Hydralazine 25 mg BID, HCTZ 25 mg Q AM and Spironolactone 25 mg QD Amlodipine was discontinued previously due to increasing edema and SOB Renal doppler and urine metanephrines done last year both came back within normal range, with no evidence of KAITY or pheochromocytoma Patient is reminded to continue monitoring her blood pressure regularly (3) Impaired fasting glucose: Code(s): R73.01 - Impaired fasting glucose Category: Medical Plan: Reinforced low calorie diet/exercise as tolerated Her in-office HgbA1c was still normal at 5.6% on her labs done a few days ago (4) Chronic kidney disease (CKD), stage III (moderate): Code(s): N18.30 - Chronic kidney disease, stage 3 unspecified Category: Medical Qualifiers: Chronic kidney disease stage 3 subtype: stage 3a (GFR 45-59) Qualified Code(s): N18.31 - Chronic kidney disease, stage 3a Plan: Patient is cautioned that her renal function has declined slightly on her recent labs Her BP, cholesterol levels and blood sugar are all within acceptable range so this is likely, at least partly, due to inadequate oral fluid intake She is also cautioned about taking NSAIDs - patient states that she has not taken any of them at all lately Will continue to monitor her renal function closely (5) COPD (chronic obstructive pulmonary disease): Comment: PFT done in 2013 showed (+) mild restrictive lung disease Code(s): J44.9 - Chronic obstructive pulmonary disease, unspecified Category: Medical Qualifiers: COPD type: unspecified COPD Qualified Code(s): J44.9 - Chronic obstructive pulmonary disease, unspecified Plan: Controlled Continue Pulmicort Flexhaler 180 mcg 1 inhalation BID and Albuterol HFA 1 to 2 puffs up to 4 times a day as needed (6) Lumbar degenerative disc disease: Code(s): M51.36 - Other intervertebral disc degeneration, lumbar region Category: Medical Qualifiers: Disc-related pain type: discogenic back pain and lower extremity pain Qualified Code(s): M51.362 - Other intervertebral disc degeneration, lumbar region with discogenic back pain and lower extremity pain Plan: Reinforced activity and weight-lifting restrictions She had a TENS unit that she uses as needed with (+) temporary relief but has not needed that since her SI joint fusion back in August 2024 Continue Tramadol 50 mg TID PRN; she has Oxycodone 5 mg to take TID PRN for when Tramadol is not helping effectively - she is aware not to take them both simultaneously Patient has taken Gabapentin (up to 300 mg TID) in the past without any relief Lumbar spine MRI done in 2023 revealed (+) postsurgical changes and multilevel degenerative disc disease Follow up with pain management as scheduled (7) Degenerative joint disease of left hip: Code(s): M16.12 - Unilateral primary osteoarthritis, left hip Category: Medical Qualifiers: Osteoarthritis type: unspecified Qualified Code(s): M16.12 - Unilateral primary osteoarthritis, left hip Plan: Will send patient for updated bilateral hip x-rays for further evaluation States that pain management is scheduling her for a therapeutic left hip joint injection soon Follow up with orthopedics and with pain management as scheduled (8) Osteoarthritis of hands, bilateral: Code(s): M19.041 - Primary osteoarthritis, right hand; M19.042 - Primary osteoarthritis, left hand Category: Medical Qualifiers: Osteoarthritis type: primary Qualified Code(s): M19.041 - Primary osteoarthritis, right hand; M19.042 - Primary osteoarthritis, left hand Plan: Patient is advised again on regular hand exercises to help manage her finger stiffness and pain Repeat x-rays of both hands done last year confirmed (+) OA changes in both hands She was seen by orthopedics and offered cortisone injection if use of thumb splints do not help States that she did not go for cortisone injections as the splints helped somewhat and would like to continue using these first and reserve injections for when these are no longer helping (9) Osteopenia: Code(s): M85.80 - Other specified disorders of bone density and structure, unspecified site Category: Medical Qualifiers: Osteopenia location: multiple sites Qualified Code(s): M85.89 - Other specified disorders of bone density and structure, multiple sites Plan: Her repeat BMD done on 04/04/2023 showed a significant improvement in her BMD compared to her previous scan in 2017 (which revealed osteopenia with a T score of -1.5 in the hips) - her BMD is now NORMAL She is encouraged again to continue taking Vitamin D and Calcium supplements daily and to try to exercise regularly (10) GERD without esophagitis: Code(s): K21.9 - Gastro-esophageal reflux disease without esophagitis Category: Medical Plan: Dietary restrictions reinforced Continue Pantoprazole 40 mg QD (11) Depression: Code(s): F32.9 - Major depressive disorder, single episode, unspecified Category: Medical Qualifiers: Depression Type: major depressive disorder Major depression recurrence: recurrent Active/Remission status: currently active Major depression episode severity: unspecified Qualified Code(s): F33.9 - Major depressive disorder, recurrent, unspecified Plan: Controlled - patient stopped taking Duloxetine on her own last year and has not felt any worse since stopping the Rx (12) Morbid obesity with BMI of 40.0-44.9, adult: Code(s): E66.01 - Morbid (severe) obesity due to excess calories; Z68.41 - Body mass index [BMI] 40.0-44.9, adult Category: Medical Plan: Reinforced diet; exercise and weight loss are unrealistic at present due to her multiple joint and lower back issues Plan Follow up in 4 months Orders: Orders Comprehensive Epworth. Panel Fast 4 Months E78.00 - Pure hypercholesterolemia, unspecified Lipid Panel 4 Months E78.00 - Pure hypercholesterolemia, unspecified TSH reflex Free T4 4 Months E78.00 - Pure hypercholesterolemia, unspecified Complete Blood Count Auto Diff 4 Months D64.9 - Anemia, unspecified UA CC w/rflx Micro + Cult 4 Months R30.0 - Dysuria Vitamin B12 and Folate 4 Months E53.8 - Deficiency of other specified B group vitamins Vitamin D 25-OH Total 4 Months E55.9 - Vitamin D deficiency, unspecified XR hips MEGHANN min 3V Today M25.551 - Pain in right hip, M25.552 - Pain in left hip Medications: Changed From hydralazine 25 mg PO TID 90 days 270 tabs 3RF To hydralazine 25 mg PO BID Refilled albuterol sulfate 90 mcg/actuation 2 puffs inhalation Q4-6H PRN 8.5 grams 3RF shortness of breath or wheezing J44.1 - Chronic obstructive pulmonary disease with (acute) exacerbation budesonide 180 mcg/actuation (Pulmicort Flexhaler) 1 inh PO BID 1 ea 3RF
--- OUTSIDE RECORDS SUMMARY | 2024-12-06 09:32 | XMS_ITS | Patient Health Record ---
Author Organization [facility] Address [address] [place] [address] Care Team Providers Care Allergy Nurse Name Role Phone Omega ROLAND, Samy Primary Care Provider Vlad Andersen Unavailable [phone] Allergies No Known Allergies Reason For Referral [...] Problem Status W/U Status Risk Notes Problem 759073248 Encounter for screening for malignant neoplasm of colon (Z12.11) Active confirmed Problem 137925237 History of adenomatous polyp of colon (Z86.010) Active confirmed Problem Diverticular disease of colon (790545784) Diverticulosis of large intestine without perforation or abscess without bleeding (K57.30) Active confirmed Problem 231597444 Gastroesophageal reflux disease without esophagitis (K21.9) Active confirmed Problem 33865951 Constipation, unspecified constipation type (K59.00) Active confirmed Plan Of Treatment Pending Test Test Name Order Date Pathology 06/13/2023 Future Test Test Name Order Date UPPER GI ENDOSCOPY 05/14/2012 COLONOSCOPY 05/14/2012 COLONOSCOPY 11/19/2017 COLONOSCOPY 03/12/2023 Insurance Providers Payer Name Payer Address Payer Phone Subscriber Number Group Number Insured Name Patient Relationship to Insured Coverage Start Date Coverage End Date [employer] [address] [place]AR[place]SA ARROYO [id number] [phone] [id number] ROSELIA DELUNA Self - patient is the insured Medical (General) History Medical History History ICD Code Colonoscopy 12/19/2006-flat tubular adenoma removed from the Asc. colon, melanosis coli Neg. F/U colonoscopy in 11/2008 Mild diverticulosis Internal and external hemorrhoids GERD with chronic cough--EGD in 06/2012--small HH, no esophagitis nor Kelley's HTN Asthma Denies [place],DM,CVA,renal disease Colonoscopy in 06/2012--small tubular keagan nomas removed Negative colonoscopy in 11/2017 Surgical History Surgery Date(Month/Year) KATRIN except for a piece of an ovary Knee surgery Back surgery Surgery for cyst on her face [facility]
--- OUTSIDE RECORDS SUMMARY | 2024-12-06 09:32 | XMS_ITS | Encounter Summary ---
Author Organization [facility] Address [address] [place] [address] Phone Care Team Providers Care [employer] [place] [place] Name Role Phone Sony Bonilla Primary Care Provider Unavailable Encounter Details Date Type Department Care Team (Late st Contact Info) Description 12/18/2021 Documentation Only [facility] [address] [place] [address] Reyna Adrian Social History Tobacco [...] on filedocumented in this encounter Care Teams [employer] [place] Relationship Specialty Start Date End Date Sony Bonilla FNP-C PCP - General Nurse Practitioner 08/17/21 documented as of this encounter
--- OUTSIDE RECORDS SUMMARY | 2024-12-06 09:32 | XMS_ITS | Encounter Summary ---
Author Organization [facility] Address [address] [facility] [address] [place] [address] Phone Care Team Providers Care Typesetting Supervisor Name Role Phone Sony Bonilla Primary Care Provider Unavailable Reason for Visit * Reason Comments Med Refill Encounter Details Date Type Department Care Team (Late st Contact Info) Description 03/03/2024 Refill [facility] [address] [facility] [address] [place] [address] Gabino De Dios MD [address] [facility] [address] [place] [address] Essential (primary) hypertension Social History [...] hypertension documented in this encounter Care Teams Typesetting Supervisor Relationship Specialty Start Date End Date Sony Bonilla FNP-C PCP - General Nurse Practitioner 08/17/21 documented as of this encounter
--- OUTSIDE RECORDS SUMMARY | 2024-12-06 09:32 | XMS_ITS | Clinical Summary ---
Author Organization [facility] Facility Address [address] [place] [address] Care Team Providers Care Associate Theatre Professor Name Role Phone Sony Bonilla DIRECTOR OF CASEWORK-C Primary Care Provider Unavailable Allergies No known [...] patient's age to complete this topic Insurance [facility] Care Teams Associate Theatre Professor Relationship Specialty Start Date End Date Sony Bonilla FNP-C PCP - General Nurse Practitioner 08/17/21
--- OUTSIDE RECORDS SUMMARY | 2024-12-06 09:32 | XMS_ITS | Encounter Summary ---
Author Organization [facility] Address [address] [place] [address] Phone Care Team Providers Care Pie Cutter Name Role Phone Sony Bonilla Primary Care Provider Unavailable Encounter Details Date Type Department Care Team (Late st Contact Info) Description 12/19/2021 Documentation Only [facility] [address] [place] [address] Reyna Adrian Social History Tobacco [...] on filedocumented in this encounter Care Teams Pie Cutter Relationship Specialty Start Date End Date Sony Bonilla FNP-C PCP - General Nurse Practitioner 08/17/21 documented as of this encounter
== END 2024-12-06 09:41 | disposition home or self-care (01) ==
LOC: HO.HMCH 08:29
PROVIDERS: PCP Internal Medicine; Visit Provider Internal Medicine
DX: I12.9 Hypertensive chronic kidney disease with stage 1 through stage 4 chronic kidney disease, or unspecified chronic kidney disease (principal); N18.31 Chronic kidney disease, stage 3a; J44.9 Chronic obstructive pulmonary disease, unspecified; E66.01 Morbid (severe) obesity due to excess calories; Z68.41 Body mass index [BMI] 40.0-44.9, adult; E78.1 Pure hyperglyceridemia; R73.01 Impaired fasting glucose; M51.362 Other intervertebral disc degeneration, lumbar region with discogenic back pain and lower extremity pain; M16.12 Unilateral primary osteoarthritis, left hip; M19.041 Primary osteoarthritis, right hand; M19.042 Primary osteoarthritis, left hand; M85.89 Other specified disorders of bone density and structure, multiple sites

== ENCOUNTER → 2024-12-06 08:28 | Outpatient (BNVA) | payer MEDICARE, SELFPAY | PROVIDERS: PCP Internal Medicine; Visit Provider Internal Medicine | DX: I12.9 Hypertensive chronic kidney disease with stage 1 through stage 4 chronic kidney disease, or unspecified chronic kidney disease (principal); N18.31 Chronic kidney disease, stage 3a; J44.9 Chronic obstructive pulmonary disease, unspecified; M51.362 Other intervertebral disc degeneration, lumbar region with discogenic back pain and lower extremity pain; E78.1 Pure hyperglyceridemia; R73.01 Impaired fasting glucose; M16.12 Unilateral primary osteoarthritis, left hip; M19.041 Primary osteoarthritis, right hand; M19.042 Primary osteoarthritis, left hand; M85.89 Other specified disorders of bone density and structure, multiple sites; K21.9 Gastro-esophageal reflux disease without esophagitis; F33.9 Major depressive disorder, recurrent, unspecified; E66.01 Morbid (severe) obesity due to excess calories; Z68.41 Body mass index [BMI] 40.0-44.9, adult | CPT/HCPCS: 96127; 99212 ==

== ENCOUNTER 2024-12-08 14:08 | Outpatient (REF) | payer MEDICARE, SELFPAY ==
--- NOTE | ~2024-12-08 | XR_ITS ---
EXAMINATION: XR BILATERAL HIPS WITH AP PELVIS CLINICAL INFORMATION: M25.551 - Pain in right hip COMPARISON: None available. TECHNIQUE: AP view of the pelvis and frog-leg lateral views of each hip were obtained. FINDINGS: Right: The right SI joint demonstrates sclerosis and marginal osteophytes. The right hip joint space is preserved. There is small calcification in the soft tissues superior and medial to the greater trochanter. Left: SI joint demonstrates marginal osteophytes and vacuum phenomena. There is also sclerosis and degenerative cystic change. There is mild to moderate superior lateral hip joint space narrowing. Femoral head demonstrates marginal osteophytes. There is pronounced appositional bone along the femoral neck. Acetabular roof osteophyte is present. XR/XR hips MEGHANN min 3V IMPRESSION: Degenerative changes are present in bilateral SI joints. Possible gluteal calcific tendinitis on the right. Mild to moderate osteoarthritis of the left hip. Electronically signed by: Henok Kwong MD 12/08/2024 02:39 PM EDT
== END 2024-12-08 14:09 | disposition home or self-care (01) ==
LOC: HO.HMGCX 14:08
PROVIDERS: PCP Internal Medicine; Visit Provider Internal Medicine
DX: M25.551 Pain in right hip (principal); M25.552 Pain in left hip
CPT/HCPCS: 73522

== ENCOUNTER → 2024-12-08 14:12 | Outpatient (BNV) | payer MEDICARE, SELFPAY | PROVIDERS: PCP Internal Medicine; Visit Provider Radiology Diagnostic Radiology | DX: M47.898 Other spondylosis, sacral and sacrococcygeal region (principal) | CPT/HCPCS: 73522 ==

== ENCOUNTER 2024-12-17 06:44 | Day surgery (SDC) | payer MEDICARE, SELFPAY ==
--- OUTSIDE RECORDS SUMMARY | 2023-06-13 06:20 | XMS_ITS ---
Author Organization [facility] Address [address] [place] [address] Care Team Providers Care Cheese Specialist Name Role Phone Omega ROLAND, [place] Primary Care Provider Vlad Andersen Unavailable [phone] REASON FOR VISIT screening,hx polyps Problems Problem Type SNOMED Code ICD Code Onset Dates Problem Status W/U Status Risk Notes Problem Diverticular disease of colon (374950490) Diverticulosis of large intestine without perforation or abscess without bleeding (K57.30) Active confirmed Encounters Encounter Location Date Provider Diagnosis [facility] [place] [address] [place] [phone] 06/13/2023 Vlad Abreu Encounter for scre ening [...] ROSELIA DELUNA LDOB: [birth year] (69 yo F)Acc No.[id number]:06/13/2023 COLON WITH MAC Patient: ROSELIA FORDE Provider: Tracie Abreu MD :1955 A ge:67 Y S ex:Female Date:06/13/2023 Address:[facility] [address], [place], [place] Pcp:Samy Duff MD Subjective: * Chief Complaints: [...] 06/13/2023 Generated for Casey you/Estiven/Elmersmitting on: 0 12/08/2024 03:40 PM EDT
--- OUTSIDE RECORDS SUMMARY | 2024-12-08 15:40 | XMS_ITS | Encounter Summary ---
Author Organization [facility] Address [address] [place] [address] Phone Care Team Providers Care Tornado Chaser Name Role Phone Sony Bonilla Primary Care Provider Unavailable Encounter Details Date Type Department Care Team (Late st Contact Info) Description 12/19/2021 Documentation Only [facility] [address] [place] [address] Reyna Adrian Social History Tobacco [...] on filedocumented in this encounter Care Teams Tornado Chaser Relationship Specialty Start Date End Date Sony Bonilla FNP-C PCP - General Nurse Practitioner 08/17/21 documented as of this encounter
--- OUTSIDE RECORDS SUMMARY | 2024-12-08 15:40 | XMS_ITS | Patient Health Record ---
Author Organization [facility] Address [address] [place] [address] Care Team Providers Care Concrete Floor Installer Name Role Phone Omega ROLAND, Samy Primary Care Provider Vlad Andersen Unavailable [phone] Allergies No Known Allergies Reason For Referral [...] Problem Status W/U Status Risk Notes Problem 315500341 Encounter for screening for malignant neoplasm of colon (Z12.11) Active confirmed Problem 010325878 History of adenomatous polyp of colon (Z86.010) Active confirmed Problem Diverticular disease of colon (284030700) Diverticulosis of large intestine without perforation or abscess without bleeding (K57.30) Active confirmed Problem 386788957 Gastroesophageal reflux disease without esophagitis (K21.9) Active confirmed Problem 06666246 Constipation, unspecified constipation type (K59.00) Active confirmed Plan Of Treatment Pending Test Test Name Order Date Pathology 06/13/2023 Future Test Test Name Order Date UPPER GI ENDOSCOPY 05/14/2012 COLONOSCOPY 05/14/2012 COLONOSCOPY 11/19/2017 COLONOSCOPY 03/12/2023 Insurance Providers Payer Name Payer Address Payer Phone Subscriber Number Group Number Insured Name Patient Relationship to Insured Coverage Start Date Coverage End Date [employer] P[employer] [address] [place] [phone] [id number] ROSELIA DELUNA Self - patient is the insured Medical (General) History Medical History History ICD Code Colonoscopy 12/19/2006-flat tubular adenoma removed from the Asc. colon, melanosis coli Neg. F/U colonoscopy in 11/2008 Mild diverticulosis Internal and external hemorrhoids GERD with chronic cough--EGD in 06/2012--small HH, no esophagitis nor Kelley's HTN Asthma Denies [place],DM,CVA,renal disease Colonoscopy in 06/2012--small tubular keagan nomas removed Negative colonoscopy in 11/2017 Surgical History Surgery Date(Month/Year) KATRIN except for a piece of an ovary Knee surgery Back surgery Surgery for cyst on her face [facility]
--- OUTSIDE RECORDS SUMMARY | 2024-12-08 15:40 | XMS_ITS | Encounter Summary ---
Author Organization [facility] Address [address] [facility] [address] [place] [address] Phone Care Team Providers Care Director Of Market Intelligence Name Role Phone Sony Bonilla Primary Care Provider Unavailable Reason for Visit * Reason Comments Med Refill Encounter Details Date Type Department Care Team (Late st Contact Info) Description 03/03/2024 Refill [facility] [address] [facility] [address] [place] [address] Gabino De Dios MD [address] [facility] [address] [place] [address] Essential (primary) hypertension Social History [...] hypertension documented in this encounter Care Teams Director Of Market Intelligence Relationship Specialty Start Date End Date Sony Bonilla FNP-C PCP - General Nurse Practitioner 08/17/21 documented as of this encounter
--- OUTSIDE RECORDS SUMMARY | 2024-12-08 15:40 | XMS_ITS | Clinical Summary ---
Author Organization [facility] Facility Address [address] [place] [address] Care Team Providers Care Painter Decorator Name Role Phone Sony Bonilla SHREDDER/GRANULATOR OPERATOR-C Primary Care Provider Unavailable Allergies No known [...] patient's age to complete this topic Insurance [facility] Care Teams Painter Decorator Relationship Specialty Start Date End Date Sony Bonilla FNP-C PCP - General Nurse Practitioner 08/17/21
--- OUTSIDE RECORDS SUMMARY | 2024-12-08 15:40 | XMS_ITS | Encounter Summary ---
Author Organization [facility] Address [address] [place] [address] Phone Care Team Providers Care Resin Shaver Name Role Phone Sony Bonilla Primary Care Provider Unavailable Encounter Details Date Type Department Care Team (Late st Contact Info) Description 12/18/2021 Documentation Only [facility] [address] [place] [address] Reyna Adrian Social History Tobacco [...] on filedocumented in this encounter Care Teams Resin Shaver Relationship Specialty Start Date End Date Sony Bonilla FNP-C PCP - General Nurse Practitioner 08/17/21 documented as of this encounter
--- NOTE | 2024-12-15 11:35 | HO.ANESPROP2 ---
Documented by User: Harriet Browne NP 12/15/24 11:38 HPI - Anesthesia Eval Consult details Narrative: 69 yr old female for left Intra-Articular Hip Steroid Injection s/p sacroiliac joint fusion 09/17/24 with GA, ETT 7.5 BMI 42 COPD: controlled, using maintenance medication, prn albuterol PMFSH Active Problems Active Problems: All Active Problems (Updated 12/06/24 @ 09:43 by Samy Duff MD) Chronic kidney disease (CKD), stage III (moderate) (Acute) Lumbar radiculopathy (Acute) Chronic pain syndrome (Acute) Continuous use of opioids (Acute) Hypertriglyceridemia (Acute) COVID (Acute) Macular hole (Acute) Osteopenia (Acute) Morbid obesity with BMI of 40.0-44.9, adult (Acute) Right knee pain (Acute) Left hip pain (Acute) Sacroiliac joint pain (Acute) Post laminectomy syndrome (Acute) Colon cancer screening (Acute) Arthritis of carpometacarpal (CMC) joint of left thumb (Acute) Osteoarthritis of carpometacarpal joint of right thumb (Acute) Screening for lung cancer (Acute) De Quervain's tenosynovitis (Acute) Choking sensation (Acute) Upper respiratory tract infection (Acute) Osteoarthritis of hands, bilateral (Acute) Skin exam, screening for cancer (Acute) Hypertension, uncontrolled (Acute) Acute bronchitis (Acute) Bronchitis (Acute) COPD exacerbation (Acute) Cough (Acute) Flu-like symptoms (Acute) Uncontrolled hypertension (Acute) Recurrent nonproductive cough (Acute) Left lumbar radiculopathy (Acute) Lumbar facet arthropathy (Acute) Primary osteoarthritis of left hip (Acute) Degenerative joint disease of left hip (Acute) Tenosynovitis of thumb (Acute) Constipation (Acute) Obesity (BMI 30-39.9) (Acute) Depression (Acute) Allergic rhinitis (Acute) Deep left inguinal pain (Acute) Lumbar degenerative disc disease (Acute) GERD without esophagitis (Acute) Impaired fasting glucose (Acute) Palpitations (Acute) COPD (chronic obstructive pulmonary disease) (Acute) Benign essential hypertension (Acute) Past Medical History Medical History Chronic kidney disease (CKD), stage III (moderate) Osteopenia Osteoarthritis of hands, bilateral Degenerative joint disease of left hip Tenosynovitis of thumb Constipation Obesity (BMI 30-39.9) Depression Allergic rhinitis Deep left inguinal pain Lumbar degenerative disc disease GERD without esophagitis Impaired fasting glucose Palpitations COPD (chronic obstructive pulmonary disease) Benign essential hypertension Family History Family History Father CHF (congestive heart failure) Colon cancer Hypertension CVD (cardiovascular disease) Mother CVD (cardiovascular disease) Family history of problems with anesthesia: No Surgical History Surgical History Hx of surgical fusion joint (09/17/24) History of colonoscopy History of eye surgery History of surgery History of total abdominal hysterectomy and bilateral salpingo-oophorectomy History of laparoscopic cholecystectomy History of appendectomy History of removal of cyst History of left knee surgery History of Problems with Anesthesia: No Social History Social History Housing: House Are you a primary nursing care attendant to a significant other at home: No Do you presently have visiting nurse or other home services: No Alcohol intake: never Comment: COUNTS CORRECT Patient Tobacco Use Status: Former Tobacco user e-Cigarette/Vaping Use: Never Used Second Hand Smoke Exposure: Yes Have you been hit, kicked, punched, or otherwise hurt by someone within the past year? If so, by whom?: No Are you DNR?: No Advance Directives: No Advance Directives Information Provided: Yes service: No Current occupational status: disabled Cognitive needs: No Hearing needs: No Vision needs: Yes (glasses) Meds Allergies Allergy/AdvReac Type Severity Reaction Status Date / Time No Known Allergies (No Known Allergy Verified 12/17/24 07:04 Allergies*) Home Medications ?Medication ?Instructions ?Recorded ?Confirmed ?Last Taken ?Type hydralazine 25 mg tablet 25 mg PO BID 12/06/24 12/17/24 Unknown History Assessment and Plan Final Anesthetic Review Family History of Problems with Anesthesia: No History of Problems with Anesthesia: No Documented by User: Huma Barrios MD 12/17/24 08:15 [facility] Past Medical History Medical History Chronic kidney disease (CKD), stage III (moderate) Osteopenia Osteoarthritis of hands, bilateral Degenerative joint disease of left hip Tenosynovitis of thumb Constipation Obesity (BMI 30-39.9) Depression Allergic rhinitis Deep left inguinal pain Lumbar degenerative disc disease GERD without esophagitis Impaired fasting glucose Palpitations COPD (chronic obstructive pulmonary disease) Benign essential hypertension Family History Family History Father CHF (congestive heart failure) Colon cancer Hypertension CVD (cardiovascular disease) Mother CVD (cardiovascular disease) Surgical History Surgical History Hx of surgical fusion joint (09/17/24) History of colonoscopy History of eye surgery History of surgery History of total abdominal hysterectomy and bilateral salpingo-oophorectomy History of laparoscopic cholecystectomy History of appendectomy History of removal of cyst History of left knee surgery Social History Social History Housing: House Are you a primary nursing care attendant to a significant other at home: No Do you presently have visiting nurse or other home services: No Alcohol intake: never Comment: COUNTS CORRECT Patient Tobacco Use Status: Former Tobacco user e-Cigarette/Vaping Use: Never Used Second Hand Smoke Exposure: Yes Have you been hit, kicked, punched, or otherwise hurt by someone within the past year? If so, by whom?: No Are you DNR?: No Advance Directives: No Advance Directives Information Provided: Yes service: No Current occupational status: disabled Cognitive needs: No Hearing needs: No Vision needs: Yes (glasses) Meds Allergies Allergy/AdvReac Type Severity Reaction Status Date / Time No Known Allergies (No Known Allergy Verified 12/17/24 07:04 Allergies*) Home Medications ?Medication ?Instructions ?Recorded ?Confirmed ?Last Taken ?Type hydralazine 25 mg tablet 25 mg PO BID 12/06/24 12/17/24 Unknown History Exam Airway Mallampati Class: II (edentulous) TM Dist: >3cm Neck ROM: Full Denture: Upper and Lower Loose/Missing/Broken Teeth: Yes, Upper and Lower Heart: RRR Lungs: distant BS but clear Assessment and Plan Assessment Anesthesia Assessment: Anesthesia Plan Discussed and Chart Reviewed Final Anesthetic Review NPO: Yes ASA Class: III Final Preanesthetic Review: Meds/Allgs Chart Reviewed, Consent Obtained/Reviewed and Anes Risks/Benef Reviewed Patient Risk: Intermediate Procedure Risk: Low Anesthetic Plan Anesthetic Plan: MAC: Disposition: Standard PACU
[2024-12-15 14:49] VITALS: BMI 42.6
--- NOTE | ~2024-12-17 | FL_ITS ---
EXAMINATION: FL GUIDANCE ONLY HISTORY: hip steroid injection, left COMPARISON: None available. TECHNIQUE: Fluoroscopy time: 22 seconds. Cumulative Dose: 5.4 mGy. DAP: 110.23 uGym2 Images: 2. FINDINGS: Fluoroscopic spot films of the left hip demonstrate a needle in place and contrast material in the joint space. FL/FL guidance in OR IMPRESSION: Fluoroscopy during procedure. Please see procedure report for additional information. Electronically signed by: Vlad Moore MD 12/17/2024 09:12 AM EDT
[2024-12-17 06:54] VITALS: BMI 42.7
[2024-12-17 06:55] VITALS: BMI 42.7
[2024-12-17 07:00] VITALS: BP 125/67; PULSE 66; TEMP 36.7; O2SAT 96
[2024-12-17] MEDS: Lactated Ringers 1,000 ML 100 ML IVCONT (07:10)
--- NOTE | 2024-12-17 07:24 | MHC.SHP ---
Pre-Procedural Eval Section A - 24 Hr Update-Section A only Date of Service: 12/17/24 The patient is an INPATIENT: No Changes since office visit: Yes Patient answered all questions The patient has been examined within 24 hours of the surgical procedure. The History & Physical has been completed within 30 days and I have reviewed it.: No Section B - Complete if H&P > 30 days Chief Complaint: Unilateral primary osteoarthritis, left hip Details of Present Illness: as above Relevant Family History (Specify if Yes): No Relevant Social History: None Present Medications: None Medical History: Significant History History of Previous Operations: No relevant previous surgery Allergies: Allergies Allergy/AdvReac Type Severity Reaction Status Date / Time No Known Allergies (No Known Allergy Verified 12/17/24 07:04 Allergies*) Review of Systems Sugical H&P ROS: Negative: Cardiovascular, Respiratory, Neurological, Psychiatric, Hem-Onc, Allergic/Immunologic, Gastrointestinal, Integumentary, Endocrine and Eyes/Ears/Nose/Throat and Yes, Specify: Constitution (morbid obesity), Genitourinary (CCI 3) and Musculoskeletal (osteoarthritis) Exam Surgical H&P Exam: Normal: HEENT, Normal: Heart, Normal: Lungs, Normal: Extremities, Normal: Skin and Normal: Neurological and Significant Findings: Abdomen (enlarged 2 to fat) Plan Diagnosis/Plan: Unchanged I have reviewed the history and physical and performed a pertinent physical examination on my patient. No changes have occurred unless specified. Time Spent With Patient Time: Total time managing care of this patient today __5__ minutes.
[2024-12-17 08:59] VITALS: BP 129/51; PULSE 68; RESP 15; TEMP 36; O2SAT 94
--- NOTE | 2024-12-17 09:09 | PM.OP ---
Brief Operative Note Date of Service: 12/17/24 Pre-op diagnosis: Left hip osteoarthritis left hip pain Post-op diagnosis: same Procedure: Left hip steroid injection. Surgeon: Cezar Obregon MD Anesthesia: MAC Was an Lead C Developer used for this Procedure?: No Estimated blood loss (mL): 0 Condition: stable Disposition: PACU
--- NOTE | 2024-12-17 09:12 | W.PM.OPN ---
Operative Note Operative Note Date of Service: 12/17/24 Narrative: Left intra-articular hip steroid injection. Patient came to the operating room after informed consent was thoroughly explained to the patient. she was positioned on the right lateral decubitus position on the operating table with the left hip area exposed. ASA monitors were applied and patient was moderately sedated. Time-out was performed delineating name and date of of the patient, nature of the procedure side and site of the procedure. The patient is nondependent left hip was prepped with ChloraPrep and draped with sterile utility towels. C-arm was brought over the operating field and picture of the left hip joint was demonstrated on the screen. In the projection of the right trochanter 5 mm above the most superior point of right trochanter projection to the skin injection of the local anesthetic mixture of lidocaine 2% and ropivacaine 0.5% one-to-one was performed forming a skin wheal. After that 22 gauge 5 in needle was inserted through the skin wheal and advanced toward the joint under the anterior posterior and lateral views intermittently. When the tip of the needle entered the silhouette of the joint injection of the contrast was performed demonstrating arthrogram. After that 4 cc of ropivacaine 0.5% mixed with Kenalog 40 mg was performed into the joint. The needle was removed sterile Band-Aid was applied. Patient tolerated procedure well. Orders: Orders
[2024-12-17 09:14] VITALS: BP 123/51; PULSE 66; RESP 18; TEMP 36.7; O2SAT 96
[2024-12-17 09:29] VITALS: BP 148/63; PULSE 64; RESP 18; TEMP 36.6; O2SAT 95
== END 2024-12-17 09:55 | disposition home or self-care (01) ==
PROVIDERS: PCP Internal Medicine; Visit Provider Anesthesiology
PROC: (CPT 20610; principal; 2024-12-17 08:40)
DX: M16.12 Unilateral primary osteoarthritis, left hip (principal); M25.552 Pain in left hip; R20.0 Anesthesia of skin; Z98.1 Arthrodesis status; G89.4 Chronic pain syndrome; M53.3 Sacrococcygeal disorders, not elsewhere classified; M51.369 Other intervertebral disc degeneration, lumbar region without mention of lumbar back pain or lower extremity pain; I10 Essential (primary) hypertension; R73.01 Impaired fasting glucose; J44.9 Chronic obstructive pulmonary disease, unspecified; M51.362 Other intervertebral disc degeneration, lumbar region with discogenic back pain and lower extremity pain; M47.816 Spondylosis without myelopathy or radiculopathy, lumbar region; Z87.891 Personal history of nicotine dependence
CPT/HCPCS: 20610; J2003; J2250; J2795; J3301; Q9967

== ENCOUNTER → 2024-12-17 06:44 | Outpatient (BNV) | payer MEDICARE, SELFPAY | PROVIDERS: PCP Internal Medicine; Visit Provider Anesthesiology | DX: M16.12 Unilateral primary osteoarthritis, left hip (principal) | CPT/HCPCS: 20610; 77002 ==

== ENCOUNTER 2025-01-20 09:08 | Outpatient (AMB) | payer MEDICARE, SELFPAY ==
--- NOTE | 2025-01-20 09:12 | A.OFFVIS_ITS ---
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 Patient reports therapeutic injection provided her moderate to significant pain relief, reducing her daily left hip pain to 2/10. The patient reports that the injection provided approximately 80% relief, although she experiences discomfort when walking long distances, primarily originating from the groin area. In August of this year, the patient underwent a left sacroiliac joint fusion which has alleviated significant left buttock and low back pain. She continues to use a sacroiliac joint belt for support and reports no significant buttock pain since the procedure. The patient has arthritis in both sacroiliac joints and moderate arthritis in the left hip, confirmed by an X-ray prior to the steroid injection. Denies any recent cough, cold, infection, fever or any significant changes in medical history since last office visit. 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 Tenosynovitis of thumb Constipation Obesity (BMI 30-39.9) Depression Allergic rhinitis Deep left inguinal pain Lumbar degenerative disc disease GERD without esophagitis Impaired fasting glucose Palpitations COPD (chronic obstructive pulmonary disease) Benign essential hypertension Surgical History Hx of surgical fusion joint (09/17/24) History of colonoscopy History of eye surgery History of surgery History of total abdominal hysterectomy and bilateral salpingo-oophorectomy History of laparoscopic cholecystectomy History of appendectomy History of removal of cyst History of left knee surgery Family History Father CHF (congestive heart failure) Colon cancer Hypertension CVD (cardiovascular disease) Mother CVD (cardiovascular disease) Social History Housing: House Are you a primary patient care provider to a significant other at home: No Do you presently have visiting nurse or other home services: No Alcohol intake: never Comment: COUNTS CORRECT Patient Tobacco Use Status: Former Tobacco user e-Cigarette/Vaping Use: Never Used Second Hand Smoke Exposure: Yes service: No Current occupational status: disabled Cognitive needs: No Hearing needs: No Vision needs: Yes (glasses) Review of Systems Const Details: - Musculoskeletal: Reports chronic left hip and groin pain, relieved by steroid injection; denies significant buttock pain post-fusion All systems reviewed & are unremarkable except as noted in HPI and below Physical Exam Vital Signs: Last Vital Signs Pulse 71 01/20/25 09:16 BP 147/68 H 01/20/25 09:16 Pulse Ox 98 01/20/25 09:16 Oxygen Delivery Method Room Air 01/20/25 09:16 BMI result Body Mass Index 42.6 General: Appears afebrile. Alert and oriented. Mood and affect appropriate. Follows and participates in conversation appropriately. Respiratory effort is unlabored. No cough. Able to transition from sit to stand unassisted. Ambulates with bilaterally normal heel strike and toe off, antalgic gait. General: Yes no CVA tenderness Back/Spine/Pelvis Back: no CVA tenderness Cervical Spine: cervical ROM normal, No Cervical spine tenderness and No step off deformity Thoracic/Lumbar Spine: thoracic and lumbar spine normal to inspection, Thoracic/lumbar spine scar(s), Lasegue's sign negative, straight leg raise negative bilaterally, pain with thoraco-lumbar ROM, No thoracic spinal tenderness and No lumbar spinal tenderness Sacroiliac joints: on the right nontender and on the left (mild TTP) Extrem Other: Lateral but not medial hip rotation on the left causes mild aggravation of the pain in the groin. General: Yes capillary refill normal, Yes no clubbing, cyanosis or edema and Yes no calf tenderness Results Reviewed Results Reviewed: XR lumbar spine 6V w bending, XR left hip with pelvis 12/05/22 EXAMINATION: lumbar spine and left hip. CLINICAL INDICATIONS: Radiculopathy lumbar region. COMPARISON: Lumbar spine 07/23/2017 FINDINGS: LUMBAR SPINE: There is normal lumbar lordosis. The vertebral heights and alignment are normal. There is loss of L5-S1 disc height. Rest of the disc heights, vertebral heights and alignment is normal. There is mild ventral spondylosis throughout lumbar spine. No visible acute fracture, dislocation seen. There is no subluxation on flexion or extension views. There is mild bilateral L4-L5 and L5-S1 facet arthropathy. AP PELVIS AND LEFT HIP: There is mild loss of joint space and bilateral hip joints. SI joints are symmetrical. No visible fracture, lytic or sclerotic process seen. There is mild periarticular degenerative spurring inferior left hip joint. IMPRESSION: No acute fracture, dislocation or subluxation in lumbar spine. There is mild L5-S1 degenerative disc changes. Unremarkable AP pelvis and left hip. MR pelvis wo con 01/27/24 IMPRESSION: 1. No evidence of pelvic or bilateral hip fracture or dislocation. 2. Interval development of Sigmoid diverticulosis without diverticulitis. 3. Unchanged Status post hysterectomy. 4. Prominent bilateral L4-L5 and L5-S1 apophyseal joint osteoarthritis. MR LUMBAR SPINE WITHOUT CONTRAST 04/26/24 at [facility] INDICATION: Postlaminectomy syndrome, lumbar disc degenerations TECHNIQUE: Standard lumbar spine protocol without contrast COMPARISON: None. FINDINGS: Vertebral bodies demonstrate normal height and signal intensity. There is mild levoscoliosis of the lumbar curvature. Conus demonstrates normal contour and signal and terminates at L1 level. T12-L2: No significant abnormalities are seen. L2-L3 level shows asymmetric disc bulge and mild disc desiccation. The canal and foramina are patent. At L3-L4 level, there is shallow central disc bulge, ligamental and facet hypertrophy. Slight anterolisthesis of L3 on L4 is seen. The canal and recesses are patent. Mild foraminal narrowing is present without neural impingement seen. L4-L5 level shows central and foraminal shallow disc bulge, superimposed by slight degenerative anterolisthesis of L4 on L5 and facet arthrosis. The canal and recesses are preserved. Mild foraminal narrowing is present. At L5-S1 level, there are postsurgical changes related to left-sided hemilaminectomy. There is shallow central and foraminal disc bulge superimposed by facet arthrosis, resulting in mild to moderate foraminal narrowing, contacting the exiting L5 nerve roots. The canal and recesses are preserved. No MRI evidence for spondylolysis is seen. Visualized upper SI joints are preserved. IMPRESSION: 1. Postsurgical changes at L5-S1 level related to prior left-sided hemilaminectomy. No recurrent disc herniations are present. 2. Mild changes of multilevel lumbar spondylosis and foraminal narrowing extending from L3 to S1 levels as detailed above. 3. Mild levoscoliosis of the lumbar curvature. XR BILATERAL HIPS WITH AP PELVIS 12/08/24 CLINICAL INFORMATION: M25.551 - Pain in right hip COMPARISON: None available. TECHNIQUE: AP view of the pelvis and frog-leg lateral views of each hip were obtained. FINDINGS: Right: The right SI joint demonstrates sclerosis and marginal osteophytes. The right hip joint space is preserved. There is small calcification in the soft tissues superior and medial to the greater trochanter. Left: SI joint demonstrates marginal osteophytes and vacuum phenomena. There is also sclerosis and degenerative cystic change. There is mild to moderate superior lateral hip joint space narrowing. Femoral head demonstrates marginal osteophytes. There is pronounced appositional bone along the femoral neck. Acetabular roof osteophyte is present. IMPRESSION: Degenerative changes are present in bilateral SI joints. Possible gluteal calcific tendinitis on the right. Mild to moderate osteoarthritis of the left hip. Assessment & Plan Assessment & Plan (1) Lumbar facet arthropathy: Code(s): M47.816 - Spondylosis without myelopathy or radiculopathy, lumbar region Category: Medical (2) Post laminectomy syndrome: Code(s): M96.1 - Postlaminectomy syndrome, not elsewhere classified Category: Medical (3) Sacroiliac joint pain: Code(s): M53.3 - Sacrococcygeal disorders, not elsewhere classified Category: Medical (4) Left hip pain: Code(s): M25.552 - Pain in left hip Category: Medical (5) Degenerative joint disease of left hip: Code(s): M16.12 - Unilateral primary osteoarthritis, left hip Category: Medical Qualifiers: Osteoarthritis type: unspecified Qualified Code(s): M16.12 - Unilateral primary osteoarthritis, left hip Plan The plan includes monitoring the patient's response to the steroid injection, with consideration for repeating the procedure if necessary in 3-6 months. If the groin pain persists or worsens, an MRI of the hip may be considered to evaluate for any additional underlying issues. Continued use of the sacroiliac j oint belt is recommended to provide support and potentially alleviate hip pain. All questions and concerns have been answered and patient agreed with the treatment plan. Follow up as needed. Patient was informed and verbally consented to the use of an ambient scribe for clinic note documentation during this visit. Coding Level of Care Code Est Pt Level 3 (25876) Complex EM visit Add On G2211 Diagnoses Lumbar facet arthropathy M47.816 Post laminectomy syndrome M96.1 Sacroiliac joint pain M53.3 Left hip pain M25.552 Osteoarthritis of left hip, unspecified osteoarthritis type M16.12 Osteoarthritis type: unspecified
[2025-01-20 09:16] VITALS: BP 147/68; PULSE 71; O2SAT 98; BMI 42.6
--- OUTSIDE RECORDS SUMMARY | 2025-01-20 10:16 | XMS_ITS | Patient Health Record ---
Author Organization [facility] Address [address] [place] [address] Care Team Providers Care Conference Coordinator Name Role Phone Samy Duff MD Primary Care Provider Vlad Andersen [phone] Allergies No Known Allergies Reason For Referral No Information Medications Medication SIG (Take, Route, Frequency, Duration) Notes Start Date End Date Status Singulair 10mg Activ e hydroCHLOROthiazide 25 MG Oral; Duration: 90 Active Folic Acid 800mg Act gina hydrALAZINE HCl 25 MG Oral; Duration: 90 Active Vitamin C 500mg Acti ve Spironolactone 25 MG Oral; Duration: 90 Active Losartan Potassium-HCTZ 50-1 2.5 MG 1 tablet Orally Once a day Active Pantoprazole Sodium 40 MG Oral; Duration: 90 Active Vitamin D 1000 UNIT 1 tablet Orally Once a day Active Pulmicort Flexhaler 180 MCG/ACT Inhalati on; Duration: 90 Active Qvar 40 MCG/ACT 1 puff Inhalation Twice a day Active Montelukast Sodium 10 MG Oral; Duration: 90 Active traMADol HCl 50 MG 1 tablet as needed Orally every 6 hrs Active Aleve 220 MG 1 tablet with food o r milk as needed Orally every 12 hrs Active Aspir-81 Active Protonix 40 MG 1 tablet Orally Once a day Active Fish Oil 1000mcg Act gina Losartan Potassium 100 MG Oral; Duration: 90 Active Multi Vitamin/Minerals Active Metoprolol Succinate ER 100 MG Oral; Duration: 90 Active Immunizations Vaccine Route Administration Date Status Comme nts Influenza Unknown 02/21/2023 Administered Problems Problem Type SNOMED Code ICD Code Onset Dates Problem Status W/U Status Risk Notes Problem Screening for malignant neoplasm of colon (926371199) Encounter for screening for malignant neoplasm of colon (Z12.11) Active confirmed Problem History of adenomatous polyp of colon (312373329) History of adenomatous polyp of colon (Z86.010) Active confirmed Problem Diverticular disease of colon (469872493) Diverticulosis of large intestine without perforation or abscess without bleeding (K57.30) Active confirmed Problem Gastroesophageal reflux disease without esophagitis (694902815) Gastroesophageal reflux disease without esophagitis (K21.9) Active confirmed Problem Constipation (05692089) Constipation, unspecified constipation type (K59.00) Active confirmed Plan Of Treatment Pending Test Test Name Order Date Pathology 06/13/2023 Future Test Test Name Order Date UPPER GI ENDOSCOPY 05/14/2012 COLONOSCOPY 05/14/2012 COLONOSCOPY 11/19/2017 COLONOSCOPY 03/12/2023 Insurance Providers Payer Name Payer Address Payer Phone Subscriber Number Group Number Insured Name Patient Relationship to Insured Coverage Start Date Coverage End Date [employer] [address] [place] [phone] [id number] ROSELIA DELUNA Self - patient is the insured Medical (General) History Medical History History ICD Code Colonoscopy 12/19/2006-flat tubular adenoma removed from the Asc. colon, melanosis coli Neg. F/U colonoscopy in 11/2008 Mild diverticulosis Internal and external hemorrhoids GERD with chronic cough--EGD in 06/2012--small HH, no esophagitis nor Kelley's HTN Asthma Denies DE,DM,CVA,renal disease Colonoscopy in 06/2012--small tubular keagan nomas removed Negative colonoscopy in 11/2017 Surgical History Surgery Date(Month/Year) KATRIN except for a piece of an ovary Knee surgery Back surgery Surgery for cyst on her face [facility]
--- OUTSIDE RECORDS SUMMARY | 2025-01-20 10:16 | XMS_ITS | Data Portability ---
Author Organization [facility], [id number] Address [address] [place] [address] Care Team Providers Care Wildlife Conservation Professor Name Role Phone CIRILO GABRIEL Primary Care [...] By Organization Details Last Modified Time 06/29/2022 [id number] cuts: care instructions Not available 06/29/2022 14:06:50 [...] 3 days. Not available 06/29/2022 13:51:29 07/10/2022 [id number] Keep healing wound clean. Monitor for signs of infection. Seek Emergency Medical evaluation for any signs of infection such as redness, red streaking, purulent drainage, fever, swelling. [email or web address] Not available 07/10/2022 12:22:34 Reason for Referral None Reported. Problems Name Problem SNOMED Code Status Onset Date Resolution Date Notes Provider Name and Address Organization Details Recorded Time Hypertensive disorder 57321829 Active 2022 EVER DEPINTO null, [place] - [facility] 12:51:43 Asthma 940379012 Active 2022 EVER DEPINTO null, [place] - [facility] 12:51:55 Gastroesophage al reflux disease 419127169 Active 2022 EVER DEPINTO null, [place] - [facility] 12:52:03 Problem Notes None recorded. Procedures Surgical History Date Name Laterality Status Provider Name and Address Organization Details Recorded Time 07/11/19 23 Suture Removal completed Blossom Galeano MD [address] [place], [address], [place] - [facility] 07/10/2022 12:23:57 06/30/19 23 Wound Dressing completed Yon Murphy NP [address] [place], [address], [place] - [facility] 06/29/2022 14:08:27 06/30/19 23 Laceration, Simple Repair, (scalp/neck/trunk/ genitalia/extremit ies) 2.6-7.5cm completed Yon Murphy NP [address] [place], [address], [place] - [facility] 06/29/2022 14:07:57 06/29/18 [...] Updated DateTime 3 165.1 cm 39.9 kg/m2 307497. 17 g 4 18 /min 97 % 97 % 69 /min 97 [degF] 123/77 mm[Hg] EVER SOTOMAYORLana PA - [facility] 3 12:53:37 Date Recorded Body height Body mass index (BMI) Body weight Pain severity - 0-10 verbal numeric rating [Score] - Reported Body temperature Respiratory rate Oxygen saturation Oxygen saturation in Arterial blood by Pulse oximetry Heart rate Systolic And Diastolic Provider Name and Address Organization Details Last Updated DateTime 3 165.1 cm 39.9 kg/m2 891717. 17 g 0 97.5 [degF] 18 /min 96 % 96 % 67 /min 142/78 mm[Hg] EVER ALBERT PA - [facility] 3 11:03:19 Social History Question Answer Notes LastModified by Liquid Details LastModified Time Tobacco Smoking Status Never Smoker EVER wright [place] - [facility] 06/29/2022 12:52:40 Have You Recently Traveled Abroad? No Information not available 06/29/2022 Sex: Unknown Functional Status Question Answer Note LastModified by Liquid Details LastModified Time Do you use any [...] Diagnosis SNOMED-CT Code Diagnosis ICD10 Code Diagnosis IMO Codes Diagnosis Note [id number] Yon Murphy NP [address] [place] [address] 06/29/2022 12:41:58 06/29/2022 14:14:04 Laceration of left hand 2479039702 [id number] S61.412A Administra tion of tetanus vaccine 318409979 Z23 [id number] Blossom Galeano MD [address] [place] [address] 07/10/2022 08:28:11 07/10/2022 12:25:34 Laceration of left hand 9038271080 0653781 S61.412D Health Concerns Section Related Observation LastModified by Organization Detai ls LastModified Time None Recorded Concern Status LastModified by Organization Details LastModified Time None Recorded Advance Directives Directive None Recorded Payers Insurance Date Sequence Insurance Name Policy Number Policy Loz[place] Covered Member ID Lozada Member ID Guarantor Name 07/10/2022 1 [facility] [id number] Meche Soto [id number] Meche Soto Notes Date Note Type Note Provider Name and Address Organization Details Recorded Time 06/29/2022 text/html Wound/LacerationRepor bhavin by PatientHPIFor quality, patient reportsmoderate bleedingbut reportsno undermining,no cellulitis,no drainage,no eschar, andlaceration. For location, patient reportshands(left hand laceration palmar aspect in between left thumb and hand at the base of left thumb.). For severity, patient reportsmild. For duration, patient reports2 hoursand___ days. For onset/timing, patient reportsdate of initial injury: 06/29/2022. For context, patient reportstrauma. For associated symptoms, patient reportsno fever,no bruising,no numbness,no tingling, andnormal sensation. Yon Murphy NP [address] [place], [address], [place] [facility] 06/29/2022 14:09:36 07/10/2022 text/html Wound/LacerationRepor bhavin by PatientHPIFor location, patient reportshands. For quality, patient reportsnot bleeding,no cellulitis, andno drainage. For severity, patient reportsmild. For duration, patient [email or web address] days. For onset/timing, patient reportsdate of initial injury: 06/29/22. For context, patient reportstrauma. For associated symptoms, patient reportsno fever,no bruising,no numbness,no tingling, andnormal sensation.66 year old female presenting for suture removal of a laceration to her left hand sustained on 06/29/22 and sutured here. The patient report no pain, redness, swelling, bleeding or drainage from the wound. No numbness or weakness of the fingers or hand. Blossom Galeano MD [address] [place], [address], [place] - [facility] 07/10/2022 12:47:27 OBGyn Episode No OBEpisode recorded.
== END 2025-01-20 09:28 | disposition home or self-care (01) ==
LOC: HO.PMC 09:09
PROVIDERS: PCP Internal Medicine; Visit Provider Nurse Practitioner Family
DX: M47.816 Spondylosis without myelopathy or radiculopathy, lumbar region (principal); M96.1 Postlaminectomy syndrome, not elsewhere classified; M53.3 Sacrococcygeal disorders, not elsewhere classified; M25.552 Pain in left hip; M16.12 Unilateral primary osteoarthritis, left hip
CPT/HCPCS: 99213; G2211

== ENCOUNTER → 2025-01-20 09:08 | Outpatient (BNVA) | payer MEDICARE, SELFPAY | PROVIDERS: PCP Internal Medicine; Visit Provider Nurse Practitioner Family | DX: M47.816 Spondylosis without myelopathy or radiculopathy, lumbar region (principal); M96.1 Postlaminectomy syndrome, not elsewhere classified; M53.3 Sacrococcygeal disorders, not elsewhere classified; M25.552 Pain in left hip; M16.12 Unilateral primary osteoarthritis, left hip | CPT/HCPCS: 99212 ==